=== PATIENT | female | born 1965 | race Caucasian/White ===

== ENCOUNTER 2019-01-29 04:58 | Inpatient (IN) ==
[2019-01-29] MEDS ORDERED: ALBUT/IPRATROP 3MG/0.5MG NEB 3 ML VIAL NEB STA ×2 (05:24→17:27)
[2019-01-29 06:02] LABS: Alanine Aminotransferase 42 U/L (12-78); Albumin Level 3.2 gm/dl (3.4-5.0); Alkaline Phosphatase 134 U/L (45-117); Aspartate Aminotransferase 128 U/L (15-37); BUN Creatinine Ratio 6.6 (10-20); Bilirubin Direct 3.9 mg/dl (0-0.2); Blood Urea Nitrogen 2 mg/dl (7-18); Calcium 8.6 mg/dl (8.5-10.1); Carbon Dioxide 24 mmol/L (21-32); Chloride 89 mmol/L (98-107); Est GFR (African American) 148.3; Glucose 77 mg/dl (70-99); Magnesium 1.8 mg/dl (1.8-2.4); Potassium 3.6 mmol/L (3.5-5.1); Sodium 127 mmol/L (136-145); Total Protein 6.6 gm/dl (6.4-8.2); Troponin I 0.015 ng/ml (0-0.045)
--- NOTE | 2019-01-29 06:09 | XRay Report ---
XR chest 1V portable CLINICAL HISTORY: cough, sob dyspnea COMPARISON STUDY: 01/06/2016 FINDINGS: Moderate cardiomegaly. Findings of pulmonary edema. Diaphragms are smooth. IMPRESSION: Pulmonary edema. The above report was generated using voice recognition software. It may contain grammatical, syntax or spelling errors. Electronically signed by: Hayes Tavarez M.D. 01/29/2019 6:08 AM
[2019-01-29 06:11] LABS: INR 1.5 (0.9-1.1); Partial Thromboplastin Ratio 1.4; Partial Thromboplastin Time 37.2 Seconds (21.0-31.0); Prothrombin Time 15.4 Seconds (9.0-12.0)
[2019-01-29 06:14] LABS: D Dimer 2370 ug/L FEU (0-500)
--- NOTE | 2019-01-29 06:21 | Ultrasound Report ---
US venous doppler LE BI HISTORY: Pain. Edema. b/l leg swelling COMPARISON STUDY: None. FINDINGS: There is normal compressibility, flow, and augmentation within the bilateral lower extremit y deep venous systems. IMPRESSION: No DVT within the right or left lower extremity. The above report was generated using voice recognition software. It may contain grammatical, syntax or spelling errors. Electronically signed by: Hayes Tavarez M.D. 01/29/2019 6:19 AM
--- NOTE | 2019-01-29 06:21 | Emergency Department Note ---
History of Present Illness General Chief complaint: Respiratory Problems Stated complaint: TROUBLE BREATHING, COUGH Source: patient Mode of arrival: ambulatory Limitations: no limitations History of Present Illness Maximum Pain Intensity: 3 This patient is a 54-year-old female who presents to the emergency department for evaluation of trouble breathing. The patient states that she developed a cough while she was in [facility] 2 weeks ago. She returned from [place] yesterday. She has had a persistent cough since then and states she develops trouble breathing last night. She reports that she has had swollen feet and ankles for the past 3 months. She has not used any medication for her symptoms. She states she has had a cough productive of blood-tinged clear mucus. She has had episodes of emesis with the cough. She denies any fevers or chest pain. She denies any abdominal pain or nausea. Patient states she drinks 10-12 beers each day. She is not a smoker. She denies any hormone use. She states that nothing makes her symptoms better or worse. She denies any past medical history but admits that she does not see a primary care provider regularly. Home Medications Home Medications Medication Instructions Recorded Confirmed Type No Known Home Medications 01/29/19 01/29/19 History Allergies Allergy/AdvReac Type Severity Reaction Status Date / Time propoxyphene Allergy Unknown ` Verified 01/29/19 06:23 Past Med/Surg History Medical History Alcohol abuse (Chronic) Surgical History H/O tubal ligation (Chronic) Social History Preferred Language: Telugu Communication Ability: Effective Behavioral Services Tech Required: No Beliefs That Will Affect Care: None marital status: Current Living Situation: Spouse Current Living Situation Comment: lives with ex- Other Information That Helps Us Care for You: No Feels Safe at Home: Yes Safety Concerns: Feels Safe At This Time Smoking Status: Former smoker Do You Dip or Chew Tobacco: No ; Second Hand Exposure: No ; Tobacco Cessation Education Requested by Patient: No Hx Alcohol Use: Yes Alcohol type: beer Hx Substance Use: No Review of Systems A total of 10 systems reviewed and were otherwise negative Physical Exam Vital Signs Vital Signs - 24 hr 01/29/19 05:00 01/29/19 05:16 01/29/19 05:17 Temperature 36.7 C Temperature Source Oral Sepsis Recent Fever Within 48 Hours No Sepsis New/Unexplained Change in Mental Status No Sepsis Action Taken by Nursing No Action Required Pulse Rate 121 H 126 H 123 H Pulse Rate [Apical] Pulse Rate from SpO2 Sensor 123 H Respiratory Rate 20 17 19 Respiratory Effort / Characteristics Respiratory Depth Respiratory Pattern Blood Pressure 141/88 H 129/68 Blood Pressure [Left Arm] Blood Pressure Mean 105 88 Blood Pressure Mean [Left Arm] Blood Pressure Position Sitting Pulse Oximetry 95 95 Oxygen Delivery Method Room Air 01/29/19 05:30 01/29/19 05:33 01/29/19 05:41 Temperature Temperature Source Sepsis Recent Fever Within 48 Hours Sepsis New/Unexplained Change in Mental Status Sepsis Action Taken by Nursing Pulse Rate 115 H Pulse Rate [Apical] 110 H Pulse Rate from SpO2 Sensor 115 H Respiratory Rate 15 20 Respiratory Effort / Characteristics Spontaneous Respiratory Depth Respiratory Pattern Blood Pressure 124/64 Blood Pressure [Left Arm] Blood Pressure Mean 84 Blood Pressure Mean [Left Arm] Blood Pressure Position Pulse Oximetry 97 96 Oxygen Delivery Method Room Air Room Air 01/29/19 06:46 01/29/19 07:00 01/29/19 07:30 Temperature Temperature Source Sepsis Recent Fever Within 48 Hours Sepsis New/Unexplained Change in Mental Status Sepsis Action Taken by Nursing Pulse Rate 113 H 116 H Pulse Rate [Apical] 113 H Pulse Rate from SpO2 Sensor 113 H 116 H Respiratory Rate 16 15 16 Respiratory Effort / Characteristics Non-Labored Respiratory Depth Normal Respiratory Pattern Blood Pressure 120/57 L 129/71 Blood Pressure [Left Arm] 129/77 Blood Pressure Mean 78 90 Blood Pressure Mean [Left Arm] 94 Blood Pressure Position Pulse Oximetry 95 94 91 Oxygen Delivery Method Room Air 01/29/19 08:00 01/29/19 08:23 Temperature Temperature Source Sepsis Recent Fever Within 48 Hours Sepsis New/Unexplained Change in Mental Status Sepsis Action Taken by Nursing Pulse Rate 115 H Pulse Rate [Apical] Pulse Rate from SpO2 Sensor 116 H Respiratory Rate 23 Respiratory Effort / Characteristics Respiratory Depth Normal Respiratory Pattern Regular Blood Pressure 134/66 Blood Pressure [Left Arm] Blood Pressure Mean 88 Blood Pressure Mean [Left Arm] Blood Pressure Position Pulse Oximetry 91 Oxygen Delivery Method Room Air VITALS: Vitals are noted on the nurse's note and reviewed by myself. GENERAL: This is a 54-year-old female, in no acute distress but uncomfortable appearing, chronically unwell appearing. SKIN: Jaundice noted. EARS: External auditory canals clear, tympanic membranes pearly santos without erythema or effusion bilaterally. EYES: Pupils equal round and reactive to light and accommodation. Scleral icterus noted. MOUTH: Mucous membranes moist. Tonsils are not enlarged. Pharynx without erythema or exudate. NECK: Supple without nuchal rigidity. No lymphadenopathy. HEART: Regular rate and rhythm without murmurs gallops or rubs. LUNGS: Clear to auscultation bilaterally without wheezes, rales or rhonchi. ABDOMEN: Positive bowel sounds x 4. Soft, nontender to palpation. EXTREMITIES: 2+ pitting edema bilaterally which extends up to the knees. NEURO: Patient was alert and oriented to person place and time. Course Consultations Consultation #1: Dr. Jackson [facility] Hospitalist Administered Medications Ioversol (Optiray 320 125ml) 125 ml IV ONCE PRN PRN Reason: Interaction Checking Stop: 02/02/19 06:44 Last Admin: 01/29/19 06:45 Dose: 80 ml Documented by: [id number] Discontinued Medications Albuterol (Duoneb) 3 ml NEB NOW STA Stop: 01/29/19 05:25 Last Admin: 01/29/19 05:37 Dose: 3 ml Documented by: [id number] Lorazepam (Ativan) 1 mg in 2 mls @ 2 mls/min IV NOW STA Stop: 01/29/19 06:54 Last Admin: 01/29/19 07:18 Dose: 2 mls/min Documented by: [id number] Sodium Chloride (Nss) 500 mls @ 999 mls/hr IV .Q31M ONE Stop: 01/29/19 07:23 Last Infusion: 01/29/19 08:01 Dose: 0 mls/hr Documented by: [id number] Admin: 01/29/19 07:19 Dose: 999 mls/hr Documented by: [id number] Piperacillin Sod/Tazobactam Sod (Zosyn) 4.5 gm in 120 mls @ 240 mls/hr IV NOW ONE Stop: 01/29/19 07:24 Last Infusion: 01/29/19 08:21 Dose: 0 mls/hr Documented by: [id number] Admin: 01/29/19 07:19 Dose: 240 mls/hr Documented by: [id number] Ondansetron HCl (Zofran) 4 mg IV NOW STA Stop: 01/29/19 07:10 Last Admin: 01/29/19 07:19 Dose: 4 mg Documented by: [id number] Medical Decision Making Differential Diagnosis Differential diagnosis includes pneumonia, upper respiratory infection, asthma exacerbation, COPD exacerbation, CHF, sepsis, among others. Home Medications Current Medication List: was personally reviewed by me Laboratory Data Attestation: I reviewed the patient's lab results. Result diagrams: 01/29/19 05:22 01/29/19 05:22 Lab Results 01/29/19 01/29/19 01/29/19 Range/Units 05:22 05:22 05:22 WBC 6.39 (4.8-10.8) K/uL RBC 3.04 L (4.2-5.4) M/uL Hgb 11.5 L (12.0-16.0) g/dL Hct 31.6 L (37-47) % MCV 103.9 H (80-100) fL MCH 37.8 H (25-34) pg MCHC 36.4 H (32-36) g/dL RDW Std Deviation 54.7 H (36.4-46.3) fL RDW Coeff of Wesley 14.6 H (11.5-14.5) % Plt Count 83 L (130-400) K/uL MPV 9.9 (7.4-10.4) fL Immature Gran % (Auto) 0.5 % Neut % (Auto) 56.0 % Lymph % (Auto) 31.0 % [place] % (Auto) 11.1 % Eos % (Auto) 1.1 % Baso % (Auto) 0.3 % Immature Gran # (Auto) 0.03 H (0.00-0.02) K/uL Neut # (Auto) 3.58 (1.4-6.5) K/uL Lymph # (Auto) 1.98 (1.2-3.4) K/uL [place] # (Auto) 0.71 H (0.11-0.59) K/uL Eos # (Auto) 0.07 (0-0.5) K/uL Baso # (Auto) 0.02 (0-0.2) K/uL Platelet Estimate Decreased L (Normal) Giant Platelets 1+ PT 15.4 H (9.0-12.0) Seconds INR 1.5 H (0.9-1.1) APTT 37.2 H (21.0-31.0) Seconds PTT Ratio 1.4 D-Dimer 2370 H* (0-500) ug/L FEU Sodium 127 L (136-145) mmol/L Potassium 3.6 (3.5-5.1) mmol/L Chloride 89 L (98-107) mmol/L Carbon Dioxide 24 (21-32) mmol/L Anion Gap 14.0 H (3-11) BUN 2 L (7-18) mg/dl Creatinine 0.32 L (0.6-1.2) mg/dl Est Cr Clr Drug Dosing Not Reportable Est GFR ( Amer) 148.3 Est GFR (Non-Af Amer) 128.0 BUN/Creatinine Ratio 6.6 L (10-20) Glucose 77 (70-99) mg/dl Calcium 8.6 (8.5-10.1) mg/dl Magnesium 1.8 (1.8-2.4) mg/dl Total Bilirubin 8.0 H (0.2-1) mg/dl Direct Bilirubin 3.9 H (0-0.2) mg/dl AST 128 H (15-37) U/L ALT 42 (12-78) U/L Alkaline Phosphatase 134 H (45-117) U/L Troponin I 0.015 (0-0.045) ng/ml NT-Pro-B Natriuret Pep (0-900) pg/ml Total Protein 6.6 (6.4-8.2) gm/dl Albumin 3.2 L (3.4-5.0) gm/dl Ethyl Alcohol mg/dL (0-3) mg/dl Influenza Type A Ag (Neg) Influenza Type B Ag (Neg) 01/29/19 01/29/19 01/29/19 Range/Units 05:35 05:50 05:50 WBC (4.8-10.8) K/uL RBC (4.2-5.4) M/uL Hgb (12.0-16.0) g/dL Hct (37-47) % MCV (80-100) fL MCH (25-34) pg MCHC (32-36) g/dL RDW Std Deviation (36.4-46.3) fL RDW Coeff of Wesley (11.5-14.5) % Plt Count (130-400) K/uL MPV (7.4-10.4) fL Immature Gran % (Auto) % Neut % (Auto) % Lymph % (Auto) % [place] % (Auto) % Eos % (Auto) % Baso % (Auto) % Immature Gran # (Auto) (0.00-0.02) K/uL Neut # (Auto) (1.4-6.5) K/uL Lymph # (Auto) (1.2-3.4) K/uL [place] # (Auto) (0.11-0.59) K/uL Eos # (Auto) (0-0.5) K/uL Baso # (Auto) (0-0.2) K/uL Platelet Estimate (Normal) Giant Platelets PT (9.0-12.0) Seconds INR (0.9-1.1) APTT (21.0-31.0) Seconds PTT Ratio D-Dimer (0-500) ug/L FEU Sodium (136-145) mmol/L Potassium (3.5-5.1) mmol/L Chloride (98-107) mmol/L Carbon Dioxide (21-32) mmol/L Anion Gap (3-11) BUN (7-18) mg/dl Creatinine (0.6-1.2) mg/dl Est Cr Clr Drug Dosing Est GFR ( Amer) Est GFR (Non-Af Amer) BUN/Creatinine Ratio (10-20) Glucose (70-99) mg/dl Calcium (8.5-10.1) mg/dl Magnesium (1.8-2.4) mg/dl Total Bilirubin (0.2-1) mg/dl Direct Bilirubin (0-0.2) mg/dl AST (15-37) U/L ALT (12-78) U/L Alkaline Phosphatase (45-117) U/L Troponin I (0-0.045) ng/ml NT-Pro-B Natriuret Pep 259 (0-900) pg/ml Total Protein (6.4-8.2) gm/dl Albumin (3.4-5.0) gm/dl Ethyl Alcohol mg/dL 134.0 H (0-3) mg/dl Influenza Type A Ag Neg for Influ A (Neg) Influenza Type B Ag Neg for Influ B (Neg) Imaging Data Attestation: I personally reviewed and interpreted this imaging study as follows: Radiologist's Impression: XR chest 1V portable FINDINGS: Moderate cardiomegaly. Findings of pulmonary edema. Diaphragms are smooth. IMPRESSION: Pulmonary edema. US venous doppler LE BI FINDINGS: There is normal compressibility, flow, and augmentation within the bilateral lower extremity deep venous systems. IMPRESSION: No DVT within the right or left lower extremity. CT angio chest PE protocol FINDINGS: The thoracic aorta is normal in course and caliber. Pulmonary vasculature enhances appropriately. There are no filling defects. There are patchy bilateral parenchymal infiltrative changes versus component of pulmonary edema. There are small bilateral pleural effusions. Liver is enlarged with evidence for fatty infiltration. Findings of mild reactive hilar as well as mediastinal adenopathy. IMPRESSION: 1. Study is negative for pulmonary embolus. 2. Findings of diffuse bilateral multifocal pneumonitis versus pulmonary edema. 3. Small bilateral pleural effusions. 4. Hepatomegaly with diffuse fatty replacement ECG Data Attestation: I personally reviewed and interpreted this ECG as follows: Indication: SOB/dyspnea Rate (beats per minute): 131 Rhythm: sinus tachycardia Findings: + other (low voltage QRS); no acute ischemic change and no ectopy Comparison ECG Date: no prior available Blood Pressure Blood Pressure Findings: Elevated blood pressure Blood Pressure Disposition: elevated BP felt to be situational MDM Narrative The patient is a 54-year-old female who presents today complaining of shortness of breath and cough. Labs revealed no leukocytosis, mild anemia and thrombocytopenia. Patient is hyponatremic. Bilirubin significantly elevated at 8, likely due to alcohol abuse. INR elevated at 1.5. Chest x-ray suggestive of pulmonary edema, but BNP was not elevated. D-dimer was found to be elevated and therefore CT of the chest performed. This was suggestive of multifocal pneumonia versus pulmonary edema. Patient's symptoms are more suggestive of an infectious source. Patient was given a dose of Zosyn as this will also cover for possible aspiration pneumonia. She did arrive tachycardic. She was given a 500 mL bolus and a dose of Ativan. Patient will need admitted for further evaluation and care. [facility] The patient's case was discussed with Dr. Castillo, who agreed with my evaluation and treatment plan. Impression & Plan Multifocal pneumonia, Hyperbilirubinemia, Hyponatremia, Alcohol abuse Discharge Plan Visit Data Chief Complaint: Respiratory Problems Stated Complaint: TROUBLE BREATHING, COUGH ED Provider: Edda Castillo ED Midlevel Provider: Christel Couch Discharge Problem: Multifocal pneumonia, Hyperbilirubinemia, Hyponatremia, Alcohol abuse Forms Stand Alone Forms: My [facility] Track Prescriptions Prescriptions: No Action No Known Home Medications RF: 0 Referrals Referrals: Adrian Gaston, [Primary Care Provider] -
[2019-01-29 06:25] LABS: Hematocrit (blood only) 31.6 % (37-47); Hemoglobin 11.5 g/dL (12.0-16.0); Mean Corpuscular Hemoglobin 37.8 pg (25-34); Mean Corpuscular Hgb Conc 36.4 g/dL (32-36); Mean Corpuscular Volume 103.9 fL (80-100); Mean Platelet Volume 9.9 fL (7.4-10.4); Platelet Count 83 K/uL (130-400); RDW Coefficient of Variation 14.6 % (11.5-14.5); RDW Standard Deviation 54.7 fL (36.4-46.3); Red Blood Count 3.04 M/uL (4.2-5.4); White Blood Count 6.39 K/uL (4.8-10.8)
[2019-01-29 06:37] LABS: Basophils # (auto) 0.02 K/uL (0-0.2); Basophils % (auto) 0.3 %; Eosinophils # (auto) 0.07 K/uL (0-0.5); Eosinophils % (auto) 1.1 %; Giant Platelets 1+; Immature Granulocytes # (auto) 0.03 K/uL (0.00-0.02); Immature Granulocytes % (auto) 0.5 %; Lymphocytes # (auto) 1.98 K/uL (1.2-3.4); Monocytes # (auto) 0.71 K/uL (0.11-0.59); Monocytes % (auto) 11.1 %; Neutrophils # (auto) 3.58 K/uL (1.4-6.5); Platelet Estimate Decreased (Normal)
[2019-01-29] MEDS ORDERED: OPTIRAY 320 125ml IV PRN (06:45)
[2019-01-29] MEDS ORDERED: SODIUM CHLORIDE 0.9% 500 ML IV ONE (06:53)
[2019-01-29] MEDS ORDERED: LORazepam 1 MG/2 ML VIAL IV STA ×2 (06:53→17:27)
[2019-01-29] MEDS ORDERED: PIPERACILLIN/TAZOBACTAM 4.5 GM/120 ML BAG IV ONE (06:55)
[2019-01-29] MEDS ORDERED: PIPERACILL/TAZOBAC CONSULT ACTIVE PRN ×2 (06:55→11:24)
--- NOTE | 2019-01-29 06:57 | CT Scan Report ---
CT angio chest PE protocol CT DOSE: 385.22 mGy.cm HISTORY: Dyspnea elevated dimer, sob TECHNIQUE: Multiaxial CT images of the chest were performed following the intravenous administration of contrast to evaluate the pulmonary arteries. Maximal intensity projection images were also obtaine d. A dose lowering technique was utilized adhering to the principles of ALARA. COMPARISON STUDY: None. FINDINGS: The thoracic aorta is normal in course and caliber. Pulmonary vasculature enhances appropri ately. There are no filling defects. There are patchy bilateral parenchymal infiltrative changes versus component of pulmonary edema. There are small bilateral pleural effusions. Liver is enlarged with evidence for fatty infiltration. Findings of mild reactive hilar as well as mediastinal adenopathy. IMPRESSION: 1. Study is negative for pulmonary embolus. 2. Findings of diffuse bilateral multifocal pneumonitis versus pulmonary edema. 3. Small bilateral pleural effusions. 4. Hepatomegaly with diffuse fatty replacement The above report was generated using voice recognition software. It may contain grammatical, syntax or spelling errors. Electronically signed by: Hayes Tavarez M.D. 01/29/2019 6:55 AM
[2019-01-29] MEDS ORDERED: ONDANSETRON INJ 2 MG/ML 2 ML VIAL IV STA (07:09)
--- NOTE | 2019-01-29 08:23 | History & Physical Report ---
Date of Service January 29, 2019 Assessment & Plan (1) Aspiration pneumonitis: (2) Alcoholic ketoacidosis: (3) Alcohol abuse: (4) Hyperbilirubinemia: (5) Hyponatremia: (6) Depression: (7) Anxiety: (8) Abdominal pain: Banana Bag, D5 NS, Uric acid, Renal and GI eval, Alcohol w/d protocol, Thiamine, Folate, Gabapentin, IV Zosyn, Tele ROS-No Headache, No Visual Changes, No Nausea, No Vomiting, No Fever, No Chills, No Neck Pain or Stiffness, No Chest Pain, No Palpitations, + SOB, No SMYTH, +Cough, +Blood Tinged Sputum, No Wheezing, No Abdominal Pain, No Diarrhea, No Hematemesis, No Hemoptysis, + Weight Gain, No Flank pain, No Melena, No Hematochezia, No Frequency, No Urgency, No Burning, No Hematuria, No Rashes, No Diaphoresis. Appetite is Normal, Leg weakness Physical Exam Gen-AAO x 3, NAD, Afebrile, Jaundiced Head-NCAT, EOMI, PERRLA, +Icteric Sclera, No Posterior Pharyngeal Erythema Neck-Supple, No JVD, No Thyromegaly, No Masses, No LAD, No Bruits Lungs-Clear to Auscultation Bilaterally, No Rales, No Rhonchi, No Wheezing, No Crepitus Chest-No S4, +S1, +S2, No S3, No Murmurs, No Rubs, No Gallops, No Ectopy Abdomen-Soft, Bowel Sounds Present, Non Tender, Non Distended, No Hepatomegaly, No Splenomegaly, No Palpable Masses, No Rebound, No Rigidity, No Guarding Musculoskeletal-Full Range of Motion Bilaterally, No CVAT Extremities-No Cyanosis, No Clubbing, + 2+ B/L LE Edema Nuero-Cranial Nerves II-XII grossly intact, Motor WNL, DTRs WNL, Strength WNL, Non Focal Psych-Normal Mood Labs reviewed History of Present Illness 54-year-old female who presents to the emergency department for evaluation of trouble breathing. The patient states that she developed a cough while she was in [facility] 2 weeks ago. She returned from [place] yesterday. She has had a persistent cough since then and states she develops trouble breathing last night. She reports that she has had swollen feet and ankles for the past 3 months. She has not used any medication for her symptoms. She states she has had a cough productive of blood-tinged clear mucus. She has had episodes of emesis with the cough. She denies any fevers or chest pain. She denies any a bdominal pain or nausea. Patient states she drinks 10-12 beers each day. She is not a smoker. Her alcohol level was 135 in the ER, CXR revealed Pulm edema, her Bili is 8 and she was started on IV Zosyn for Aspiration Pneumonitis, her Na was also low at 127. 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 FH-M of CAD and DM II, F of DM II, No sisters, 3 Healthy Brothers, 3 Healthy Sons and 1 Healthy Dtr Primary Care Provider: Adrian Gaston DO Allergies Allergy/AdvReac Type Severity Reaction Status Date / Time propoxyphene Allergy Unknown ` Verified 01/29/19 06:23 Home Medications Home Medications Medication Instructions Recorded Confirmed Type No Known Home Medications 01/29/19 01/29/19 History Past Med/Surg History Medical History Alcohol abuse (Chronic) Surgical History H/O tubal ligation (Chronic) Social History Preferred Language: Russian Communication Ability: Effective Senior Biostatistician/Group Leader Required: No Beliefs That Will Affect Care: None marital status: Current Living Situation: Spouse Current Living Situation Comment: lives with ex- Other Information That Helps Us Care for You: No Feels Safe at Home: Yes Safety Concerns: Feels Safe At This Time Smoking Status: Former smoker Do You Dip or Chew Tobacco: No ; Second Hand Exposure: No ; Tobacco Cessation Education Requested by Patient: No Hx Alcohol Use: Yes Alcohol type: beer Hx Substance Use: No Results & Data Vital Signs (Past 12 Hours) Vital Signs Temp Pulse Pulse Resp BP BP Pulse Ox 01/29/19 07:00 113 H 15 120/57 L 94 01/29/19 06:46 113 H 16 129/77 95 01/29/19 05:41 110 H 20 96 01/29/19 05:30 115 H 15 124/64 97 01/29/19 05:17 123 H 19 129/68 95 01/29/19 05:16 126 H 17 01/29/19 05:00 36.7 C 121 H 20 141/88 H 95 Allergies propoxyphene Allergy (Unknown, Verified 01/29/19 06:23) ` Height/Weight/Isolation Weight 91.3 kg Chemistry 01/29/19 05:22 Sodium 127 L Potassium 3.6 Chloride 89 L Carbon Dioxide 24 Anion Gap 14.0 H BUN 2 L Creatinine 0.32 L Glucose 77 Code Status & VTE Plan VTE Prophylaxis Plan VTE Prophylaxis will be ordered: Yes
[2019-01-29] MEDS ORDERED: D5W AND NSS 1,000 ML IV SCH (11:24)
[2019-01-29] MEDS ORDERED: MULTI-VITAMIN INFUSION 10 ML, THIAMINE HCL 100 MG, FOLIC ACID 1 MG in SODIUM CHLORIDE 0... IV SCH (11:24)
[2019-01-29] MEDS ORDERED: LACTATED RINGER'S 1,000 ML IV SCH (11:24)
[2019-01-29] MEDS ORDERED: LORazepam 1 MG TAB PO PRN (11:24)
[2019-01-29] MEDS ORDERED: GABAPENTIN 1200MG ALCOHOL WITHDRAWAL LOAD PO STA (11:24)
[2019-01-29 11:58] LABS: INR 1.6 (0.9-1.1); Prothrombin Time 15.8 Seconds (9.0-12.0)
[2019-01-29] MEDS ORDERED: GABAPENTIN 600 MG TAB PO SCH (12:00)
[2019-01-29] MEDS: FOLIC ACID 1 MG in SYRINGE 9.8 ML IV SCH (12:09)
[2019-01-29] MEDS: THIAMINE HCL 100 MG in SYRINGE 9 ML IV SCH (12:09)
[2019-01-29] MEDS ORDERED: AcetylCYSTEINE IV 21 HR REGIMEN (>40KG) IV STA (12:16)
[2019-01-29 12:19] LABS: Folate (Folic Acid) 3.57 ng/ml (>5.38)
[2019-01-29 12:24] LABS: Albumin Level 2.8 gm/dl (3.4-5.0); Bilirubin Direct 3.6 mg/dl (0-0.2); Bilirubin,Total 7.6 mg/dl (0.2-1); Uric Acid 2.3 mg/dl (2.6-7.2)
[2019-01-29] MEDS ORDERED: ACETYLCYSTEINE IV ONE ×4 (12:30→17:45)
[2019-01-29] MEDS ORDERED: DEXTROSE 5% IV ONE ×4 (12:30→17:45)
--- NOTE | 2019-01-29 12:48 | Gastrointestinal Consultation ---
Date of Consultation January 29, 2019 Assessment & Plan (1) Elevated LFTs: (2) Alcohol abuse: Pt is a 54 y/o female seen for elevated LFTs, hx of known hepatic steatosis and admitted ETOH abuses. Suspect likely ETOH hepatitis, ? OBRIEN. Maddrey Discriminant Function Score <32. - IV antibx coverage for possible pneumonitis, LE cellulitis - Obtain US Hepatic Duplex to r/o PVT and also eval CBD. If CBD dilated, obtain MRCP to r/o biliary - Trend LFT, renal function, INR and mentation - Start NAC protocol (plan 24 - 48 hrs depending on LFT trend). - Strict ETOH cessation advised; case management for counseling resoursces. - Will continue to monitor closely Supervising Physician Co-Signing Physician Notes I have seen and examined the patient and discussed the managment with ROSEMARIE Pulliam. 54 yo fm admitted with respiratory issues on treatment for pna and also celullitis. GI consulted for abnl labs. Endorses sig etoh intake. PE - well nourished fm in nad, HEENT - slight scleral icterus, Abd - soft nt nd +bs Labs reviewed: TB elevation, ast/alt elevation, and alk phos elevation Prior ast/alt elevation in 2016 and last abd napoleon showing fatty liver Await abd [place]ole[place] with doppler MDF less than 32 NAC empirically for alcoholic hepatitis not meeting criteria for treatment for alcoholic hepatitis with prednisolone History of Present Illness Reason for Consultation: Hyperbilirubinemia Requesting Physician: Dr. Yoshi Cormier Attending Physician: Dr. Martina Castañeda History of Present Illness Pt is a 54 y/o female who presented to ED w c/o increased productive cough x 2 weeks, w some blood tinged phlegm, also increased leg swelling since October. Has some chest pain from coughing and SOB. Workup w negative Flu, elevated Ddimer, CTA chest negative for PE but possible pneumonitis vs pulmonary edema. Bilateral LE u/s w/o DVT. It is noted that her LFTs are elevated: Tbili 8, Dbili 3.6, AST 110, ALT 37, AP 120. INR 1.6. Na 127, Cl 89. BNP normal 259 Noted her baseline LFTs showed mild transaminitis but normal Tbili in 2016. She has known hepatic steatosis. She drink 10-12 beers daily. Denies illicit drugs. + tattoos. Denies hx of blood transfusion. She does have mild RUQ abd pain but no n/v. Denies bowel habit changes, GI bleeding symptoms. 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 Beliefs That Will Affect Care: None marital status: Current Living Situation: Spouse Current Living Situation Comment: lives with ex- Other Information That Helps Us Care for You: No Feels Safe at Home: Yes Safety Concerns: Feels Safe At This Time Smoking Status: Former smoker Do You Dip or Chew Tobacco: No ; Second Hand Exposure: No ; Tobacco Cessation Education Requested by Patient: No Hx Alcohol Use: Yes Alcohol type: beer Hx Substance Use: No Review of Systems Review of Systems: All systems reviewed & are unremarkable except as noted in HPI & below Physical Exam Constitutional: WD/WN, vitals as above well groomed, cooperative and comfortable Eyes: + scleral abnormality (icteric), PERRL and EOM intact bilaterally ENMT: external ear and nose normal, oropharynx normal Respiratory: normal respiratory effort; no respiratory distress and does not use accessory muscles Auscultation: + diminished lung sounds Cardiovascular: RRR, no murmur, no edema Gastrointestinal (Abdomen): Inspection/Auscultation: + hypoactive bowel sounds Percussion/Palpation: + abdomen tender (epigastric, RUQ ) and abdomen soft Skin: + jaundice bilateral legs w mild erythema Neurologic: Motor/Sensory: no asterixis Psychiatric: A+Ox3, euthymic affect Lymphatic: + lymphedema (edema on bilateral LE ) Results & Data Vital Signs (Past 12 Hours) Vital Signs Temp Pulse Pulse Pulse Resp BP BP 01/29/19 11:20 37 C 118 H 18 112/68 01/29/19 10:30 115 H 22 121/59 L 01/29/19 10:00 117 H 22 124/61 01/29/19 09:30 117 H 23 124/60 01/29/19 09:00 119 H 23 127/57 L 01/29/19 08:30 120 H 15 134/62 01/29/19 08:00 115 H 23 134/66 01/29/19 07:30 116 H 16 129/71 01/29/19 07:00 113 H 15 120/57 L 01/29/19 06:46 113 H 16 129/77 01/29/19 05:41 110 H 20 01/29/19 05:30 115 H 15 124/64 01/29/19 05:17 123 H 19 129/68 01/29/19 05:16 126 H 17 01/29/19 05:00 36.7 C 121 H 20 141/88 H Pulse Ox 01/29/19 11:20 93 01/29/19 10:30 92 01/29/19 10:00 95 01/29/19 09:30 96 01/29/19 09:00 95 01/29/19 08:30 96 01/29/19 08:00 91 01/29/19 07:30 91 01/29/19 07:00 94 01/29/19 06:46 95 01/29/19 05:41 96 01/29/19 05:30 97 01/29/19 05:17 95 01/29/19 05:16 01/29/19 05:00 95
[2019-01-29] MEDS ORDERED: MIDAZOLAM HCL 5 MG/ML VIAL IV ONE (13:32)
[2019-01-29] MEDS ORDERED: SUCCINYLCHOLINE CHLORIDE 20 MG/ML 10 ML VIAL IV ONE (13:32)
[2019-01-29] MEDS ORDERED: ETOMIDATE 2 MG/ML 20 ML VIAL IV ONE (13:32)
[2019-01-29] MEDS ORDERED: fentaNYL citrate 100 MCG/2 ML VIAL IV ONE (13:32)
--- NOTE | 2019-01-29 14:53 | Ultrasound Report ---
US duplex portal hepatic veins CLINICAL HISTORY: elevated lft COMPARISON STUDY: Abdominal ultrasound 01/06/2016. FINDINGS: Overall difficult examination due to the poor acoustic window from the hepatic steatosis. T here is reversal of flow within the splenic vein. No flow identified within the main portal vein or l eft portal vein. The distal branches of the left portal vein appear to demonstrate flow. The right po rtal vein is not well visualized but may demonstrate flow. The right hepatic vein is also not visuali zed. There is flow identified within the left hepatic vein and main hepatic vein. Small amount of asc ites. IMPRESSION: Suboptimal study due to the hepatic steatosis. No definite flow identified within the ma in portal vein with suggestion of reversal of flow within the splenic vein. There is no definite flow within the proximal left portal vein. Electronically signed by: Raymon Pitts M.D. 01/29/2019 2:51 PM
[2019-01-29] MEDS ORDERED: ONDANSETRON INJ 2 MG/ML 2 ML VIAL IV PRN (15:32)
[2019-01-29] MEDS: PIPERACILLIN/TAZOBACTAM 4.5 GM in DEXTROSE 5% 100 ML IV SCH ×2 (16:05→20:21)
[2019-01-29] MEDS: FUROSEMIDE 20 MG in SYRINGE 0 ML IV SCH (17:46)
[2019-01-29] MEDS: SPIRONOLACTONE 25 MG TAB PO SCH (17:47)
--- NOTE | 2019-01-29 18:05 | XRay Report ---
SINGLE VIEW CHEST CLINICAL HISTORY: Dyspnea. FINDINGS: An AP, portable, upright chest radiograph is compared to chest x-ray and chest CT performed the same day 01/29/2019. The examination is degraded by portable technique and patient rotation. The heart is enlarged. There is pulmonary vascular congestion with evidence of interstitial edema. There are small pleural effusions with bibasilar consolidation. No pneumothorax is seen. The skeletal stru ctures are osteopenic. The bony thorax is grossly intact. IMPRESSION: 1. Cardiomegaly with evidence of congestive failure and interstitial edema. This has worsened from to day's earlier examination. 2. There are small pleural effusions with bibasilar consolidation. This likely represents atelectasis . Correlate clinically for evidence of superimposed pneumonia. Electronically signed by: Jelani Ramsey M.D. 01/29/2019 6:03 PM
[2019-01-29 18:20] LABS: Base Excess ABG -0.8 mEq/L (-9-1.8); HCO3 ABG 22 mmol/L (19-24); Oxygen Saturation ABG 92.1 % (90-95); PCO2 ABG 32 mmHg (35-46); PO2 ABG 65 mm/Hg (80-95); pH ABG 7.46 (7.35-7.45)
[2019-01-29 18:21] LABS: Allen Test POS (Pos)
[2019-01-29] MEDS: GABAPENTIN 600 MG TAB PO SCH ×2 (18:29→23:21)
[2019-01-29 18:36] LABS: BUN Creatinine Ratio 8.3 (10-20); Calcium 7.8 mg/dl (8.5-10.1); Creatinine Clr Calc Pharmacy 194.8 ml/min; Est GFR (African American) 142.7; Est GFR (Non-African American) 123.1; Potassium 3.8 mmol/L (3.5-5.1)
[2019-01-29] MEDS: DIAZEPAM 5 MG/ML INJ 10ML VIAL ONE ×2 (18:39→19:13)
[2019-01-29] MEDS ORDERED: DIAZEPAM 5 MG/ML INJ 10ML VIAL IV STA (18:39)
--- NOTE | 2019-01-29 21:37 | Nephrology Consultation ---
Date of Consultation January 29, 2019 Assessment & Plan (1) Volume overload: acute on chronic problem, w/ LE edema present x 3 mos but respiratory sx present less than 2 wks and acutely worse today w/ pulmonary edema multifactorial most likely >> certainly a component of liver cirrhosis; also however w/ tachycardia/hypotension -lasix as below -will d/w hospitalist medication to slow HR, TTE in AM; low threshold for ICU status if decompensates Present on Admission?: Yes (2) Pulmonary edema: presume acute given worsening hypoxia -agree w/ stopping IVF -agree w/ lasix 20 mg IV x 1 dose today / bid -will give another 20 mg IV now w/ hold parameters for sbp <95 -continue nebs, abtx Present on Admission?: Yes (3) Multifocal pneumonia: on zosyn; consider vanco empirically Present on Admission?: Yes (4) Hyponatremia: hypervolemic hypotonic hyponatremia >> mild and asymptomatic -lasix as above -most likely from liver but need to evaluate cardiac function given tachyarrhythmia/hypotension -stable on recheck this evening at 128 -maintain eukalemia > ordered 40 mEq po K now and in am -recheck bmp in am Present on Admission?: Yes (5) Alcohol abuse: EtOH + on admission; GI following; on withdrawal protocols Present on Admission?: Yes History of Present Illness Reason for Consultation: hyponatremia, volume OL Requesting Physician: Dr Cormier Attending Physician: Yoshi Cormier, History of Present Illness 54 y/o F whom I'm asked to see for hyponatremia and volume management in the setting of liver disease after she presented to the ER with dyspnea and cough. PMH includes active EtOH abuse (EtOH level in ER 134) anxiety/depression. Followed in past w/ [facility] but not seen since 2016. Pt c/o LE edema which started in October 2018. She has not taken any medications for this. She states she developed URI while visiting [facility] where she flew 2 weeks ago. States URI worsened since returning home, w/ worsening cough and today intermittent hemoptysis. She was getting D5NS at 80 mL hourly when I saw her late this afternoon; this was turned off shortly after d/t worsening respiratory distress, pulmonary edema, and A fib w/ RVR. She was started at 1700 on lasix 2 0 mg IV bid, of which has had one dose. She is 2.2 L positive on the admission. Presenting sNa was 127 midday. 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 Beliefs That Will Affect Care: None marital status: Current Living Situation: Spouse Current Living Situation Comment: lives with ex- Other Information That Helps Us Care for You: No Feels Safe at Home: Yes Safety Concerns: Feels Safe At This Time Smoking Status: Former smoker Do You Dip or Chew Tobacco: No ; Second Hand Exposure: No ; Tobacco Cessation Education Requested by Patient: No Hx Alcohol Use: Yes Alcohol type: beer Hx Substance Use: No Review of Systems Review of Systems: limited by pt condition - respiratory distress and work up for this underway Constitutional: as per Subjective / HPI, + fatigue and + weight gain; no fever Eyes: no worsening vision Ear, Nose, Mouth, Throat: no dry mouth and no sore throat Respiratory: as per Subjective / HPI, + cough, + chest congestion, + dyspnea, + dyspnea on exertion and + hemoptysis Cardiovascular: + orthopnea and + edema; no chest pain Gastrointestinal: no early satiety, no nausea, no vomiting and no diarrhea/loose stools Genitourinary: no dysuria, no urinary frequency, no decreased urination and no hematuria Musculoskeletal: + swelling and + stiffness Integumentary: no rash and no non-healing lesions Neurologic: + unsteadiness Psychiatric: + substance abuse Physical Exam Constitutional: well developed, well nourished, + acute distress (fatigued, tachypneic, getting labs/XR/ABG), + ill appearing, + obese, cooperative and + edematous Eyes: EOM intact bilaterally ENMT: Ears: no external ear abnormality Nose: no external nose abnormality Mouth: + dry oral mucous membranes Neck: no nuchal rigidity Respiratory: + labored breathing (tachypneic), + cough, able to speak in complete sentences and + tachypneic; does not use accessory muscles, no paradoxical chest wall movement and no paradoxical thoraco-abdominal movemnt Auscultation: + diminished lung sounds (moves almost no air on lung exam) Cardiovascular: Rate/Rhythm: + tachycardic (cannot assess regularity; distant HS) Extremities: + edema (2-3 + indurated to distal pretibial; trace above knee) Gastrointestinal (Abdomen): Inspection/Auscultation: normal bowel sounds Percussion/Palpation: abdomen soft; abdomen nontender Musculoskeletal: Extremities: strength 5/5 throughout Skin: no rashes, warm and dry Neurologic: terrazas, fluent though limited speech, no shameka tremor Psychiatric: Orientation: alert and oriented x 3 Speech: normal rate/rhythm/volume of speech (limited speech) Genitourinary: no dickey Results & Data Vital Signs (Past 12 Hours) Vital Signs Temp Pulse Pulse Resp BP BP Pulse Ox 01/29/19 19:08 37.3 C 121 H 23 105/54 L 91 01/29/19 18:12 123 H 20 92 01/29/19 16:45 124 H 01/29/19 16:29 01/29/19 15:18 37.0 C 116 H 21 101/57 L 94 01/29/19 11:24 122 H 01/29/19 11:20 37 C 118 H 18 112/68 93 01/29/19 10:30 115 H 22 121/59 L 92 01/29/19 10:00 117 H 22 124/61 95 Pulse Ox 01/29/19 19:08 01/29/19 18:12 01/29/19 16:45 01/29/19 16:29 94 01/29/19 15:18 01/29/19 11:24 01/29/19 11:20 01/29/19 10:30 01/29/19 10:00 Laboratory Results 01/29/19 05:22 01/29/19 17:54 Fish 80 uOSM 330 serum osms 272 albumin 2.8 transaminases in 100s D dimer 2370 uric acid 2.3 ABG on 2L >> 7.46/ 32/ 65/ 22 Diagnostic Findings CTA today 1. Study is negative for pulmonary embolus. 2. Findings of diffuse bilateral multifocal pneumonitis versus pulmonary edema. 3. Small bilateral pleural effusions. 4. Hepatomegaly with diffuse fatty replacement CXR earlier today> IMPRESSION: Pulmonary edema. BLE Dopplers > no DVT CXR 1730 1. Cardiomegaly with evidence of congestive failure and interstitial edema. This has worsened from today's earlier examination. 2. There are small pleural effusions with bibasilar consolidation. This likely represents atelectasis. Correlate clinically for evidence of superimposed pneumonia. (1) Pulmonary edema Chronicity: acute Qualified Code(s): J81.0 - Acute pulmonary edema (2) Volume overload Hypervolemia type: other Qualified Code(s): E87.79 - Other fluid overload
[2019-01-29] MEDS ORDERED: XOPENEX/ATROVENT 1.25mg/0.5MG NEB COMBO NEB STA (22:42)
[2019-01-29] MEDS ORDERED: ALBUMIN 25% 50 ML IV ONE (22:45)
[2019-01-29] MEDS ORDERED: FUROSEMIDE 20 MG in SYRINGE 0 ML IV ONE (22:45)
[2019-01-29] MEDS ORDERED: POTASSIUM CHLORIDE 20 MEQ TABCR PO ONE (22:45)
[2019-01-29] MEDS ORDERED: LORazepam 3 MG/6 ML VIAL IV PRN (22:47)
[2019-01-29] MEDS ORDERED: LORazepam 1 MG/2 ML VIAL IV PRN (22:47)
[2019-01-29] MEDS ORDERED: methylPREDNISolone 20 MG in SYRINGE 0 ML IV ONE (23:00)
[2019-01-29] MEDS ORDERED: ATIVAN IV ALCOHOL WITHDRAWL IV SCH (23:00)
[2019-01-29] MEDS ORDERED: LEVALBUTEROL 1.25MG/0.5ML NEB INH ONE (23:00)
[2019-01-29] MEDS ORDERED: MAGNESIUM SULFATE / D5W 1 GM/100 ML BAG IV ONE (23:00)
[2019-01-29] MEDS ORDERED: IPRATROPIUM BROMIDE NEB SOLN 0.02% 2.5 ML VIAL INH ONE (23:00)
[2019-01-29 23:25] LABS: Hematocrit (blood only) 27.5 % (37-47); Hemoglobin 9.9 g/dL (12.0-16.0); Mean Corpuscular Hemoglobin 37.6 pg (25-34); Mean Corpuscular Volume 104.6 fL (80-100); RDW Coefficient of Variation 14.6 % (11.5-14.5); RDW Standard Deviation 54.7 fL (36.4-46.3); Red Blood Count 2.63 M/uL (4.2-5.4); White Blood Count 4.94 K/uL (4.8-10.8)
[2019-01-29 23:41] LABS: HCO3 ABG 26 mmol/L (19-24); Oxygen Saturation ABG 91.2 % (90-95); PCO2 ABG 35 mmHg (35-46); PO2 ABG 64 mm/Hg (80-95)
[2019-01-29 23:42] LABS: Allen Test POS (Pos)
[2019-01-29 23:46] LABS: Mean Platelet Volume 10.4 fL (7.4-10.4); Platelet Count 64 K/uL (130-400)
[2019-01-30 00:11] LABS: Basophils # (auto) 0.01 K/uL (0-0.2); Basophils % (auto) 0.2 %; Eosinophils # (auto) 0.02 K/uL (0-0.5); Eosinophils % (auto) 0.4 %; Immature Granulocytes # (auto) 0.04 K/uL (0.00-0.02); Immature Granulocytes % (auto) 0.8 %; Lymphocytes # (auto) 0.84 K/uL (1.2-3.4); Monocytes # (auto) 0.91 K/uL (0.11-0.59); Monocytes % (auto) 18.4 %; Neutrophils # (auto) 3.12 K/uL (1.4-6.5); Neutrophils % (auto) 63.2 %; RBC Morphology Unremarkable
[2019-01-30] MEDS: IPRATROPIUM BROMIDE NEB SOLN 0.02% 2.5 ML VIAL INH SCH ×4 (01:22→19:32)
[2019-01-30] MEDS: LEVALBUTEROL 1.25MG/0.5ML NEB INH SCH ×4 (01:23→19:32)
[2019-01-30] MEDS ORDERED: ALBUMIN 25% 50 ML IV ONE (02:38)
[2019-01-30] MEDS ORDERED: METOPROLOL TARTRATE 25 MG TAB PO STA (02:41)
[2019-01-30] MEDS ORDERED: XOPENEX/ATROVENT 1.25mg/0.5MG NEB COMBO NEB SCH (03:00)
[2019-01-30] MEDS: PIPERACILLIN/TAZOBACTAM 4.5 GM in DEXTROSE 5% 100 ML IV SCH ×2 (04:07→11:18)
--- NOTE | 2019-01-30 07:05 | Hospitalist Progress Note ---
Date of Service January 30, 2019 Subjective Overnight developments: Solu-Medrol 1 dose given for hemoptysis secondary to aspiration pneumonia. Beta levar initiated for persistent tachycardia in the setting of CHF. baseline TTE ordered. Will relay to AM provider Results & Data Vital Signs (Past 12 Hours) Vital Signs Temp Pulse Pulse Resp BP BP Pulse Ox 01/30/19 05:26 01/30/19 04:02 37.3 C 118 H 19 123/72 93 01/30/19 01:24 120 H 18 91 01/29/19 23:59 123 H 01/29/19 23:40 37.2 C 125 H 19 111/59 L 92 01/29/19 23:27 125 H 20 91 01/29/19 19:08 37.3 C 121 H 23 105/54 L 91 Pulse Ox 01/30/19 05:26 93 01/30/19 04:02 01/30/19 01:24 01/29/19 23:59 01/29/19 23:40 01/29/19 23:27 01/29/19 19:08
[2019-01-30 07:57] LABS: INR 1.9 (0.9-1.1); Prothrombin Time 18.9 Seconds (9.0-12.0)
--- NOTE | 2019-01-30 08:11 | XRay Report ---
XR chest 1V portable CLINICAL HISTORY: 54 years-old Female presenting with Hypoxia, hemoptysis. TECHNIQUE: Portable upright AP view of the chest was obtained. COMPARISON: 01/29/2019. FINDINGS: Atherosclerosis of the aortic arch. Cardiac silhouette enlarged. Pulmonary vascular prominence. Perih ilar and mid to basilar lung opacities. Interstitial prominence likely indicates interlobular septal thickening. Mildly low lung volumes. Bilateral small pleural effusion suspected. No pneumothorax. Oss eous structures normal. External leads overlie the right lower lung and right upper quadrant to grati ng evaluation in these regions. IMPRESSION: 1. Stable to slight interval worsening of bilateral diffuse pulmonary infiltrates with a mid to basi lar predominance. This could represents moderate pulmonary edema, pulmonary hemorrhage, or multifocal pneumonia. 2. Cardiomegaly with volume overload and congestive change. 3. Small pleural effusions. Electronically signed by: Rowdy Elizabeth M.D. 01/30/2019 8:10 AM
[2019-01-30] MEDS: FUROSEMIDE 20 MG in SYRINGE 0 ML IV SCH ×3 (08:13→18:00)
[2019-01-30] MEDS: FOLIC ACID 1 MG in SYRINGE 9.8 ML IV SCH (08:13)
[2019-01-30] MEDS: SPIRONOLACTONE 25 MG TAB PO SCH (08:14)
[2019-01-30] MEDS: GABAPENTIN 600 MG TAB PO SCH ×3 (08:15→23:22)
[2019-01-30] MEDS: THIAMINE HCL 100 MG in SYRINGE 9 ML IV SCH (08:15)
[2019-01-30 08:29] LABS: Albumin Level 2.8 gm/dl (3.4-5.0); Bilirubin,Total 8.8 mg/dl (0.2-1); Calcium 8.1 mg/dl (8.5-10.1); Creatinine Clr Calc Pharmacy 144.2 ml/min; Est GFR (African American) 128.9; Est GFR (Non-African American) 111.2; Globulin 2.9 gm/dl (2.5-4.0); Total Protein 5.7 gm/dl (6.4-8.2)
--- NOTE | 2019-01-30 08:45 | Hospitalist Progress Note ---
Date of Service January 30, 2019 Assessment & Plan (1) Aspiration pneumonitis: (2) Alcoholic ketoacidosis: (3) Alcohol abuse: (4) Hyperbilirubinemia: (5) Hyponatremia: (6) Depression: (7) Anxiety: (8) Abdominal pain: Continue Banana Bag, Lasix, Uric acid low, Renal and GI on casel, Alcohol w/d protocol, Thiamine, Folate, Gabapentin, IV Zosyn, Continue Tele, Cards and Pulm to see ROS-No Headache, No Visual Changes, No Nausea, No Vomiting, No Fever, No Chills, No Neck Pain or Stiffness, No Chest Pain, No Palpitations, + SOB, No SMYTH, +Cough, +Blood Tinged Sputum, No Wheezing, No Abdominal Pain, No Diarrhea, No Hematemesis, No Hemoptysis, + Weight Gain, No Flank pain, No Melena, No Hematochezia, No Frequency, No Urgency, No Burning, No Hematuria, No Rashes, No Diaphoresis. Appetite is Normal, Leg weakness Feels a lot better today Physical Exam Gen-AAO x 3, NAD, Afebrile, Jaundiced Head-NCAT, EOMI, PERRLA, +Icteric Sclera, No Posterior Pharyngeal Erythema Neck-Supple, No JVD, No Thyromegaly, No Masses, No LAD, No Bruits Lungs-Clear to Auscultation Bilaterally, No Rales, No Rhonchi, No Wheezing, No Crepitus Chest-Tachy No S4, +S1, +S2, No S3, No Murmurs, No Rubs, No Gallops, No Ectopy Abdomen-Soft, Bowel Sounds Present, Non Tender, Non Distended, No Hepatomegaly, No Splenomegaly, No Palpable Masses, No Rebound, No Rigidity, No Guarding Musculoskeletal-Full Range of Motion Bilaterally, No CVAT Extremities-No Cyanosis, No Clubbing, + 2+ B/L LE Edema Nuero-Cranial Nerves II-XII grossly intact, Motor WNL, DTRs WNL, Strength WNL, Non Focal Psych-Normal Mood Labs reviewed Results & Data Vital Signs (Past 12 Hours) Vital Signs Temp Pulse Pulse Resp BP BP Pulse Ox 01/30/19 08:01 36.9 C 103 H 20 118/76 92 01/30/19 07:10 101 H 16 94 01/30/19 05:26 01/30/19 04:02 37.3 C 118 H 19 123/72 93 01/30/19 01:24 120 H 18 91 01/29/19 23:59 123 H 01/29/19 23:40 37.2 C 125 H 19 111/59 L 92 01/29/19 23:27 125 H 20 91 Pulse Ox 01/30/19 08:01 01/30/19 07:10 01/30/19 05:26 93 01/30/19 04:02 01/30/19 01:24 01/29/19 23:59 01/29/19 23:40 01/29/19 23:27
[2019-01-30 09:00] LABS: Potassium 3.2 mmol/L (3.5-5.1)
[2019-01-30] MEDS ORDERED: DEXTROSE 5% 1,000 ML IV SCH (09:00)
[2019-01-30] MEDS ORDERED: POTASSIUM CHLORIDE 20 MEQ TABCR PO SCH (09:00)
--- NOTE | 2019-01-30 09:17 | Nephrology Progress Note ---
Date of Service January 30, 2019 Assessment & Plan (1) Volume overload: acute on chronic problem, w/ LE edema present x 3 mos but respiratory sx present less than 2 wks and acutely worse past 48 hrs w/ pulmonary edema multifactorial most likely >> certainly a component of liver cirrhosis; also however w/ tachycardia/hypotension > tachycardia through course of today has resolved w/ additoin of BB; now w/ hypotension limiting diuretics -lasix increase as below w/ hold parameters for SBP < 95; will stop spironolactone for now given hypotension -Dr Cornejo giving D5W for EtOH dependence care >> adding 40 mEq/L K to this and also upped po K to tid 40 mEq -doing better clinically today >> f/u cardiology recs >>ideally should limit fluid administered to this pt >> recommend d/w pharmacy ways to minimize volume of abtx, IV meds (2) Pulmonary edema: presume acute given worsening hypoxia>> should be improving given lower 02 needs -minimize IVF/IV med volumes -increased lasix dosing to 20 mg IV tid 6A, noon, 6P -continue nebs, abtx (3) Multifocal pneumonia: on zosyn; suspect aspiration (4) Hyponatremia: hypervolemic hypotonic hyponatremia >> mild and asymptomatic -lasix as above -most likely from liver but need to evaluate cardiac function given tachyarrhythmia/hypotension -stable on recheck this am at 127 -maintain eukalemia > upped K as above -recheck bmp in am (5) Alcohol abuse: EtOH + on admission; GI following; on withdrawal protocols Subjective seen on rounds at 0900; feeling a bit better today; NPO waiting for MRCP; cough a bit less; some blood streaks in sputum at times; thinks edema a bit better; daughter at bedside. no voiding c/o. no uncontrolled pain Review of Systems Review of Systems: All systems reviewed & are unremarkable except as noted in HPI & below Physical Exam Constitutional: well developed, well nourished, + ill appearing, + obese, cooperative and + edematous up in chair on 02nc; looks better than yesterday Eyes: EOM intact bilaterally ENMT: Ears: no external ear abnormality Nose: no external nose abnormality Mouth: + dry oral mucous membranes Neck: no nuchal rigidity Respiratory: + labored breathing (tachypneic) and able to speak in complete sentences; does not use accessory muscles, no cough, not tachypneic, no paradoxical chest wall movement and no paradoxical thoraco-abdominal movemnt Auscultation: + diminished lung sounds (moves almost no air on lung exam) and + crackles Cardiovascular: Rate/Rhythm: regular rhythm and + tachycardic (in 100s) Extremities: + edema (1-2 + indurated to distal pretibial;; none above knee) Gastrointestinal (Abdomen): Inspection/Auscultation: normal bowel sounds Percussion/Palpation: abdomen soft; abdomen nontender Musculoskeletal: Extremities: strength 5/5 throughout Skin: no rashes, warm and dry Psychiatric: Orientation: alert and oriented x 3 Speech: normal rate/rhythm/volume of speech (limited speech) Results & Data Vital Signs (Past 12 Hours) Vital Signs Temp Pulse Pulse Resp BP BP Pulse Ox 01/30/19 08:01 36.9 C 103 H 20 118/76 92 01/30/19 07:10 101 H 16 94 01/30/19 05:26 01/30/19 04:02 37.3 C 118 H 19 123/72 93 01/30/19 01:24 120 H 18 91 01/29/19 23:59 123 H 01/29/19 23:40 37.2 C 125 H 19 111/59 L 92 01/29/19 23:27 125 H 20 91 Pulse Ox 01/30/19 08:01 01/30/19 07:10 01/30/19 05:26 93 01/30/19 04:02 01/30/19 01:24 01/29/19 23:59 01/29/19 23:40 01/29/19 23:27 Laboratory Results 01/29/19 23:15 01/30/19 07:28 (1) Pulmonary edema Chronicity: acute Qualified Code(s): J81.0 - Acute pulmonary edema (2) Volume overload Hypervolemia type: other Qualified Code(s): E87.79 - Other fluid overload
--- NOTE | 2019-01-30 09:22 | Gastroenterology Progress Note ---
Date of Service January 30, 2019 Assessment & Plan (1) Elevated LFTs: (2) Alcohol abuse: Pt is a 54 y/o female seen for elevated LFTs, hx of known hepatic steatosis and admitted ETOH abuses. Suspect likely ETOH hepatitis, ? OBREIN. Maddrey Discriminant Function Score <32. US hepatic duplex study inconclusive. MRCP to be obtained today - IV antibx coverage for possible pneumonitis, LE cellulitis - F/U MRCP - Trend LFT, renal function, INR and mentation - Started NAC protocol (plan 24 - 48 hrs depending on LFT trend). - Was started on Lactulose by hospitalist (NH3 65), she is AAOx3. Plan short term use of Lactulose - Diuretics per Nephrology - Strict ETOH cessation advised; case management for counseling resources - Will continue to monitor closely Subjective Pt denies CP, SOB, abd pain, n/v. Was started on diuretics, leg edema improving. Still on Zosyn for possible pneumonia and leg cellulitis. MRCP not completed yesterday, but planned for today. LFTs w mild improvement. Review of Systems Review of Systems: All systems reviewed & are unremarkable except as noted in HPI & below Physical Exam Constitutional: WD/WN, vitals as above well groomed, cooperative and comfortable Eyes: + scleral abnormality (icteric), PERRL and EOM intact bilaterally ENMT: external ear and nose normal, oropharynx normal Respiratory: normal respiratory effort; no respiratory distress and does not use accessory muscles Auscultation: + crackles Cardiovascular: RRR, no murmur, no edema Gastrointestinal (Abdomen): Inspection/Auscultation: + hypoactive bowel sounds Percussion/Palpation: abdomen soft; abdomen nontender (epigastric, RUQ ) Skin: + jaundice Neurologic: Motor/Sensory: no asterixis Psychiatric: A+Ox3, euthymic affect Lymphatic: + lymphedema (edema on bilateral LE ) Results & Data Vital Signs (Past 12 Hours) Vital Signs Temp Pulse Pulse Resp BP BP Pulse Ox 01/30/19 08:01 36.9 C 103 H 20 118/76 92 01/30/19 07:10 101 H 16 94 01/30/19 05:26 01/30/19 04:02 37.3 C 118 H 19 123/72 93 01/30/19 01:24 120 H 18 91 01/29/19 23:59 123 H 01/29/19 23:40 37.2 C 125 H 19 111/59 L 92 01/29/19 23:27 125 H 20 91 Pulse Ox 01/30/19 08:01 01/30/19 07:10 01/30/19 05:26 93 01/30/19 04:02 01/30/19 01:24 01/29/19 23:59 01/29/19 23:40 01/29/19 23:27
[2019-01-30] MEDS: POTASSIUM CHLORIDE 40 MEQ in DEXTROSE 5% 1,000 ML IV SCH ×2 (10:09→23:22)
[2019-01-30] MEDS: MULTIVITAMIN TAB PO SCH (10:09)
--- NOTE | 2019-01-30 12:00 | Pulmonary Consultation ---
Date of Consultation January 30, 2019 Assessment & Plan (1) Hypoxia: Appears to be multifactorial Patient with groundglass opacities on CT scan as well as report of hemoptysis No evidence of pulmonary emboli Patient with past tobacco abuse history Continue to titrate supplemental O2 to be above 90% Agree with steroids would convert to prednisone We will also treat pneumonitis with ceftriaxone and azithromycin Consider echocardiogram to rule out CHF Ambulate as tolerated Incentive spirometry Out of bed to chair We will follow along (2) Hemoptysis: Platelet count of 64,000 INR of 1.9 Consider FFP if procedures need to be completed Scant amount of blood and mucus with no overt clots Patient reports only 2 episodes of single hemoptysis over the last 2 days No known history of malignancy Patient does have a drop in hemoglobin. This appears to be global. May be hemodilutional Would watch serial labs Follow clinically No indication for bronchoscopy at this time but if hemoptysis increases, bronchoscopy may be an option. (3) Bilateral pleural effusion: Please appear to be very small on CAT scan Would not consider thoracentesis at this time secondary to thrombocytopenia and coagulopathy Continue to monitor radiographically if worsening If concerned with increasing pleural effusions, we can do bedside ultrasound Continue to diurese (4) Multifocal pneumonia: Not sure if this is pneumonia or just pneumonitis Question of aspiration but not witnessed Currently getting Zosyn Consider ceftriaxone and azithromycin for pulmonary source and discontinuing Zosyn if not needed for abdominal source Continue to follow clinically Thank you for including us in the care of this patient. We will follow along with you Please refer to Dr. Pugh's addendum for further recommendations. Supervising Physician Co-Signing Physician Notes Patient seen and examined with Jelani Cardona PA-C I agree with his assessment and plan aside for any additions/exceptions noted: Patient has hypoxemic respiratory failure. Her CT chest demonstrates patchy areas of groundglass opacities generally sparing the periphery. She does have a picture of general hypervolemia. Recommend an echocardiogram be performed to rule out CHF. She does note that she recently went to her children's home in [facility] and help take care of her grandchild who is sick with an upper respiratory illness at that time. She describes a subsequent to this she ended up having a cough. She did note that she had some hemoptysis yesterday. She notes that the sputum was admixed with red streaky blood. This is resolved today. She does have thrombocytopenia and elevated INR likely related to her underlying liver dysfunction. The differential for the groundglass opacities and hypoxemia is broad at this current time and includes hypervolemia related to heart failure, atypical infections, viral pneumonitis and possible idiopathic interstitial pneumonia. She is currently on Zosyn. Her procalcitonin is negative. She does not seem to be infected with a typical bacterial pneumonia at this current time. Recommend discontinuing Zosyn and switching her to Rocephin and azithromycin. There is also a possibility of possible alveolar hemorrhage related to her thrombocytopenia and coagulopathy. Her hemoglobin did drop from 11.5-9.9. It does appear that all of her cell lines dropped and this may be related to hemodilution. We will follow her hemoglobin tomorrow. Recommend a urinalysis as well to evaluate for RBC in the urine. Would also recommend starting her on 40 mg of p.o. prednisone for possible nonspecific pneumonitis. We will check an HERNAN screen and ANCA screen as well. Continue IV diuresis for hypervolemia. History of Present Illness Attending Physician: Yoshi Cormier DO History of Present Illness Attending: Dr. Pugh Is a 54-year-old female that presents to the emergency department with shortness of breath and increased cough with no specific sputum production. She has a past medical history of ethanol abuse with every day consumption of about 10 beers per day, anxiety depression, question of alcoholic cirrhosis, GERD, p ast tobacco abuse history The patient presented for shortness of breath after being in [facility] for the last 2 weeks to visit with her grandchildren. They did state that they had respiratory illness. The patient states that she has never had pneumonia before and has not had any prior hospitalizations for respiratory concerns. She does have a tobacco abuse history but quit greater than 10 years ago and has never been told that she has COPD, emphysema, or other respiratory illness. She has no prior history of cardiac disease. She had an echocardiogram completed this morning but is unaware of any prior echocardiogram. She has never had a cardiac catheterization. She states that she does not have a problem with hypertension or congestive heart failure. She states that she does not take any medications at home. Primary concern this admission is 2 episodes of hemoptysis one yesterday morning and one yesterday evening. She denies any clots in her sputum. She has no prior history of hemoptysis. She denies any knowledge of malignancy. She did report that she had one nosebleed. This was not related to the clot in the mucus this admission. She is thrombocytopenic with a platelet count of 64,000. She denies any history of thrombocytosis in the past. The patient does have an alcohol abuse issue. She drinks 10-14 beers per day. She had one episode in the past where she was in the hospital for 3 days and underwent withdrawal symptoms. Aside from that she has never had any withdrawal problems. She currently lives with her ex-. She is not currently empl oyed. Allergies Allergy/AdvReac Type Severity Reaction Status Date / Time propoxyphene Allergy Unknown ` Verified 01/29/19 06:23 Home Medications Home Medications Medication Instructions Recorded Confirmed Type No Known Home Medications 01/29/19 01/29/19 History Patient History Medical History Alcohol abuse (Chronic) Pulmonary edema which is most likely multifactorial and related to alcohol abuse. She has volume overload probably from chronic cirrhosis. She could have an alcoholic cardiomyopathy. She did have an echocardiogram today which I will review and make further recommendations. Currently she is clinically stable. History of tobacco abuse Obesity (BMI 30-39.9) Surgical History H/O tubal ligation (Chronic) Family History Father Diabetes Mother Diabetes Social History Preferred Language: Mongolian Communication Ability: Effective Client Experience Consultant Required: No Beliefs That Will Affect Care: None marital status: Current Living Situation: Spouse Current Living Situation Comment: lives with ex- Other Information That Helps Us Care for You: No Feels Safe at Home: Yes Safety Concerns: Feels Safe At This Time Smoking Status: Former smoker Do You Dip or Chew Tobacco: No ; Second Hand Exposure: No ; Tobacco Cessation Education Requested by Patient: No Hx Alcohol Use: Yes Alcohol type: beer Hx Substance Use: No Review of Systems Review of Systems: All systems reviewed & are unremarkable except as noted in HPI & below Physical Exam Physical Exam: GENERAL : No acute distress. Daughter present for examination and interview at the patient's amputation EYES: Positive for scleral icterus, gaze conjugate NOSE: No evidence of epistaxis MOUTH: No lesions or candidiasis. No upper teeth. Dentures are not in. NECK: Supple LUNGS: Coarse crackles at bilateral bases. No appreciation of bronchospasm. No overt rhonchi. HEART: Regular, rate controlled ABDOMEN: Soft, NT, ND, BS Present and hyperactive EXTREMITIES: No LE edema, pedal pulses intact NEURO: A&OX3 Results & Data Vital Signs (Past 12 Hours) Vital Signs Temp Pulse Pulse Resp BP BP Pulse Ox 01/30/19 11:45 37.2 C 99 H 16 91/56 L 96 01/30/19 08:01 36.9 C 103 H 20 118/76 92 01/30/19 08:00 96 H 01/30/19 07:10 101 H 16 94 01/30/19 05:26 01/30/19 04:02 37.3 C 118 H 19 123/72 93 01/30/19 01:24 120 H 18 91 01/29/19 23:59 123 H Pulse Ox 01/30/19 11:45 01/30/19 08:01 01/30/19 08:00 01/30/19 07:10 01/30/19 05:26 93 01/30/19 04:02 01/30/19 01:24 01/29/19 23:59 Laboratory Results 01/29/19 23:15 01/30/19 07:28 Laboratory Tests 01/29/19 01/29/19 01/30/19 23:15 23:15 07:28 Plt Count 64 L INR 1.9 H Potassium AST Ammonia 65.2 H Albumin 01/30/19 07:28 Plt Count INR Potassium 3.2 L D AST 87 H Ammonia Albumin 2.8 L Diagnostic Findings XR chest 1V portable CLINICAL HISTORY: 54 years-old Female presenting with Hypoxia, hemoptysis. TECHNIQUE: Portable upright AP view of the chest was obtained. COMPARISON: 01/29/2019. FINDINGS: Atherosclerosis of the aortic arch. Cardiac silhouette enlarged. Pulmonary vascular prominence. Perihilar and mid to basilar lung opacities. Interstitial prominence likely indicates interlobular septal thickening. Mildly low lung volumes. Bilateral small pleural effusion suspected. No pneumothorax. Osseous structures normal. External leads overlie the right lower lung and right upper quadrant to grating evaluation in these regions. IMPRESSION: 1. Stable to slight interval worsening of bilateral diffuse pulmonary inf iltrates with a mid to basilar predominance. This could represents moderate pulmonary edema, pulmonary hemorrhage, or multifocal pneumonia. 2. Cardiomegaly with volume overload and congestive change. 3. Small pleural effusions. Electronically signed by: Rowdy Elizabeth M.D. 01/30/2019 8:[address] angio chest PE protocol CT DOSE: 385.22 mGy.cm HISTORY: Dyspnea elevated dimer, sob TECHNIQUE: Multiaxial CT images of the chest were performed following the intravenous administration of contrast to evaluate the pulmonary arteries. Maximal intensity projection images were also obtained. A dose lowering te chnique was utilized adhering to the principles of ALARA. COMPARISON STUDY: None. FINDINGS: The thoracic aorta is normal in course and caliber. Pulmonary vasculature enhances appropriately. There are no filling defects. There are patchy bilateral parenchymal infiltrative changes versus component of pulmonary edema. There are small bilateral pleural effusions. Liver is enlarged with evidence for fatty infiltration. Findings of mild reactive hilar as well as mediastinal adenopathy. IMPRESSION: 1. Study is negative for pulmonary embolus. 2. Findings of diffuse bilateral multifocal pneumonitis versus pulmonary edema. 3. Small bilateral pleural effusions. 4. Hepatomegaly with diffuse fatty replacement Electronically signed by: Hayes Tavarez M.D. 01/29/2019 6:55 AM PG Care Time/CCT Total # of Minutes Spent Total Time Spent with Patient: Total time spent is greater than 50% in coor dination of care (as documented) at patient's floor/unit and/or counseling patient:45
[2019-01-30] MEDS: LACTULOSE SYRUP 30 GM/45 ML UDP PO SCH ×4 (12:30→20:22)
--- NOTE | 2019-01-30 13:29 | Magnetic Resonance Report ---
MR MRCP CLINICAL HISTORY: 54 years-old Female presenting with concern for biliary obstruction; elevated lft. TECHNIQUE: Multisequence, multiplanar MR imaging of the abdomen was performed without the use of intr avenous contrast. Dedicated MRCP protocol was utilized. 3-D volumetric and/or maximum intensity proje ction (MIP) images were subsequently reconstructed for review. IV contrast: None. COMPARISON: Ultrasound from 2016. FINDINGS: Localizer images: Unremarkable. Lung bases: Normal heart size. Small bilateral pleural effusions. Extensive patchy opacities in the l ungs more so dependently and greater on the right. Liver: Normal morphology. Biliary: No intrahepatic or extrahepatic biliary ductal dilatation. Mildly distended gallbladder with biliary sludge. Mild gallbladder wall thickening. Pancreas: Normal noncontrast appearance. Spleen: Normal noncontrast appearance. Adrenal glands: Normal noncontrast appearance. Kidneys and ureters: Normal noncontrast appearance. No hydronephrosis. Normal ureters. Bowel: Normal. No bowel obstruction. Peritoneal cavity: Small perihepatic and pelvic ascites. Lymph nodes: No enlarged lymph nodes in the abdomen. Vasculature: Aorta and IVC patent and normal in caliber. Abdominal wall: Diffuse body wall edema. Musculoskeletal: Normal. IMPRESSION: 1. No biliary ductal dilatation or choledocholithiasis to suggest biliary obstruction. 2. Mildly distended gallbladder with gallbladder sludge and wall thickening. The presence of pericho lecystic fluid is nonspecific given ascites elsewhere. Correlate clinically for right upper quadrant symptomatology to suggest cholecystitis. If there is clinical ambiguity, consider HIDA scan. 3. Body wall edema, small abdominopelvic ascites, and bilateral pleural effusions. This could indica te volume overload. 4. Extensive patchy opacities in the lungs. These were seen on recent chest x-ray. Electronically signed by: Rowdy Elizabeth M.D. 01/30/2019 1:28 PM
[2019-01-30] MEDS: POTASSIUM CHLORIDE 20 MEQ TABCR PO SCH ×2 (13:47→20:24)
--- NOTE | 2019-01-30 14:06 | Cardiology Consultation ---
Date of Consultation January 30, 2019 Assessment & Plan (1) Volume overload: (2) Pulmonary edema: (3) Elevated LFTs: (4) Aspiration pneumonitis: (5) Alcohol abuse: The patient has pulmonary edema which is most likely multifactorial and related to her alcohol abuse. She most likely has chronic liver disease and cirrhosis. She could have a alcoholic cardiomyopathy. An echocardiogram was obtained today and I will review this study and make further recommendations. Currently she is clinically stable and I would continue the IV diuretics. History of Present Illness Attending Physician: Yoshi Cormier DO History of Present Illness This is a 54-year-old female with no prior history of heart disease. She does have a history of alcohol abuse. 2 weeks ago she was in [facility] visiting her son and grandson. She presented to the emergency department with complaints of dyspnea on exertion and shortness of breath. Chest x-ray and CT of the chest indicate bilateral pneumonitis or pulmonary edema. Study was negative for pulmonary emboli. She was seen by nephrology who recommended IV diuretics. She also had an echocardiogram completed today which I will review. Allergies Allergy/AdvReac Type Severity Reaction Status Date / Time propoxyphene Allergy Unknown ` Verified 01/29/19 06:23 Home Medications Home Medications Medication Instructions Recorded Confirmed Type No Known Home Medications 01/29/19 01/29/19 History Patient History Medical History Alcohol abuse (Chronic) Pulmonary edema which is most likely multifactorial and related to alcohol abuse. She has volume overload probably from chronic cirrhosis. She could have an alcoholic cardiomyopathy. She did have an echocardiogram today which I will review and make further recommendations. Currently she is clinically stable. History of tobacco abuse Obesity (BMI 30-39.9) Surgical History H/O tubal ligation (Chronic) Family History Father Diabetes Mother Diabetes Social History Preferred Language: Syriac Communication Ability: Effective Mobile Marketing Manager Required: No Beliefs That Will Affect Care: None marital status: Current Living Situation: Spouse Current Living Situation Comment: lives with ex- Other Information That Helps Us Care for You: No Feels Safe at Home: Yes Safety Concerns: Feels Safe At This Time Smoking Status: Former smoker Do You Dip or Chew Tobacco: No ; Second Hand Exposure: No ; Tobacco Cessation Education Requested by Patient: No Hx Alcohol Use: Yes Alcohol type: beer Hx Substance Use: No Review of Systems Review of Systems: All systems reviewed & are unremarkable except as noted in HPI & below Nothing additional Physical Exam Physical Exam: General: no acute distress and stated age Head: normocephalic, no masses, lesions, tenderness or abnormalities Eyes: conjunctiva are pink and non-injected, sclera clear Neck: supple, no adenopathy, no bruits, normal jugular venous pulse, no hepatojugular reflux Chest: normal shape and normal respiratory effort Lungs: Rales bilaterally Cardiac Exam: - regular rate & rhythm, no murmurs gallops or rubs - normal S1, normal S2, S4 present Pulses: 2(+) throughout Abdomen: abdomen soft, non-tender, no abnormal masses and no hepatosplenomegaly Musculoskeletal: no gait disturbance, no joint inflammation, no deforming arthritis Extremities: Edema right lower extremity greater than the left Neuro: grossly normal exam Results & Data Vital Signs (Past 12 Hours) Vital Signs Temp Pulse Pulse Resp BP BP Pulse Ox 01/30/19 13:40 80 16 93 01/30/19 11:45 37.2 C 99 H 16 91/56 L 96 01/30/19 08:01 36.9 C 103 H 20 118/76 92 01/30/19 08:00 96 H 01/30/19 07:10 101 H 16 94 01/30/19 05:26 01/30/19 04:02 37.3 C 118 H 19 123/72 93 Pulse Ox 01/30/19 13:40 01/30/19 11:45 01/30/19 08:01 01/30/19 08:00 01/30/19 07:10 01/30/19 05:26 93 01/30/19 04:02 Laboratory Results Laboratory Results - last 24 hr 01/29/19 01/29/19 01/29/19 11:34 17:54 17:54 WBC RBC Hgb Hct MCV MCH MCHC RDW Std Deviation RDW Coeff of Wesley Plt Count MPV Immature Gran % (Auto) Neut % (Auto) Lymph % (Auto) Moca % (Auto) Eos % (Auto) Baso % (Auto) Immature Gran # (Auto) Neut # (Auto) Lymph # (Auto) Moca # (Auto) Eos # (Auto) Baso # (Auto) RBC Morphology PT INR ABG pH ABG pCO2 ABG pO2 ABG HCO3 ABG O2 Saturation ABG Base Excess Dylan Test Barometric Pressure Oxygen Given Sodium 128 L Potassium 3.8 Chloride 90 L Carbon Dioxide 23 Anion Gap 15.0 H BUN 3 L Creatinine 0.36 L Est Cr Clr Drug Dosing 194.8 Est GFR ( Amer) 142.7 Est GFR (Non-Af Amer) 123.1 BUN/Creatinine Ratio 8.3 L Glucose 130 H Osmolality 272 L Calcium 7.8 L Total Bilirubin AST ALT Alkaline Phosphatase Ammonia Total Protein Albumin Globulin Albumin/Globulin Ratio Prealbumin 4.5 L Procalcitonin TSH Urine Osmolality Ur Random Sodium Blood Type Antibody Screen 01/29/19 01/29/19 01/29/19 17:54 19:40 19:40 WBC RBC Hgb Hct MCV MCH MCHC RDW Std Deviation RDW Coeff of Wesley Plt Count MPV Immature Gran % (Auto) Neut % (Auto) Lymph % (Auto) Moca % (Auto) Eos % (Auto) Baso % (Auto) Immature Gran # (Auto) Neut # (Auto) Lymph # (Auto) Moca # (Auto) Eos # (Auto) Baso # (Auto) RBC Morphology PT INR ABG pH 7.46 H ABG pCO2 32 L ABG pO2 65 L ABG HCO3 22 ABG O2 Saturation 92.1 ABG Base Excess -0.8 Dylan Test POS Barometric Pressure 732.0 Oxygen Given 2 L Sodium Potassium Chloride Carbon Dioxide Anion Gap BUN Creatinine Est Cr Clr Drug Dosing Est GFR ( Amer) Est GFR (Non-Af Amer) BUN/Creatinine Ratio Glucose Osmolality Calcium Total Bilirubin AST ALT Alkaline Phosphatase Ammonia Total Protein Albumin Globulin Albumin/Globulin Ratio Prealbumin Procalcitonin TSH Urine Osmolality 330 L Ur Random Sodium 80 Blood Type Antibody Screen 01/29/19 01/29/19 01/29/19 23:15 23:15 23:15 WBC 4.94 RBC 2.63 L Hgb 9.9 L Hct 27.5 L MCV 104.6 H MCH 37.6 H MCHC 36.0 RDW Std Deviation 54.7 H RDW Coeff of Wesley 14.6 H Plt Count 64 L MPV 10.4 Immature Gran % (Auto) 0.8 Neut % (Auto) 63.2 Lymph % (Auto) 17.0 Moca % (Auto) 18.4 Eos % (Auto) 0.4 Baso % (Auto) 0.2 Immature Gran # (Auto) 0.04 H Neut # (Auto) 3.12 Lymph # (Auto) 0.84 L Moca # (Auto) 0.91 H Eos # (Auto) 0.02 Baso # (Auto) 0.01 RBC Morphology Unremarkable PT INR ABG pH 7.50 H ABG pCO2 35 ABG pO2 64 L ABG HCO3 26 H ABG O2 Saturation 91.2 ABG Base Excess 3.0 H Dylan Test POS Barometric Pressure 732.1 Oxygen Given 4 L Sodium Potassium Chloride Carbon Dioxide Anion Gap BUN Creatinine Est Cr Clr Drug Dosing Est GFR ( Amer) Est GFR (Non-Af Amer) BUN/Creatinine Ratio Glucose Osmolality Calcium Total Bilirubin AST ALT Alkaline Phosphatase Ammonia Total Protein Albumin Globulin Albumin/Globulin Ratio Prealbumin Procalcitonin TSH 2.150 Urine Osmolality Ur Random Sodium Blood Type Antibody Screen 01/29/19 01/29/19 01/30/19 23:15 23:18 07:28 WBC RBC Hgb Hct MCV MCH MCHC RDW Std Deviation RDW Coeff of Wesley Plt Count MPV Immature Gran % (Auto) Neut % (Auto) Lymph % (Auto) Moca % (Auto) Eos % (Auto) Baso % (Auto) Immature Gran # (Auto) Neut # (Auto) Lymph # (Auto) Moca # (Auto) Eos # (Auto) Baso # (Auto) RBC Morphology PT 18.9 H INR 1.9 H ABG pH ABG pCO2 ABG pO2 ABG HCO3 ABG O2 Saturation ABG Base Excess Dylan Test Barometric Pressure Oxygen Given Sodium Potassium Chloride Carbon Dioxide Anion Gap BUN Creatinine Est Cr Clr Drug Dosing Est GFR ( Amer) Est GFR (Non-Af Amer) BUN/Creatinine Ratio Glucose Osmolality Calcium Total Bilirubin AST ALT Alkaline Phosphatase Ammonia 65.2 H Total Protein Albumin Globulin Albumin/Globulin Ratio Prealbumin Procalcitonin TSH Urine Osmolality Ur Random Sodium Blood Type A Positive Antibody Screen NEGATIVE 01/30/19 01/30/19 07:28 11:01 WBC RBC Hgb Hct MCV MCH MCHC RDW Std Deviation RDW Coeff of Wesley Plt Count MPV Immature Gran % (Auto) Neut % (Auto) Lymph % (Auto) Moca % (Auto) Eos % (Auto) Baso % (Auto) Immature Gran # (Auto) Neut # (Auto) Lymph # (Auto) Moca # (Auto) Eos # (Auto) Baso # (Auto) RBC Morphology PT INR ABG pH ABG pCO2 ABG pO2 ABG HCO3 ABG O2 Saturation ABG Base Excess Dylan Test Barometric Pressure Oxygen Given Sodium 127 L Potassium 3.2 L D Chloride 90 L Carbon Dioxide 28 Anion Gap 9.0 BUN 5 L Creatinine 0.49 L Est Cr Clr Drug Dosing 144.2 Est GFR ( Amer) 128.9 Est GFR (Non-Af Amer) 111.2 BUN/Creatinine Ratio 10.0 Glucose 158 H Osmolality Calcium 8.1 L Total Bilirubin 8.8 H AST 87 H ALT 31 Alkaline Phosphatase 82 Ammonia Total Protein 5.7 L Albumin 2.8 L Globulin 2.9 Albumin/Globulin Ratio 1.0 Prealbumin Procalcitonin 0.14 TSH Urine Osmolality Ur Random Sodium Blood Type Antibody Screen Medications Administered Current Inpatient Medications Folic Acid (Folvite) 1 mg PO QAM JAYMIE Stop: 03/02/19 08:59 Gabapentin (Neurontin) 600 mg PO Q24H JAYMIE Stop: 02/02/19 00:01 Gabapentin (Neurontin) 600 mg PO Q8H JAYMIE Stop: 01/31/19 00:01 Last Admin: 01/30/19 08:15 Dose: 600 mg Documented by: Gabapentin (Neurontin) 600 mg PO Q12H JAYMIE Stop: 02/01/19 00:01 Piperacillin Sod/Tazobactam (Sod 4.5 gm/ Dextrose) 120 mls @ 30 mls/hr IV Q8H JAYMIE; Protocol Stop: 02/05/19 11:59 Last Admin: 01/30/19 11:18 Dose: 30 mls/hr Documented by: Lorazepam (Ativan) 2 mg in 4 mls @ 4 mls/min IV UD PRN; Protocol PRN Reason: EtOH Withdrawl AWSS Score 8,9 Stop: 02/28/19 22:46 Lorazepam (Ativan) 3 mg in 6 mls @ 4 mls/min IV ONCE PRN; Protocol PRN Reason: EtOH Withdrawl AWSS Score >=10 Stop: 02/28/19 22:46 Lorazepam (Ativan) 1 mg in 2 mls @ 2 mls/min IV UD PRN; Protocol PRN Reason: EtOH Withdrawl AWSS Score 6,7 Stop: 02/28/19 22:46 Last Admin: 01/29/19 23:50 Dose: 2 mls/min Documented by: Potassium Chloride 40 meq/ (Dextrose) 1,020 mls @ 75 mls/hr IV .[id number] [facility] Stop: 03/01/19 09:10 Last Admin: 01/30/19 10:09 Dose: 75 mls/hr Documented by: Furosemide 20 mg/ Syringe 2 mls @ 4 mls/min IV TID@0600,1200,1800 [facility] Stop: 02/28/19 16:59 Ioversol (Optiray 320 125ml) 125 ml IV ONCE PRN PRN Reason: Interaction Checking Stop: 02/02/19 06:44 Last Admin: 01/29/19 06:45 Dose: 80 ml Documented by: Ipratropium Eckert (Atrovent 0.02% 0.5mg/2.5ml) 0.5 mg INH Q6R [facility] Stop: 03/01/19 00:59 Last Admin: 01/30/19 13:40 Dose: 0.5 mg Documented by: Lactulose (Chronulac) 30 gm PO QID [facility] Stop: 03/01/19 08:59 Last Admin: 01/30/19 13:47 Dose: 30 gm Documented by: Levalbuterol HCl (Xopenex 1.25mg/0.5ml Neb) 1.25 mg INH Q6R [facility] Stop: 03/01/19 00:59 Last Admin: 01/30/19 13:18 Dose: 1.25 mg Documented by: Metoprolol Tartrate (Lopressor) 12.5 mg PO BID [facility] Stop: 03/01/19 20:59 Miscellaneous (Ativan Iv Alcohol Withdrawl) 1 ea IV UD JAYMIE; Protocol Stop: 02/28/19 22:59 Miscellaneous Information (Consult) 1 ea N/A UD PRN PRN Reason: Consult Stop: 02/28/19 11:23 Multivitamins (Multivitamin Tab) 1 tab PO QAM [facility] Stop: 03/01/19 08:59 Last Admin: 01/30/19 10:09 Dose: 1 tab Documented by: Ondansetron HCl (Zofran) 4 mg IV Q4H PRN PRN Reason: Nausea Stop: 02/28/19 15:31 Potassium Chloride (Klor-Con M20) 40 meq PO TID [facility] Stop: 03/01/19 13:59 Last Admin: 01/30/19 13:47 Dose: 40 meq Documented by: Spironolactone (Aldactone) 25 mg PO QAM [facility] Stop: 02/28/19 16:14 Last Admin: 01/30/19 08:14 Dose: 25 mg Documented by: Thiamine HCl (Vitamin B-1) 100 mg PO QAM [facility] Stop: 03/02/19 08:59 (1) Pulmonary edema Chronicity: acute Qualified Code(s): J81.0 - Acute pulmonary edema (2) Volume overload Hypervolemia type: other Qualified Code(s): E87.79 - Other fluid overload
[2019-01-30] MEDS: AZITHROMYCIN 500 MG in DEXTROSE 5% 250 ML IV SCH (15:14)
[2019-01-30] MEDS: predniSONE 20 MG TAB PO SCH (15:52)
[2019-01-30] MEDS: cefTRIAXone SODIUM 2,000 MG in DEXTROSE 5% 50 ML IV SCH (20:21)
[2019-01-30] MEDS: METOPROLOL TARTRATE 25 MG TAB PO SCH (20:23)
[2019-01-30 22:46] LABS: Appearance Urine Clear (Clear); Bacteria Urine Automated Negative (Negative); Blood Urine Negative (Negative); Glucose Urine UA Negative (Negative); Ketones Urine Negative (Negative); Leukocyte Esterase Urine 1+ (Negative); Nitrite Urine Positive (Negative); Protein Urine Negative (Negative); RBC Urine Automated 0-4 /hpf (0-4); Specific Gravity Urine 1.024 (1.000-1.030); Urobilinogen Urine Negative (Negative)
[2019-01-30 22:47] LABS: Bilirubin Urine 1+ (Negative); Color Urine Dark Yellow
[2019-01-30 22:49] LABS: Ictotest Urine Positive (Negative)
[2019-01-31] MEDS: LEVALBUTEROL 1.25MG/0.5ML NEB INH SCH ×3 (01:23→12:53)
[2019-01-31] MEDS: IPRATROPIUM BROMIDE NEB SOLN 0.02% 2.5 ML VIAL INH SCH ×4 (01:23→19:25)
[2019-01-31] MEDS ORDERED: COUGH DROP (SUGAR FREE) LOZ 24 LOZ/1 BOX BUCCAL PRN (03:38)
[2019-01-31] MEDS ORDERED: COUGH DROP (SUGAR FREE) LOZ 24 LOZ/1 BOX BUCCAL ONE (03:40)
[2019-01-31] MEDS: FUROSEMIDE 20 MG in SYRINGE 0 ML IV SCH (06:10)
[2019-01-31 07:19] LABS: Hematocrit (blood only) 29.8 % (37-47); Hemoglobin 10.5 g/dL (12.0-16.0); Mean Corpuscular Hemoglobin 37.9 pg (25-34); Mean Corpuscular Hgb Conc 35.2 g/dL (32-36); Mean Corpuscular Volume 107.6 fL (80-100); RDW Standard Deviation 58.4 fL (36.4-46.3); Red Blood Count 2.77 M/uL (4.2-5.4); White Blood Count 9.16 K/uL (4.8-10.8)
[2019-01-31 07:22] LABS: Basophils # (auto) 0.01 K/uL (0-0.2); Basophils % (auto) 0.1 %; Immature Granulocytes # (auto) 0.07 K/uL (0.00-0.02); Immature Granulocytes % (auto) 0.8 %; Lymphocytes # (auto) 0.89 K/uL (1.2-3.4); Lymphocytes % (auto) 9.7 %; Mean Platelet Volume 10.7 fL (7.4-10.4); Monocytes # (auto) 1.17 K/uL (0.11-0.59); Monocytes % (auto) 12.8 %; Neutrophils # (auto) 7.02 K/uL (1.4-6.5); Neutrophils % (auto) 76.6 %; Platelet Count 75 K/uL (130-400)
[2019-01-31 07:30] LABS: INR 1.8 (0.9-1.1); Prothrombin Time 17.8 Seconds (9.0-12.0)
[2019-01-31 07:56] LABS: Albumin Level 3.1 gm/dl (3.4-5.0); BUN Creatinine Ratio 7.2 (10-20); Calcium 8.5 mg/dl (8.5-10.1); Creatinine Clr Calc Pharmacy 92.8 ml/min; Est GFR (African American) 103.8; Est GFR (Non-African American) 89.6; Potassium 4.1 mmol/L (3.5-5.1)
[2019-01-31 07:59] LABS: Bilirubin,Total 9.1 mg/dl (0.2-1); Globulin 3.1 gm/dl (2.5-4.0); Total Protein 6.2 gm/dl (6.4-8.2)
[2019-01-31] MEDS: LACTULOSE SYRUP 30 GM/45 ML UDP PO SCH ×2 (08:14→13:06)
[2019-01-31] MEDS: POTASSIUM CHLORIDE 20 MEQ TABCR PO SCH ×2 (08:15→13:07)
[2019-01-31] MEDS: predniSONE 20 MG TAB PO SCH (08:16)
[2019-01-31] MEDS: MULTIVITAMIN TAB PO SCH (08:16)
[2019-01-31] MEDS: METOPROLOL TARTRATE 25 MG TAB PO SCH (08:20)
[2019-01-31] MEDS ORDERED: THIAMINE HCL 100 MG TAB PO SCH (09:00)
[2019-01-31] MEDS ORDERED: FOLIC ACID 1 MG TAB PO SCH (09:00)
--- NOTE | 2019-01-31 09:31 | Nephrology Progress Note ---
Date of Service January 31, 2019 Assessment & Plan (1) Volume overload: acute on chronic problem, w/ LE edema present x 3 mos but respiratory sx present less than 2 wks and acutely worse past 48 hrs w/ pulmonary edema multifactorial most likely >> certainly a component of liver cirrhosis; also however w/ tachycardia/hypotension > tachycardia through course of today has resolved w/ additoin of BB; now w/ hypotension limiting diuretics -lasix increase as below w/ hold parameters for SBP < 95 -hold spironolactone -stopped D5W -cont po K to tid 40 mEq >>ideally should limit fluid administered to this pt >> have d/w pharmacy ways to minimize volume of abtx, IV meds (2) Pulmonary edema: presume acute given worsening hypoxia>> needing an oxymask / high flow 02 today >stopped D5W -have minimized IVF/IV med volumes -increased lasix dosing to 20 mg IV tid 6A, noon, 6P yesterday >> today critical care put dose at 40 mg IV bid; leave it here for now given tenuous respiratory status >>SHE DOES NOW meet criteria for BERYL (admitting creatinine 0.3) -continue nebs, abtx (3) Multifocal pneumonia: on ceftriaxone/azithromycin; being covered for pneumonitis (4) Hyponatremia: hypervolemic hypotonic hyponatremia >> mild and asymptomatic -lasix as above -most likely from liver but need to evaluate cardiac function given tachyarrhythmia/hypotension -stable on recheck this am at 129 -maintain eukalemia > upped K as above -recheck bmp in am (5) Alcohol abuse: EtOH + on admission; GI following; on withdrawal protocols Subjective seen this evening at about 1750; moved to ICU today d/t respiratory distress; all IVF off now; has had 80 mg IV lasix late AM w/ sob and now again another 40 mg; also had K repletion; was on bipap this am but moved to ICU for high flow 02nc which she seems for now to be tolerating; Review of Systems Review of Systems: All systems reviewed & are unremarkable except as noted in HPI & below (limited by just having had ativan) and Unobtainable due to reduced consciousness Cardiovascular: + dyspnea and + edema (much improved) Physical Exam Constitutional: well developed, well nourished, + ill appearing, + obese and cooperative Eyes: EOM intact bilaterally ENMT: Ears: no external ear abnormality Nose: no external nose abnormality Mouth: + dry oral mucous membranes Neck: no nuchal rigidity Respiratory: + labored breathing (tachypneic) and able to speak in complete sentences (more d/t fatigue/ MS); does not use accessory muscles, no cough, not tachypneic, no paradoxical chest wall movement and no paradoxical thoraco- abdominal movemnt Auscultation: + diminished lung sounds (moves almost no air on lung exam) Cardiovascular: Rate/Rhythm: regular rhythm and + tachycardic (in 110s) Extremities: + edema (1+ indurated to distal pretibial; visibly less none above knee) Gastrointestinal (Abdomen): Inspection/Auscultation: normal bowel sounds Percussion/Palpation: abdomen soft; abdomen nontender Musculoskeletal: Extremities: strength 5/5 throughout Skin: no rashes, warm and dry Neurologic: lethargic, nearly stuporous; terrazas; limited speech Psychiatric: Orientation: oriented to person and oriented to place; + not alert Speech: + abnormal rate/rhythm/volume of speech Genitourinary: dickey+ Results & Data Vital Signs (Past 12 Hours) Vital Signs Temp Pulse Pulse Pulse Resp BP BP 01/31/19 08:20 123 H 22 101/52 L 01/31/19 07:37 36.8 C 18 95/49 L 01/31/19 07:15 114 H 26 H 01/31/19 03:54 36.8 C 102 H 16 102/66 01/31/19 01:23 100 H 20 01/31/19 00:27 112 H 01/30/19 23:14 37.6 C H 95 H 16 107/66 Pulse Ox 01/31/19 08:20 01/31/19 07:37 87 L 01/31/19 07:15 86 L 01/31/19 03:54 94 01/31/19 01:23 92 01/31/19 00:27 01/30/19 23:14 91 (1) Pulmonary edema Chronicity: acute Qualified Code(s): J81.0 - Acute pulmonary edema (2) Volume overload Hypervolemia type: other Qualified Code(s): E87.79 - Other fluid overload
[2019-01-31] MEDS: LORazepam 2 MG/4 ML VIAL IV PRN ×2 (09:44→17:48)
[2019-01-31] MEDS: AZITHROMYCIN 500 MG in DEXTROSE 5% 250 ML IV SCH (09:44)
[2019-01-31] MEDS ORDERED: FUROSEMIDE 40 MG/4 ML VIAL IV ONE (10:22)
[2019-01-31] MEDS ORDERED: FUROSEMIDE 40 MG/4 ML VIAL IV STA ×2 (10:24→14:45)
--- NOTE | 2019-01-31 10:48 | Pulmonology Progress Note ---
Date of Service January 31, 2019 Assessment & Plan (1) Hypoxia: Patient appears to be doing worse today. I still think that she is quite volume overloaded. Recommend diuresing her with 40 mg IV twice daily Lasix. She does have evidence of mild to moderate mitral regurg on her echo. Her EF is normal. Does not appear that she has diastolic dysfunction. She is currently on ceftriaxone and azithromycin for presumed community acquired pneumonia. Of note her procalcitonin was negative. She has not had any fevers. I am not certain that she has atypical bacterial infection at this time, but we can continue antibiotics for now given her respiratory distress. We have also increased her steroids from prednisone to 40 mg IV Solu-Medrol 3 times a day for now. Does not appear that her hemoptysis has recurred at this current time. She may benefit from bronchoscopy in the near future but at this time I would withhold bronchoscopy given her tenuous respiratory status. Again differential for her groundglass opacities and small bilateral effusions likely related to hypervolemia with possible underlying cirrhosis versus possible infectious/inflammatory cause. (Of note, her MRCP did not demonstrate any evidence of cirrhosis. Actually commented that the liver appeared normal in m orphology.) Recommend a dedicated right upper quadrant ultrasound to look at her liver. HERNAN and ANCA are pending. She also needs a La for close I/O monitoring. I would keep a low threshold for transfer to the ICU at this time. (2) Hemoptysis: (3) Bilateral pleural effusion: (4) Multifocal pneumonia: Subjective Patient seen and examined today. She was found to be in respiratory distress and had a BiPAP mask on at the time of my exam. Apparently she was using the restroom and had desaturated to 65% on supplemental oxygen while using bathroom. Subsequently, the patient was placed on oxygen mask and then a BiPAP mask. She is a bit tachypneic. She notes that she is short of breath. She denies any chest pain. She is now saturating at 90% on a PEEP of 8 and FiO2 50%. She is currently on CPAP mode. It appears that she was getting IV fluids over the night. Review of Systems Review of Systems: Unremarkable unless otherwise noted in the HPI. Respiratory: + chest congestion and + dyspnea Physical Exam Physical Exam: Patient has a CPAP mask on. She does appear to be tachypneic. Eyes: PERRL, conjunctivae normal, anicteric sclerae ENMT: external ear and nose normal, oropharynx normal Neck: normal visual inspection Respiratory: Diffuse crackles bilaterally. Diminished in the bases. Cardiovascular: 3+ pitting edema bilateral lower extremities. Tachycardic. No obvious murmur. Gastrointestinal (Abdomen): Protuberant. No obvious fluid wave. Bowel sounds present. Musculoskeletal: no cyanosis or clubbing, extremities motor strength 5/5 Neurologic: PERRL, EOMI, accommodation nl, no face palsy, no dysarthria Psychiatric: Orientation: oriented to person, oriented to place and oriented to time Results & Data Vital Signs (Past 12 Hours) Vital Signs Temp Pulse Pulse Pulse Resp BP BP 01/31/19 08:20 123 H 22 101/52 L 01/31/19 07:37 98.2 F 18 95/49 L 01/31/19 07:15 114 H 26 H 01/31/19 03:54 98.2 F 102 H 16 102/66 01/31/19 01:23 100 H 20 01/31/19 00:27 112 H 01/30/19 23:14 99.7 F H 95 H 16 107/66 Pulse Ox 01/31/19 08:20 01/31/19 07:37 87 L 01/31/19 07:15 86 L 01/31/19 03:54 94 01/31/19 01:23 92 01/31/19 00:27 01/30/19 23:14 91 I personally reviewed the patient's pertinent labs and imaging. PG Care Time/CCT Total # of Minutes Spent Total Time Spent with Patient: Total time spent is greater than 50% in coordination of care (as documented) at patient's floor/unit and/or counseling patient:
[2019-01-31] MEDS: methylPREDNISolone 40 MG in SYRINGE 0 ML IV SCH ×2 (11:26→22:22)
--- NOTE | 2019-01-31 11:26 | Gastroenterology Progress Note ---
Date of Service January 31, 2019 Assessment & Plan (1) Elevated LFTs: (2) Alcohol abuse: Pt is a 54 y/o female seen for elevated LFTs, hx of known hepatic steatosis and admitted ETOH abuses. Suspect likely ETOH hepatitis, ? OBRIEN. US hepatic duplex study inconclusive. MRCP w.o signs of biliary dilation, + gallbladder sludge and mild gallbladder wall thickening. Maddreys Discriminant Function score 36 now. She is hypoxic this AM, going to be transferred to ICU on BiPAP. - IV antibx coverage for possible pneumonitis, LE cellulitis. - F/U MRCP - Trend LFT, renal function, INR and mentation - Completed NAC protocol. - Was started on Lactulose by hospitalist (NH3 65), she is AAOx3. Plan short term use of Lactulose - Diuretics per Nephrology. She is also followed by Cardiology and Pulmonology for volume overload, pneumonitis. - Strict ETOH cessation advised; case management for counseling resources - Will continue to monitor closely Supervising Physician Co-Signing Physician Notes I have personally seen and examined the patient with ROSEMARIE Pulliam. Her note reflects my exam and finding. I agree with her impression and plan. DF calculation is more helpful in setting of acute ETOH hep at time of admission. I do not think Trental would be helpful at this point. Volume over load does seem to be a significant contributor to her SOB and anasarca. Mark Anthony Bryant M.D. Subjective Pt in bed, feeling SOB. Noted O2 80s% on 15L oxymask. Denies any CP, abd pain, n/v. LFTs w elevation of Tbili now to 9. Transaminases trending down. INR 1.8. She is able to answer questions appropriately but appears drowsy. Per RN she was termolous, given Ativan. Maddreys recalculated: 36. Review of Systems Review of Systems: All systems reviewed & are unremarkable except as noted in HPI & below Physical Exam Constitutional: + acute distress (dyspneic ) and cooperative Eyes: + scleral abnormality (icteric), PERRL and EOM intact bilaterally ENMT: external ear and nose normal, oropharynx normal Respiratory: + respiratory distress Auscultation: + diminished lung sounds and + crackles Cardiovascular: RRR, no murmur, no edema Gastrointestinal (Abdomen): Inspection/Auscultation: + hypoactive bowel sounds Percussion/Palpation: abdomen soft; abdomen nontender Skin: + jaundice Neurologic: Motor/Sensory: no asterixis Psychiatric: A+Ox3, euthymic affect Lymphatic: + lymphedema (edema on bilateral LE ) Results & Data Vital Signs (Past 12 Hours) Vital Signs Temp Pulse Pulse Pulse Resp BP BP 01/31/19 11:22 104 H 28 H 01/31/19 10:35 98 H 26 H 01/31/19 10:20 99 H 01/31/19 10:15 100 H 31 H 01/31/19 08:20 123 H 22 101/52 L 01/31/19 07:37 36.8 C 18 95/49 L 01/31/19 07:15 114 H 26 H 01/31/19 03:54 36.8 C 102 H 16 102/66 01/31/19 01:23 100 H 20 01/31/19 00:27 112 H Pulse Ox 01/31/19 11:22 91 01/31/19 10:35 95 01/31/19 10:20 91 01/31/19 10:15 91 01/31/19 08:20 01/31/19 07:37 87 L 01/31/19 07:15 86 L 01/31/19 03:54 94 01/31/19 01:23 92 01/31/19 00:27
[2019-01-31 11:46] LABS: Troponin I 0.016 ng/ml (0-0.045)
[2019-01-31] MEDS ORDERED: GABAPENTIN 600 MG TAB PO SCH (12:00)
--- NOTE | 2019-01-31 12:34 | XRay Report ---
XR chest 1V portable CLINICAL HISTORY: hypoxemia, crackles dyspnea COMPARISON STUDY: 01/30/2019 FINDINGS: Progressive findings of pulmonary edema versus diffuse bilateral parenchymal infiltrative c hange. IMPRESSION: Progressive bilateral parenchymal infiltrative and/or pulmonary edematous change. The above report was generated using voice recognition software. It may contain grammatical, syntax or spelling errors. Electronically signed by: Hayes Tavarez M.D. 01/31/2019 12:32 PM
--- NOTE | 2019-01-31 13:06 | Critical Care Progress Note ---
Date of Service January 31, 2019 Assessment & Plan (1) Acute hypoxemic respiratory failure: Currently the patient is requiring high amounts of supplemental oxygen. I think it would be best to have her in the ICU more we can quickly initiate noninvasive ventilation or invasive ventilation should she deteriorate. If she does end up intubated, we will go ahead and do a bronchoscopy. Continue IV Lasix at this time along with IV Solu-Medrol. Continue ceftriaxone azithromycin. We will recheck procalcitonin today. Repeat chest x-ray from today appears to be profoundly worse from yesterday. I suspect some of this may be related to her input from IV fluids and medications. She appears to have lower extremity swelling as well. There is no evidence of pulmonary hypertension on the echo from yesterday. She does have mild to moderate mitral regurgitation as noted previously. Her blood pressure is on the lower side, but I suspect this may be a more chronic issue given the possibility of cirrhosis. We will get a dedicated ultrasound of her right upper quadrant to further look at her liver. Check a lactate. Will obtain sputum cultures if able. She will be strictly n.p.o. at this time. I did do a bedside pleural ultrasound which demonstrated small bilateral effusions that are not amenable to thoracentesis at this time. She does have thrombocytopenia and a coagulopathy likely related to her acute alcoholic hepatitis. Her MDF score is elevated. She is currently on Solu-Medrol for her pulmonary process and this may help her liver process as well. We will go ahead and give her 10 mg of IV vitamin K x3 doses given her coagulopathy and the potential need for procedures. Gastroenterology is on board and assisting us with the management of her liver disease. Check daily LFTs for now. Keep a close eye on her BMP as well given that we are actively diuresing her. I have personally spent 60 minutes of critical care time in the direct management of this patient. This is a life/limb threatening event. This includes time spent evaluating patient, direct bedside care, chart review, placing orders, interpretation of diagnostic studies, discussion with consultants, patient, and/or family members regarding treatment decisions, as well as other required patient management activities. This time is exclusive of all separately billable procedures, and teaching time and separate from and in addition to any other critical care service time. (2) Pulmonary edema: (3) Bilateral pleural effusion: (4) Volume overload: (5) Elevated LFTs: (6) Hyponatremia: (7) Alcohol withdrawal: Subjective I have seen patient numerous times throughout the day. She continues to require very high amounts of supplemental oxygen. She is currently on 35 L high flow oxygen at 85% FiO2. She desats easily with coughing and movement down to the low 80s and occasionally into the 70s. She is tachypneic in the high 20s. She does not endorse shortness of breath when resting quietly but does have increased dyspnea with minimal movement. She coughs frequently. Again she denies any chest pain at present. No nausea or vomiting. Review of Systems Review of Systems: Negative unless otherwise noted Physical Exam Eyes: PERRL, conjunctivae normal, anicteric sclerae ENMT: external ear and nose normal, oropharynx normal Neck: normal visual inspection Respiratory: Diffuse Rales. Tachypneic. Musculoskeletal: no cyanosis or clubbing, extremities motor strength 5/5 Neurologic: PERRL, EOMI, accommodation nl, no face palsy, no dysarthria Psychiatric: Orientation: oriented to person, oriented to place and oriented to time Results & Data Vital Signs (Past 12 Hours) Vital Signs Temp Pulse Pulse Pulse Resp BP BP 01/31/19 12:53 104 H 30 H 01/31/19 11:22 104 H 28 H 01/31/19 10:35 98 H 26 H 01/31/19 10:20 99 H 01/31/19 10:15 100 H 31 H 01/31/19 08:20 123 H 22 101/52 L 01/31/19 07:37 98.2 F 18 95/49 L 01/31/19 07:15 114 H 26 H 01/31/19 03:54 98.2 F 102 H 16 102/66 01/31/19 01:23 100 H 20 Pulse Ox 01/31/19 12:53 90 01/31/19 11:22 91 01/31/19 10:35 95 01/31/19 10:20 91 01/31/19 10:15 91 01/31/19 08:20 01/31/19 07:37 87 L 01/31/19 07:15 86 L 01/31/19 03:54 94 01/31/19 01:23 92 Coding Level of Care Code Established Pt None Patient Type Established Diagnoses Acute hypoxemic respiratory failure J96.01 Pulmonary edema J81.1 Bilateral pleural effusion J90 Volume overload E87.79 Hypervolemia type: other Elevated LFTs R94.5 Hyponatremia E87.1 Alcohol withdrawal F10.239 Time Spent (min) 60 (1) Volume overload Hypervolemia type: other Qualified Code(s): E87.79 - Other fluid overload
[2019-01-31] MEDS ORDERED: ICU ELECTROLYTE REPLACEMENT PROTOCOL PRN (13:13)
[2019-01-31] MEDS ORDERED: PHYTONADIONE 10 MG in SODIUM CHLORIDE 0.9% 50 ML IV SCH (13:30)
[2019-01-31 13:34] LABS: BUN Creatinine Ratio 8.2 (10-20); Calcium 8.6 mg/dl (8.5-10.1); Creatinine Clr Calc Pharmacy 96.6 ml/min; Potassium 3.9 mmol/L (3.5-5.1)
[2019-01-31] MEDS: PANTOprazole 40 MG in SYRINGE 0 ML IV SCH (13:56)
[2019-01-31] MEDS ORDERED: PENTOXIFYLLINE 400MG EXT REL TAB PO SCH (14:00)
[2019-01-31] MEDS ORDERED: POTASSIUM CHLORIDE PWD 20 MEQ PACK PO ONE (14:45)
[2019-01-31] MEDS ORDERED: FUROSEMIDE 40 MG in SYRINGE 0 ML IV ONE (15:00)
[2019-01-31] MEDS: PHYTONADIONE 10 MG in SODIUM CHLORIDE 0.9% 50 ML IV SCH (15:14)
[2019-01-31 15:22] LABS: Appearance Urine Clear (Clear); Bacteria Urine Automated Negative (Negative); Blood Urine Trace (Negative); Color Urine Dark Yellow; Epithelial Cell Urine Auto 20-30 /lpf (0-5); Glucose Urine UA Negative (Negative); Ketones Urine Negative (Negative); Leukocyte Esterase Urine Trace (Negative); Nitrite Urine Positive (Negative); Protein Urine Negative (Negative); RBC Urine Automated 0-4 /hpf (0-4); Specific Gravity Urine 1.018 (1.000-1.030); Urobilinogen Urine Negative (Negative)
[2019-01-31 15:27] LABS: Bilirubin Urine 1+ (Negative)
[2019-01-31 15:29] LABS: Ictotest Urine Positive (Negative)
[2019-01-31 15:44] LABS: Cast Urine Automated >30 /lpf (0-5)
[2019-01-31] MEDS: LACTULOSE SYRUP 20 GM/30 ML UDC PO SCH (18:41)
--- NOTE | 2019-01-31 18:55 | Hospitalist Progress Note ---
Date of Service January 31, 2019 Assessment & Plan (1) Multifocal pneumonia: (2) Volume overload: (3) Bilateral pleural effusion: (4) Acute hypoxemic respiratory failure: Present on admission with worsening SOB associated with coughing CT chest showed findings of diffuse bilateral multifocal pneumonitis versus pulmonary edema. No evidence of PE Repeat CXR today showed progressive bilateral parenchymal infiltrative and/or pulmonary edematous change. Required high flow oxygen supplement Elevated proBNP Echo showed no wall motion abnormality with EF 55-60% Pulm on board IV lasix given stat, will continue lasix 40mg IV BID for now Prednisone changed to IV steroid 40mg TID Continue IV abx with Rocephin and Zithromax Case discussed with pulm and recommended to transfer to ICU for close monitor Continue monitor I/O (5) Alcohol abuse: Elevated Liver enzymes [facility] Discriminant Function score 36 MRCP showed No biliary ductal dilatation or choledocholithiasis to suggest biliary obstruction. Mildly distended gallbladder with gallbladder sludge and wall thickening. Continue lactulaose Gastro on board Counseling on alcohol cessation On alcohol withdrawn with gabapentin and ativan Monitor for sign of withdrawn (6) Hyponatremia: Na 129 today, then drop to 127 Possible related to volume overload in the setting of alcohol hepatitis Nephrology on board Continue Lasix IV 40mg BID IV fluid discontinued Monitor BMP (7) Elevated lactic acid level: Possible related to hypoxia mostly Afebrile, no leukocytosis and procalcitonin Continue Zithromax and Rocephin Blood cx pending Will repeat lactic acid Thrombocytopenia Elevated INR Due to Alcoholic liver disease Platelet 75 No signs of bleeding Vit K 10mg IV given incase pt will need intervention procedure (like bronch) DVT px on SCDs due to thrombocytopenia Disposition Will monitor in the ICU Subjective Pt was seen and examined Lying in bed with respiratory distress Pt continues to cough \ She required high oxygen flow Denies any chest pain, fever and palpitation Physical Exam Physical Exam: General- No acute distress Head- atraumatic Eyes- PERRL, EOMI, ENT- oropharynx clear Neck- supple, no JVD Lungs- Diminished BS, +crackles Heart- +tachycardia Abdomen- normal bowel sounds, soft, nontender Extremities- no calf tenderness, +b/l Edema Neuro- alert, oriented x 3; PERRL, EOMI; no facial palsy; no dysarthria Skin- warm & dry Results & Data Vital Signs (Past 12 Hours) Vital Signs Temp Pulse Pulse Pulse Resp BP BP 01/31/19 16:14 113 H 01/31/19 16:00 01/31/19 15:46 110 H 35 H 01/31/19 15:45 111 H 18 131/86 01/31/19 15:31 109 H 26 H 01/31/19 15:30 109 H 30 H 116/72 01/31/19 15:25 85 28 H 01/31/19 15:15 109 H 34 H 01/31/19 14:30 108 H 26 H 01/31/19 14:15 108 H 29 H 01/31/19 14:00 108 H 32 H 01/31/19 13:35 99 H 28 H 01/31/19 13:28 37 C 108 H 30 H 01/31/19 13:25 01/31/19 12:53 104 H 30 H 01/31/19 11:22 104 H 28 H 01/31/19 10:35 98 H 26 H 01/31/19 10:20 99 H 01/31/19 10:15 100 H 31 H 01/31/19 08:20 123 H 22 101/52 L 01/31/19 07:37 36.8 C 18 01/31/19 07:15 114 H 26 H BP Pulse Ox Pulse Ox 01/31/19 16:14 01/31/19 16:00 93 01/31/19 15:46 96 01/31/19 15:45 97 01/31/19 15:31 95 01/31/19 15:30 94 01/31/19 15:25 94 01/31/19 15:15 92 01/31/19 14:30 113/65 89 L 01/31/19 14:15 117/65 93 01/31/19 14:00 111/71 87 L 01/31/19 13:35 90 01/31/19 13:28 106/43 L 87 L 01/31/19 13:25 90 01/31/19 12:53 90 01/31/19 11:22 91 01/31/19 10:35 95 01/31/19 10:20 91 01/31/19 10:15 91 01/31/19 08:20 01/31/19 07:37 95/49 L 87 L 01/31/19 07:15 86 L (1) Volume overload Hypervolemia type: other Qualified Code(s): E87.79 - Other fluid overload
[2019-01-31] MEDS ORDERED: RAPID SEQUENCE INDUCTION BAG ONE (19:30)
[2019-01-31] MEDS ORDERED: NOREPINEPHRINE BIT INJ 4 MG in DEXTROSE 5% 250 ML IV SCH (19:45)
[2019-01-31] MEDS ORDERED: PROPOFOL IV EMULSION 10 MG/ML 100 ML VIAL IV ONE (20:02)
[2019-01-31] MEDS ORDERED: PROPOFOL 1,000 MG/100 ML VIAL IV STA (20:03)
[2019-01-31] MEDS ORDERED: fentaNYL citrate 100 MCG/2 ML VIAL IV PRN (20:20)
[2019-01-31] MEDS ORDERED: VECURONIUM BROMIDE 10 MG VIAL ONE (20:26)
[2019-01-31] MEDS: fentaNYL DRIP 1,250 MCG/250 ML BAG IV SCH (20:30)
--- NOTE | 2019-01-31 20:55 | Procedure Note ---
Procedure Note Date of Service January 31, 2019 Note INTERNAL JUGULAR CENTRAL LINE PROCEDURE NOTE: Procedure: Internal Jugular Central Line Placement Attending: Dr. Pugh Provider: ROSEMARIE Diamond Indication: Central Drug Administration, Multiple Lab Draws Necessary Anesthesia: Lidocaine 1% Consent was signed and placed on the chart prior to procedure. Indication, risks, and benefits were explained at length. A time-out was completed verifying correct patient, procedure, site, positioning, and implants(s) or special equipment if applicable. Patients Neck was cleansed and draped in the typical sterile fashion using Chloraprep. The Internal Jugular Vein and Carotid Artery were identified using ultrasound. The superficial tissue was anesthetized using 5 mL of 1% lidocaine without epinephrine under direct visualization with the ultrasound. After adequate anesthetization was achieved, the Internal Jugular vein was cannulated under direct ultrasound guidance using an introducer needle on a syringe. Good venous blood return was maintained prior to removal of syringe from introducer needle. Using Seldinger Technique, a guide wire was advanced through the introducer needle without resistance. The introducer needle was removed and ultrasound images were obtained of the guide wire within the Internal Jugular Vein and saved to the patients medical record. A small incision was made in penetrating fashion at the guide wire insertion site utilizing an 11 blade scalpel. The dilator was advanced to the vessel without resistance. The dilator was exchanged for the triple lumen catheter which was advanced into the vessel without resistance. The guide wire was removed intact from the catheter without issue. Claves were placed on each catheter tip with confirmation of good blood flow from each lumen. Each port was easily flushed with sterile saline. The catheter was placed at 17 cm and sutured in place. BioPatch was applied to the catheter and a sterile Tegaderm dressing was applied over the catheter with careful attention to sterility. Patient tolerated procedure well. No immediate complications were met. Post procedure x-ray was completed, placement was appropriate and no pneumothorax was noted. Images obtained are saved for permanent record Procedural Ultrasound Guidance: Procedure Date: 01/31/2019 Indication: Internal jugular central line placement Attending: Dr. Pugh Provider: ROSEMARIE Diamond Artery AND Vein visualized: Yes Compressible Vein: Yes Guidewire or Short Catheter seen in vein prior to dilation: Yes Line confirmed in Vein with ultrasound: Yes Images obtained are saved for permanent record. Supervising Physician Co-Signing Physician Notes I was present for the entirety of the procedure and supervised the procedure in its entirety. Coding CPT Codes Tubes, Drains, and Vasc Access - Tubes, Drains, and Vasc Access: Place catheter in vein superior or inferior vena cava ([id number]) Tubes, Drains, and Vasc Access - Tubes, Drains, and Vasc Access: Ultrasonic Guide For Needle Placement ([id number])
--- NOTE | 2019-01-31 20:55 | Procedure Note ---
Procedure Note Date of Service January 31, 2019 Note INTUBATION PROCEDURE NOTE: Provider: ROSEMARIE Diamond Attending: Dr. Felipe Pugh A time-out was completed verifying correct patient, procedure, site, positioning. Patient was evaluated and required intubation for increased work of breathing and hypoxia/altered mental status. Sedative agent used: Etomidate Paralysis agent used: succinylcholine Consent signed and placed on chart per physician supervising procedure. The patient was prepared in the appropriate fashion. Sedation was achieved utilizing etomidate and succinylcholine, per Dr. Elam administration. The patient was easily ventilated using [id number] to achieve adequate oxygenation. A 7.5 Sami endotracheal tube was placed with visualization through the vocal cords using a gluidoscope to 22 cm at the lip. The stylette was removed and balloon was inflated with 10mL of air. Appropriate Colorimetric change was appreciated. Bilateral breath sounds were heard without air sounds in the abdomen. Dr. Pugh was present for the entire procedure. Post Intubation Chest X-ray confirms placement without pneumothorax. Patient tolerated the procedure well and there were no immediate complications. Supervising Physician Co-Signing Physician Notes I was present for the entirety of the procedure and supervised the procedure in its entirety. Coding CPT Codes Resuscitation - Resuscitation: Endotracheal Intubation, emergency ([id number])
[2019-01-31] MEDS ORDERED: NOREPINEPHRINE BIT INJ 8 MG in DEXTROSE 5% 500 ML IV SCH (21:00)
--- NOTE | 2019-01-31 21:05 | Communication Note ---
Date of Service: January 31, 2019 Around 8 PM this evening patient continued to decompensate. She was beginning to go into alcoholic withdrawal and the nurse gave her Ativan. She subsequently became hypotensive with mean arterial pressures in the low 60s. She also began to desaturate to the low 80s. Her work of breathing appeared to increase as well. I had a lengthy discussion with the patient's ex- and biological daughter over the phone. The decision was made to emergently intubate the patient and place a central line. We successfully intubated the patient on the first pass and she continued to have issues with hypoxemia with sats in the 80s. After we started her on propofol and fentanyl, her saturations improved but her blood pressure dropped a bit. We gave her a dose of vecuronium with seem to put her in sync with the ventilator and her saturations improved to 98%. We currently have her on a respiratory rate of 30, tidal volume of 350, PEEP of 14 and FiO2 of 60% with good saturations. We have successfully placed a central line and can initiate pressors if needed. Map goals will be above 65. I would avoid any fluid resuscitation on her given her volume overload state and her hypoxemia. If she has a decrease in her blood pressure her her maps are persistently below 65, I will start her on norepinephrine. Patient's family was counseled at bedside and they understand the patient is very sick at this current time. Will obtain lactic acid as her initial one was 2.5 today. We will check BMPs every 12 as well. We will obtain a stat chest x-ray to follow- up on the endotracheal tube placement in the central line placement. Of note, we also check a lipase which was negative earlier today. Her procalcitonin also continues to be negative. I suspect that her respiratory failure secondary to ARDS and aspiration pneumonitis. 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 We will continue arms that protocol with low tidal volume and high PEEP strategy. Her most recent plateau pressure was 26. I have personally spent 30 minutes of critical care time in the direct management of this patient. This is a life/limb threatening event. This includes time spent evaluating patient, direct bedside care, chart review, placing orders, interpretation of diagnostic studies, discussion with consultants, patient, and/or family members regarding treatment decisions, as well as other required patient management activities. This time is exclusive of all separately billable procedures, and teaching time and separate from and in addition to any other critical care service time.
--- NOTE | 2019-01-31 21:25 | XRay Report ---
XR chest 1V portable CLINICAL HISTORY: 54 years-old Female presenting with intubation/central venous line insertion. TECHNIQUE: Portable upright AP view of the chest was obtained. COMPARISON: 01/31/2019 at 12:14 PM. FINDINGS: Endotracheal tube terminates in the midthoracic trachea 2.9 cm from the noreen. Right internal jugula r central venous catheter terminates at the superior cavoatrial junction. Nasogastric tube descends b elow the diaphragm, terminus not visualized. Several external leads project over the thorax to gratin g evaluation as well as support devices. Right axilla mildly enlarged. Extensive bilateral pulmonary opacities sparing only a minor portion of the left apex. These are overall similar to prior exam. There is difficult to exclude underlying sma ll pleural effusions. No large pneumothorax. Osseous structures normal. Upper abdomen normal. IMPRESSION: 1. Interval placed lines and tubes are appropriately positioned. 2. Stable bilateral diffuse severe pulmonary infiltrates. This could represent severe edema, diffuse alveolar damage, or multifocal pneumonia. Electronically signed by: Rowdy Elizabeth M.D. 01/31/2019 9:23 PM
[2019-01-31] MEDS: cefTRIAXone SODIUM 2,000 MG in DEXTROSE 5% 50 ML IV SCH (21:39)
--- NOTE | 2019-01-31 21:42 | Procedure Note ---
Procedure Note Date of Service January 31, 2019 Note ARTERIAL LINE PROCEDURE NOTE: Procedure: Arterial Line Placement Attending: Dr. Pugh Provider: ROSEMARIE Diamond Indication: Monitoring on Pressors/frequent ABGs Anesthesia: Lidocaine 1% Consent was signed and placed on the chart prior to procedure. Indication, risks, and benefits were explained at length. A time-out was completed verifying correct patient, procedure, site, positioning, and implant(s) or special equipment if applicable. Allens test was performed to ensure adequate perfusion. Patients right wrist was prepped and draped in the usual sterile fashion. Ultrasound guidance was used to aid needle placement. A 20g Arrow arterial line was introduced into the right radial artery. Catheter was threaded, and the needle was removed with appropriate blood return. Good waveform was observed. The patient tolerated the procedure well. Confirmation of placement with ultrasound. Blood Loss: Minimal Complications: None Procedural Ultrasound Guidance: Procedure Date: 01/31/2019 Indication: Arterial line insertion Attending: Dr. Pugh Provider: ROSEMARIE Diamond Artery Identified: YES Complications: NONE Patient tolerated procedure: WELL Supervising Physician Co-Signing Physician Notes I was present for the entirety of the procedure and supervised the procedure in its entirety. Coding CPT Codes Tubes, Drains, and Vasc Access - Tubes, Drains, and Vasc Access: Insertion Catheter, Artery ([id number]) Tubes, Drains, and Vasc Access - Tubes, Drains, and Vasc Access: Ultrasound Guidance For Vascular ([id number])
[2019-01-31 22:05] LABS: iSTAT Art Bld Gas pCO2 Correct 32 mmHg (35-46); iSTAT Art Bld Gas pH Corrected 7.563 (7.35-7.45); iSTAT Arterial Blood Gas HCO3 29 meg/L (19-24); iSTAT Arterial Blood Gas pCO2 32 mmHg (35-46); iSTAT Arterial Blood Gas pH 7.57 (7.35-7.45); iSTAT Arterial Blood Gas pO2 85 mmHg (80-95); iSTAT Arterial Blood Gas pO2 C 85; iSTAT Carbon Dioxide 30 mEq/l (24-31); iSTAT FiO2 60 %; iSTAT Site Art Line
[2019-01-31] MEDS: FUROSEMIDE 40 MG in SYRINGE 0 ML IV SCH (22:21)
[2019-01-31 23:18] LABS: BUN Creatinine Ratio 11.8 (10-20); Calcium 8.7 mg/dl (8.5-10.1); Creatinine Clr Calc Pharmacy 106.9 ml/min; Est GFR (African American) 116.9; Est GFR (Non-African American) 100.9; Potassium 4.2 mmol/L (3.5-5.1)
[2019-02-01] MEDS: METOPROLOL TARTRATE 25 MG TAB PO SCH ×3 (00:22→19:56)
[2019-02-01] MEDS: LACTULOSE SYRUP 20 GM/30 ML UDC PO SCH ×5 (00:22→21:23)
[2019-02-01] MEDS: PROPOFOL 1,000 MG/100 ML VIAL IV SCH ×4 (01:22→21:26)
[2019-02-01] MEDS: IPRATROPIUM BROMIDE NEB SOLN 0.02% 2.5 ML VIAL INH SCH ×3 (01:42→13:24)
[2019-02-01 04:47] LABS: Hematocrit (blood only) 28.4 % (37-47); Hemoglobin 9.9 g/dL (12.0-16.0); Mean Corpuscular Hemoglobin 38.2 pg (25-34); Mean Corpuscular Hgb Conc 34.9 g/dL (32-36); Mean Corpuscular Volume 109.7 fL (80-100); RDW Coefficient of Variation 15.2 % (11.5-14.5); RDW Standard Deviation 59.5 fL (36.4-46.3); Red Blood Count 2.59 M/uL (4.2-5.4); White Blood Count 9.85 K/uL (4.8-10.8)
[2019-02-01 04:48] LABS: Mean Platelet Volume 10.7 fL (7.4-10.4); Platelet Count 73 K/uL (130-400)
[2019-02-01] MEDS: methylPREDNISolone 40 MG in SYRINGE 0 ML IV SCH (05:08)
[2019-02-01 05:14] LABS: Albumin Level 2.6 gm/dl (3.4-5.0); BUN Creatinine Ratio 13.4 (10-20); Bilirubin Direct 4.9 mg/dl (0-0.2); Bilirubin,Total 9.3 mg/dl (0.2-1); Calcium 8.4 mg/dl (8.5-10.1); Creatinine Clr Calc Pharmacy 108.5 ml/min; Est GFR (African American) 117.5; Est GFR (Non-African American) 101.4; Magnesium 1.9 mg/dl (1.8-2.4); Phosphorus 2.6 mg/dl (2.5-4.9); Potassium 4.5 mmol/L (3.5-5.1); Total Protein 5.7 gm/dl (6.4-8.2)
[2019-02-01 05:30] LABS: iSTAT Art Bld Gas pCO2 Correct 45 mmHg (35-46); iSTAT Art Bld Gas pH Corrected 7.444 (7.35-7.45); iSTAT Arterial Blood Gas HCO3 31 meg/L (19-24); iSTAT Arterial Blood Gas pCO2 44 mmHg (35-46); iSTAT Arterial Blood Gas pH 7.45 (7.35-7.45); iSTAT Arterial Blood Gas pO2 60 mmHg (80-95); iSTAT Arterial Blood Gas pO2 C 61; iSTAT Carbon Dioxide 32 mEq/l (24-31); iSTAT FiO2 60 %; iSTAT Site Art Line
[2019-02-01 05:31] LABS: Basophils # (auto) 0.01 K/uL (0-0.2); Basophils % (auto) 0.1 %; Immature Granulocytes # (auto) 0.08 K/uL (0.00-0.02); Immature Granulocytes % (auto) 0.8 %; Lymphocytes # (auto) 0.75 K/uL (1.2-3.4); Lymphocytes % (auto) 7.6 %; Monocytes # (auto) 1.14 K/uL (0.11-0.59); Monocytes % (auto) 11.6 %; Neutrophils # (auto) 7.87 K/uL (1.4-6.5); Neutrophils % (auto) 79.9 %
--- NOTE | 2019-02-01 06:57 | XRay Report ---
XR chest 1V portable CLINICAL HISTORY: resp failure dyspnea. Tube position. COMPARISON STUDY: 01/31/2019 FINDINGS: Endotracheal tube 2.5 cm above the noreen. Mild stable cardiomegaly. Diffuse findings of pulmonary edema stable to slightly improved from the prior exam. Central catheter remains in superior vena cava. IMPRESSION: 1. Unchanged to slightly improved findings of diffuse bilateral pulmonary edema versus diffuse pneumo nitis. 2. Endotracheal tube 2.5 cm above the noreen. The above report was generated using voice recognition software. It may contain grammatical, syntax or spelling errors. Electronically signed by: Hayes Tavarez M.D. 02/01/2019 6:55 AM
[2019-02-01 08:46] LABS: INR 1.9 (0.9-1.1); Prothrombin Time 18.2 Seconds (9.0-12.0)
[2019-02-01] MEDS: NOREPINEPHRINE BIT INJ 16 MG in DEXTROSE 5% 500 ML IV SCH (08:51)
--- NOTE | 2019-02-01 09:19 | Gastroenterology Progress Note ---
Date of Service February 01, 2019 Assessment & Plan (1) Elevated LFTs: (2) Alcohol abuse: Pt is a 54 y/o female seen for elevated LFTs, hx of known hepatic steatosis and admitted ETOH abuses. Suspect likely ETOH hepatitis, ? OBRIEN. US hepatic duplex study inconclusive. MRCP w.o signs of biliary dilation, + gallbladder sludge and mild gallbladder wall thickening. Liver noted to be normal in MRCP, though suspect possible cirrhosis given thrombocytopenia, coagulopathy. [facility] Discriminant Function score <32 on admission. She developed respiratory distress and continues to decline, intubated currently. Suspect combination of volume overload and pulmonary infection causing distress. - Trend LFT, renal function, INR and mentation - Completed NAC protocol. - Titrate Lactulose for goal BM 3-5 - Diuretics per Nephrology. She is also followed by Cardiology and Pulmonology for volume overload, pneumonitis. - Strict ETOH cessation advised; case management for counseling resources - No new GI plans today Subjective Pt's respiratory status continued to decline and she was intubated last night. Cannot obtain ROS due to her intubation status. Chart reviewed. Review of Systems Review of Systems: Unobtainable due to endotracheal tube Physical Exam Constitutional: Sedated, intubated, appears comfortable Respiratory: Intubated, diminished bilateral lung lobes Cardiovascular: RRR, no murmur, no edema Gastrointestinal (Abdomen): Inspection/Auscultation: + hypoactive bowel sounds Percussion/Palpation: abdomen soft Neurologic: Sedated Results & Data Vital Signs (Past 12 Hours) Vital Signs Temp Pulse Resp BP Pulse Ox 02/01/19 08:00 36.7 C 85 90/52 L 94 02/01/19 07:15 95 H 20 90 02/01/19 07:00 96 H 105/55 L 92 02/01/19 05:37 88 20 90 02/01/19 05:33 106 H 113/67 100 02/01/19 05:01 96 H 90 02/01/19 04:31 108 H 94/51 L 72 L 02/01/19 04:23 99 H 23 91 02/01/19 04:01 102 H 69 L 02/01/19 04:00 36.8 C 101 H 131/61 71 L 02/01/19 03:30 87 83/52 L 96 02/01/19 03:01 85 97 02/01/19 03:00 86 86/51 L 96 02/01/19 02:30 86 82/50 L 95 02/01/19 02:01 89 94 02/01/19 02:00 90 90/47 L 95 02/01/19 01:43 89 20 94 02/01/19 01:30 92 H 91/53 L 95 02/01/19 01:01 100 H 97 02/01/19 01:00 101 H 94/56 L 97 02/01/19 00:30 106 H 106/55 L 96 02/01/19 00:00 36.7 C 106 H 95 01/31/19 23:00 108 H 97 01/31/19 22:07 100 H 20 98 01/31/19 22:00 100 H 98 01/31/19 21:20 100 H 93/60 L 99
[2019-02-01] MEDS: MULTIVITAMIN TAB PO SCH (09:26)
[2019-02-01] MEDS: AZITHROMYCIN 500 MG in DEXTROSE 5% 250 ML IV SCH (09:28)
[2019-02-01] MEDS: fentaNYL DRIP 1,250 MCG/250 ML BAG IV SCH (09:39)
[2019-02-01] MEDS: FUROSEMIDE 40 MG in SYRINGE 0 ML IV SCH (09:40)
--- NOTE | 2019-02-01 10:07 | Critical Care Progress Note ---
Date of Service February 01, 2019 Assessment & Plan (1) Admitted to intensive care unit: Reason critically ill: 54yo female with PMHx of alcohol abuse and hepatic cirrhosis currently in alcohol withdrawal. Neuro -currently intubated -continue fentanyl and propofol CV -Echo 01/31: EF of 55-60% -EKG: NSR, qtc 444 -Currently on Levophed for hypotension Pulmonary -chest xray-with pleural effusions- pulm edema vs. diffuse pneumonitis -currently on IV Solumedrol -will taper down to 40 BID -currently intubated GI -Hx of alcohol abuse with some cirrhosis -INR 1.9, on 3 days of Vit K administration given thrombocytopenia and coagulopathy -appreciate GI recs -Consider tube feeds given intuabtion Renal -Possible acute on chronic renal failure -Was on Lasix, will d/c ID -continue abx rocephin and azithromycin for possible infectious cause HEME -thrombocytopenia likely secondary to hepatic failure -will continue to monitor PIVS DVT proph: none given thrombocytopenia Dispo: ICU Supervising Physician Co-Signing Physician Notes Dr. Kilgore was the resident-physician during care of patient. I separately evaluated patient for rashid portions of the history and the exam. I was present during the critical portion of medical decision making, and I discussed the case with the resident. I generally agree with the findings and plan except for any additions/exceptions noted. Patient was intubated last evening. Her oxygen requirements have decreased. She is now hypotensive likely related to sedation. We are doing a lung protective ventilation strategy with low tidal volumes and high PEEP. She is currently on 60% FiO2 with a PEEP of 12. We have her appetite a volume of 330. Respiratory rate is set at 20. We are continuing antibiotics now. All cultures have been negative. We have sent a tracheal aspirate this morning. I am still concerned about the possibility of an atypical infection versus possible alveolar hemorrhage related to her coagulopathy and thrombocytopenia. We will perform bronchoscopy today with BAL. We will initiate tube feeds today. Continue GI prophylaxis for Protonix. DVT prophylaxis with sequential compressive devices. We will hold Lasix at this time given that she may be a bit intravascularly depleted now. Maintain maps above 65 with levo fed. Continue IV vitamin K for total 3 doses. She does have an increasing T bili which is likely lagging behind the rest of her LFTs. HERNAN and ANCA screen are pending. Of note, her urine does suggest a possible UTI. Urine cultures are pending. We are continuing her on ceftriaxone and azithromycin. We are also continuing lactulose. Her ammonia today is 80. I have personally spent 40 minutes of critical care time in the direct management of this patient. This is a life/limb threatening event. This includes time spent evaluating patient, direct bedside care, chart review, placing orders, interpretation of diagnostic studies, discussion with consultants, patient, and/or family members regarding treatment decisions, as well as other required patient management activities. This time is exclusive of all separately billable procedures, and teaching time and separate from and in addition to any other critical care service time. Subjective Pt was intubated overnight. Stable currently. Review of Systems Review of Systems: Unobtainable due to endotracheal tube Physical Exam Physical Exam: General:Laying in bed eyes closed, intubated. Skin: No noted rashes or bruises Psych: Mood and affect cannot be determined as pt currently intubated Neuro: No gross deficits, able to move hands and feet on command. HEENT: NC/AT, intubated CV: RRR, Normal s1, s2. Resp: Breath sounds clear bilaterally on front. Intubated. Abdomen: Soft, nontender, nondistended. No guarding. Extremities: + edema in lower extremities bilaterally. Results & Data Vital Signs (Past 12 Hours) Vital Signs Temp Pulse Resp BP Pulse Ox 02/01/19 09:30 89 106/60 93 02/01/19 09:13 92 H 99/56 L 91 02/01/19 09:00 96 H 103/55 L 90 02/01/19 08:30 93 H 94/57 L 96 02/01/19 08:00 36.7 C 85 90/52 L 94 02/01/19 07:15 95 H 20 90 02/01/19 07:00 96 H 105/55 L 92 02/01/19 05:37 88 20 90 02/01/19 05:33 106 H 113/67 100 02/01/19 05:01 96 H 90 02/01/19 04:31 108 H 94/51 L 72 L 02/01/19 04:23 99 H 23 91 02/01/19 04:01 102 H 69 L 02/01/19 04:00 36.8 C 101 H 131/61 71 L 02/01/19 03:30 87 83/52 L 96 02/01/19 03:01 85 97 02/01/19 03:00 86 86/51 L 96 02/01/19 02:30 86 82/50 L 95 02/01/19 02:01 89 94 02/01/19 02:00 90 90/47 L 95 02/01/19 01:43 89 20 94 02/01/19 01:30 92 H 91/53 L 95 02/01/19 01:01 100 H 97 02/01/19 01:00 101 H 94/56 L 97 02/01/19 00:30 106 H 106/55 L 96 02/01/19 00:00 36.7 C 106 H 95 01/31/19 23:00 108 H 97 01/31/19 22:07 100 H 20 98 Laboratory Results Laboratory Results - last 24 hr 01/31/19 01/31/19 01/31/19 10:55 12:47 12:47 WBC RBC Hgb Hct MCV MCH MCHC RDW Std Deviation RDW Coeff of Wesley Plt Count MPV Immature Gran % (Auto) Neut % (Auto) Lymph % (Auto) [place] % (Auto) Eos % (Auto) Baso % (Auto) Immature Gran # (Auto) Neut # (Auto) Lymph # (Auto) [place] # (Auto) Eos # (Auto) Baso # (Auto) PT INR Sample Site POC pH POC pCO2 POC pO2 POC HCO3 POC Total CO2 POC Base Excess ABG pH (Temp Correct) ABG pCO2 (Temp Corrct POC ABG pO2 at Pt Temp POC ABG O2 Sat Dylan Test O2 Delivery Device POC O2 Rate Minute Ventilation POC FiO2 Tidal Volume PEEP Sodium 127 L Potassium 3.9 Chloride 93 L Carbon Dioxide 31 Anion Gap 3.0 BUN 6 L Creatinine 0.73 Est Cr Clr Drug Dosing 96.6 Est GFR ( Amer) 109.0 Est GFR (Non-Af Amer) 94.0 BUN/Creatinine Ratio 8.2 L Glucose 138 H POC Glucose Lactate Calcium 8.6 Phosphorus Magnesium Ferritin Total Bilirubin Direct Bilirubin AST ALT Alkaline Phosphatase Ammonia Troponin I 0.016 NT-Pro-B Natriuret Pep 1256 H Total Protein Albumin Procalcitonin 0.13 Urine Color Urine Appearance Urine pH Ur Specific [place] Urine Protein Urine Glucose (UA) Urine Ketones Urine Blood Urine Nitrite Urine Bilirubin Urine Urobilinogen Ur Leukocyte Esterase Urine WBC (Auto) Urine RBC (Auto) U Hyaline Cast (Auto) U Epithel Cells (Auto) Urine Bacteria (Auto) Waxy Casts Nasal Screen MRSA (PCR) Urine Legionella Ag 01/31/19 01/31/19 01/31/19 13:29 14:50 14:50 WBC RBC Hgb Hct MCV MCH MCHC RDW Std Deviation RDW Coeff of Wesley Plt Count MPV Immature Gran % (Auto) Neut % (Auto) Lymph % (Auto) [place] % (Auto) Eos % (Auto) Baso % (Auto) Immature Gran # (Auto) Neut # (Auto) Lymph # (Auto) [place] # (Auto) Eos # (Auto) Baso # (Auto) PT INR Sample Site POC pH POC pCO2 POC pO2 POC HCO3 POC Total CO2 POC Base Excess ABG pH (Temp Correct) ABG pCO2 (Temp Corrct POC ABG pO2 at Pt Temp POC ABG O2 Sat Dylan Test O2 Delivery Device POC O2 Rate Minute Ventilation POC FiO2 Tidal Volume PEEP Sodium Potassium Chloride Carbon Dioxide Anion Gap BUN Creatinine Est Cr Clr Drug Dosing Est GFR ( Amer) Est GFR (Non-Af Amer) BUN/Creatinine Ratio Glucose POC Glucose Lactate Calcium Phosphorus Magnesium Ferritin Total Bilirubin Direct Bilirubin AST ALT Alkaline Phosphatase Ammonia Troponin I NT-Pro-B Natriuret Pep Total Protein Albumin Procalcitonin Urine Color Dark Yellow Urine Appearance Clear Urine pH 5.0 Ur Specific [place] 1.018 Urine Protein Negative Urine Glucose (UA) Negative Urine Ketones Negative Urine Blood Trace H Urine Nitrite Positive A Urine Bilirubin 1+ H Urine Urobilinogen Negative Ur Leukocyte Esterase Trace H Urine WBC (Auto) 1-5 Urine RBC (Auto) 0-4 U Hyaline Cast (Auto) >30 H U Epithel Cells (Auto) 20-30 H Urine Bacteria (Auto) Negative Waxy Casts 1-5 H Nasal Screen MRSA (PCR) Negative Urine Legionella Ag Pending 01/31/19 01/31/19 01/31/19 15:14 15:20 18:07 WBC RBC Hgb Hct MCV MCH MCHC RDW Std Deviation RDW Coeff of Wesley Plt Count MPV Immature Gran % (Auto) Neut % (Auto) Lymph % (Auto) [place] % (Auto) Eos % (Auto) Baso % (Auto) Immature Gran # (Auto) Neut # (Auto) Lymph # (Auto) [place] # (Auto) Eos # (Auto) Baso # (Auto) PT INR Sample Site POC pH POC pCO2 POC pO2 POC HCO3 POC Total CO2 POC Base Excess ABG pH (Temp Correct) ABG pCO2 (Temp Corrct POC ABG pO2 at Pt Temp POC ABG O2 Sat Dylan Test O2 Delivery Device POC O2 Rate Minute Ventilation POC FiO2 Tidal Volume PEEP Sodium Potassium Chloride Carbon Dioxide Anion Gap BUN Creatinine Est Cr Clr Drug Dosing Est GFR ( Amer) Est GFR (Non-Af Amer) BUN/Creatinine Ratio Glucose POC Glucose 146 H Lactate 2.5 H* Calcium Phosphorus Magnesium Ferritin 443.0 H Total Bilirubin Direct Bilirubin AST ALT Alkaline Phosphatase Ammonia Troponin I NT-Pro-B Natriuret Pep Total Protein Albumin Procalcitonin Urine Color Urine Appearance Urine pH Ur Specific [place] Urine Protein Urine Glucose (UA) Urine Ketones Urine Blood Urine Nitrite Urine Bilirubin Urine Urobilinogen Ur Leukocyte Esterase Urine WBC (Auto) Urine RBC (Auto) U Hyaline Cast (Auto) U Epithel Cells (Auto) Urine Bacteria (Auto) Waxy Casts Nasal Screen MRSA (PCR) Urine Legionella Ag 01/31/19 01/31/19 01/31/19 20:54 21:52 22:43 WBC RBC Hgb Hct MCV MCH MCHC RDW Std Deviation RDW Coeff of Wesley Plt Count MPV Immature Gran % (Auto) Neut % (Auto) Lymph % (Auto) [place] % (Auto) Eos % (Auto) Baso % (Auto) Immature Gran # (Auto) Neut # (Auto) Lymph # (Auto) [place] # (Auto) Eos # (Auto) Baso # (Auto) PT INR Sample Site Art Line POC pH 7.57 H* POC pCO2 32 L POC pO2 85 POC HCO3 29 H POC Total CO2 30 POC Base Excess 7.0 H ABG pH (Temp Correct) 7.563 H* ABG pCO2 (Temp Corrct 32 L POC ABG pO2 at Pt Temp 85 POC ABG O2 Sat 98.0 H Dylan Test NA O2 Delivery Device Ventilator POC O2 Rate 30 Minute Ventilation 9.9 POC FiO2 60 Tidal Volume 350 PEEP 14 Sodium 130 L Potassium 4.2 Chloride 96 L Carbon Dioxide 28 Anion Gap 7.0 BUN 8 Creatinine 0.66 Est Cr Clr Drug Dosing 106.9 Est GFR ( Amer) 116.9 Est GFR (Non-Af Amer) 100.9 BUN/Creatinine Ratio 11.8 Glucose 149 H POC Glucose Lactate 2.4 H* Calcium 8.7 Phosphorus Magnesium Ferritin Total Bilirubin Direct Bilirubin AST ALT Alkaline Phosphatase Ammonia Troponin I NT-Pro-B Natriuret Pep Total Protein Albumin Procalcitonin Urine Color Urine Appearance Urine pH Ur Specific [place] Urine Protein Urine Glucose (UA) Urine Ketones Urine Blood Urine Nitrite Urine Bilirubin Urine Urobilinogen Ur Leukocyte Esterase Urine WBC (Auto) Urine RBC (Auto) U Hyaline Cast (Auto) U Epithel Cells (Auto) Urine Bacteria (Auto) Waxy Casts Nasal Screen MRSA (PCR) Urine Legionella Ag 02/01/19 02/01/19 02/01/19 04:32 04:32 04:35 WBC 9.85 RBC 2.59 L Hgb 9.9 L Hct 28.4 L MCV 109.7 H MCH 38.2 H MCHC 34.9 RDW Std Deviation 59.5 H RDW Coeff of Wesley 15.2 H Plt Count 73 L MPV 10.7 H Immature Gran % (Auto) 0.8 Neut % (Auto) 79.9 Lymph % (Auto) 7.6 [place] % (Auto) 11.6 Eos % (Auto) 0.0 Baso % (Auto) 0.1 Immature Gran # (Auto) 0.08 H Neut # (Auto) 7.87 H Lymph # (Auto) 0.75 L [place] # (Auto) 1.14 H Eos # (Auto) 0.00 Baso # (Auto) 0.01 PT INR Sample Site POC pH POC pCO2 POC pO2 POC HCO3 POC Total CO2 POC Base Excess ABG pH (Temp Correct) ABG pCO2 (Temp Corrct POC ABG pO2 at Pt Temp POC ABG O2 Sat Dylan Test O2 Delivery Device POC O2 Rate Minute Ventilation POC FiO2 Tidal Volume PEEP Sodium 132 L Potassium 4.5 Chloride 97 L Carbon Dioxide 30 Anion Gap 5.0 BUN 9 Creatinine 0.65 Est Cr Clr Drug Dosing 108.5 Est GFR ( Amer) 117.5 Est GFR (Non-Af Amer) 101.4 BUN/Creatinine Ratio 13.4 Glucose 133 H POC Glucose Lactate Calcium 8.4 L Phosphorus 2.6 Magnesium 1.9 Ferritin Total Bilirubin 9.3 H Direct Bilirubin 4.9 H AST 63 H ALT 28 Alkaline Phosphatase 72 Ammonia 81.0 H Troponin I NT-Pro-B Natriuret Pep Total Protein 5.7 L Albumin 2.6 L Procalcitonin Urine Color Urine Appearance Urine pH Ur Specific [place] Urine Protein Urine Glucose (UA) Urine Ketones Urine Blood Urine Nitrite Urine Bilirubin Urine Urobilinogen Ur Leukocyte Esterase Urine WBC (Auto) Urine RBC (Auto) U Hyaline Cast (Auto) U Epithel Cells (Auto) Urine Bacteria (Auto) Waxy Casts Nasal Screen MRSA (PCR) Urine Legionella Ag 02/01/19 02/01/19 02/01/19 05:16 06:36 08:18 WBC RBC Hgb Hct MCV MCH MCHC RDW Std Deviation RDW Coeff of Wesley Plt Count MPV Immature Gran % (Auto) Neut % (Auto) Lymph % (Auto) [place] % (Auto) Eos % (Auto) Baso % (Auto) Immature Gran # (Auto) Neut # (Auto) Lymph # (Auto) [place] # (Auto) Eos # (Auto) Baso # (Auto) PT 18.2 H INR 1.9 H Sample Site Art Line POC pH 7.45 POC pCO2 44 POC pO2 60 L POC HCO3 31 H POC Total CO2 32 H POC Base Excess 6.0 H ABG pH (Temp Correct) 7.444 ABG pCO2 (Temp Corrct 45 POC ABG pO2 at Pt Temp 61 POC ABG O2 Sat 92.0 Dylan Test NA O2 Delivery Device Ventilator POC O2 Rate 20 Minute Ventilation 8.7 POC FiO2 60 Tidal Volume 330 PEEP 12 Sodium Potassium Chloride Carbon Dioxide Anion Gap BUN Creatinine Est Cr Clr Drug Dosing Est GFR ( Amer) Est GFR (Non-Af Amer) BUN/Creatinine Ratio Glucose POC Glucose Lactate 1.7 Calcium Phosphorus Magnesium Ferritin Total Bilirubin Direct Bilirubin AST ALT Alkaline Phosphatase Ammonia Troponin I NT-Pro-B Natriuret Pep Total Protein Albumin Procalcitonin Urine Color Urine Appearance Urine pH Ur Specific [place] Urine Protein Urine Glucose (UA) Urine Ketones Urine Blood Urine Nitrite Urine Bilirubin Urine Urobilinogen Ur Leukocyte Esterase Urine WBC (Auto) Urine RBC (Auto) U Hyaline Cast (Auto) U Epithel Cells (Auto) Urine Bacteria (Auto) Waxy Casts Nasal Screen MRSA (PCR) Urine Legionella Ag Medications Administered Home Medications No Known Home Medications 01/29/19 [History Confirmed 01/29/19] Active Medications Fentanyl Citrate (Fentanyl Citrate) 25 mcg IV ONE PRN PRN Reason: Pain Not Controlled by Drip Ceftriaxone Sodium 2,000 mg/ (Dextrose) 70 mls @ 100 mls/hr IV Q24H [facility]; Protocol Stop: 02/06/19 19:59 Last Infusion: 02/01/19 00:24 Dose: Infused Documented by: Azithromycin 500 mg/ Dextrose 255 mls @ 125 mls/hr IV DAILY [facility] Stop: 02/06/19 14:59 Last Admin: 02/01/19 09:28 Dose: 125 mls/hr Documented by: Methylprednisolone 40 mg/ (Syringe) 0.64 mls @ 1.5 mls/min IV Q8H [facility] Stop: 03/02/19 11:59 Last Admin: 02/01/19 05:08 Dose: 1.5 mls/min Documented by: Furosemide 40 mg/ Syringe 4 mls @ 4 mls/min IV BID [facility] Stop: 03/02/19 20:59 Last Admin: 02/01/19 09:40 Dose: 4 mls/min Documented by: Pantoprazole Sodium 40 mg/ (Syringe) 10 mls @ 5 mls/min IV DAILY@1100 [facility] Stop: 03/02/19 13:44 Last Admin: 01/31/19 13:56 Dose: 5 mls/min Documented by: Phytonadione 10 mg/ Sodium (Chloride) 51 mls @ 102 mls/hr IV DAILY [facility] Stop: 02/03/19 13:45 Last Admin: 02/01/19 10:15 Dose: 102 mls/hr Documented by: Fentanyl Citrate (Fentanyl Drip) 1,250 mcg in 250 mls @ 15 mls/hr IV .[id number] [facility]; Protocol Stop: 02/14/19 20:12 Last Admin: 02/01/19 09:39 Dose: 75 mcg/hr, 15 mls/hr Documented by: Propofol (Diprivan) 1,000 mg in 100 mls @ 11.172 mls/hr IV .[id number] [facility]; Protocol Stop: 02/04/19 01:14 Last Titration: 02/01/19 08:43 Dose: 20 mcg/kg/min, 11.2 mls/hr Documented by: Norepinephrine Bitartrate 16 (mg/ Dextrose) 508 mls @ 12.49 mls/hr IV .Q24H [facility]; Protocol Stop: 03/03/19 08:08 Last Titration: 02/01/19 09:20 Dose: 0.07 mcg/kg/min, 12.5 mls/hr Documented by: Ipratropium [place] (Atrovent 0.02% 0.5mg/2.5ml) 0.5 mg INH Q6R [facility] Stop: 03/01/19 00:59 Last Admin: 02/01/19 07:12 Dose: 0.5 mg Documented by: Lactulose (Chronulac) 20 gm PO QID [facility] Stop: 03/02/19 16:59 Last Admin: 02/01/19 09:24 Dose: 20 gm Documented by: Metoprolol Tartrate (Lopressor) 12.5 mg PO BID [facility] Stop: 03/01/19 20:59 Last Admin: 02/01/19 08:12 Dose: Not Given Documented by: Miscellaneous (Icu Electrolyte Replacement Protocol) 1 ea N/A UD PRN PRN Reason: for e-lyte repletion Stop: 02/07/19 13:12 Multivitamins (Multivitamin Tab) 1 tab PO QAM [facility] Stop: 03/01/19 08:59 Last Admin: 02/01/19 09:26 Dose: 1 tab Documented by: Ondansetron HCl (Zofran) 4 mg IV Q4H PRN PRN Reason: Nausea Stop: 02/28/19 15:31 Last Admin: 01/30/19 14:43 Dose: 4 mg Documented by: PG Care Time/CCT Total # of Minutes Spent Total Time Spent with Patient: Total time spent is greater than 50% in coordination of care (as documented) at patient's floor/unit and/or counseling patient: Critical Care Time: Yes Total Critical Care Time: 40 Resident Activity Tracking Resident Involvement: Resident Care Provided Care Provided: Adult Hospital Medicine
[2019-02-01] MEDS: PHYTONADIONE 10 MG in SODIUM CHLORIDE 0.9% 50 ML IV SCH (10:15)
[2019-02-01] MEDS: PANTOprazole 40 MG in SYRINGE 0 ML IV SCH (10:42)
[2019-02-01] MEDS ORDERED: PROPOFOL IV EMULSION 10 MG/ML 20 ML VIAL IV STA (11:34)
[2019-02-01] MEDS ORDERED: fentaNYL citrate 100 MCG/2 ML VIAL IV STA (11:35)
[2019-02-01] MEDS ORDERED: methylPREDNISolone 250 MG in SYRINGE 0 ML IV SCH (11:45)
--- NOTE | 2019-02-01 11:48 | Procedure Note ---
Procedure Note: Bronchoscopy Procedure PREOPERATIVE DIAGNOSIS: Pneumonia with possible alveolar hemorrhage POSTOPERATIVE DIAGNOSIS: Diffuse alveolar hemorrhage PROCEDURE PERFORMED: Flexible fiberoptic bronchoscopy with bronchial alveolar lavage COMPLICATIONS: None. INDICATION: Acute hypoxemic respiratory failure with signs of pneumonia versus alveolar hemorrhage PROCEDURE: Appropriate consent was obtained and timeout was performed prior to the procedure. The patient was already on propofol infusion and fentanyl infusion prior to the procedure. We did bolus her with an additional 40 mg of IV propofol and 50 mcg of fentanyl. She did have an arterial line in place and Levophed was running during the procedure. I inserted the bronchoscope via the endotracheal tube. There were bloody secretions noted in the ET tube but were minimal. We then visualized the noreen and instilled 4 mL's of 2% lidocaine onto the noreen. The noreen appeared sharp. There was a large clot seen on the right mainstem airway. We then proceeded with a BAL of the medial segment of the right middle lobe. We instilled 40 mL aliquots of normal saline and aspirated the fluid back. On each instillation aspiration the fluid became redder. We then removed the scope from the right middle lobe and adequate hemostasis was achieved. We then performed a survey of the right bronchial tree and there was evidence of thin bloody secretions throughout the airway. We then withdrew the scope from the right mainstem bronchus and inserted into the left mainstem bronchus and again there was evidence of diffuse thin bloody secretions throughout the left bronchial tree. We then withdrew the scope and the patient tolerated the procedure well. Bronchoalveolar lavage samples were sent for cell count, Gram stain and bacterial culture, AFB culture and smear, fungal culture and smear and cytology. Recommendations: Follow cultures, cell count and cytology. She does have evidence of diffuse alveolar hemorrhage. This may be related to her underlying coagulopathy and thrombocytopenia. We are reversing her INR with vitamin K. We have also sent for an HERNAN and ANCA earlier in the admission. We will add an anti-GBM. We will start her on 250 mg IV Solu-Medrol every 6h x3 days which is essentially a pulse dose of steroids.
[2019-02-01] MEDS ORDERED: CARBOHYDRATES FOR HYPOGLYCEMIA PO PRN (13:00)
[2019-02-01] MEDS ORDERED: GLUCOSE 40% GEL 15 GM TUBE PO PRN (13:00)
[2019-02-01] MEDS ORDERED: DEXTROSE 50% 50 ML SYRINGE IV PRN (13:00)
[2019-02-01] MEDS ORDERED: GLUCAGON FOR INJ 1 MG VIAL IM PRN (13:00)
[2019-02-01] MEDS ORDERED: GLUCOSE 10 TABS/TUBE PO PRN (13:00)
[2019-02-01 13:14] LABS: Eosinophil Body Fluid Man 0 %; Fluid Mono/Macrophage 69 %; Lymphocyte Body Fluid Man 3 %; Neutrophil Body Fluid Man 28 %
[2019-02-01] MEDS: DEXTROSE 5% IV SCH ×2 (13:30→18:41)
[2019-02-01] MEDS: METHYLPREDNISOLONE IV SCH ×2 (13:30→18:41)
[2019-02-01] MEDS ORDERED: ALBUT/IPRATROP 3MG/0.5MG NEB 3 ML VIAL NEB PRN (13:41)
[2019-02-01] MEDS: PEPTAMEN INTENSE VHP 1.0 CAL 1,000 ML BAG OG SCH (14:15)
[2019-02-01] MEDS ORDERED: INSULIN ASPART 100 UNITS/ML 3 ML PEN SC SCH (16:30)
[2019-02-01] MEDS ORDERED: PHARMACY GLYCEMIC MGMT CONSULT STA (18:22)
[2019-02-01] MEDS ORDERED: PHARMACY GLYCEMIC MGMT CONSULT PRN (18:29)
--- NOTE | 2019-02-01 19:08 | Hospitalist Progress Note ---
Date of Service February 01, 2019 Assessment & Plan (1) Multifocal pneumonia: (2) Volume overload: (3) Bilateral pleural effusion: (4) Acute hypoxemic respiratory failure: Mechanical intubation Present on admission with worsening SOB associated with coughing CT chest showed findings of diffuse bilateral multifocal pneumonitis versus pulmonary edema. No evidence of PE Repeat showed progressive bilateral parenchymal infiltrative and/or pulmonary edematous change. She was intubated last night S/P bronch done today showed evidence of diffuse alveolar hemorrhage. Starting on 250 mg IV Solu-Medrol every 6h x3 days Vent management as per [place] [place] Echo showed no wall motion abnormality with EF 55-60% Continue IV abx with Rocephin and Zithromax Continue monitor closely in the ICU (5) Hypotension: Possible related to sedation On pressor with levophed Continue monitor BP (6) Alcohol abuse: Elevated Liver enzymes [facility] Discriminant Function score 36 MRCP showed No biliary ductal dilatation or choledocholithiasis to suggest biliary obstruction. Mildly distended gallbladder with gallbladder sludge and wall thickening. Continue lactulose Gastro on board Counseling on alcohol cessation Intubated on propofol Monitor for sign of withdrawn (7) Hyponatremia: Na 132 today Possible related to volume overload in the setting of alcohol hepatitis Nephrology on board Lasix discontinued Monitor BMP (8) Elevated glucose: Due to high dose steroid Continue insulin sliding scale Pharmacy consult for glycemic management Monitor BS (9) Elevated lactic acid level: Possible related to hypoxia mostly Afebrile, no leukocytosis and procalcitonin Continue Zithromax and Rocephin Blood cx no growth lactic acid normalizes Thrombocytopenia Elevated INR Due to Alcoholic liver disease Platelet 73 Diffuse aveolar hemorrhage Continue Vit K 10mg IV for now DVT px on SCDs due to thrombocytopenia Disposition Continue monitor in the ICU Subjective Pt was seen and examined Sedated on mechanical vent support She was intubated last night for respiratory failure Physical Exam Physical Exam: General- Sedated Head- atraumatic Eyes- PERRL, EOMI, ENT- Intubated Neck- supple, no JVD Lungs- Coarse BS Heart- regular rhythm Abdomen- normal bowel sounds, soft, nontender Extremities- no calf tenderness, +b/l Edema Neuro- sedated with propofol and fentanyl drip Skin- warm & dry Results & Data Vital Signs (Past 12 Hours) Vital Signs Temp Pulse Resp BP Pulse Ox 02/01/19 18:00 84 113/57 L 95 10/24/19 17:30 37.1 C 85 115/62 95 02/01/19 17:01 88 95 02/01/19 17:00 86 114/60 95 02/01/19 16:00 89 119/71 95 02/01/19 15:52 83 20 94 02/01/19 15:30 83 113/61 94 02/01/19 15:16 85 02/01/19 15:01 85 94 02/01/19 15:00 85 111/63 94 02/01/19 14:00 84 107/60 93 02/01/19 13:30 84 106/58 L 94 02/01/19 13:25 95 H 20 85 L 02/01/19 13:00 89 106/57 L 94 02/01/19 12:30 97 H 113/64 94 02/01/19 12:00 97 H 111/64 93 02/01/19 11:50 90 20 94 02/01/19 11:45 94 H 99 02/01/19 11:40 94 H 98 02/01/19 11:35 95 H 99 02/01/19 11:31 101 H 99 02/01/19 11:25 121 H 99 02/01/19 11:20 87 98 02/01/19 11:00 87 101/60 93 02/01/19 10:30 88 106/64 93 02/01/19 10:00 37.4 C 89 109/65 94 02/01/19 09:30 89 106/60 93 02/01/19 09:13 92 H 99/56 L 91 02/01/19 09:00 96 H 103/55 L 90 02/01/19 08:30 93 H 94/57 L 96 02/01/19 08:00 36.7 C 85 90/52 L 94 02/01/19 07:15 95 H 20 90 02/01/19 07:00 96 H 105/55 L 92 (1) Volume overload Hypervolemia type: other Qualified Code(s): E87.79 - Other fluid overload
--- NOTE | 2019-02-01 20:03 | Pharmacy Report ---
Glycemic Control Consultation - Date of Service February 01, 2019 - Scope Scope: Glycemic Pharmacist consulted by Dr Rangel on 02/01 for glycemic control and to write orders per [facility] inpatient glycemic control protocol - Objective Weight: 93.667 kg Accuchecks BSG (last 24hrs): 01/31/19 02/01/19 02/01/19 22:43 04:32 17:01 Glucose 149 H 133 H POC Glucose (other) 167 H Laboratory Data (last 24hrs): 01/31/19 02/01/19 22:43 04:32 Potassium 4.2 4.5 Carbon Dioxide 28 30 Anion Gap 7.0 5.0 Creatinine 0.66 0.65 Est Cr Clr Drug Dosing 106.9 108.5 - Recent Pertinent Medications Outpatient Anti-diabetic Regimen: * n/a The patient is currently receiving: * Correctional Insulin: Novolog Correction per scale ACHS Goal Range: Low 120 mg/dL - High 160 mg/dL Correction Factor: 25 mg/dL/unit Risk Factors for Insulin Resistance: * Steroids: Solu-medrol 250 mg IV q6h * Infection: Was on Rocephin/Zithromax for pneumonia -> just transitioned to Rocephin only for UTI * Pressors: Levophed * IVF: on fentanyl and propofol drips * Diet: Peptamen tube feeds started this afternoon @ 10 mL/hr * Mechanical Ventilation - Assessment & Plan Assessment & Plan: ASSESSMENT: * 53 y/o female admitted with aspiration pneumonitis and alcohol withdrawal. No history of diabetes. Patient is currently intubated, on pressors, high dose steroids and then tube feeds initiated today. Pharmacy has been consulted for glycemic control in a patient with many risk factors for insulin resistance. * Latest BSG 167 mg/dL after steroids increased and trickle tube feeds initiated. Will plan to continue with correctional insulin only for now, adding basal insulin or insulin infusion if BSGs consistently > goal of 180 mg/dL. PLAN FOR INPATIENT GLYCEMIC CONTROL: * Bolus insulin - no change * NovoLog per scale ACHS or Q6hrs while NPO * Goal Range: Low 120 mg/dL - High 160 mg/dL * Correction Factor: 25 mg/dL/unit * Please note that the plan above was derived based on current level of insulin resistance and hospital stress. These recommendations are appropriate for inpatient admission only. Plan of care upon discharge will need to be reassessed to avoid potential outpatient hypo/hyperglycemia. Thank you.
[2019-02-02] MEDS ORDERED: GABAPENTIN 600 MG TAB PO SCH
[2019-02-02] MEDS: cefTRIAXone SODIUM 1,000 MG in DEXTROSE 5% 50 ML IV SCH ×2 (00:34→23:19)
[2019-02-02] MEDS: fentaNYL DRIP 1,250 MCG/250 ML BAG IV SCH ×2 (00:42→17:37)
[2019-02-02] MEDS: INSULIN ASPART 100 UNITS/ML 3 ML PEN SC SCH ×5 (00:45→23:38)
[2019-02-02] MEDS: METHYLPREDNISOLONE IV SCH ×4 (00:48→19:56)
[2019-02-02] MEDS: DEXTROSE 5% IV SCH ×4 (00:48→19:56)
[2019-02-02] MEDS: PROPOFOL 1,000 MG/100 ML VIAL IV SCH ×4 (02:26→19:56)
[2019-02-02 04:38] LABS: Nucleated RBC # (auto) 0.02 K/uL (0-0); Nucleated RBC % (auto) 0.2 %
[2019-02-02 04:49] LABS: Hematocrit (blood only) 29.2 % (37-47); Hemoglobin 10.3 g/dL (12.0-16.0); Mean Corpuscular Hemoglobin 37.9 pg (25-34); Mean Corpuscular Hgb Conc 35.3 g/dL (32-36); Mean Corpuscular Volume 107.4 fL (80-100); Mean Platelet Volume 10.9 fL (7.4-10.4); Platelet Count 125 K/uL (130-400); RDW Coefficient of Variation 15.2 % (11.5-14.5); RDW Standard Deviation 58.6 fL (36.4-46.3); Red Blood Count 2.72 M/uL (4.2-5.4)
[2019-02-02 04:54] LABS: INR 1.6 (0.9-1.1); Partial Thromboplastin Ratio 1.1; Partial Thromboplastin Time 31.1 Seconds (21.0-31.0); Prothrombin Time 15.9 Seconds (9.0-12.0)
[2019-02-02 05:27] LABS: Basophils # (auto) 0.01 K/uL (0-0.2); Basophils % (auto) 0.1 %; Immature Granulocytes % (auto) 0.9 %; Lymphocytes % (auto) 5.4 %; Monocytes # (auto) 1.28 K/uL (0.11-0.59); Monocytes % (auto) 11.5 %; Neutrophils # (auto) 9.11 K/uL (1.4-6.5); Neutrophils % (auto) 82.1 %; Toxic Vacuolation 1+
[2019-02-02 05:49] LABS: Bilirubin Direct 5.4 mg/dl (0-0.2)
[2019-02-02 05:50] LABS: Albumin Level 2.6 gm/dl (3.4-5.0); BUN Creatinine Ratio 25.6 (10-20); Bilirubin,Total 9.2 mg/dl (0.2-1); Calcium 8.6 mg/dl (8.5-10.1); Creatinine Clr Calc Pharmacy 99.7 ml/min; Est GFR (African American) 112.7; Est GFR (Non-African American) 97.2; Magnesium 1.9 mg/dl (1.8-2.4); Phosphorus 2.7 mg/dl (2.5-4.9); Total Protein 5.8 gm/dl (6.4-8.2)
[2019-02-02 06:04] LABS: iSTAT Art Bld Gas pCO2 Correct 39 mmHg (35-46); iSTAT Art Bld Gas pH Corrected 7.483 (7.35-7.45); iSTAT Arterial Blood Gas HCO3 29 meg/L (19-24); iSTAT Arterial Blood Gas pCO2 39 mmHg (35-46); iSTAT Arterial Blood Gas pH 7.49 (7.35-7.45); iSTAT Arterial Blood Gas pO2 94 mmHg (80-95); iSTAT Arterial Blood Gas pO2 C 95; iSTAT Carbon Dioxide 30 mEq/l (24-31); iSTAT FiO2 40 %; iSTAT Site Art Line
--- NOTE | 2019-02-02 07:48 | XRay Report ---
XR chest 1V portable CLINICAL HISTORY: 54 years-old Female presenting with follow up on [facility]. TECHNIQUE: Portable upright AP view of the chest was obtained. COMPARISON: 02/01/2019. FINDINGS: Endotracheal tube terminates in the midthoracic trachea 2.3 cm from the noreen. Right internal jugula r central venous catheter terminates at the superior cavoatrial junction or right atrium. Nasogastric tube descends below the diaphragm, terminus not visualized. Numerous overlying external leads mildly degraded image quality. The patient is slightly HARITHA rotated. Cardiac silhouette remains moderately enlarged. Pulmonary vascul ar prominence. And interstitial prominence likely relates to interlobular septal thickening. Stable t o minimal interval decrease in the density of widespread pulmonary opacities. There is obscuration of the left hemidiaphragm. Underlying left pleural effusion may be present and slightly increased from prior. No pneumothorax Degenerative changes of the thoracic spine. Upper abdomen normal. IMPRESSION: 1. Stable to slight interval decrease in widespread pulmonary opacities compatible with the given hi story of diffuse alveolar hemorrhage. 2. Suspected slight interval increase in left pleural effusion. 3. Cardiomegaly and volume overload and congestive change. Electronically signed by: Rowdy Elizabeth M.D. 02/02/2019 7:46 AM
[2019-02-02] MEDS ORDERED: cefTRIAXone SODIUM 1,000 MG in DEXTROSE 5% 50 ML IV SCH (08:00)
[2019-02-02] MEDS: PHYTONADIONE 10 MG in SODIUM CHLORIDE 0.9% 50 ML IV SCH (08:14)
[2019-02-02] MEDS: LACTULOSE SYRUP 20 GM/30 ML UDC PO SCH ×4 (08:17→21:32)
[2019-02-02] MEDS: MULTIVITAMIN TAB PO SCH (08:19)
[2019-02-02] MEDS: METOPROLOL TARTRATE 25 MG TAB PO SCH (08:23)
--- NOTE | 2019-02-02 08:44 | Critical Care Progress Note ---
Date of Service February 02, 2019 Assessment & Plan (1) Admitted to intensive care unit: Reason critically ill: 54yo female with PMHx of alcohol abuse and hepatic cirrhosis currently in alcohol withdrawal. Neuro -currently intubated, FiO2 of 40, PEEP of 10 and RR of 14. -continue fentanyl and propofol for sedation -wean as needed. -plan for SBT tomorrow CV -Echo 01/31: EF of 55-60% -EKG: NSR, qtc 444 -Currently on Levophed for hypotension -Continue to hold home metoprolol -will continue to monitor Pulmonary -chest xray-with pleural effusions- pulm edema vs. diffuse pneumonitis -Bronchoscopy 02/01- evidence of alveolar hemorrhage -currently on high dose IV Solumedrol 250mg q6 -currently intubated as above GI -Hx of alcohol abuse with some cirrhosis -INR slowly decreasing with 3 days of Vit K administration. -IV protonix due to high dose steroid administration for alveolar hemorrhage treatment. -continue tube feeds -continue lactulose administration for increased ammonia level, has had 2 BMs overnight. -appreciate GI recs Renal -Possible acute on chronic renal failure -Was on Lasix, will d/c -continue to hold Lasix, Cr stable. ID -continue abx rocephin and azithromycin for possible infectious cause HEME -thrombocytopenia likely secondary to hepatic failure -will continue to monitor PIVS DVT proph: SCDs Dispo: ICU Supervising Physician Co-Signing Physician Notes Dr. Kilgore was the resident-physician during care of patient. I separately evaluated patient for rashid portions of the history and the exam. I was present during the critical portion of medical decision making, and I discussed the case with the resident. I generally agree with the findings and plan except for any additions/exceptions noted. Patient remains on the ventilator. She is currently on 40% FiO2. We have decreased her PEEP to 10. She appears to be alkalotic on the blood gas, but her oxygenation is good. We have decreased her respiratory rate to 14. She continues to have evidence of alveolar hemorrhage as respiratory therapist are suctioning up bloody secretions. We are continuing her on pulse dose steroids at this time. Continue IV Protonix given that she is coagulopathic and she is on high-dose steroids. Continue tube feeds. We are holding medical DVT prophylaxis given the hemorrhage. Continue sequential compression devices. We will continue to hold on diuresis at this time. Renal function remains stable. Her total bilirubin continues to climb. Continue lactulose through the OG tube. She seems to be a bit overly sedated with propofol and fentanyl. We will wean back her propofol today. Hopefully will be able to try a spontaneous breathing trial tomorrow. She is also requiring low intermittent doses of levo fed likely due to sedation. Patient's daughter who is the power of employment law attorney was updated at bedside. I have personally spent 50 minutes of critical care time in the direct management of this patient. This is a life/limb threatening event. This includes time spent evaluating patient, direct bedside care, chart review, placing orders, interpretation of diagnostic studies, discussion with consultants, patient, and/or family members regarding treatment decisions, as well as other required patient management activities. This time is exclusive of all separately billable procedures, and teaching time and separate from and in addition to any other critical care service time. Subjective No acute events overnight. Still intubated, with blood noted on suctioning. Family updated this AM. Review of Systems Review of Systems: Unobtainable due to endotracheal tube Physical Exam Physical Exam: General:Laying in bed eyes closed, intubated. Skin: No noted rashes or bruises Psych: Mood and affect cannot be determined as pt currently intubated Neuro: Sedated this AM, nonresponsive to sternal rub. HEENT: NC/AT, intubated CV: RRR, Normal s1, s2. Resp: Breath sounds clear bilaterally on front. Intubated. Abdomen: Soft, nondistended. No guarding. Extremities: SCDs on lower extremities bilaterally. Results & Data Vital Signs (Past 12 Hours) Vital Signs Temp Pulse Resp BP Pulse Ox 02/02/19 08:14 18 02/02/19 07:00 37.0 C 78 19 107/57 L 96 02/02/19 06:40 78 02/02/19 06:00 81 18 106/58 L 96 02/02/19 05:30 80 104/59 L 96 02/02/19 05:00 87 110/60 95 02/02/19 04:30 81 109/62 93 02/02/19 04:00 36.9 C 82 105/61 93 02/02/19 03:30 86 107/56 L 93 02/02/19 03:12 89 20 95 02/02/19 03:00 96 H 118/68 92 02/02/19 02:30 108 H 128/68 98 02/02/19 02:22 113 H 143/78 H 95 02/02/19 02:00 80 109/60 95 02/02/19 01:30 78 111/64 95 02/02/19 01:26 80 20 95 02/02/19 01:00 78 108/64 95 02/02/19 00:30 81 115/66 95 02/02/19 00:00 37.0 C 82 109/62 95 02/01/19 23:30 85 110/59 L 94 02/01/19 23:00 82 112/63 93 02/01/19 22:26 82 20 93 02/01/19 22:00 85 107/64 93 02/01/19 21:00 83 108/65 92 Laboratory Results Laboratory Results - last 24 hr 02/01/19 02/01/19 02/01/19 11:30 11:30 11:30 WBC RBC Hgb Hct MCV MCH MCHC RDW Std Deviation RDW Coeff of Wesley Plt Count MPV Immature Gran % (Auto) Neut % (Auto) Lymph % (Auto) Day % (Auto) Eos % (Auto) Baso % (Auto) Immature Gran # (Auto) Neut # (Auto) Lymph # (Auto) Day # (Auto) Eos # (Auto) Baso # (Auto) Absolute Nucleated RBC Nucleated RBC % (auto) Toxic Vacuolation PT INR APTT PTT Ratio Hexagonal Phase Confirm Pending Sample Site POC pH POC pCO2 POC pO2 POC HCO3 POC Total CO2 POC Base Excess ABG pH (Temp Correct) ABG pCO2 (Temp Corrct POC ABG pO2 at Pt Temp POC ABG O2 Sat Dylan Test O2 Delivery Device POC O2 Rate Minute Ventilation POC FiO2 Tidal Volume PEEP Sodium Potassium Chloride Carbon Dioxide Anion Gap BUN Creatinine Est Cr Clr Drug Dosing Est GFR ( Amer) Est GFR (Non-Af Amer) BUN/Creatinine Ratio Glucose POC Glucose (other) Calcium Phosphorus Magnesium Total Bilirubin Direct Bilirubin AST ALT Alkaline Phosphatase NT-Pro-B Natriuret Pep Total Protein Albumin Fluid Neutrophils % 28 Fluid Lymphocytes % 3 Fluid Eosinophils % 0 Fl Monocyt/Macrophag % 69 Fluid Slide Review BAL A.galactomannan Ag BAL A.galactomann Index EMERY-1 Antibody Pending TEMPERER Antibody Pending Beta-2-GPI IgG Ab Pending Beta-2-GPI IgA Ab Pending Beta-2-GPI IgM Ab Pending Glomerular Base Memb Ab Pending Phosphatidylserine IgG Pending Phosphatidylserine IgA Pending Phosphatidylserine IgM Pending Anti-Phospholipid Intrp Pending Anti-Cardiolipin IgG Ab Pending Anti-Cardiolipin IgA Ab Pending Anti-Cardiolipin IgM Ab Pending CMV Specimen Source Pending CMV Qnt PCR IU/mL Pending CMV Qnt PCR log IU/mL Pending Herpes Virus Source Cancelled HSV I DNA PCR Cancelled HSV II DNA PCR Cancelled 02/01/19 02/01/19 02/01/19 11:30 11:30 17:01 WBC RBC Hgb Hct MCV MCH MCHC RDW Std Deviation RDW Coeff of Wesley Plt Count MPV Immature Gran % (Auto) Neut % (Auto) Lymph % (Auto) Day % (Auto) Eos % (Auto) Baso % (Auto) Immature Gran # (Auto) Neut # (Auto) Lymph # (Auto) Day # (Auto) Eos # (Auto) Baso # (Auto) Absolute Nucleated RBC Nucleated RBC % (auto) Toxic Vacuolation PT INR APTT PTT Ratio Hexagonal Phase Confirm Sample Site POC pH POC pCO2 POC pO2 POC HCO3 POC Total CO2 POC Base Excess ABG pH (Temp Correct) ABG pCO2 (Temp Corrct POC ABG pO2 at Pt Temp POC ABG O2 Sat Dylan Test O2 Delivery Device POC O2 Rate Minute Ventilation POC FiO2 Tidal Volume PEEP Sodium Potassium Chloride Carbon Dioxide Anion Gap BUN Creatinine Est Cr Clr Drug Dosing Est GFR ( Amer) Est GFR (Non-Af Amer) BUN/Creatinine Ratio Glucose POC Glucose (other) 167 H Calcium Phosphorus Magnesium Total Bilirubin Direct Bilirubin AST ALT Alkaline Phosphatase NT-Pro-B Natriuret Pep Total Protein Albumin Fluid Neutrophils % Fluid Lymphocytes % Fluid Eosinophils % Fl Monocyt/Macrophag % Fluid Slide Review BAL A.galactomannan Ag Pending BAL A.galactomann Index Pending EMERY-1 Antibody TEMPERER Antibody Beta-2-GPI IgG Ab Beta-2-GPI IgA Ab Beta-2-GPI IgM Ab Glomerular Base Memb Ab Phosphatidylserine IgG Phosphatidylserine IgA Phosphatidylserine IgM Anti-Phospholipid Intrp Anti-Cardiolipin IgG Ab Anti-Cardiolipin IgA Ab Anti-Cardiolipin IgM Ab CMV Specimen Source CMV Qnt PCR IU/mL CMV Qnt PCR log IU/mL Herpes Virus Source Pending HSV I DNA PCR Pending HSV II DNA PCR Pending 02/02/19 02/02/19 02/02/19 00:40 04:11 04:11 WBC 11.10 H RBC 2.72 L Hgb 10.3 L Hct 29.2 L MCV 107.4 H MCH 37.9 H MCHC 35.3 RDW Std Deviation 58.6 H RDW Coeff of Wesley 15.2 H Plt Count 125 L D MPV 10.9 H Immature Gran % (Auto) 0.9 Neut % (Auto) 82.1 Lymph % (Auto) 5.4 Day % (Auto) 11.5 Eos % (Auto) 0.0 Baso % (Auto) 0.1 Immature Gran # (Auto) 0.10 H Neut # (Auto) 9.11 H Lymph # (Auto) 0.60 L Day # (Auto) 1.28 H Eos # (Auto) 0.00 Baso # (Auto) 0.01 Absolute Nucleated RBC 0.02 H Nucleated RBC % (auto) 0.2 Toxic Vacuolation 1+ PT INR APTT PTT Ratio Hexagonal Phase Confirm Sample Site POC pH POC pCO2 POC pO2 POC HCO3 POC Total CO2 POC Base Excess ABG pH (Temp Correct) ABG pCO2 (Temp Corrct POC ABG pO2 at Pt Temp POC ABG O2 Sat Dylan Test O2 Delivery Device POC O2 Rate Minute Ventilation POC FiO2 Tidal Volume PEEP Sodium 132 L Potassium 4.0 Chloride 96 L Carbon Dioxide 28 Anion Gap 8.0 BUN 18 D Creatinine 0.71 Est Cr Clr Drug Dosing 99.7 Est GFR ( Amer) 112.7 Est GFR (Non-Af Amer) 97.2 BUN/Creatinine Ratio 25.6 H Glucose 171 H POC Glucose (other) 173 H Calcium 8.6 Phosphorus 2.7 Magnesium 1.9 Total Bilirubin 9.2 H Direct Bilirubin 5.4 H AST 52 H ALT 26 Alkaline Phosphatase 75 NT-Pro-B Natriuret Pep Total Protein 5.8 L Albumin 2.6 L Fluid Neutrophils % Fluid Lymphocytes % Fluid Eosinophils % Fl Monocyt/Macrophag % Fluid Slide Review BAL A.galactomannan Ag BAL A.galactomann Index EMERY-1 Antibody TEMPERER Antibody Beta-2-GPI IgG Ab Beta-2-GPI IgA Ab Beta-2-GPI IgM Ab Glomerular Base Memb Ab Phosphatidylserine IgG Phosphatidylserine IgA Phosphatidylserine IgM Anti-Phospholipid Intrp Anti-Cardiolipin IgG Ab Anti-Cardiolipin IgA Ab Anti-Cardiolipin IgM Ab CMV Specimen Source CMV Qnt PCR IU/mL CMV Qnt PCR log IU/mL Herpes Virus Source HSV I DNA PCR HSV II DNA PCR 02/02/19 02/02/19 02/02/19 04:11 04:11 05:50 WBC RBC Hgb Hct MCV MCH MCHC RDW Std Deviation RDW Coeff of Wesley Plt Count MPV Immature Gran % (Auto) Neut % (Auto) Lymph % (Auto) Day % (Auto) Eos % (Auto) Baso % (Auto) Immature Gran # (Auto) Neut # (Auto) Lymph # (Auto) Day # (Auto) Eos # (Auto) Baso # (Auto) Absolute Nucleated RBC Nucleated RBC % (auto) Toxic Vacuolation PT 15.9 H INR 1.6 H APTT 31.1 H PTT Ratio 1.1 Hexagonal Phase Confirm Sample Site Art Line POC pH 7.49 H POC pCO2 39 POC pO2 94 POC HCO3 29 H POC Total CO2 30 POC Base Excess 6.0 H ABG pH (Temp Correct) 7.483 H ABG pCO2 (Temp Corrct 39 POC ABG pO2 at Pt Temp 95 POC ABG O2 Sat 98.0 H Dylan Test NA O2 Delivery Device Ventilator POC O2 Rate 20 Minute Ventilation 7.8 POC FiO2 40 Tidal Volume 330 PEEP 12 Sodium Potassium Chloride Carbon Dioxide Anion Gap BUN Creatinine Est Cr Clr Drug Dosing Est GFR ( Amer) Est GFR (Non-Af Amer) BUN/Creatinine Ratio Glucose POC Glucose (other) Calcium Phosphorus Magnesium Total Bilirubin Direct Bilirubin AST ALT Alkaline Phosphatase NT-Pro-B Natriuret Pep 1585 H Total Protein Albumin Fluid Neutrophils % Fluid Lymphocytes % Fluid Eosinophils % Fl Monocyt/Macrophag % Fluid Slide Review BAL A.galactomannan Ag BAL A.galactomann Index EMERY-1 Antibody TEMPERER Antibody Beta-2-GPI IgG Ab Beta-2-GPI IgA Ab Beta-2-GPI IgM Ab Glomerular Base Memb Ab Phosphatidylserine IgG Phosphatidylserine IgA Phosphatidylserine IgM Anti-Phospholipid Intrp Anti-Cardiolipin IgG Ab Anti-Cardiolipin IgA Ab Anti-Cardiolipin IgM Ab CMV Specimen Source CMV Qnt PCR IU/mL CMV Qnt PCR log IU/mL Herpes Virus Source HSV I DNA PCR HSV II DNA PCR 02/02/19 07:11 WBC RBC Hgb Hct MCV MCH MCHC RDW Std Deviation RDW Coeff of Wesley Plt Count MPV Immature Gran % (Auto) Neut % (Auto) Lymph % (Auto) Day % (Auto) Eos % (Auto) Baso % (Auto) Immature Gran # (Auto) Neut # (Auto) Lymph # (Auto) Day # (Auto) Eos # (Auto) Baso # (Auto) Absolute Nucleated RBC Nucleated RBC % (auto) Toxic Vacuolation PT INR APTT PTT Ratio Hexagonal Phase Confirm Sample Site POC pH POC pCO2 POC pO2 POC HCO3 POC Total CO2 POC Base Excess ABG pH (Temp Correct) ABG pCO2 (Temp Corrct POC ABG pO2 at Pt Temp POC ABG O2 Sat Dylan Test O2 Delivery Device POC O2 Rate Minute Ventilation POC FiO2 Tidal Volume PEEP Sodium Potassium Chloride Carbon Dioxide Anion Gap BUN Creatinine Est Cr Clr Drug Dosing Est GFR ( Amer) Est GFR (Non-Af Amer) BUN/Creatinine Ratio Glucose POC Glucose (other) 181 H Calcium Phosphorus Magnesium Total Bilirubin Direct Bilirubin AST ALT Alkaline Phosphatase NT-Pro-B Natriuret Pep Total Protein Albumin Fluid Neutrophils % Fluid Lymphocytes % Fluid Eosinophils % Fl Monocyt/Macrophag % Fluid Slide Review BAL A.galactomannan Ag BAL A.galactomann Index EMERY-1 Antibody TEMPERER Antibody Beta-2-GPI IgG Ab Beta-2-GPI IgA Ab Beta-2-GPI IgM Ab Glomerular Base Memb Ab Phosphatidylserine IgG Phosphatidylserine IgA Phosphatidylserine IgM Anti-Phospholipid Intrp Anti-Cardiolipin IgG Ab Anti-Cardiolipin IgA Ab Anti-Cardiolipin IgM Ab CMV Specimen Source CMV Qnt PCR IU/mL CMV Qnt PCR log IU/mL Herpes Virus Source HSV I DNA PCR HSV II DNA PCR Medications Administered Home Medications No Known Home Medications 01/29/19 [History Confirmed 01/29/19] Active Medications Albuterol (Duoneb) 3 ml NEB Q6R PRN PRN Reason: Wheezing Stop: 03/03/19 18:59 Dextrose (Dextrose 50%) 25 - 50 ml IV UD PRN; Protocol PRN Reason: Hypoglycemia Protocol Stop: 03/03/19 12:59 Fentanyl Citrate (Fentanyl Citrate) 25 mcg IV ONE PRN PRN Reason: Pain Not Controlled by Drip Glucagon (Glucagen) 1 mg IM UD PRN; Protocol PRN Reason: Hypoglycemia Protocol Stop: 03/03/19 12:59 Glucose (Glucose 40%) 15 - 30 gm PO UD PRN; Protocol PRN Reason: Hypoglycemia Protocol Stop: 03/03/19 12:59 Glucose (Dex4 Glucose) 4 - 8 tabs PO UD PRN; Protocol PRN Reason: Hypoglycemia Protocol Stop: 03/03/19 12:59 Pantoprazole Sodium 40 mg/ (Syringe) 10 mls @ 5 mls/min IV DAILY@1100 JAYMIE Stop: 03/02/19 13:44 Last Admin: 02/01/19 10:42 Dose: 5 mls/min Documented by: Phytonadione 10 mg/ Sodium (Chloride) 51 mls @ 102 mls/hr IV DAILY JAYMIE Stop: 02/03/19 13:45 Last Infusion: 02/02/19 09:10 Dose: Infused Documented by: Fentanyl Citrate (Fentanyl Drip) 1,250 mcg in 250 mls @ 15 mls/hr IV .[id number] JAYMIE; Protocol Stop: 02/14/19 20:12 Last Titration: 02/02/19 06:56 Dose: 75 mcg/hr, 15 mls/hr Documented by: Propofol (Diprivan) 1,000 mg in 100 mls @ 13.965 mls/hr IV .Q7H10M JAYMIE; Protocol Stop: 02/04/19 01:14 Last Titration: 02/02/19 08:39 Dose: 25 mcg/kg/min, 14 mls/hr Documented by: Norepinephrine Bitartrate 16 (mg/ Dextrose) 508 mls @ 7.14 mls/hr IV .Q24H JAYMIE; Protocol Stop: 03/03/19 08:08 Last Titration: 02/02/19 08:11 Dose: 0.04 mcg/kg/min, 7.1 mls/hr Documented by: Methylprednisolone 250 mg/ (Dextrose) 29 mls @ 58 mls/hr IV Q6H JAYMIE Stop: 03/03/19 12:59 Last Infusion: 02/02/19 08:39 Dose: Infused Documented by: Ceftriaxone Sodium 1,000 mg/ (Dextrose) 50 mls @ 100 mls/hr IV Q24H JAYMIE; Protocol Stop: 02/11/19 22:59 Last Infusion: 02/02/19 01:07 Dose: Infused Documented by: Insulin Aspart (Novolog Flexpen) 0 units SC Q6 JAYMIE; Protocol Stop: 03/04/19 00:00 Last Admin: 02/02/19 07:35 Dose: 1 units Documented by: Lactulose (Chronulac) 20 gm PO QID JAYMIE Stop: 03/02/19 16:59 Last Admin: 02/02/19 08:17 Dose: 20 gm Documented by: Miscellaneous (Icu Electrolyte Replacement Protocol) 1 ea N/A UD PRN PRN Reason: for e-lyte repletion Stop: 02/07/19 13:12 Miscellaneous (Carbohydrates For Hypoglycemia) 15 - 30 gm PO UD PRN PRN Reason: Hypoglycemia Treatment Stop: 03/03/19 12:59 Miscellaneous Information (Consult Glycemic Management Pharmacy) 1 ea N/A UD PRN PRN Reason: Consult Stop: 03/03/19 18:28 Multivitamins (Multivitamin Tab) 1 tab PO QAM [facility] Stop: 03/01/19 08:59 Last Admin: 02/02/19 08:19 Dose: 1 tab Documented by: Nutritional Formula (Peptamen Intense Vhp 1.0 Alexandre) 1,000 ml OG [facility] [place]; Protocol Stop: 03/03/19 12:14 Last Admin: 02/01/19 14:15 Dose: 1,000 ml Documented by: Ondansetron HCl (Zofran) 4 mg IV Q4H PRN PRN Reason: Nausea Stop: 02/28/19 15:31 Last Admin: 01/30/19 14:43 Dose: 4 mg Documented by: PG Care Time/CCT Total # of Minutes Spent Total Time Spent with Patient: Total time spent is greater than 50% in co ordination of care (as documented) at patient's floor/unit and/or counseling patient: Critical Care Time: Yes Total Critical Care Time: 50 Resident Activity Tracking Resident Involvement: Resident Care Provided Care Provided: Adult Hospital Medicine
--- NOTE | 2019-02-02 10:47 | Pharmacy Report ---
Pharmacy Glycemic Short Note 2 - Date of Service February 02, 2019 - Glycemic Short BSG Results (Last 24 hours): 02/01/19 02/02/19 02/02/19 17:01 00:40 04:11 Glucose 171 H POC Glucose (other) 167 H 173 H 02/02/19 07:11 Glucose POC Glucose (other) 181 H OUTPATIENT ANTIDIABETIC REGIMEN: * N/A ASSESSMENT: * Patient with no known history of diabetes, requiring glycemic management for high dose steroids * A1C ordered for tomorrow * Patient started in solumedrol 250mg IV q6 yesterday for DAH (previously 60 q8h) * Also started on tube feeds yesterday. Currently running at 30 mL/hr, goal of 6 0 mL/hr * Will manage BSG with correctional insulin and conservative carb coverage for now * Novolog goal range and correction factor were tightened today * Carb coverage added to cover tube feeds PLAN FOR INPATIENT GLYCEMIC CONTROL: * Hold outpatient oral diabetes medications * Basal insulin * no basal at this time * Bolus insulin * NovoLog per scale ACHS or Q6hrs while NPO * Goal Range: Low 110 mg/dL - High 140 mg/dL (starting at noon) * Correction Factor: 20 mg/dL/unit (starting at noon) * Nutritional / Prandial insulin: * -If TF 0-10 mL/hr: give 0 units * -If TF 20-30 mL/hr: give 1 unit * -If TF 40-50 mL/hr: give 2 units * -If TF 60 mL/hr: give 3 units PLAN FOR DISCHARGE: * pending
[2019-02-02] MEDS: PANTOprazole 40 MG in SYRINGE 0 ML IV SCH (11:09)
--- NOTE | 2019-02-02 11:17 | XRay Report ---
SINGLE VIEW CHEST CLINICAL HISTORY: Follow-up airspace consolidation. FINDINGS: An AP, portable, semierect chest radiograph is compared to study dated 02/02/2019 and corre lated with chest CT dated 01/29/2019. The examination is degraded by portable technique and patient r otation. An endotracheal tube, an enteric tube, and a right internal jugular central venous catheter are unchanged in position. The heart is enlarged. There is pulmonary vascular congestion with evidenc e of interstitial edema. This has worsened from today's earlier examination. There are layering pleur al effusions with bibasilar atelectasis. No pneumothorax is seen. The skeletal structures are osteope pablo. The bony thorax is grossly intact. IMPRESSION: 1. Stable lines and tubes. 2. Cardiomegaly with evidence of congestive failure. Bilateral airspace opacities suggest interstitia l edema and this has worsened as compared to today's earlier examination. 3. Layering pleural effusions with bibasilar consolidation. Electronically signed by: Jelani Ramsey M.D. 02/02/2019 11:15 AM
[2019-02-02] MEDS ORDERED: FUROSEMIDE 40 MG/4 ML VIAL IV STA ×2 (11:35→16:11)
--- NOTE | 2019-02-02 11:38 | Gastroenterology Progress Note ---
Date of Service February 02, 2019 Assessment & Plan (1) Elevated LFTs: (2) Alcohol abuse: Pt is a 54 y/o female seen for elevated LFTs, hx of known hepatic steatosis and admitted ETOH abuses. Suspect likely ETOH hepatitis, ? OBRIEN. US hepatic duplex study inconclusive. MRCP w.o signs of biliary dilation, + gallbladder sludge and mild gallbladder wall thickening. Liver noted to be normal in MRCP, though suspect possible cirrhosis given thrombocytopenia, coagulopathy. Maddreys Discriminant Function score <32 on admission. She did receive NAC. Steroids per Pulmonary service. Pt developed respiratory distress and transferred to ICU 2 days ago, currently intubated. Suspect combination of volume overload and pulmonary infection causing distress. Had Bronchoscopy yesterday which showed diffuse alveolar hemorrhage. Chart reviewed. H/H stable, no signs of GI bleeding. INR down to 1.6, transaminases decreasing, Tbili remains 8-9. No new GI plans at this time, will monitor peripherally. She'll eventually need to be followed up in GI clinic for chronic liver disease. Please recall if any questions/concerns or acute changes during her remaining hospitalization stay. Supervising Physician Co-Signing Physician Notes I have personally seen and examined the patient with ROSEMARIE Pulliam. Her note reflects my exam and findings. I agree with her impression and plan. Bili is not much different from admission. If starts to significantly climb in setting of stable transaminases, consider medication(antibiotic) cholestasis. Cont to look for infectious etiology. Mark Anthony Bryant M.D. Results & Data Vital Signs (Past 12 Hours) Vital Signs Temp Pulse Resp BP Pulse Ox 02/02/19 11:01 81 97 02/02/19 11:00 80 115/67 97 02/02/19 10:30 83 104/65 89 L 02/02/19 10:01 90 88 L 02/02/19 10:00 91 H 110/63 89 L 02/02/19 09:30 107 H 138/82 92 02/02/19 09:00 83 106/61 89 L 02/02/19 08:14 18 02/02/19 08:00 79 103/58 L 96 02/02/19 07:00 37.0 C 78 19 107/57 L 96 02/02/19 06:40 78 02/02/19 06:00 81 18 106/58 L 96 02/02/19 05:30 80 104/59 L 96 02/02/19 05:00 87 110/60 95 02/02/19 04:30 81 109/62 93 02/02/19 04:00 36.9 C 82 105/61 93 02/02/19 03:30 86 107/56 L 93 02/02/19 03:12 89 20 95 02/02/19 03:00 96 H 118/68 92 02/02/19 02:30 108 H 128/68 98 02/02/19 02:22 113 H 143/78 H 95 02/02/19 02:00 80 109/60 95 02/02/19 01:30 78 111/64 95 02/02/19 01:26 80 20 95 02/02/19 01:00 78 108/64 95 02/02/19 00:30 81 115/66 95 02/02/19 00:00 37.0 C 82 109/62 95
[2019-02-02 11:48] LABS: iSTAT Arterial Blood Gas HCO3 29 meg/L (19-24); iSTAT Arterial Blood Gas pCO2 47 mmHg (35-46); iSTAT Arterial Blood Gas pO2 67 mmHg (80-95); iSTAT Carbon Dioxide 31 mEq/l (24-31); iSTAT FiO2 55 %; iSTAT Site Art Line
[2019-02-02] MEDS ORDERED: POTASSIUM CHLORIDE PWD 20 MEQ PACK PO ONE (16:15)
[2019-02-02] MEDS: NOREPINEPHRINE BIT INJ 16 MG in DEXTROSE 5% 500 ML IV SCH (16:34)
--- NOTE | 2019-02-02 20:05 | Hospitalist Progress Note ---
Date of Service February 02, 2019 Assessment & Plan (1) Multifocal pneumonia: (2) Volume overload: (3) Bilateral pleural effusion: (4) Acute hypoxemic respiratory failure: Mechanical intubation Present on admission with worsening SOB associated with coughing CT chest showed findings of diffuse bilateral multifocal pneumonitis versus pulmonary edema. No evidence of PE Repeat showed progressive bilateral parenchymal infiltrative and/or pulmonary edematous change. She was intubated last night S/P bronch done yesterday showed evidence of diffuse alveolar hemorrhage. Continue 125mg IV Solu-Medrol every 6h Vent management as per Pharmacist Hospital Echo showed no wall motion abnormality with EF 55-60% Continue IV abx with Rocephin and Zithromax Continue monitor closely in the ICU (5) Hypotension: Possible related to sedation On pressor with levophed Continue monitor BP (6) Alcohol abuse: Elevated Liver enzymes [facility] Discriminant Function score 36 MRCP showed No biliary ductal dilatation or choledocholithiasis to suggest biliary obstruction. Mildly distended gallbladder with gallbladder sludge and wall thickening. Continue lactulose Gastro on board Counseling on alcohol cessation Intubated on propofol Monitor for sign of withdrawn (7) Hyponatremia: Na 132 today Possible related to volume overload in the setting of alcohol hepatitis Nephrology on board Lasix discontinued Monitor BMP (8) Elevated glucose: Due to high dose steroid Continue insulin sliding scale Pharmacy consult for glycemic management Monitor BS (9) Elevated lactic acid level: Possible related to hypoxia mostly Afebrile, no leukocytosis and procalcitonin Continue Zithromax and Rocephin Blood cx no growth lactic acid normalizes Thrombocytopenia Elevated INR Due to Alcoholic liver disease Platelet 125 Diffuse alveolar hemorrhage Continue Vit K 10mg IV for now DVT px on SCDs due to thrombocytopenia Disposition Continue monitor in the ICU Subjective Pt was seen and examined Sedated and intubated on Vent support Physical Exam Physical Exam: General- Sedated Head- atraumatic Eyes- PERRL, EOMI, ENT- Intubated Neck- supple, no JVD Lungs- Coarse BS Heart- regular rhythm Abdomen- normal bowel sounds, soft, nontender Extremities- no calf tenderness, +b/l Edema Neuro- sedated with propofol and fentanyl drip Skin- warm & dry Results & Data Vital Signs (Past 12 Hours) Vital Signs Temp Pulse Resp BP Pulse Ox 02/02/19 19:33 85 14 98 02/02/19 18:00 82 94/57 L 92 10/25/19 17:00 77 98/58 L 98 02/02/19 16:35 75 14 92 02/02/19 16:19 76 02/02/19 16:00 37 C 76 104/58 L 94 02/02/19 15:01 86 96 02/02/19 15:00 84 116/62 95 02/02/19 14:00 78 112/61 91 02/02/19 13:45 75 14 92 02/02/19 13:00 75 100/62 90 02/02/19 12:36 85 02/02/19 12:00 74 105/64 91 02/02/19 11:30 37 C 75 103/59 L 91 02/02/19 11:15 79 14 94 02/02/19 11:01 81 97 02/02/19 11:00 80 115/67 97 02/02/19 10:30 83 104/65 89 L 02/02/19 10:01 90 88 L 02/02/19 10:00 91 H 110/63 89 L 02/02/19 09:30 107 H 138/82 92 02/02/19 09:00 83 106/61 89 L 02/02/19 08:14 18 (1) Volume overload Hypervolemia type: other Qualified Code(s): E87.79 - Other fluid overload
[2019-02-03] MEDS: DEXTROSE 5% IV SCH (01:42)
[2019-02-03] MEDS: METHYLPREDNISOLONE IV SCH (01:42)
[2019-02-03] MEDS: PROPOFOL 1,000 MG/100 ML VIAL IV SCH ×2 (02:17→07:08)
[2019-02-03] MEDS: PEPTAMEN INTENSE VHP 1.0 CAL 1,000 ML BAG OG SCH ×2 (03:48→23:56)
[2019-02-03 04:40] LABS: Hematocrit (blood only) 29.5 % (37-47); Hemoglobin 10.1 g/dL (12.0-16.0); Mean Corpuscular Hemoglobin 37.5 pg (25-34); Mean Corpuscular Hgb Conc 34.2 g/dL (32-36); Mean Corpuscular Volume 109.7 fL (80-100); RDW Coefficient of Variation 15.3 % (11.5-14.5); RDW Standard Deviation 60.2 fL (36.4-46.3); Red Blood Count 2.69 M/uL (4.2-5.4); White Blood Count 7.82 K/uL (4.8-10.8)
[2019-02-03 05:06] LABS: Basophils # (auto) 0.01 K/uL (0-0.2); Basophils % (auto) 0.1 %; Immature Granulocytes # (auto) 0.06 K/uL (0.00-0.02); Immature Granulocytes % (auto) 0.8 %; Lymphocytes # (auto) 0.33 K/uL (1.2-3.4); Lymphocytes % (auto) 4.2 %; Monocytes # (auto) 1.01 K/uL (0.11-0.59); Monocytes % (auto) 12.9 %; Neutrophils # (auto) 6.41 K/uL (1.4-6.5); Platelet Count 96 K/uL (130-400); Platelet Estimate Decreased (Normal); Tear Drop Cells 1+
[2019-02-03 05:07] LABS: Albumin Level 2.7 gm/dl (3.4-5.0); BUN Creatinine Ratio 31.1 (10-20); Bilirubin,Total 7.3 mg/dl (0.2-1); Calcium 8.7 mg/dl (8.5-10.1); Creatinine Clr Calc Pharmacy 76.3 ml/min; Est GFR (African American) 82.4; Est GFR (Non-African American) 71.1; Phosphorus 3.4 mg/dl (2.5-4.9); Potassium 3.9 mmol/L (3.5-5.1)
[2019-02-03] MEDS: INSULIN ASPART 100 UNITS/ML 3 ML PEN SC SCH (06:29)
[2019-02-03 07:00] LABS: Estimated Average Glucose 74 mg/dl; Hemoglobin A1C 4.2 % (4.5-5.6)
[2019-02-03] MEDS: methylPREDNISolone 125 MG in SYRINGE 0 ML IV SCH ×3 (07:24→19:22)
[2019-02-03] MEDS: MULTIVITAMIN TAB PO SCH (08:20)
[2019-02-03] MEDS: LACTULOSE SYRUP 20 GM/30 ML UDC PO SCH ×3 (08:20→17:24)
[2019-02-03] MEDS: PHYTONADIONE 10 MG in SODIUM CHLORIDE 0.9% 50 ML IV SCH (08:22)
--- NOTE | 2019-02-03 08:27 | Critical Care Progress Note ---
Date of Service February 03, 2019 Assessment & Plan (1) Admitted to intensive care unit: Reason critically ill: 54yo female with PMHx of alcohol abuse and hepatic cirrhosis admitted to ICU for alcohol withdrawal, but currently intubated likely due to alveolar hemorrhage. Neuro -currently intubated -failed SBT this AM-02/03 -continue Precedex, d/c fentanyl and propofol for sedation -wean as needed. -plan for repeat SBT tomorrow CV -Echo 01/31: EF of 55-60% -EKG: NSR, qtc 444 -weaned off Levophed for hypotension, tolerating well. -Continue to hold home metoprolol -will continue to monitor Pulmonary -chest xray-with pleural effusions- pulm edema vs. diffuse pneumonitis -Bronchoscopy 02/01- evidence of alveolar hemorrhage -BAL cultures negative -autoimmune srology pending -continue high dose IV Solumedrol 125mg q6 -currently intubated as above GI -Hx of alcohol abuse with some cirrhosis -INR slowly decreasing with 3 days of Vit K administration. -IV protonix due to high dose steroid administration for alveolar hemorrhage treatment. -continue tube feeds -continue lactulose administration for increased ammonia level, continues to have liquid BMs. -appreciate GI recs Renal -Cr function trending up -will start on fluids ID -continue abx rocephin for possible UTI HEME -thrombocytopenia likely secondary to hepatic failure -will continue to monitor PIVS DVT proph: SCDs Dispo: ICU (2) Bilateral pleural effusion: (3) Acute hypoxemic respiratory failure: (4) Diffuse pulmonary alveolar hemorrhage: (5) BERYL (acute kidney injury): Supervising Physician Co-Signing Physician Notes Dr. Kilgore was the resident-physician during care of patient. I separately evaluated patient for rashid portions of the history and the exam. I was present during the critical portion of medical decision making, and I discussed the case with the resident. I generally agree with the findings and plan except for any additions/exceptions noted. Patient is improving from a respiratory standpoint. I have her on a spontaneous breathing trial today and she is satting in the mid 90s on 10/13 at 35% FiO2. We have weaned off of propofol and fentanyl and currently have her on a Precedex drip. She seems to be relatively comfortable with periods of coughing. Thus far all the cultures from the bronc BAL have been negative. We are still treating him for possible UTI with Rocephin for total 7 days. We have cut down the IV Solu-Medrol to 125 mg every 6 today. We are continuing to treat her diffuse alveolar hemorrhage with unclear etiology. Possibility may still be related to her underlying coagulopathy which appears to be improving with vitamin K infusions which we have finished today. Autoimmune and mixed connective tissue disorders serologies are still pending. Her blood pressure is improved substantially with her being off of propofol. Update: We ended up stopping her spontaneous breathing trial she began to desaturate and her minute ventilation decreased. We will leave her on a Precedex drip for now. Urine output is also decreasing and her creatinine has increased a bit. We will give her a 1 L bolus of fluid over 5 hours. Bedside [id number] ultrasound demonstrated normal-appearing LV function and RV function. She had trace bilateral effusions. There were increased B-lines on the right and also some B-lines present on the left. She did not have any obvious ascites. There is no evidence of hydronephrosis. It appeared that the central line is in the right atrium. She does not have any obvious arrhythmias, thus we will leave the line as is. I have personally spent 50 minutes of critical care time in the direct management of this patient. This is a life/limb threatening event. This includes time spent evaluating patient, direct bedside care, chart review, placing orders, interpretation of diagnostic studies, discussion with consultants, patient, and/or family members regarding treatment decisions, as well as other required patient management activities. This time is exclusive of all separately billable procedures, and teaching time and separate from and in addition to any other critical care service time. Subjective Ms. Koo is still intubated this AM. Has been weaned off of the pressor Levophed. Spontaneous breathing trial this AM--failed as she had desaturations about 1hr+ into it. Ex- at bedside. Review of Systems Review of Systems: Unobtainable due to endotracheal tube Physical Exam Physical Exam: General: Laying in bed, intubated. Skin: No noted rashes or bruises Psych: Mood and affect cannot be determined as pt currently intubated Neuro: Sedated this AM but responsive to sternal rub. HEENT: NC/AT, intubated CV: RRR, Normal s1, s2. Resp: Breath sounds clear bilaterally on front. Intubated. Abdomen: Soft, nondistended. No guarding. Extremities: SCDs on lower extremities bilaterally. Results & Data Vital Signs (Past 12 Hours) Vital Signs Temp Pulse Resp BP Pulse Ox 02/03/19 08:00 85 105/61 97 02/03/19 07:20 14 02/03/19 07:00 36.7 C 72 92/51 L 94 02/03/19 05:11 72 14 91 02/03/19 01:23 76 14 92 02/02/19 22:21 82 14 95 02/02/19 22:01 78 91 02/02/19 22:00 79 97/57 L 86 L 02/02/19 21:31 81 93 02/02/19 21:30 82 102/55 L 93 02/02/19 21:01 77 96 02/02/19 21:00 78 97/55 L 93 02/02/19 20:31 79 96 02/02/19 20:30 80 100/57 L 94 PG Care Time/CCT Total # of Minutes Spent Total Time Spent with Patient: Total time spent is greater than 50% in coordination of care (as documented) at patient's floor/unit and/or counseling patient: Critical Care Time: Yes Total Critical Care Time: 50 Resident Activity Tracking Resident Involvement: Resident Care Provided Care Provided: Adult Hospital Medicine
[2019-02-03] MEDS ORDERED: DEXMEDETOMIDINE HCL 200 MCG in SODIUM CHLORIDE 0.9% 48 ML IV STA (08:36)
[2019-02-03] MEDS: DEXMEDETOMIDINE HCL 200 MCG in SODIUM CHLORIDE 0.9% 48 ML IV PRN ×4 (08:53→23:40)
[2019-02-03] MEDS: NOREPINEPHRINE BIT INJ 16 MG in DEXTROSE 5% 500 ML IV SCH (09:58)
[2019-02-03] MEDS: PANTOprazole 40 MG in SYRINGE 0 ML IV SCH (10:46)
[2019-02-03] MEDS ORDERED: LACTATED RINGER'S 1,000 ML IV SCH ×2 (11:30→15:30)
[2019-02-03] MEDS: fentaNYL DRIP 1,250 MCG/250 ML BAG IV SCH (11:58)
[2019-02-03] MEDS: INSULIN HUMAN REGULAR SC SCH ×3 (12:08→23:58)
--- NOTE | 2019-02-03 13:05 | Pharmacy Report ---
Pharmacy Glycemic Short Note 2 - Date of Service February 03, 2019 - Glycemic Short BSG Results (Last 24 hours): 02/02/19 02/02/19 02/03/19 11:39 23:31 04:22 Glucose 175 H POC Glucose 169 H POC Glucose (other) 169 H 02/03/19 02/03/19 06:26 11:44 Glucose POC Glucose 180 H 171 H POC Glucose (other) OUTPATIENT ANTIDIABETIC REGIMEN: * N/A ASSESSMENT: 02/03 * Ms. Koo received 12 units of Novolog insulin yesterday * BSGs have remained in goal range of 140-180 mg/dL for critically ill patient * Tube feeds up to 60 cc/hr (goal) * Solu-medrol decreased to 125 mg IV q6h, although I do not anticipate a change in BSGs as this is still above 100 mg/day 02/02 * Patient with no known history of diabetes, requiring glycemic management for high dose steroids * A1C ordered for tomorrow * Patient started in solumedrol 250mg IV q6 yesterday for DAH (previously 60 q8h) * Also started on tube feeds yesterday. Currently running at 30 mL/hr, goal of 60 mL/hr * Will manage BSG with correctional insulin and conservative carb coverage for now * Novolog goal range and correction factor were tightened today * Carb coverage added to cover tube feeds PLAN FOR INPATIENT GLYCEMIC CONTROL: * Basal insulin * Continue without basal insulin * Bolus insulin - change to Regular insulin while on continuous tube feeds, to provide sustained 6 hour coverage for each dose * Regular insulin per scale q6h * Goal Range: Low 110 mg/dL - High 140 mg/dL (will loosen this if BSGs drop to < 140 mg/dL) * Correction Factor: 20 mg/dL/unit * Nutritional / Prandial insulin: (equivalent to CR ~10) * -If TF 0-10 mL/hr: give 0 units * -If TF 20-30 mL/hr: give 1 unit * -If TF 40-50 mL/hr: give 2 units * -If TF 60 mL/hr: give 3 units PLAN FOR DISCHARGE: * A1c - 4.2% on 02/03/19, which does not indicate diabetes. No need for glycemic medications on discharge.
--- NOTE | 2019-02-03 18:38 | Nephrology Progress Note ---
Date of Service February 03, 2019 Assessment & Plan (1) Volume overload: acute on chronic problem, w/ LE edema present x 3 mos but respiratory sx present less than 2 wks and acutely worse past 48 hrs w/ pulmonary edema multifactorial most likely >> certainly a component of liver cirrhosis; also however w/ tachycardia/hypotension -Off lasix now due to hemodynamic instability. Remains volume overload and will need more lasix once hemodynamically stable (2) Multifocal pneumonia: on ceftriaxone/azithromycin; being covered for pneumonitis (3) Hyponatremia: hypervolemic hypotonic hyponatremia >> mild and asymptomatic -most likely from liver but need to evaluate cardiac function given tachyarrhythmia/hypotension -stable on recheck this am at 132 -maintain eukalemia > upped K as above (4) Alcohol abuse: EtOH + on admission; GI following; on withdrawal protocols Subjective Patient is intubated unable to give history. She has reduced urine output. Off lasix and off pressors. BP stable. Seen during morning rounds Review of Systems Review of Systems: Unobtainable due to endotracheal tube Physical Exam Physical Exam: General exam: Intubated and sedated HEENT: Pupils are equal and reactive to light Neck: No JVD, neck is supple trachea is midline Respiratory system: Clear breath sounds bilaterally. Gastrointestinal: Abdomen is soft, non distended, non tender, bowel sounds are present CVS: Regular rate and rhythm. No murmurs, rubs or gallops Musculoskeletal: No joint or muscle tenderness Extremities: Non tender, 1+ edema, peripheral pulses are present Skin: No rashes Results & Data Vital Signs (Past 12 Hours) Vital Signs Temp Pulse Pulse Resp BP BP Pulse Ox 02/03/19 17:07 68 20 94 02/03/19 15:00 37 C 65 18 97/55 L 94 02/03/19 14:30 66 93/55 L 92 02/03/19 14:01 66 92 02/03/19 14:00 66 95/55 L 92 02/03/19 13:00 71 95/54 L 93 02/03/19 12:54 14 02/03/19 12:30 67 95/53 L 92 02/03/19 12:01 70 94 02/03/19 12:00 36.5 C 71 96/56 L 94 02/03/19 11:00 67 96/54 L 89 L 02/03/19 10:00 76 92/53 L 88 L 02/03/19 09:00 122 H 132/69 90 02/03/19 08:00 85 105/61 97 02/03/19 07:20 14 02/03/19 07:00 36.7 C 72 92/51 L 94 02/03/19 06:38 76 Laboratory Results Laboratory Results - last 24 hr 02/02/19 02/03/19 02/03/19 23:31 04:22 04:22 WBC RBC Hgb Hct MCV MCH MCHC RDW Std Deviation RDW Coeff of Wesley Plt Count MPV Immature Gran % (Auto) Neut % (Auto) Lymph % (Auto) Ponce % (Auto) Eos % (Auto) Baso % (Auto) Immature Gran # (Auto) Neut # (Auto) Lymph # (Auto) Ponce # (Auto) Eos # (Auto) Baso # (Auto) Platelet Estimate Tear Drop Cells Sodium 132 L Potassium 3.9 Chloride 96 L Carbon Dioxide 30 Anion Gap 6.0 BUN 29 H D Creatinine 0.92 Est Cr Clr Drug Dosing 76.3 Est GFR ( Amer) 82.4 Est GFR (Non-Af Amer) 71.1 BUN/Creatinine Ratio 31.1 H Glucose 175 H POC Glucose 169 H Estimat Average Glucose 74 Hemoglobin A1c 4.2 L Calcium 8.7 Phosphorus 3.4 Magnesium 2.0 Total Bilirubin 7.3 H Direct Bilirubin 5.0 H AST 60 H ALT 35 Alkaline Phosphatase 91 Total Protein 6.0 L Albumin 2.7 L 02/03/19 02/03/19 02/03/19 04:27 06:26 11:44 WBC 7.82 RBC 2.69 L Hgb 10.1 L Hct 29.5 L MCV 109.7 H MCH 37.5 H MCHC 34.2 RDW Std Deviation 60.2 H RDW Coeff of Wesley 15.3 H Plt Count 96 L MPV 11.0 H Immature Gran % (Auto) 0.8 Neut % (Auto) 82.0 Lymph % (Auto) 4.2 Ponce % (Auto) 12.9 Eos % (Auto) 0.0 Baso % (Auto) 0.1 Immature Gran # (Auto) 0.06 H Neut # (Auto) 6.41 Lymph # (Auto) 0.33 L Ponce # (Auto) 1.01 H Eos # (Auto) 0.00 Baso # (Auto) 0.01 Platelet Estimate Decreased L Tear Drop Cells 1+ Sodium Potassium Chloride Carbon Dioxide Anion Gap BUN Creatinine Est Cr Clr Drug Dosing Est GFR ( Amer) Est GFR (Non-Af Amer) BUN/Creatinine Ratio Glucose POC Glucose 180 H 171 H Estimat Average Glucose Hemoglobin A1c Calcium Phosphorus Magnesium Total Bilirubin Direct Bilirubin AST ALT Alkaline Phosphatase Total Protein Albumin 02/03/19 18:06 WBC RBC Hgb Hct MCV MCH MCHC RDW Std Deviation RDW Coeff of Wesley Plt Count MPV Immature Gran % (Auto) Neut % (Auto) Lymph % (Auto) Ponce % (Auto) Eos % (Auto) Baso % (Auto) Immature Gran # (Auto) Neut # (Auto) Lymph # (Auto) Ponce # (Auto) Eos # (Auto) Baso # (Auto) Platelet Estimate Tear Drop Cells Sodium Potassium Chloride Carbon Dioxide Anion Gap BUN Creatinine Est Cr Clr Drug Dosing Est GFR ( Amer) Est GFR (Non-Af Amer) BUN/Creatinine Ratio Glucose POC Glucose 185 H Estimat Average Glucose Hemoglobin A1c Calcium Phosphorus Magnesium Total Bilirubin Direct Bilirubin AST ALT Alkaline Phosphatase Total Protein Albumin (1) Volume overload Hypervolemia type: other Qualified Code(s): E87.79 - Other fluid overload
--- NOTE | 2019-02-03 19:12 | Hospitalist Progress Note ---
Date of Service February 03, 2019 Assessment & Plan (1) Multifocal pneumonia: (2) Volume overload: (3) Bilateral pleural effusion: (4) Acute hypoxemic respiratory failure: Mechanical intubation Present on admission with worsening SOB associated with coughing CT chest showed findings of diffuse bilateral multifocal pneumonitis versus pulmonary edema. No evidence of PE Repeat showed progressive bilateral parenchymal infiltrative and/or pulmonary edematous change. She was intubated last night S/P bronch done yesterday showed evidence of diffuse alveolar hemorrhage. Continue 125mg IV Solu-Medrol every 6h Vent management as per Director Of Broadcast Echo showed no wall motion abnormality with EF 55-60% Continue IV abx with Rocephin Weaning trial done today Propofol and fentanyl discontinued starting on Precedex Continue monitor closely in the ICU (5) Hypotension: Possible related to sedation Off pressor (levophed ) BP has been stable Continue monitor BP (6) Alcohol abuse: Elevated Liver enzymes [facility] Discriminant Function score 36 MRCP showed No biliary ductal dilatation or choledocholithiasis to suggest biliary obstruction. Mildly distended gallbladder with gallbladder sludge and wall thickening. Continue lactulose Gastro on board Counseling on alcohol cessation Intubated on propofol Monitor for sign of withdrawn (7) Hyponatremia: Na 132 today Possible related to volume overload in the setting of alcohol hepatitis Nephrology on board Lasix discontinued Monitor BMP (8) Elevated glucose: Due to high dose steroid Continue insulin sliding scale Pharmacy consult for glycemic management Monitor BS (9) Elevated lactic acid level: Possible related to hypoxia mostly Afebrile, no leukocytosis and procalcitonin Continue IV Rocephin Blood cx no growth lactic acid normalizes Thrombocytopenia Elevated INR Due to Alcoholic liver disease Platelet 96 Diffuse alveolar hemorrhage Received IV vit K 10mg x 3 days DVT px on SCDs due to thrombocytopenia Disposition Continue monitor in the ICU Subjective Pt was seen and examined Sedated and intubated on vent support Propofol and fentanyl drip discontinued at bedside provided update Physical Exam Physical Exam: General- Sedated Head- atraumatic Eyes- PERRL, EOMI, ENT- Intubated Neck- supple, no JVD Lungs- Coarse BS Heart- regular rhythm Abdomen- normal bowel sounds, soft, nontender Extremities- no calf tenderness, +b/l Edema Neuro- sedated with propofol and fentanyl drip Skin- warm & dry Results & Data Vital Signs (Past 12 Hours) Vital Signs Temp Pulse Pulse Resp BP BP Pulse Ox 02/03/19 18:00 36.9 C 64 16 92/53 L 93 02/03/19 17:07 68 20 94 02/03/19 16:00 37.1 C 65 16 94/55 L 94 02/03/19 15:00 37 C 65 18 97/55 L 94 02/03/19 14:30 66 93/55 L 92 02/03/19 14:01 66 92 02/03/19 14:00 66 95/55 L 92 02/03/19 13:00 71 95/54 L 93 02/03/19 12:54 14 02/03/19 12:30 67 95/53 L 92 02/03/19 12:01 70 94 02/03/19 12:00 36.5 C 71 96/56 L 94 02/03/19 11:00 67 96/54 L 89 L 02/03/19 10:00 76 92/53 L 88 L 02/03/19 09:00 122 H 132/69 90 02/03/19 08:00 85 105/61 97 02/03/19 07:20 14 (1) Volume overload Hypervolemia type: other Qualified Code(s): E87.79 - Other fluid overload
[2019-02-03] MEDS ORDERED: ALBUMIN 25% 50 ML IV ONE (21:15)
[2019-02-03] MEDS: cefTRIAXone SODIUM 1,000 MG in DEXTROSE 5% 50 ML IV SCH (23:15)
[2019-02-04] MEDS: methylPREDNISolone 125 MG in SYRINGE 0 ML IV SCH ×2 (01:11→06:23)
[2019-02-04] MEDS ORDERED: DEXMEDETOMIDINE HCL 400 MCG in 0.9 % SODIUM CHLORIDE 96 ML IV PRN (02:30)
--- NOTE | 2019-02-04 05:56 | Critical Care Progress Note ---
Date of Service February 04, 2019 Assessment & Plan (1) Admitted to intensive care unit: Reason critically ill: 54yo female with PMHx of alcohol abuse and hepatic cirrhosis admitted to ICU for alcohol withdrawal, but currently intubated likely due to alveolar hemorrhage. Neuro -currently intubated -failed SBT 02/03, will repeat today -continue Precedex,fentanyl for sedation -wean as needed. -plan for repeat SBT tomorrow CV -Echo 01/30: EF of 55-60% -EKG 01/31: NSR, qtc 444 -weaned off Levophed for hypotension, tolerating well. -Continue to hold home metoprolol -will continue to monitor Pulmonary -chest xray 02/04-with pleural effusions- pulm edema vs. diffuse pneumonitis -Bronchoscopy 02/01- evidence of alveolar hemorrhage -BAL cultures negative -autoimmune serology pending -continue high dose IV Solumedrol 125mg q6 -currently intubated as above GI -Hx of alcohol abuse with some cirrhosis -INR slowly decreasing with 3 days of Vit K administration. -IV protonix due to high dose steroid administration for alveolar hemorrhage treatment. -continue tube feeds -decreased lactulose administration due to liquid BMs. -appreciate GI recs Renal/ -Cr function trending up, still within normal limits -Received 2L of fluids yesterday. -Overnight has been putting out 30cc/hr -will continue to monitor. ID -continue abx rocephin for possible UTI HEME -thrombocytopenia likely secondary to hepatic failure -will continue to monitor PIVS DVT proph: SCDs Dispo: ICU (2) Diffuse pulmonary alveolar hemorrhage: (3) Elevated glucose: (4) Acute hypoxemic respiratory failure: Supervising Physician Co-Signing Physician Notes Dr. Kilgore was the resident-physician during care of patient. I separately evaluated patient for rashid portions of the history and the exam. I was present during the critical portion of medical decision making, and I discussed the case with the resident. I generally agree with the findings and plan except for any additions/exceptions noted. We have placed her on a spontaneous breathing trial this morning. We will assess how she does. Currently she seems comfortable and is saturating at 89 to 91% on 40% and 5/5. She is currently on a Precedex drip and appears comfortable. We have weaned her Solu-Medrol 200 mg 3 times daily today and will continue to wean over long period of time. She continues to have some bloody secretions coming up the ET tube, but they appear to be improving. Chest x-ray appears slightly improved with clearing of infiltrates on the right lung and some persistent haziness to the left lung base. Again I did a [place]mwe[place] ultrasound yesterday which did not indicate any substantial pleural effusions. If anything the pleural effusions were very minimal. Continue IV Protonix for GI prophylaxis. Continue tube feeds, but they are on hold at the moment due to her spontaneous breathing trial. Continue ceftriaxone for total 7 days for UTI. Cultures again remain negative from her BAL. Serologies are still pending including autoimmune and mixed connective tissue disorder. Hemoglobin is stable. Creatinine has improved a bit. Continuing to hold medical DVT prophylaxis given alveolar hemorrhage, but continue sequential compression devices. We will obtain a blood gas today see what her acid-base status is. As noted previously, it does appear that her central line is in her right atrium, but she does not appear to have any significant arrhythmias thus we will leave the line as is. Updated the patient's ex- at bedside who has been very attentive in the room. I have personally spent 45 minutes of critical care time in the direct management of this patient. This is a life/limb threatening event. This includes time spent evaluating patient, direct bedside care, chart review, placing orders, interpretation of diagnostic studies, discussion with consultants, patient, and/or family members regarding treatment decisions, as well as other required patient management activities. This time is exclusive of all separately billable procedures, and teaching time and separate from and in addition to any other critical care service time. Subjective Pt still intubated this AM. No acute events overnight. Has been putting out 30cc/hr of urine. Review of Systems Review of Systems: Unobtainable due to endotracheal tube Physical Exam Physical Exam: General: Laying in bed, intubated. Skin: No noted rashes or bruises Psych: Mood and affect cannot be determined as pt currently intubated Neuro: Sedated this AM but responsive to sternal rub. HEENT: NC/AT, intubated CV: RRR, Normal s1, s2. Resp: Breath sounds clear bilaterally on front. Intubated. Abdomen: Soft, nondistended. No guarding. Extremities: SCDs on lower extremities bilaterally. Results & Data Vital Signs (Past 12 Hours) Vital Signs Temp Pulse Pulse Resp BP BP Pulse Ox 02/04/19 05:06 59 L 17 90 02/04/19 03:01 60 91 02/04/19 03:00 60 95/61 L 92 02/04/19 02:01 61 91 02/04/19 02:00 61 93/58 L 91 02/04/19 01:39 61 15 88 L 02/04/19 01:04 62 95/59 L 87 L 02/04/19 01:00 62 90 02/04/19 00:01 62 90 02/04/19 00:00 36.5 C 62 97/59 L 90 02/03/19 23:01 62 90 02/03/19 23:00 62 105/58 L 90 02/03/19 22:21 63 15 90 02/03/19 22:01 64 91 02/03/19 22:00 64 93/58 L 90 02/03/19 21:01 64 91 02/03/19 21:00 63 91/53 L 91 02/03/19 20:31 64 89 L 02/03/19 20:30 64 95/52 L 89 L 02/03/19 20:01 65 90 02/03/19 20:00 36.8 C 66 95/51 L 91 02/03/19 19:30 65 91/58 L 93 02/03/19 19:01 66 91 02/03/19 19:00 65 90/54 L 91 02/03/19 18:48 61 18 92 02/03/19 18:30 65 93/58 L 91 02/03/19 18:01 65 92 02/03/19 18:00 36.9 C 65 64 16 92/53 L 92/53 L 92 Laboratory Results Laboratory Results - last 24 hr 02/03/19 02/03/19 02/03/19 04:22 06:26 11:44 POC Glucose 180 H 171 H Estimat Average Glucose 74 Hemoglobin A1c 4.2 L 02/03/19 02/03/19 18:06 23:55 POC Glucose 185 H 158 H Estimat Average Glucose Hemoglobin A1c Medications Administered Home Medications No Known Home Medications 01/29/19 [History Confirmed 01/29/19] Active Medications Albuterol (Duoneb) 3 ml NEB Q6R PRN PRN Reason: Wheezing Stop: 03/03/19 18:59 Dextrose (Dextrose 50%) 25 - 50 ml IV UD PRN; Protocol PRN Reason: Hypoglycemia Protocol Stop: 03/03/19 12:59 Fentanyl Citrate (Fentanyl Citrate) 25 mcg IV ONE PRN PRN Reason: Pain Not Controlled by Drip Glucagon (Glucagen) 1 mg IM UD PRN; Protocol PRN Reason: Hypoglycemia Protocol Stop: 03/03/19 12:59 Glucose (Glucose 40%) 15 - 30 gm PO UD PRN; Protocol PRN Reason: Hypoglycemia Protocol Stop: 03/03/19 12:59 Glucose (Dex4 Glucose) 4 - 8 tabs PO UD PRN; Protocol PRN Reason: Hypoglycemia Protocol Stop: 03/03/19 12:59 Heparin Sodium (Beef Lung) (Heparin Sod 10 Unit/Ml Flush) 5 ml FLUSH PRN PRN PRN Reason: Flush Stop: 03/05/19 01:23 Pantoprazole Sodium 40 mg/ (Syringe) 10 mls @ 5 mls/min IV DAILY@1100 [facility] Stop: 03/02/19 13:44 Last Admin: 02/03/19 10:46 Dose: 5 mls/min Documented by: Fentanyl Citrate (Fentanyl Drip) 1,250 mcg in 250 mls @ 20 mls/hr IV .[id number] [facility]; Protocol Stop: 02/14/19 20:12 Last Titration: 02/03/19 21:00 Dose: 100 mcg/hr, 20 mls/hr Documented by: Norepinephrine Bitartrate 16 (mg/ Dextrose) 508 mls @ 0 mls/hr IV .Q0M [facility]; Protocol Stop: 03/03/19 08:08 Last Admin: 02/03/19 09:58 Dose: Not Given Documented by: Ceftriaxone Sodium 1,000 mg/ (Dextrose) 50 mls @ 100 mls/hr IV Q24H [facility]; Protocol Stop: 02/06/19 22:59 Last Infusion: 02/03/19 23:48 Dose: Infused Documented by: Methylprednisolone 125 mg/ (Syringe) 2 mls @ 1.5 mls/min IV Q6H [facility] Stop: 03/05/19 06:59 Last Admin: 02/04/19 01:11 Dose: 1.5 mls/min Documented by: Dexmedetomidine HCl 400 mcg/ (Sodium Chloride) 100 mls @ 19.52 mls/hr IV .Q5H8M PRN; Protocol PRN Reason: Sedation Stop: 02/08/19 02:29 Last Admin: 02/04/19 02:30 Dose: 0.8 mcg/kg/hr, 19.5 mls/hr Documented by: Insulin Human Regular (Novolin R) 0 units SC Q6 JAYMIE; Protocol Stop: 03/05/19 11:59 Last Admin: 02/03/19 23:58 Dose: 4 units Documented by: Miscellaneous (Icu Electrolyte Replacement Protocol) 1 ea N/A UD PRN PRN Reason: for e-lyte repletion Stop: 02/07/19 13:12 Miscellaneous (Carbohydrates For Hypoglycemia) 15 - 30 gm PO UD PRN PRN Reason: Hypoglycemia Treatment Stop: 03/03/19 12:59 Miscellaneous Information (Consult Glycemic Management Pharmacy) 1 ea N/A UD PRN PRN Reason: Consult Stop: 03/03/19 18:28 Multivitamins (Multivitamin Tab) 1 tab PO QAM JAYMIE Stop: 03/01/19 08:59 Last Admin: 02/03/19 08:20 Dose: 1 tab Documented by: Nutritional Formula (Peptamen Intense Vhp 1.0 Alexandre) 1,000 ml OG UD [facility]; Protocol Stop: 03/03/19 12:14 Last Admin: 02/03/19 23:56 Dose: 1,000 ml Documented by: Ondansetron HCl (Zofran) 4 mg IV Q4H PRN PRN Reason: Nausea Stop: 02/28/19 15:31 Last Admin: 01/30/19 14:43 Dose: 4 mg Documented by: PG Care Time/CCT Total # of Minutes Spent Total Time Spent with Patient: Total time spent is greater than 50% in coordination of care (as documented) at patient's floor/unit and/or counseling patient: Critical Care Time: Yes Total Critical Care Time: 45 Resident Activity Tracking Resident Involvement: Resident Care Provided Care Provided: Adult Hospital Medicine
[2019-02-04] MEDS: fentaNYL DRIP 1,250 MCG/250 ML BAG IV SCH ×2 (06:22→15:33)
[2019-02-04] MEDS: INSULIN HUMAN REGULAR SC SCH ×4 (06:22→23:38)
[2019-02-04 06:24] LABS: Hematocrit (blood only) 29.2 % (37-47); Mean Corpuscular Hemoglobin 38.2 pg (25-34); Mean Corpuscular Hgb Conc 34.2 g/dL (32-36); Mean Corpuscular Volume 111.5 fL (80-100); Nucleated RBC # (auto) 0.02 K/uL (0-0); Nucleated RBC % (auto) 0.5 %; RDW Standard Deviation 60.6 fL (36.4-46.3); Red Blood Count 2.62 M/uL (4.2-5.4); White Blood Count 3.86 K/uL (4.8-10.8)
[2019-02-04 06:27] LABS: Mean Platelet Volume 11.8 fL (7.4-10.4); Platelet Count 83 K/uL (130-400)
[2019-02-04 06:38] LABS: INR 1.6 (0.9-1.1); Prothrombin Time 15.6 Seconds (9.0-12.0)
[2019-02-04 06:45] LABS: BUN Creatinine Ratio 52.5 (10-20); Creatinine Clr Calc Pharmacy 83.2 ml/min; Est GFR (African American) 88.2; Est GFR (Non-African American) 76.1; Magnesium 2.2 mg/dl (1.8-2.4); Phosphorus 4.4 mg/dl (2.5-4.9)
[2019-02-04 06:49] LABS: Giant Platelets 3+; Immature Granulocytes # (auto) 0.04 K/uL (0.00-0.02); Lymphocytes # (auto) 0.19 K/uL (1.2-3.4); Lymphocytes % (auto) 4.9 %; Macrocytosis Present; Monocytes # (auto) 0.63 K/uL (0.11-0.59); Monocytes % (auto) 16.3 %; Neutrophils % (auto) 77.8 %; Target Cells 1+; Toxic Vacuolation 1+
--- NOTE | 2019-02-04 07:04 | XRay Report ---
XR chest 1V portable CLINICAL HISTORY: hypoxia COMPARISON STUDY: 02/02/2019 FINDINGS: Endotracheal tube 2 cm above the noreen. Similar findings of pulmonary edema/congestive akilah lure. Increasing density left base possibly due to superimposed inflammatory inflammatory and/or effusion p rocess. IMPRESSION: 1. Similar findings of congestive failure/pulmonary edema. 2. Slight progression of density left lung base. 3. Endotracheal tube 2 cm above the noreen. The above report was generated using voice recognition software. It may contain grammatical, syntax or spelling errors. Electronically signed by: Hayes Tavarez M.D. 02/04/2019 7:01 AM
[2019-02-04] MEDS: MULTIVITAMIN TAB PO SCH (08:54)
--- NOTE | 2019-02-04 09:07 | Hospitalist Progress Note ---
Date of Service February 04, 2019 Assessment & Plan (1) Multifocal pneumonia: (2) Volume overload: (3) Bilateral pleural effusion: (4) Acute hypoxemic respiratory failure: Mechanical intubation Present on admission with worsening SOB associated with coughing CT chest showed findings of diffuse bilateral multifocal pneumonitis versus pulmonary edema. No evidence of PE Repeat showed progressive bilateral parenchymal infiltrative and/or pulmonary edematous change. She was intubated last night S/P bronch done yesterday showed evidence of diffuse alveolar hemorrhage. Continue 125mg IV Solu-Medrol every 6h Vent management as per Lead Case Manager Echo showed no wall motion abnormality with EF 55-60% Continue IV abx with Rocephin Will do weaning trial this morning Propofol and fentanyl discontinued Continue Precedex Continue monitor closely in the ICU (5) Hypotension: Possible related to sedation Off pressor (levophed ) BP has been stable Continue monitor BP (6) Alcohol abuse: Elevated Liver enzymes [facility] Discriminant Function score 36 MRCP showed No biliary ductal dilatation or choledocholithiasis to suggest biliary obstruction. Mildly distended gallbladder with gallbladder sludge and wall thickening. Continue lactulose Gastro on board Counseling on alcohol cessation Intubated on propofol Monitor for sign of withdrawn (7) Hyponatremia: Na 132 today Possible related to volume overload in the setting of alcohol hepatitis Nephrology on board Lasix discontinued due to low BP Will need to resume lasix once BP stable Monitor BMP (8) Elevated glucose: Due to high dose steroid Continue insulin sliding scale Pharmacy consult for glycemic management Monitor BS (9) Elevated lactic acid level: Possible related to hypoxia mostly Afebrile, no leukocytosis and procalcitonin Continue IV Rocephin Blood cx no growth lactic acid normalizes Thrombocytopenia Elevated INR Due to Alcoholic liver disease Platelet 83 today Diffuse alveolar hemorrhage Received IV vit K 10mg x 3 days DVT px on SCDs due to thrombocytopenia Disposition Continue monitor in the ICU Subjective Pt was seen and examined Sedated on precedex on mechanical vent support Awake this morning, moving extremities with at bedside Physical Exam Physical Exam: General- Sedated Head- atraumatic Eyes- PERRL, EOMI, ENT- Intubated Neck- supple, no JVD Lungs- Coarse BS Heart- regular rhythm Abdomen- normal bowel sounds, soft, nontender Extremities- no calf tenderness, +b/l Edema Neuro- sedated with propofol and fentanyl drip Skin- warm & dry Results & Data Vital Signs (Past 12 Hours) Vital Signs Temp Pulse Resp BP Pulse Ox 02/04/19 08:00 58 L 98/62 L 91 02/04/19 07:37 58 L 02/04/19 07:25 58 L 17 90 02/04/19 07:01 59 L 89 L 02/04/19 07:00 58 L 88/56 L 90 02/04/19 06:01 58 L 91 02/04/19 06:00 58 L 98/60 L 92 02/04/19 05:06 59 L 17 90 02/04/19 05:01 60 84/65 L 96 02/04/19 05:00 59 L 90 02/04/19 04:01 59 L 91 02/04/19 04:00 36.5 C 60 96/59 L 92 02/04/19 03:01 60 91 02/04/19 03:00 60 95/61 L 92 02/04/19 02:01 61 91 02/04/19 02:00 61 93/58 L 91 02/04/19 01:39 61 15 88 L 02/04/19 01:04 62 95/59 L 87 L 02/04/19 01:00 62 90 02/04/19 00:01 62 90 02/04/19 00:00 36.5 C 62 97/59 L 90 02/03/19 23:01 62 90 02/03/19 23:00 62 105/58 L 90 02/03/19 22:21 63 15 90 02/03/19 22:01 64 91 02/03/19 22:00 64 93/58 L 90 (1) Volume overload Hypervolemia type: other Qualified Code(s): E87.79 - Other fluid overload
[2019-02-04 09:47] LABS: iSTAT Art Bld Gas pCO2 Correct 44 mmHg (35-46); iSTAT Art Bld Gas pH Corrected 7.402 (7.35-7.45); iSTAT Arterial Blood Gas HCO3 27 meg/L (19-24); iSTAT Arterial Blood Gas pCO2 45 mmHg (35-46); iSTAT Arterial Blood Gas pO2 66 mmHg (80-95); iSTAT Arterial Blood Gas pO2 C 64; iSTAT Carbon Dioxide 29 mEq/l (24-31); iSTAT FiO2 40 %; iSTAT Site Art Line
[2019-02-04] MEDS: PANTOprazole 40 MG in SYRINGE 0 ML IV SCH (10:32)
[2019-02-04 11:10] LABS: iSTAT Art Bld Gas pCO2 Correct 43 mmHg (35-46); iSTAT Art Bld Gas pH Corrected 7.409 (7.35-7.45); iSTAT Arterial Blood Gas HCO3 27 meg/L (19-24); iSTAT Arterial Blood Gas pCO2 44 mmHg (35-46); iSTAT Arterial Blood Gas pO2 66 mmHg (80-95); iSTAT Arterial Blood Gas pO2 C 64; iSTAT Carbon Dioxide 29 mEq/l (24-31); iSTAT FiO2 65 %; iSTAT Site Art Line
--- NOTE | 2019-02-04 11:16 | Nephrology Progress Note ---
Date of Service February 04, 2019 Assessment & Plan (1) Volume overload: acute on chronic problem, w/ LE edema present x 3 mos but respiratory sx present less than 2 wks and acutely worse past 48 hrs w/ pulmonary edema multifactorial most likely >> certainly a component of liver cirrhosis; also however w/ tachycardia/hypotension Patient remains grossly volume overload. -Recommend IV Lasix 40 mg bolus and Lasix drip at 10 mg/h. Titrate Lasix drip with urine output. (2) Multifocal pneumonia: on ceftriaxone/azithromycin; being covered for pneumonitis (3) Hyponatremia: hypervolemic hypotonic hyponatremia >> mild and asymptomatic -most likely from liver but need to evaluate cardiac function given tachyarrhythmia/hypotension -stable on recheck this am at 133 -maintain eukalemia > upped K as above (4) Alcohol abuse: EtOH + on admission; GI following; on withdrawal protocols Subjective Patient seen with at the bedside. She was extubated this morning. She is awake and responds to questions but still weak. She is on high flow oxygen. Urine output has dropped off only 500 mL and 24 hours. She remains grossly volume overloaded. Blood pressure is low. No pressors at the moment. Review of Systems Review of Systems: All systems reviewed & are unremarkable except as noted in HPI & below Physical Exam Physical Exam: General exam: Appears comfortable, no acute distress HEENT: Pupils are equal and reactive to light Neck: No JVD, neck is supple trachea is midline Respiratory system: Clear breath sounds bilaterally. Gastrointestinal: Abdomen is soft, non distended, non tender, bowel sounds are present CVS: Regular rate and rhythm. No murmurs, rubs or gallops Musculoskeletal: No joint or muscle tenderness Extremities: Non tender, anasarca, peripheral pulses are present Neuro: Oriented, no tremors, no focal neurological deficits Skin: No rashes, she has jaundice Results & Data Vital Signs (Past 12 Hours) Vital Signs Temp Pulse Pulse Resp BP Pulse Ox 02/04/19 10:18 61 93/57 L 94 02/04/19 10:16 61 94/57 L 94 02/04/19 10:14 62 88/57 L 93 02/04/19 10:12 61 87/60 L 93 02/04/19 10:10 62 62 16 104/61 93 02/04/19 10:08 61 92/57 L 90 02/04/19 10:06 61 92/47 L 89 L 02/04/19 10:04 66 90/55 L 86 L 02/04/19 10:02 60 89/51 L 85 L 02/04/19 10:01 60 85 L 02/04/19 10:00 60 86/48 L 85 L 02/04/19 09:58 60 83/48 L 84 L 02/04/19 09:57 60 83/46 L 84 L 02/04/19 09:56 60 83/46 L 84 L 02/04/19 09:55 61 83/47 L 84 L 02/04/19 09:01 60 90 02/04/19 09:00 60 96/59 L 89 L 02/04/19 08:50 59 L 10 L 89 L 02/04/19 08:00 58 L 98/62 L 91 02/04/19 07:37 58 L 02/04/19 07:25 58 L 17 90 02/04/19 07:01 59 L 89 L 02/04/19 07:00 58 L 88/56 L 90 02/04/19 06:01 58 L 91 02/04/19 06:00 58 L 98/60 L 92 02/04/19 05:06 59 L 17 90 02/04/19 05:01 60 84/65 L 96 02/04/19 05:00 59 L 90 02/04/19 04:01 59 L 91 02/04/19 04:00 36.5 C 60 96/59 L 92 02/04/19 03:01 60 91 02/04/19 03:00 60 95/61 L 92 02/04/19 02:01 61 91 02/04/19 02:00 61 93/58 L 91 02/04/19 01:39 61 15 88 L 02/04/19 01:04 62 95/59 L 87 L 02/04/19 01:00 62 90 02/04/19 00:01 62 90 02/04/19 00:00 36.5 C 62 97/59 L 90 Laboratory Results Laboratory Results - last 24 hr 02/03/19 02/03/19 02/03/19 11:44 18:06 23:55 WBC RBC Hgb Hct MCV MCH MCHC RDW Std Deviation RDW Coeff of Wesley Plt Count MPV Immature Gran % (Auto) Neut % (Auto) Lymph % (Auto) Moffat % (Auto) Eos % (Auto) Baso % (Auto) Immature Gran # (Auto) Neut # (Auto) Lymph # (Auto) Moffat # (Auto) Eos # (Auto) Baso # (Auto) Absolute Nucleated RBC Nucleated RBC % (auto) Hypersegmented Neuts Toxic Vacuolation Giant Platelets Macrocytosis Target Cells PT INR Sample Site POC pH POC pCO2 POC pO2 POC HCO3 POC Total CO2 POC Base Excess ABG pH (Temp Correct) ABG pCO2 (Temp Corrct POC ABG pO2 at Pt Temp POC ABG O2 Sat Dylan Test O2 Delivery Device POC FiO2 PEEP Sodium Potassium Chloride Carbon Dioxide Anion Gap BUN Creatinine Est Cr Clr Drug Dosing Est GFR ( Amer) Est GFR (Non-Af Amer) BUN/Creatinine Ratio Glucose POC Glucose 171 H 185 H 158 H Calcium Phosphorus Magnesium 02/04/19 02/04/19 02/04/19 04:46 04:46 04:46 WBC 3.86 L RBC 2.62 L Hgb 10.0 L Hct 29.2 L MCV 111.5 H MCH 38.2 H MCHC 34.2 RDW Std Deviation 60.6 H RDW Coeff of Wesley 15.0 H Plt Count 83 L MPV 11.8 H Immature Gran % (Auto) 1.0 Neut % (Auto) 77.8 Lymph % (Auto) 4.9 Moffat % (Auto) 16.3 Eos % (Auto) 0.0 Baso % (Auto) 0.0 Immature Gran # (Auto) 0.04 H Neut # (Auto) 3.00 Lymph # (Auto) 0.19 L Moffat # (Auto) 0.63 H Eos # (Auto) 0.00 Baso # (Auto) 0.00 Absolute Nucleated RBC 0.02 H Nucleated RBC % (auto) 0.5 Hypersegmented Neuts 1+ Toxic Vacuolation 1+ Giant Platelets 3+ Macrocytosis Present Target Cells 1+ PT 15.6 H INR 1.6 H Sample Site POC pH POC pCO2 POC pO2 POC HCO3 POC Total CO2 POC Base Excess ABG pH (Temp Correct) ABG pCO2 (Temp Corrct POC ABG pO2 at Pt Temp POC ABG O2 Sat Dylan Test O2 Delivery Device POC FiO2 PEEP Sodium 133 L Potassium 4.0 Chloride 99 Carbon Dioxide 30 Anion Gap 5.0 BUN 46 H D Creatinine 0.87 Est Cr Clr Drug Dosing 83.2 Est GFR ( Amer) 88.2 Est GFR (Non-Af Amer) 76.1 BUN/Creatinine Ratio 52.5 H Glucose 188 H POC Glucose Calcium 9.0 Phosphorus 4.4 D Magnesium 2.2 02/04/19 02/04/19 02/04/19 06:17 09:34 10:57 WBC RBC Hgb Hct MCV MCH MCHC RDW Std Deviation RDW Coeff of Wesley Plt Count MPV Immature Gran % (Auto) Neut % (Auto) Lymph % (Auto) Moffat % (Auto) Eos % (Auto) Baso % (Auto) Immature Gran # (Auto) Neut # (Auto) Lymph # (Auto) Moffat # (Auto) Eos # (Auto) Baso # (Auto) Absolute Nucleated RBC Nucleated RBC % (auto) Hypersegmented Neuts Toxic Vacuolation Giant Platelets Macrocytosis Target Cells PT INR Sample Site Art Line Art Line POC pH 7.40 7.40 POC pCO2 45 44 POC pO2 66 L 66 L POC HCO3 27 H 27 H POC Total CO2 29 29 POC Base Excess 2.0 H 3.0 H ABG pH (Temp Correct) 7.402 7.409 ABG pCO2 (Temp Corrct 44 43 POC ABG pO2 at Pt Temp 64 64 POC ABG O2 Sat 92.0 93.0 Dylan Test NA NA O2 Delivery Device Ventilator Hi Maikel Can POC FiO2 40 65 PEEP 5 Sodium Potassium Chloride Carbon Dioxide Anion Gap BUN Creatinine Est Cr Clr Drug Dosing Est GFR ( Amer) Est GFR (Non-Af Amer) BUN/Creatinine Ratio Glucose POC Glucose 207 H Calcium Phosphorus Magnesium (1) Volume overload Hypervolemia type: other Qualified Code(s): E87.79 - Other fluid overload
--- NOTE | 2019-02-04 11:18 | Pharmacy Report ---
Pharmacy Glycemic Short Note 2 - Date of Service February 04, 2019 - Glycemic Short BSG Results (Last 24 hours): 02/03/19 02/03/19 02/03/19 11:44 18:06 23:55 Glucose POC Glucose 171 H 185 H 158 H 02/04/19 02/04/19 04:46 06:17 Glucose 188 H POC Glucose 207 H OUTPATIENT ANTIDIABETIC REGIMEN: * N/A ASSESSMENT: 02/04 * Ms. Koo was extubated ~10 am today * Is currently NPO until speech evaluates her * Steroids have been decreased further to 100 mg IV TID, although this is still above threshold for changes seen in glycemic effects * She remains off pressor support but nurse, Irais, reports this may need to be restarted * Multiple changes today to decrease insulin resistance; therefore, will not add basal insulin * Will plan to adjust bolus insulin orders now that tube feeds have been stopped 02/03 * Ms. Koo received 12 units of Novolog insulin yesterday * BSGs have remained in goal range of 140-180 mg/dL for critically ill patient * Tube feeds up to 60 cc/hr (goal) * Solu-medrol decreased to 125 mg IV q6h, although I do not anticipate a change in BSGs as this is still above 100 mg/day 02/02 * Patient with no known history of diabetes, requiring glycemic management for high dose steroids * A1C ordered for tomorrow * Patient started in solumedrol 250mg IV q6 yesterday for DAH (previously 60 q8h) * Also started on tube feeds yesterday. Currently running at 30 mL/hr, goal of 60 mL/hr * Will manage BSG with correctional insulin and conservative carb coverage for now * Novolog goal range and correction factor were tightened today * Carb coverage added to cover tube feeds PLAN FOR INPATIENT GLYCEMIC CONTROL: * Bolus insulin - okay to continue w/ Regular insulin that was initiated when tube feeds on board, change to a set CR, loosen goal range and CF slightly * Regular insulin per scale q6h * Goal Range: Low 110 mg/dL - High 150 mg/dL (to aim for BSGs < 180 mg/dL) * Correction Factor: 25 mg/dL/unit * Nutritional / Prandial insulin: 1 unit per 8 gm CHO consumed PLAN FOR DISCHARGE: * A1c - 4.2% on 02/03/19, which does not indicate diabetes. No need for glycemic medications on discharge.
[2019-02-04] MEDS: methylPREDNISolone 100 MG in SYRINGE 0 ML IV SCH ×2 (13:29→21:11)
[2019-02-04] MEDS ORDERED: LACTULOSE 200 GM, WATER, STERILE IRRIG 700 ML, BARCODE IDENTIFIER 1 EA PR SCH (14:00)
[2019-02-04 16:47] LABS: HSV Type 1 DNA Not Detected (Not Detected); HSV Type 2 DNA Not Detected (Not Detected)
[2019-02-04 18:18] LABS: CMV DNA Qnt Real Time PCR <200 IU/mL (<200); CMV DNA Quant PCR <2.30 log IU/mL (<2.30)
[2019-02-04] MEDS: cefTRIAXone SODIUM 1,000 MG in DEXTROSE 5% 50 ML IV SCH (23:03)
[2019-02-05] MEDS: INSULIN HUMAN REGULAR SC SCH ×2 (05:47→11:31)
[2019-02-05 06:01] LABS: Creatinine Clr Calc Pharmacy 87.2 ml/min; Est GFR (African American) 93.3; Est GFR (Non-African American) 80.5; Magnesium 2.2 mg/dl (1.8-2.4); Potassium 3.8 mmol/L (3.5-5.1)
[2019-02-05 07:02] LABS: Basophils # (auto) 0.01 K/uL (0-0.2); Basophils % (auto) 0.1 %; Hematocrit (blood only) 29.9 % (37-47); Hemoglobin 10.3 g/dL (12.0-16.0); Immature Granulocytes # (auto) 0.18 K/uL (0.00-0.02); Immature Granulocytes % (auto) 1.7 %; Lymphocytes # (auto) 0.16 K/uL (1.2-3.4); Lymphocytes % (auto) 1.5 %; Mean Corpuscular Hemoglobin 37.5 pg (25-34); Mean Corpuscular Hgb Conc 34.4 g/dL (32-36); Mean Corpuscular Volume 108.7 fL (80-100); Mean Platelet Volume 11.8 fL (7.4-10.4); Monocytes # (auto) 1.53 K/uL (0.11-0.59); Monocytes % (auto) 14.8 %; Neutrophils # (auto) 8.48 K/uL (1.4-6.5); Neutrophils % (auto) 81.9 %; Nucleated RBC # (auto) 0.03 K/uL (0-0); Nucleated RBC % (auto) 0.3 %; Platelet Count 122 K/uL (130-400); RDW Coefficient of Variation 14.9 % (11.5-14.5); RDW Standard Deviation 58.1 fL (36.4-46.3); Red Blood Count 2.75 M/uL (4.2-5.4); White Blood Count 10.36 K/uL (4.8-10.8)
[2019-02-05 07:09] LABS: INR 1.6 (0.9-1.1); Prothrombin Time 15.8 Seconds (9.0-12.0)
[2019-02-05 07:22] LABS: Albumin Level 2.5 gm/dl (3.4-5.0); Bilirubin Direct 4.9 mg/dl (0-0.2); Bilirubin,Total 7.9 mg/dl (0.2-1); Total Protein 5.3 gm/dl (6.4-8.2)
[2019-02-05] MEDS: MULTIVITAMIN TAB PO SCH (07:31)
[2019-02-05] MEDS: methylPREDNISolone 100 MG in SYRINGE 0 ML IV SCH ×3 (08:09→20:18)
[2019-02-05 08:27] LABS: iSTAT Art Bld Gas pCO2 Correct 36 mmHg (35-46); iSTAT Art Bld Gas pH Corrected 7.474 (7.35-7.45); iSTAT Arterial Blood Gas HCO3 26 meg/L (19-24); iSTAT Arterial Blood Gas pCO2 36 mmHg (35-46); iSTAT Arterial Blood Gas pH 7.48 (7.35-7.45); iSTAT Arterial Blood Gas pO2 81 mmHg (80-95); iSTAT Arterial Blood Gas pO2 C 82; iSTAT Carbon Dioxide 27 mEq/l (24-31); iSTAT FiO2 40 %; iSTAT Site Art Line
--- NOTE | 2019-02-05 08:45 | Critical Care Progress Note ---
Date of Service February 05, 2019 Assessment & Plan (1) Admitted to intensive care unit: Reason critically ill: 54yo female with PMHx of alcohol abuse and hepatic cirrhosis admitted to the ICU for alcohol withdrawal, but currently extubated after having an episode of alveolar hemorrhage. Neuro -Extubated 02/04 -currently on Vapotherm therapy, saturating well on it -swallow eval pending CV -Echo 01/30: EF of 55-60% -EKG 01/31: NSR, qtc 444 -weaned off Levophed for hypotension, tolerating well. -Continue to hold home metoprolol -will continue to monitor Pulmonary -chest xray 02/05-with pleural effusions- pulm edema vs. diffuse pneumonitis- improving -Bronchoscopy 02/01- evidence of alveolar hemorrhage -BAL cultures negative -autoimmune serology pending -continue high dose IV Solumedrol 100mg q8 GI -Hx of alcohol abuse with some cirrhosis -INR slowly decreased with 3 days of Vit K administration. -IV protonix due to high dose steroid administration for alveolar hemorrhage danna atment. -currently NPO, awaiting swallow study results. -decreased lactulose administration due to liquid BMs. -appreciate GI recs Renal/ -Cr function stablized, still within normal limits -Overnight has been putting out 40cc/hr -dickey removed -will continue to monitor. ID -continue abx rocephin for possible UTI. -will d/c 02/05 HEME -thrombocytopenia likely secondary to hepatic failure; improving -will continue to monitor PIVS DVT proph: SCDs, heprain Dispo: ICU Supervising Physician Co-Signing Physician Notes Dr Kilgore was the resident-physician during care of patient. I separately evaluated patient for rashid portions of the history and the exam. I was present during the critical portion of medical decision making, and I discussed the case with the resident. I generally agree with the findings and plan except for any additions/exceptions noted. Patient seen and examined at bedside. Status post extubation 02/04/2019. Patient is tolerating high flow saturating 95% on 35% with 40 L. Denies any chest pain. Asking for ice chips. Patient is still not that alert. She knows her name her date of . Answers simple questions appropriately. Patient is still bringing up red-tinged phlegm. Hemoglobin has been stable. Patient is on Solu-Medrol 100 mg 3 times daily now. We will continue with Solu- Medrol until we get the autoimmune work-up back. Swallow eval to see if the patient can swallow. Continue with GI prophylaxis given the patient is on high-dose steroids. IVCs as patient is having hemoptysis actively. Patient is -1 L since yesterday. Will try to get peripherals on her and DC central line if possible.Last dose of antibiotics today for UTI. KAPIL Dickey I have personally spent 46 minutes of critical care time in the direct management of this patient. This is a life/limb threatening event. This includes time spent evaluating patient, direct bedside care, chart review, placing orders, interpretation of diagnostic studies, discussion with consultants, patient, and/or family members regarding treatment decisions, as well as other required patient management activities. This time is exclusive of all separately billable procedures, and teaching time and separate from and in addition to any other critical care service time. Subjective Ms. Koo is better today. Extubated yesterday, attempting to communicate today through writing. Daughter at bedside, through communication via cell phone and writing, patient continuosly asks "why are we trying to kill her" Review of Systems Review of Systems: Unobtainable due to cognitive status Physical Exam Physical Exam: General: Laying in bed resting comfortably. Skin: No noted rashes or bruises Psych: Mood and affect cannot be determined. Neuro: Awake, able to follow commands and communicate nonverbally. HEENT: NC/AT, face appears swollen, icteric sclera CV: RRR, Normal s1, s2. Resp: Breath sounds clear bilaterally on front. Abdomen: Soft, nondistended. No guarding. Extremities: SCDs on lower extremities bilaterally. Results & Data Vital Signs (Past 12 Hours) Vital Signs Temp Pulse Pulse Pulse Resp BP Pulse Ox 02/05/19 07:30 37.1 C 96 H 98 H 18 114/52 L 93 02/05/19 07:00 101 H 13 112/51 L 95 02/05/19 05:30 104 H 13 111/52 L 95 02/05/19 05:14 104 H 14 98 02/05/19 05:01 103 H 13 96 02/05/19 05:00 104 H 13 122/51 L 96 02/05/19 04:30 103 H 13 109/52 L 96 02/05/19 04:01 103 H 14 96 02/05/19 04:00 36.8 C 104 H 14 113/53 L 95 02/05/19 03:30 104 H 13 111/53 L 96 02/05/19 03:15 104 H 14 98 02/05/19 03:01 103 H 11 L 99 02/05/19 03:00 104 H 12 110/54 L 99 02/05/19 02:30 106 H 13 109/50 L 98 02/05/19 02:01 108 H 15 100 02/05/19 02:00 106 H 13 100/51 L 99 02/05/19 01:30 109 H 16 110/53 L 98 02/05/19 01:01 95 H 13 96 02/05/19 01:00 95 H 13 114/51 L 97 02/05/19 00:30 94 H 12 112/55 L 97 02/05/19 00:01 94 H 12 97 02/05/19 00:00 36.7 C 94 H 12 109/61 97 02/04/19 23:30 95 H 13 112/53 L 96 02/04/19 23:01 94 H 12 96 02/04/19 23:00 94 H 94 H 12 104/52 L 97 02/04/19 22:30 96 H 12 115/53 L 97 02/04/19 22:01 90 12 97 02/04/19 22:00 90 12 108/51 L 97 02/04/19 21:30 88 12 98/50 L 96 02/04/19 21:24 73 14 97 02/04/19 21:01 87 11 L 96 02/04/19 21:00 87 11 L 102/51 L 96 Laboratory Results Laboratory Results - last 24 hr 02/01/19 02/01/19 02/04/19 11:30 11:30 10:57 WBC RBC Hgb Hct MCV MCH MCHC RDW Std Deviation RDW Coeff of Wesley Plt Count MPV Immature Gran % (Auto) Neut % (Auto) Lymph % (Auto) [place] % (Auto) Eos % (Auto) Baso % (Auto) Immature Gran # (Auto) Neut # (Auto) Lymph # (Auto) [place] # (Auto) Eos # (Auto) Baso # (Auto) Absolute Nucleated RBC Nucleated RBC % (auto) PT INR Sample Site Art Line POC pH 7.40 POC pCO2 44 POC pO2 66 L POC HCO3 27 H POC Total CO2 29 POC Base Excess 3.0 H ABG pH (Temp Correct) 7.409 ABG pCO2 (Temp Corrct 43 POC ABG pO2 at Pt Temp 64 POC ABG O2 Sat 93.0 Dylan Test NA O2 Delivery Device Hi Maikel Can POC FiO2 65 Sodium Potassium Chloride Carbon Dioxide Anion Gap BUN Creatinine Est Cr Clr Drug Dosing Est GFR ( Amer) Est GFR (Non-Af Amer) BUN/Creatinine Ratio Glucose POC Glucose Calcium Magnesium Total Bilirubin Direct Bilirubin AST ALT Alkaline Phosphatase Ammonia Total Protein Albumin CMV Specimen Source Bronchial Wash CMV Qnt PCR IU/mL <200 CMV Qnt PCR log IU/mL <2.30 Herpes Virus Source Bronchial Wash HSV I DNA PCR Not Detected HSV II DNA PCR Not Detected 02/04/19 02/04/19 02/04/19 11:53 17:51 23:35 WBC RBC Hgb Hct MCV MCH MCHC RDW Std Deviation RDW Coeff of Wesley Plt Count MPV Immature Gran % (Auto) Neut % (Auto) Lymph % (Auto) [place] % (Auto) Eos % (Auto) Baso % (Auto) Immature Gran # (Auto) Neut # (Auto) Lymph # (Auto) [place] # (Auto) Eos # (Auto) Baso # (Auto) Absolute Nucleated RBC Nucleated RBC % (auto) PT INR Sample Site POC pH POC pCO2 POC pO2 POC HCO3 POC Total CO2 POC Base Excess ABG pH (Temp Correct) ABG pCO2 (Temp Corrct POC ABG pO2 at Pt Temp POC ABG O2 Sat Dylan Test O2 Delivery Device POC FiO2 Sodium Potassium Chloride Carbon Dioxide Anion Gap BUN Creatinine Est Cr Clr Drug Dosing Est GFR ( Amer) Est GFR (Non-Af Amer) BUN/Creatinine Ratio Glucose POC Glucose 143 H 133 H 148 H Calcium Magnesium Total Bilirubin Direct Bilirubin AST ALT Alkaline Phosphatase Ammonia Total Protein Albumin CMV Specimen Source CMV Qnt PCR IU/mL CMV Qnt PCR log IU/mL Herpes Virus Source HSV I DNA PCR HSV II DNA PCR 02/05/19 02/05/19 02/05/19 05:04 05:08 05:09 WBC 10.36 RBC 2.75 L Hgb 10.3 L Hct 29.9 L MCV 108.7 H MCH 37.5 H MCHC 34.4 RDW Std Deviation 58.1 H RDW Coeff of Wesley 14.9 H Plt Count 122 L MPV 11.8 H Immature Gran % (Auto) 1.7 Neut % (Auto) 81.9 Lymph % (Auto) 1.5 [place] % (Auto) 14.8 Eos % (Auto) 0.0 Baso % (Auto) 0.1 Immature Gran # (Auto) 0.18 H Neut # (Auto) 8.48 H Lymph # (Auto) 0.16 L [place] # (Auto) 1.53 H Eos # (Auto) 0.00 Baso # (Auto) 0.01 Absolute Nucleated RBC 0.03 H Nucleated RBC % (auto) 0.3 PT INR Sample Site POC pH POC pCO2 POC pO2 POC HCO3 POC Total CO2 POC Base Excess ABG pH (Temp Correct) ABG pCO2 (Temp Corrct POC ABG pO2 at Pt Temp POC ABG O2 Sat Dylan Test O2 Delivery Device POC FiO2 Sodium 136 Potassium 3.8 Chloride 101 Carbon Dioxide 27 Anion Gap 8.0 BUN 49 H Creatinine 0.83 Est Cr Clr Drug Dosing 87.2 Est GFR ( Amer) 93.3 Est GFR (Non-Af Amer) 80.5 BUN/Creatinine Ratio 59.0 H Glucose 158 H POC Glucose 154 H Calcium 9.0 Magnesium 2.2 Total Bilirubin Direct Bilirubin AST ALT Alkaline Phosphatase Ammonia Total Protein Albumin CMV Specimen Source CMV Qnt PCR IU/mL CMV Qnt PCR log IU/mL Herpes Virus Source HSV I DNA PCR HSV II DNA PCR 02/05/19 02/05/19 02/05/19 06:42 06:42 06:42 WBC RBC Hgb Hct MCV MCH MCHC RDW Std Deviation RDW Coeff of Wesley Plt Count MPV Immature Gran % (Auto) Neut % (Auto) Lymph % (Auto) [place] % (Auto) Eos % (Auto) Baso % (Auto) Immature Gran # (Auto) Neut # (Auto) Lymph # (Auto) [place] # (Auto) Eos # (Auto) Baso # (Auto) Absolute Nucleated RBC Nucleated RBC % (auto) PT 15.8 H INR 1.6 H Sample Site POC pH POC pCO2 POC pO2 POC HCO3 POC Total CO2 POC Base Excess ABG pH (Temp Correct) ABG pCO2 (Temp Corrct POC ABG pO2 at Pt Temp POC ABG O2 Sat Dylan Test O2 Delivery Device POC FiO2 Sodium Potassium Chloride Carbon Dioxide Anion Gap BUN Creatinine Est Cr Clr Drug Dosing Est GFR ( Amer) Est GFR (Non-Af Amer) BUN/Creatinine Ratio Glucose POC Glucose Calcium Magnesium Total Bilirubin 7.9 H Direct Bilirubin 4.9 H AST 111 H ALT 82 H Alkaline Phosphatase 75 Ammonia 21.0 Total Protein 5.3 L Albumin 2.5 L CMV Specimen Source CMV Qnt PCR IU/mL CMV Qnt PCR log IU/mL Herpes Virus Source HSV I DNA PCR HSV II DNA PCR 02/05/19 08:13 WBC RBC Hgb Hct MCV MCH MCHC RDW Std Deviation RDW Coeff of Wesley Plt Count MPV Immature Gran % (Auto) Neut % (Auto) Lymph % (Auto) [place] % (Auto) Eos % (Auto) Baso % (Auto) Immature Gran # (Auto) Neut # (Auto) Lymph # (Auto) [place] # (Auto) Eos # (Auto) Baso # (Auto) Absolute Nucleated RBC Nucleated RBC % (auto) PT INR Sample Site Art Line POC pH 7.48 H POC pCO2 36 POC pO2 81 POC HCO3 26 H POC Total CO2 27 POC Base Excess 3.0 H ABG pH (Temp Correct) 7.474 H ABG pCO2 (Temp Corrct 36 POC ABG pO2 at Pt Temp 82 POC ABG O2 Sat 97.0 H Dylan Test NA O2 Delivery Device Hi Maikel Can POC FiO2 40 Sodium Potassium Chloride Carbon Dioxide Anion Gap BUN Creatinine Est Cr Clr Drug Dosing Est GFR ( Amer) Est GFR (Non-Af Amer) BUN/Creatinine Ratio Glucose POC Glucose Calcium Magnesium Total Bilirubin Direct Bilirubin AST ALT Alkaline Phosphatase Ammonia Total Protein Albumin CMV Specimen Source CMV Qnt PCR IU/mL CMV Qnt PCR log IU/mL Herpes Virus Source HSV I DNA PCR HSV II DNA PCR 02/05/19 05:08 02/05/19 05:04 Medications Administered Home Medications No Known Home Medications 01/29/19 [History Confirmed 01/29/19] Active Medications Albuterol (Duoneb) 3 ml NEB Q6R PRN PRN Reason: Wheezing Stop: 03/03/19 18:59 Dextrose (Dextrose 50%) 25 - 50 ml IV UD PRN; Protocol PRN Reason: Hypoglycemia Protocol Stop: 03/03/19 12:59 Glucagon (Glucagen) 1 mg IM UD PRN; Protocol PRN Reason: Hypoglycemia Protocol Stop: 03/03/19 12:59 Glucose (Glucose 40%) 15 - 30 gm PO UD PRN; Protocol PRN Reason: Hypoglycemia Protocol Stop: 03/03/19 12:59 Glucose (Dex4 Glucose) 4 - 8 tabs PO UD PRN; Protocol PRN Reason: Hypoglycemia Protocol Stop: 03/03/19 12:59 Heparin Sodium (Beef Lung) (Heparin Sod 10 Unit/Ml Flush) 5 ml FLUSH PRN PRN PRN Reason: Flush Stop: 03/05/19 01:23 Pantoprazole Sodium 40 mg/ (Syringe) 10 mls @ 5 mls/min IV DAILY@1100 JAYMIE Stop: 03/02/19 13:44 Last Admin: 02/04/19 10:32 Dose: 5 mls/min Documented by: Ceftriaxone Sodium 1,000 mg/ (Dextrose) 50 mls @ 100 mls/hr IV Q24H JAYMIE; Protocol Stop: 02/06/19 22:59 Last Infusion: 02/04/19 23:37 Dose: Infused Documented by: Methylprednisolone 100 mg/ (Syringe) 1.6 mls @ 1.5 mls/min IV TID JAYMIE Stop: 03/06/19 13:59 Last Admin: 02/05/19 08:09 Dose: 1.5 mls/min Documented by: Insulin Human Regular (Novolin R) 0 units SC Q6 JAYMIE; Protocol Stop: 03/05/19 11:59 Last Admin: 02/05/19 05:47 Dose: 1 units Documented by: Miscellaneous (Icu Electrolyte Replacement Protocol) 1 ea N/A UD PRN PRN Reason: for e-lyte repletion Stop: 02/07/19 13:12 Miscellaneous (Carbohydrates For Hypoglycemia) 15 - 30 gm PO UD PRN PRN Reason: Hypoglycemia Treatment Stop: 03/03/19 12:59 Miscellaneous Information (Consult Glycemic Management Pharmacy) 1 ea N/A UD PRN PRN Reason: Consult Stop: 03/03/19 18:28 Multivitamins (Multivitamin Tab) 1 tab PO QAM JAYMIE Stop: 03/01/19 08:59 Last Admin: 02/05/19 07:31 Dose: Not Given Documented by: Ondansetron HCl (Zofran) 4 mg IV Q4H PRN PRN Reason: Nausea Stop: 02/28/19 15:31 Last Admin: 01/30/19 14:43 Dose: 4 mg Documented by: PG Care Time/CCT Total # of Minutes Spent Total Time Spent with Patient: Total time spent is greater than 50% in coordination of care (as documented) at patient's floor/unit and/or counseling patient: Critical Care Time: Yes Total Critical Care Time: 46 Resident Activity Tracking Resident Involvement: Resident Care Provided Care Provided: Adult Hospital Medicine
--- NOTE | 2019-02-05 08:47 | Nephrology Progress Note ---
Date of Service February 05, 2019 Assessment & Plan (1) Volume overload: acute on chronic problem, w/ LE edema present x 3 mos but respiratory sx present less than 2 wks and acutely worse late last week w/ pulmonary edema multifactorial most likely >> certainly a component of liver cirrhosis; also however w/ tachycardia/hypotension Patient remains grossly volume overloaded but w/ improved volume status >> when appropriate consider prn lasix Will sign off; pls call if questions (2) Alcohol abuse: EtOH + on admission; GI following; on withdrawal protocols Subjective seen on rounds this am; on high flow 02, extubated yesterday; daughter at bedside Review of Systems 2 Review of Systems: Unobtainable due to reduced consciousness (pt not in teracting much this am) Physical Exam Constitutional: well developed, well nourished, + ill appearing, + obese, comfortable and + lethargic; no acute distress Eyes: EOM intact bilaterally ENMT: Ears: no external ear abnormality Nose: no external nose abnormality Mouth: + dry oral mucous membranes (w/ some blood on her lips) Neck: no nuchal rigidity Respiratory: no cough, not tachypneic, no paradoxical chest wall movement and no paradoxical thoraco-abdominal movemnt Auscultation: + diminished lung sounds (moves almost no air on lung exam) Cardiovascular: Rate/Rhythm: regular rhythm and + tachycardic (in 100s) Extremities: + edema (improved; trace - 1+ pretibial/pedal) Gastrointestinal (Abdomen): Inspection/Auscultation: normal bowel sounds Percussion/Palpation: abdomen soft; abdomen nontender rectal tube in place Musculoskeletal: Extremities: strength 5/5 throughout Skin: no rashes, warm and dry Psychiatric: Orientation: + not alert Speech: + abnormal rate/rhythm/volume of speech Results & Data Vital Signs (Past 12 Hours) Vital Signs Temp Pulse Pulse Pulse Resp BP Pulse Ox 02/05/19 07:30 37.1 C 96 H 98 H 18 114/52 L 93 02/05/19 07:00 101 H 13 112/51 L 95 02/05/19 05:30 104 H 13 111/52 L 95 02/05/19 05:14 104 H 14 98 02/05/19 05:01 103 H 13 96 02/05/19 05:00 104 H 13 122/51 L 96 02/05/19 04:30 103 H 13 109/52 L 96 02/05/19 04:01 103 H 14 96 02/05/19 04:00 36.8 C 104 H 14 113/53 L 95 02/05/19 03:30 104 H 13 111/53 L 96 02/05/19 03:15 104 H 14 98 02/05/19 03:01 103 H 11 L 99 02/05/19 03:00 104 H 12 110/54 L 99 02/05/19 02:30 106 H 13 109/50 L 98 02/05/19 02:01 108 H 15 100 02/05/19 02:00 106 H 13 100/51 L 99 02/05/19 01:30 109 H 16 110/53 L 98 02/05/19 01:01 95 H 13 96 02/05/19 01:00 95 H 13 114/51 L 97 02/05/19 00:30 94 H 12 112/55 L 97 02/05/19 00:01 94 H 12 97 02/05/19 00:00 36.7 C 94 H 12 109/61 97 02/04/19 23:30 95 H 13 112/53 L 96 02/04/19 23:01 94 H 12 96 02/04/19 23:00 94 H 94 H 12 104/52 L 97 02/04/19 22:30 96 H 12 115/53 L 97 02/04/19 22:01 90 12 97 02/04/19 22:00 90 12 108/51 L 97 02/04/19 21:30 88 12 98/50 L 96 02/04/19 21:24 73 14 97 02/04/19 21:01 87 11 L 96 02/04/19 21:00 87 11 L 102/51 L 96 Laboratory Results 02/05/19 05:08 02/05/19 05:04 Diagnostic Findings cxr yest> 1. Similar findings of congestive failure/pulmonary edema. 2. Slight progression of density left lung base. 3. Endotracheal tube 2 cm above the noreen. (1) Volume overload Hypervolemia type: other Qualified Code(s): E87.79 - Other fluid overload
--- NOTE | 2019-02-05 09:10 | XRay Report ---
XR chest 1V portable HISTORY: Pulmonary edema. Follow-up. COMPARISON: Chest 02/04/2019. FINDINGS: Rotated study. Right jugular central venous catheter terminates in the right atrium. This r emains unchanged. The heart remains enlarged. No pneumothorax. Slight improved aeration within the le ft lung base. Bilateral perihilar airspace opacities are again noted and suggest pulmonary edema. No definite pleural effusions. The heart remains enlarged. IMPRESSION: 1. Improved aeration with the left lung base. 2. Bilateral perihilar airspace opacities persist and favor pulmonary edema. Electronically signed by: Raymon Pitts M.D. 02/05/2019 9:09 AM
[2019-02-05] MEDS ORDERED: Nursing to Pharmacy Communication ONE (11:21)
[2019-02-05] MEDS ORDERED: INSULIN HUMAN REGULAR SC SCH (11:30)
[2019-02-05] MEDS: PANTOprazole 40 MG in SYRINGE 0 ML IV SCH (11:31)
--- NOTE | 2019-02-05 12:24 | Hospitalist Progress Note ---
Date of Service February 05, 2019 Assessment & Plan (1) Multifocal pneumonia: (2) Volume overload: (3) Bilateral pleural effusion: (4) Acute hypoxemic respiratory failure: Requiring Mechanical intubation. Extubated on 02/04/2019 CT chest showed findings of diffuse bilateral multifocal pneumonitis versus pulmonary edema. No evidence of PE Repeat showed progressive bilateral parenchymal infiltrative and/or pulmonary edematous change. S/P bronch on 02/01/2019 showing diffuse alveolar hemorrhage. Currently on 125mg IV Solu-Medrol Autoimmune labs pending Continue monitor in the ICU (5) Hypotension: Possible related to sedation when intubated Resolved Off pressor (levophed) BP has been stable Continue monitor BP Echo showed no wall motion abnormality with EF 55-60% (6) Alcohol abuse: Elevated Liver enzymes MRCP showed No biliary ductal dilatation or choledocholithiasis to suggest biliary obstruction. Mildly distended gallbladder with gallbladder sludge and wall thickening. Continue lactulose Gastro on board Monitor for sign of withdrawnal (7) Hepatic dysfunction: With Thrombocytopenia, Elevated INR Likely due to Alcoholic liver disease Platelet 122 today Imaging studies not indicative of cirrhosis. Likely alcoholic hepatitis GI is on board Spoke with daughter and patient about need for complete alcohol cessation and offered resources for management (8) Hyponatremia: Resolved Na 136 today Possible related to volume overload in the setting of alcohol hepatitis Nephrology on board. Follow recommendations Lasix discontinued due to low BP Monitor BMP (9) Elevated glucose: Due to high dose steroid Continue insulin sliding scale Pharmacy consult for glycemic management Monitor Blood glucose (10) Elevated lactic acid level: Resolved Likely related to hypoxia +/- hepatic dysfunciton Negative blood cultures On IV rocephin for possible UTI (11) DVT prophylaxis: DVT px on SCDs due to thrombocytopenia and coagulopathy with DAH Subjective Patient seen and examined this morning Daughter was at bedside Patient was extubated yesterday She currently has no complaints. Limited ROS as patient was speaking in low volumes and slowly Denied any pain, chest pain, shortness of breath, sore throat Daughter reports intermittent small epistaxis earlier but resolved Review of Systems Review of Systems: All systems reviewed and unremarkable except for mentioned above. Physical Exam Physical Exam: General: In no obvious distress, awake alert, speaking in low difficult to hear volume Eyes: PERRL, conjunctivae normal, icteric sclera, EOM intact bilaterally ENMT: External ear and nose normal Neck: Normal visual inspection, no tracheal deviation Respiratory: Normal respiratory effort, no respiratory distress, lungs clear to auscultation, no crackles and no wheezes Cardiovascular: Pulse is RRR, s1 s2, trace pedal edema Chest (Breasts): Chest: normal inspection of chest Gastrointestinal (Abdomen): Abdomen is not distended, soft, non-tender to palpation, no guarding, no palpable hepatosplenomegaly, normal bowel sounds Musculoskeletal: No cyanosis or clubbing, Trace pedal edema with SCD Skin: No rash noted on gross inspection, No ulcers noted Neurologic: Alert, awake, follows simple commands. Limited neuro exam due to mental status as above Results & Data Vital Signs (Past 12 Hours) Vital Signs Temp Pulse Pulse Pulse Resp BP Pulse Ox 02/05/19 10:25 97 H 18 95 02/05/19 10:01 97 H 13 95 02/05/19 10:00 98 H 16 111/50 L 95 02/05/19 09:30 102 H 13 119/51 L 98 02/05/19 09:00 105 H 15 126/55 L 99 02/05/19 08:30 106 H 25 H 100/74 100 02/05/19 08:00 101 H 13 120/54 L 98 02/05/19 07:31 95 H 14 96 02/05/19 07:30 37.1 C 96 H 98 H 18 114/52 L 93 02/05/19 07:00 101 H 13 112/51 L 95 02/05/19 05:30 104 H 13 111/52 L 95 02/05/19 05:14 104 H 14 98 02/05/19 05:01 103 H 13 96 02/05/19 05:00 104 H 13 122/51 L 96 02/05/19 04:30 103 H 13 109/52 L 96 02/05/19 04:01 103 H 14 96 02/05/19 04:00 36.8 C 104 H 14 113/53 L 95 02/05/19 03:30 104 H 13 111/53 L 96 02/05/19 03:15 104 H 14 98 02/05/19 03:01 103 H 11 L 99 02/05/19 03:00 104 H 12 110/54 L 99 02/05/19 02:30 106 H 13 109/50 L 98 02/05/19 02:01 108 H 15 100 02/05/19 02:00 106 H 13 100/51 L 99 02/05/19 01:30 109 H 16 110/53 L 98 02/05/19 01:01 95 H 13 96 02/05/19 01:00 95 H 13 114/51 L 97 02/05/19 00:30 94 H 12 112/55 L 97 Laboratory Results Short CBC 02/05/19 Range/Units 05:08 WBC 10.36 (4.8-10.8) K/uL Hgb 10.3 L (12.0-16.0) g/dL Hct 29.9 L (37-47) % Plt Count 122 L (130-400) K/uL BMP 02/05/19 05:04 Sodium 136 Potassium 3.8 Chloride 101 Carbon Dioxide 27 BUN 49 H Creatinine 0.83 Glucose 158 H Calcium 9.0 Liver Function 02/05/19 Range/Units 06:42 Total Bilirubin 7.9 H (0.2-1) mg/dl Direct Bilirubin 4.9 H (0-0.2) mg/dl AST 111 H (15-37) U/L ALT 82 H (12-78) U/L Alkaline Phosphatase 75 (45-117) U/L Albumin 2.5 L (3.4-5.0) gm/dl (1) Volume overload Hypervolemia type: other Qualified Code(s): E87.79 - Other fluid overload
[2019-02-05] MEDS ORDERED: FUROSEMIDE 20 MG in SYRINGE 0 ML IV ONE (12:30)
[2019-02-05] MEDS: INSULIN ASPART 100 UNITS/ML 3 ML PEN SC SCH ×2 (17:02→20:18)
[2019-02-05] MEDS: cefTRIAXone SODIUM 1,000 MG in DEXTROSE 5% 50 ML IV SCH (22:44)
[2019-02-06 04:36] LABS: Hematocrit (blood only) 29.1 % (37-47); Hemoglobin 10.2 g/dL (12.0-16.0); Mean Corpuscular Hemoglobin 37.2 pg (25-34); Mean Corpuscular Hgb Conc 35.1 g/dL (32-36); Mean Corpuscular Volume 106.2 fL (80-100); Nucleated RBC # (auto) 0.03 K/uL (0-0); Nucleated RBC % (auto) 0.2 %; Platelet Count 135 K/uL (130-400); RDW Coefficient of Variation 15.7 % (11.5-14.5); RDW Standard Deviation 59.7 fL (36.4-46.3); Red Blood Count 2.74 M/uL (4.2-5.4); White Blood Count 14.22 K/uL (4.8-10.8)
[2019-02-06 04:56] LABS: Albumin Level 2.5 gm/dl (3.4-5.0); BUN Creatinine Ratio 51.5 (10-20); Basophils # (auto) 0.01 K/uL (0-0.2); Basophils % (auto) 0.1 %; Calcium 8.6 mg/dl (8.5-10.1); Creatinine Clr Calc Pharmacy 87.5 ml/min; Est GFR (African American) 93.3; Est GFR (Non-African American) 80.5; Immature Granulocytes # (auto) 0.32 K/uL (0.00-0.02); Immature Granulocytes % (auto) 2.3 %; Lymphocytes % (auto) 7.7 %; Magnesium 2.4 mg/dl (1.8-2.4); Monocytes % (auto) 4.9 %; Neutrophils # (auto) 12.09 K/uL (1.4-6.5); Polychromasia 1+; Potassium 3.7 mmol/L (3.5-5.1); Target Cells 1+
[2019-02-06 04:57] LABS: Bilirubin,Total 8.9 mg/dl (0.2-1); Total Protein 5.3 gm/dl (6.4-8.2)
--- NOTE | 2019-02-06 07:02 | XRay Report ---
XR chest 1V portable HISTORY: 54 years-old Female f/u follow-up study in a patient with history of pulmonary edema COMPARISON: Chest radiograph 02/05/2018 TECHNIQUE: Portable AP view of the chest FINDINGS: Right IJ central venous catheter is unchanged with distal tip terminating in the expected location of the right atrium. The patient is slightly rotated to the left. Cardiac silhouette is enlarged. Persi stent bilateral mixed interstitial and alveolar opacities with slightly improved aeration of the bila teral lungs. Mild blunting of the costophrenic angles may reflect atelectasis versus trace effusions. Bones appear grossly intact. IMPRESSION: Slightly improved aeration of the bilateral lungs with persistent mixed interstitial and alveolar opacities suggestive of probable pulmonary edema. The above report was generated using voice recognition software. It may contain grammatical, syntax o r spelling errors. Electronically signed by: Martell Hawkins M.D. 02/06/2019 7:01 AM
--- NOTE | 2019-02-06 08:41 | Critical Care Progress Note ---
Date of Service February 06, 2019 Assessment & Plan (1) Admitted to intensive care unit: Reason critically ill: 54yo female with PMHx of alcohol abuse and hepatitis admitted to the ICU for alcohol withdrawal with alveolar hemorrhage. Neuro -Extubated 02/04 -currently on Vapotherm therapy, saturating well on it -swallow eval- on aspiration precautions, can eat minced and moist meals. CV -Echo 01/30: EF of 55-60% -EKG 01/31: NSR, qtc 444 -weaned off Levophed for hypotension, tolerating well. -Continue to hold home metoprolol -will continue to monitor Pulmonary -chest xray 02/06-with pleural effusions- pulm edema vs. diffuse pneumonitis- improving -Bronchoscopy 02/01- evidence of alveolar hemorrhage -BAL cultures negative -autoimmune serology pending. 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 -PO protonix due to high dose steroid administration for alveolar hemorrhage treatment. -currently on a diet with aspiration precautions. -decreased lactulose administration due to liquid BMs. -appreciate GI recs Renal/ -Cr function stablized, still within normal limits -dickey removed -Lasix 40mg adminstration today -will continue to monitor. ID -Hostorical 7 day rocephin administration for possible UTI. - d/c 02/05 HEME -thrombocytopenia likely secondary to hepatic failure; improving -will continue to monitor MSK -PT/OT on board -movement 02/06 as well PIVS, central line removed 02/06 DVT proph: SCDs Dispo: ICU Supervising Physician Co-Signing Physician Notes Dr Kilgore was the resident-physician during care of patient. I separately evaluated patient for rashid portions of the history and the exam. I was present during the critical portion of medical decision making, and I discussed the case with the resident. I generally agree with the findings and plan except for any additions/exceptions noted. Patient seen and examined at bedside. Status post extubation 02/04/2019. Patient is tolerating high flow saturating 95% on 40% FiO2 and 30 L of flow. Patient is more alert today. Answering questions appropriately. Still complaining of cough but the phlegm is getting more clear now. Chest x-ray from today shows improved aeration compared to yesterday. Will give 1 more dose of Lasix 40 mg IV. Continue with GI prophylaxis given the patient is on high-dose steroids. Will go down on Solu-Medrol to 50 mg every 8 hours. Goal is to titrate to p.o. prednisone 60 mg daily by the end of this week. IPCs as patient is having hemoptysis actively. Thrombocytopenia improving. Patient has peripheral line. Will DC central line today. Out of the bed to chair with support. Autoimmune work-up still pending. BAL galactomannan was positive. Right now it has no significant until I have the autoimmune work-up back. Patient is already on steroids. If autoimmune work-up is negative this could be idiopathic pulmonary hemosiderosis. I have personally spent 36 minutes of critical care time in the direct management of this patient. This is a life/limb threatening event. This includes time spent evaluating patient, direct bedside care, chart review, placing orders, interpretation of diagnostic studies, discussion with consultants, patient, and/or family members regarding treatment decisions, as well as other required patient management activities. This time is exclusive of all separately billable procedures, and teaching time and separate from and in addition to any other critical care service time. Subjective Pt AAOx4 laying in bed. Daughter at bedside. Review of Systems Review of Systems: Unobtainable due to cognitive status Physical Exam Physical Exam: General: Laying in bed resting comfortably. Skin: No noted rashes or bruises Psych: Mood and affect- pt through daughter repeatedly asking why are health providers trying to kill her Neuro: Awake, able to follow commands and communicate nonverbally and slowly and softly verbally. HEENT: NC/AT, face appears swollen, icteric sclera CV: RRR, Normal s1, s2. Resp: Breath sounds clear bilaterally on front. Abdomen: Soft, nondistended. No guarding. Extremities: SCDs on lower extremities bilaterally. Results & Data Vital Signs (Past 12 Hours) Vital Signs Temp Pulse Pulse Pulse Resp BP BP 02/06/19 07:52 110 H 23 02/06/19 06:00 107 H 16 127/57 L 02/06/19 05:22 107 H 14 02/06/19 05:00 105 H 12 128/57 L 02/06/19 04:00 104 H 16 124/58 L 02/06/19 03:26 36.9 C 02/06/19 03:00 99 H 16 108/49 L 02/06/19 02:00 110 H 21 115/49 L 02/06/19 01:12 108 H 17 02/06/19 01:00 105 H 16 118/53 L 02/06/19 00:00 36.9 C 106 H 16 110/58 L 02/05/19 23:01 105 H 18 02/05/19 23:00 105 H 17 120/59 L 02/05/19 22:21 113 H 15 02/05/19 22:00 108 H 14 131/65 02/05/19 21:00 108 H 109 H 12 129/55 L 129/55 L Pulse Ox 02/06/19 07:52 95 02/06/19 06:00 92 02/06/19 05:22 94 02/06/19 05:00 94 02/06/19 04:00 91 02/06/19 03:26 02/06/19 03:00 90 02/06/19 02:00 97 02/06/19 01:12 92 02/06/19 01:00 92 02/06/19 00:00 91 02/05/19 23:01 95 02/05/19 23:00 95 02/05/19 22:21 98 02/05/19 22:00 98 02/05/19 21:00 98 Laboratory Results Laboratory Results - last 24 hr 02/01/19 02/05/19 02/05/19 11:30 11:27 16:26 WBC RBC Hgb Hct MCV MCH MCHC RDW Std Deviation RDW Coeff of Wesley Plt Count MPV Immature Gran % (Auto) Neut % (Auto) Lymph % (Auto) [place] % (Auto) Eos % (Auto) Baso % (Auto) Immature Gran # (Auto) Neut # (Auto) Lymph # (Auto) [place] # (Auto) Eos # (Auto) Baso # (Auto) Absolute Nucleated RBC Nucleated RBC % (auto) Polychromasia Target Cells Sodium Potassium Chloride Carbon Dioxide Anion Gap BUN Creatinine Est Cr Clr Drug Dosing Est GFR ( Amer) Est GFR (Non-Af Amer) BUN/Creatinine Ratio Glucose POC Glucose 140 H 207 H Calcium Magnesium Total Bilirubin Direct Bilirubin AST ALT Alkaline Phosphatase Total Protein Albumin BAL A.galactomannan Ag Detected A BAL A.galactomann Index 0.77 H 02/05/19 02/06/19 02/06/19 20:15 04:14 04:14 WBC 14.22 H RBC 2.74 L Hgb 10.2 L Hct 29.1 L MCV 106.2 H MCH 37.2 H MCHC 35.1 RDW Std Deviation 59.7 H RDW Coeff of Wesley 15.7 H Plt Count 135 MPV 11.0 H Immature Gran % (Auto) 2.3 Neut % (Auto) 85.0 Lymph % (Auto) 7.7 [place] % (Auto) 4.9 Eos % (Auto) 0.0 Baso % (Auto) 0.1 Immature Gran # (Auto) 0.32 H Neut # (Auto) 12.09 H Lymph # (Auto) 1.10 L [place] # (Auto) 0.70 H Eos # (Auto) 0.00 Baso # (Auto) 0.01 Absolute Nucleated RBC 0.03 H Nucleated RBC % (auto) 0.2 Polychromasia 1+ Target Cells 1+ Sodium 138 Potassium 3.7 Chloride 102 Carbon Dioxide 28 Anion Gap 8.0 BUN 43 H Creatinine 0.83 Est Cr Clr Drug Dosing 87.5 Est GFR ( Amer) 93.3 Est GFR (Non-Af Amer) 80.5 BUN/Creatinine Ratio 51.5 H Glucose 170 H POC Glucose 129 H Calcium 8.6 Magnesium 2.4 Total Bilirubin 8.9 H Direct Bilirubin 5.0 H AST 106 H ALT 101 H Alkaline Phosphatase 75 Total Protein 5.3 L Albumin 2.5 L BAL A.galactomannan Ag BAL A.galactomann Index 02/06/19 07:23 WBC RBC Hgb Hct MCV MCH MCHC RDW Std Deviation RDW Coeff of Wesley Plt Count MPV Immature Gran % (Auto) Neut % (Auto) Lymph % (Auto) [place] % (Auto) Eos % (Auto) Baso % (Auto) Immature Gran # (Auto) Neut # (Auto) Lymph # (Auto) [place] # (Auto) Eos # (Auto) Baso # (Auto) Absolute Nucleated RBC Nucleated RBC % (auto) Polychromasia Target Cells Sodium Potassium Chloride Carbon Dioxide Anion Gap BUN Creatinine Est Cr Clr Drug Dosing Est GFR ( Amer) Est GFR (Non-Af Amer) BUN/Creatinine Ratio Glucose POC Glucose 165 H Calcium Magnesium Total Bilirubin Direct Bilirubin AST ALT Alkaline Phosphatase Total Protein Albumin BAL A.galactomannan Ag BAL A.galactomann Index PG Care Time/CCT Total # of Minutes Spent Total Time Spent with Patient: Total time spent is greater than 50% in coordination of care (as documented) at patient's floor/unit and/or counseling patient: Critical Care Time: Yes Total Critical Care Time: 36 Resident Activity Tracking Resident Involvement: Resident Care Provided Care Provided: Adult Hospital Medicine
[2019-02-06] MEDS ORDERED: FUROSEMIDE 40 MG in SYRINGE 0 ML IV ONE (09:00)
[2019-02-06] MEDS: methylPREDNISolone 50 MG in SYRINGE 0 ML IV SCH ×3 (09:25→20:37)
[2019-02-06] MEDS: PANTOprazole 40 MG TAB PO SCH (09:25)
[2019-02-06] MEDS: INSULIN ASPART 100 UNITS/ML 3 ML PEN SC SCH ×4 (09:28→20:35)
[2019-02-06] MEDS: MULTIVITAMIN TAB PO SCH (09:30)
--- NOTE | 2019-02-06 13:18 | Hospitalist Progress Note ---
Date of Service February 06, 2019 Assessment & Plan (1) Acute hypoxemic respiratory failure: Is a 54-year-old female with past medical history of alcohol abuse/hepatitis, admitted to ICU with alcohol withdrawal, acute respiratory failure requiring mechanical ventilation S/P bronch on 02/01/2019 showing diffuse alveolar hemorrhage Extubated on 02/04/2019 Has been requiring high flow oxygen-high flow saturating 95% on 40% FiO2 and 30 L of flow. Transition to oxygen 6 L via facemask this morning, SPO2 between 90-92% CT chest showed findings of diffuse bilateral multifocal pneumonitis versus pulmonary edema. No evidence of PE Chest x-ray : 02/06/2019 :Slightly improved aeration of the bilateral lungs with persistent mixed interstitial and alveolar opacities suggestive of probable pulmonary edema. Possible decompensation of underlying CHF with diastolic dysfunction, due to hypoxia, respiratory failure Echo: 01/30/2019 Left ventricle is normal in size. Left ventricle systolic function is normal. Ejection fraction 55-60% Right ventricular systolic function is normal The left atrial size is normal. Right atrial size is normal. There is mild to moderate mitral regurgitation. There is mild tricuspid agitation Lasix IV 40 mg x 1 dose Continue to monitor volume status Appreciate input from critical care team BAL cultures been negative/BAL galactomannan was positive(suggestive of possible pulmonary aspergillosis) Patient is continued with high dose of IV Solu-Medrol at 50 mg daily 8 Plan for gradual taper and transition to p.o. prednisone 60 mg daily as patient continues to improve clinically (2) Hypotension: Possible related to sedation when intubated Resolved Off pressor (levophed)/right IJ central line discontinued BP has been stable /home antihypertensive: Metoprolol has been kept on hold Echo showed no wall motion abnormality with EF 55-60% (3) Alcohol abuse: History of alcohol abuse, Presented with transaminitis MRCP showed No biliary ductal dilatation or choledocholithiasis to suggest biliary obstruction. Mildly distended gallbladder with gallbladder sludge and wall thickening. Appreciate input from GI Strict EtOH cessation advised/case management consulted for counseling resources (4) Hepatic dysfunction: Resented with thrombocytopenia, coagulopathy secondary to alcoholic liver disease/hepatitis With blood count normalized 135 Imaging studies not indicative of cirrhosis. Likely alcoholic hepatitis No evidence of active bleeding patient is counseled by prior hospitalist :about need for complete alcohol cessation and offered resources for management (5) Hyponatremia: Due to alcohol abuse/alcoholic hepatitis/volume overload Presented with severe hyponatremia sodium 127 Resolved, sodium level normalized [id number] Nephrology on board. Getting intermittent IV Lasix Continue to monitor BMP (6) Elevated glucose: Due to high dose steroid Continue insulin sliding scale Pharmacy consult for glycemic management Hemoglobin A1c 4.2 (7) Elevated lactic acid level: Resolved Likely related to hypoxia +/- hepatic dysfunciton/alcoholic hepatitis Negative blood cultures Antibiotic discontinued (8) DVT prophylaxis: DVT px on SCDs due to thrombocytopenia and coagulopathy CODE STATUS: Full code Disposition: Continue ICU monitoring for hours: Discussed with pulper tender Will need PT OT Possible rehab post discharge from hospital Subjective Patient was seen in room 104 Lying in bed, on oxygen 6 L via facemask,(off from home oxygen since this, SPO2 varies between 90-92%) Wakes up easily to voice Daughter present at bedside, Mentions patient had a relatively good day, was able to be out of bed to chair(required Jamshid lift) Breakfast Patient reports feeling better, denies of any shortness of breath, does not have any cough, no chest pain Has been afebrile, vitals been stable Physical Exam Constitutional: + ill appearing; no acute distress Eyes: + anicteric sclerae ENMT: external ear and nose normal, oropharynx normal Neck: trachea midline, no thyromegaly Respiratory: no respiratory distress Auscultation: + diminished lung sounds, + rales and + wheezes Cardiovascular: RRR, no murmur, no edema Gastrointestinal (Abdomen): normal bowel sounds, soft, nontender, no hepatosplenomegaly Musculoskeletal: Extremities: + abnormal strength (Generalized weakness/significant deconditioning) Skin: no rashes, warm and dry Neurologic: PERRL, EOMI, accommodation nl, no face palsy, no dysarthria Psychiatric: Orientation: alert, oriented to person and oriented to place Affect: + flat affect Results & Data Vital Signs (Past 12 Hours) Vital Signs Temp Pulse Pulse Resp BP Pulse Ox 02/06/19 11:23 95 H 17 119/55 L 97 02/06/19 11:01 101 H 17 96 02/06/19 11:00 100 H 20 119/55 L 95 02/06/19 10:01 102 H 19 91 02/06/19 10:00 103 H 18 114/56 L 92 02/06/19 09:00 106 H 15 02/06/19 08:01 36.7 C 117 H 23 02/06/19 08:00 110 H 15 111/53 L 94 02/06/19 07:52 110 H 23 95 02/06/19 07:01 105 H 19 94 02/06/19 07:00 104 H 17 121/60 93 02/06/19 06:00 107 H 16 127/57 L 92 02/06/19 05:22 107 H 14 94 02/06/19 05:00 105 H 12 128/57 L 94 02/06/19 04:00 104 H 16 124/58 L 91 02/06/19 03:26 36.9 C 02/06/19 03:00 99 H 16 108/49 L 90 02/06/19 02:00 110 H 21 115/49 L 97
[2019-02-06 20:23] LABS: ANA Screen Negative (Negative); ANCA Screen Negative (Negative)
[2019-02-06] MEDS: LACTULOSE SYRUP 20 GM/30 ML UDC PO SCH (20:33)
[2019-02-06] MEDS ORDERED: LACTULOSE SYRUP 20 GM/30 ML UDC PO SCH (21:00)
[2019-02-07 04:28] LABS: Hematocrit (blood only) 30.8 % (37-47); Hemoglobin 10.5 g/dL (12.0-16.0); Mean Corpuscular Hemoglobin 37.1 pg (25-34); Mean Corpuscular Hgb Conc 34.1 g/dL (32-36); Mean Corpuscular Volume 108.8 fL (80-100); Mean Platelet Volume 11.5 fL (7.4-10.4); Platelet Count 133 K/uL (130-400); RDW Coefficient of Variation 15.6 % (11.5-14.5); Red Blood Count 2.83 M/uL (4.2-5.4); White Blood Count 12.93 K/uL (4.8-10.8)
[2019-02-07 04:38] LABS: INR 1.6 (0.9-1.1); Prothrombin Time 15.8 Seconds (9.0-12.0)
[2019-02-07 04:51] LABS: Albumin Level 2.5 gm/dl (3.4-5.0); BUN Creatinine Ratio 47.2 (10-20); Bilirubin Direct 5.2 mg/dl (0-0.2); Calcium 8.6 mg/dl (8.5-10.1); Creatinine Clr Calc Pharmacy 95.7 ml/min; Est GFR (African American) 105.5; Magnesium 2.5 mg/dl (1.8-2.4); Potassium 3.6 mmol/L (3.5-5.1)
[2019-02-07 04:55] LABS: Bilirubin,Total 9.7 mg/dl (0.2-1); Total Protein 5.2 gm/dl (6.4-8.2)
[2019-02-07] MEDS ORDERED: POTASSIUM CHLORIDE 20 MEQ TABCR PO STA (05:19)
--- NOTE | 2019-02-07 07:02 | XRay Report ---
XR chest 1V portable CLINICAL HISTORY: Shortness of breath. Cough. Prior abnormal chest x-ray. COMPARISON STUDY: 02/06/2019 FINDINGS: The right internal jugular central venous catheter has been removed. There is no pneumothor ax. The cardiac and mediastinal contours remain stable. Bilateral pulmonary airspace opacities remain stable.[ IMPRESSION: 1. Interval removal of the right internal jugular central venous catheter 2. No significant change in the bilateral pulmonary airspace opacities Electronically signed by: Foreign Freedman M.D. 02/07/2019 7:00 AM
--- NOTE | 2019-02-07 07:29 | Critical Care Progress Note ---
Date of Service February 07, 2019 Assessment & Plan (1) Admitted to intensive care unit: Reason critically ill: 54yo female with PMHx of alcohol abuse and hepatitis admitted to the ICU for alcohol withdrawal with alveolar hemorrhage. Neuro -Extubated 02/04 -currently on Vapotherm therapy, saturating well on it -swallow eval- on aspiration precautions, can eat minced and moist meals. CV -Echo 01/30: EF of 55-60% -EKG 01/31: NSR, qtc 444 -weaned off Levophed for hypotension, tolerating well. -Continue to hold home metoprolol -will continue to monitor Pulmonary -chest xray 02/06-with pleural effusions- pulm edema vs. diffuse pneumonitis- improving -Bronchoscopy 02/01- evidence of alveolar hemorrhage -BAL cultures negative -autoimmune serology pending. If negative, likely diagnosis of IPH -continue high dose IV Solumedrol at 50mg q12, can switch to PO in 3 days -continue high flow O2 after transfer out of unit GI -Hx of alcohol abuse with some hepatitis -INR slowly decreased with 3 days of Vit K administration. -PO protonix due to high dose steroid administration for alveolar hemorrhage treatment. -currently on a diet with aspiration precautions. -decreased lactulose administration due to liquid BMs. -appreciate GI recs Renal/ -Cr function stablized, still within normal limits -dickey removed -will continue to monitor. ID -Historical 7 day rocephin administration for possible UTI. - d/c 02/05 HEME -thrombocytopenia likely secondary to hepatic failure; improving -will continue to monitor MSK -PT/OT on board -movement 02/06 as well PIVS, central line removed 02/06 DVT proph: SCDs, heparin Dispo: ICU Supervising Physician Co-Signing Physician Notes Dr Kilgore was the resident-physician during care of patient. I separately evaluated patient for rashid portions of the history and the exam. I was present during the critical portion of medical decision making, and I discussed the case with the resident. I generally agree with the findings and plan except for any additions/exceptions noted. Patient seen and examined at bedside. No acute distress, no adverse events overnight. Patient tolerated nasal cannula 5 L during daytime yesterday. At night she was again put on high flow. Patient is the most alert since I started seeing her. Shortness of breath is improved. Is coughing but not bringing up any blood. Positive bowel movements. No nausea vomiting. Tolerating diet. We will decrease the steroids from 50 mg 3 times daily to 50 mg twice daily. Goal is to transition to p.o. by the end of this week. Patient will need prolonged steroids for at least 3 to 6 months. We will give a dose of 40 mg Lasix today. Platelets improving. Hemoglobin stable. Continue with IPCs as DVT prophylaxis Autoimmune work-up still pending. BAL galactomannan was positive. Right now it has no significant until I have the autoimmune work-up back. Patient is already on steroids. If autoimmune work-up is negative this could be idiopathic pulmonary hemosiderosis. Patient is hemodynamically stable to be transferred to medical floor. Patient will be followed up by pulmonary on the floor. I have personally spent 37 minutes of critical care time in the direct management of this patient. This is a life/limb threatening event. This includes time spent evaluating patient, direct bedside care, chart review, placing orders, interpretation of diagnostic studies, discussion with consultants, patient, and/or family members regarding treatment decisions, as well as other required patient management activities. This time is exclusive of all separately billable procedures, and teaching time and separate from and in addition to any other critical care service time. Subjective Pt seen and verbal this AM No acute events overnight except for increased O2 requirements at one point. Refused her lactulose administration due to multiple BMs overnight. Denies chest pain, SOB or palps. No GAMBLE, blurry vision. Review of Systems Review of Systems: All systems reviewed & are unremarkable except as noted in HPI & below Physical Exam Physical Exam: General: AAOx4. Laying in bed resting comfortably. Skin: No noted rashes or bruises Psych: Mood and affect appropriate Neuro: Awake, able to follow commands and communicate verbally. HEENT: NC/AT, icteric sclera CV: RRR, Normal s1, s2. Resp: Breath sounds with some coarseness on front. Abdomen: Soft, nondistended. No guarding. Extremities: SCDs on lower extremities bilaterally. Results & Data Vital Signs (Past 12 Hours) Vital Signs Temp Pulse Pulse Pulse Resp BP Pulse Ox 02/07/19 06:11 91 H 91 H 22 97 02/07/19 05:00 94 H 20 120/59 L 98 02/07/19 04:00 37.1 C 85 17 112/54 L 98 02/07/19 03:25 96 H 14 94 02/07/19 03:01 96 H 14 97 02/07/19 03:00 97 H 16 124/60 96 02/07/19 02:00 93 H 14 118/54 L 95 02/07/19 01:00 93 H 17 116/57 L 94 02/07/19 00:00 92 H 16 117/59 L 96 02/06/19 23:38 93 H 18 96 02/06/19 23:16 91 H 02/06/19 23:14 37.1 C 02/06/19 23:00 90 19 120/56 L 90 02/06/19 22:00 94 H 18 125/58 L 90 02/06/19 21:00 97 H 15 129/61 90 02/06/19 20:00 97 H 16 129/53 L 93 Laboratory Results Laboratory Results - last 24 hr 01/30/19 02/06/19 02/06/19 15:01 11:25 16:32 WBC RBC Hgb Hct MCV MCH MCHC RDW Std Deviation RDW Coeff of Wesley Plt Count MPV PT INR Sodium Potassium Chloride Carbon Dioxide Anion Gap BUN Creatinine Est Cr Clr Drug Dosing Est GFR ( Amer) Est GFR (Non-Af Amer) BUN/Creatinine Ratio Glucose POC Glucose 174 H 156 H Calcium Magnesium Total Bilirubin Direct Bilirubin AST ALT Alkaline Phosphatase Total Protein Albumin HERNAN Screen Negative ANCA Negative 02/06/19 02/07/19 02/07/19 20:33 03:53 03:53 WBC 12.93 H RBC 2.83 L Hgb 10.5 L Hct 30.8 L MCV 108.8 H MCH 37.1 H MCHC 34.1 RDW Std Deviation 61.0 H RDW Coeff of Wesley 15.6 H Plt Count 133 MPV 11.5 H PT INR Sodium 136 Potassium 3.6 Chloride 100 Carbon Dioxide 31 Anion Gap 5.0 BUN 35 H Creatinine 0.75 Est Cr Clr Drug Dosing 95.7 Est GFR ( Amer) 105.5 Est GFR (Non-Af Amer) 91.0 BUN/Creatinine Ratio 47.2 H Glucose 152 H POC Glucose 182 H Calcium 8.6 Magnesium 2.5 H Total Bilirubin 9.7 H Direct Bilirubin 5.2 H AST 94 H ALT 101 H Alkaline Phosphatase 78 Total Protein 5.2 L Albumin 2.5 L HERNAN Screen ANCA 02/07/19 02/07/19 03:53 07:27 WBC RBC Hgb Hct MCV MCH MCHC RDW Std Deviation RDW Coeff of Wesley Plt Count MPV PT 15.8 H INR 1.6 H Sodium Potassium Chloride Carbon Dioxide Anion Gap BUN Creatinine Est Cr Clr Drug Dosing Est GFR ( Amer) Est GFR (Non-Af Amer) BUN/Creatinine Ratio Glucose POC Glucose 154 H Calcium Magnesium Total Bilirubin Direct Bilirubin AST ALT Alkaline Phosphatase Total Protein Albumin HERNAN Screen ANCA Medications Administered Home Medications No Known Home Medications 01/29/19 [History Confirmed 01/29/19] Active Medications Albuterol (Duoneb) 3 ml NEB Q6R PRN PRN Reason: Wheezing Stop: 03/03/19 18:59 Dextrose (Dextrose 50%) 25 - 50 ml IV UD PRN; Protocol PRN Reason: Hypoglycemia Protocol Stop: 03/03/19 12:59 Glucagon (Glucagen) 1 mg IM UD PRN; Protocol PRN Reason: Hypoglycemia Protocol Stop: 03/03/19 12:59 Glucose (Glucose 40%) 15 - 30 gm PO UD PRN; Protocol PRN Reason: Hypoglycemia Protocol Stop: 03/03/19 12:59 Glucose (Dex4 Glucose) 4 - 8 tabs PO UD PRN; Protocol PRN Reason: Hypoglycemia Protocol Stop: 03/03/19 12:59 Heparin Sodium (Beef Lung) (Heparin Sod 10 Unit/Ml Flush) 5 ml FLUSH PRN PRN PRN Reason: Flush Stop: 03/05/19 01:23 Methylprednisolone 50 mg/ (Syringe) 0.8 mls @ 1.5 mls/min IV BID JAYMIE Stop: 03/09/19 20:59 Insulin Aspart (Novolog Flexpen) 0 units SC ACHS JAYMIE Stop: 03/07/19 16:29 Last Admin: 02/07/19 08:11 Dose: 8 units Documented by: Lactulose (Chronulac) 20 gm PO BID JAYMIE Stop: 03/08/19 20:59 Last Admin: 02/07/19 09:06 Dose: Not Given Documented by: Miscellaneous (Carbohydrates For Hypoglycemia) 15 - 30 gm PO UD PRN PRN Reason: Hypoglycemia Treatment Stop: 03/03/19 12:59 Miscellaneous Information (Consult Glycemic Management Pharmacy) 1 ea N/A UD PRN PRN Reason: Consult Stop: 03/03/19 18:28 [facility]ivit[facility] ([facility]itamin Tab) [facility] [place] Stop: 03/01/19 08:59 Last Admin: 02/07/19 08:11 Dose: 1 tab Documented by: Ondansetron HCl (Zofran) 4 mg IV Q4H PRN PRN Reason: Nausea Stop: 02/28/19 15:31 Last Admin: 01/30/19 14:43 Dose: 4 mg Documented by: Pantoprazole Sodium (Protonix) 40 mg PO Q[facility] Stop: 03/08/19 08:59 Last Admin: 02/07/19 08:11 Dose: 40 mg Documented by: Coding Level of Care Code Critical Care 1st 30-74 mins Diagnoses Admitted to intensive care unit Z78.9 Time Spent (min) 37 Resident Activity Tracking Resident Involvement: Resident Care Provided Care Provided: Adult Hospital Medicine
[2019-02-07] MEDS: methylPREDNISolone 50 MG in SYRINGE 0 ML IV SCH ×2 (08:11→20:17)
[2019-02-07] MEDS: PANTOprazole 40 MG TAB PO SCH (08:11)
[2019-02-07] MEDS: INSULIN ASPART 100 UNITS/ML 3 ML PEN SC SCH ×4 (08:11→22:30)
[2019-02-07] MEDS: MULTIVITAMIN TAB PO SCH (08:11)
[2019-02-07] MEDS: LACTULOSE SYRUP 20 GM/30 ML UDC PO SCH ×3 (08:11→20:17)
[2019-02-07] MEDS ORDERED: FUROSEMIDE 40 MG in SYRINGE 0 ML IV ONE (10:00)
--- NOTE | 2019-02-07 11:49 | Pharmacy Report ---
Pharmacy Glycemic Short Note 2 - Date of Service February 07, 2019 - Glycemic Short BSG Results (Last 24 hours): 02/06/19 02/06/19 02/07/19 16:32 20:33 03:53 Glucose 152 H POC Glucose 156 H 182 H 02/07/19 02/07/19 07:27 10:58 Glucose POC Glucose 154 H 132 H OUTPATIENT ANTIDIABETIC REGIMEN: * N/A ASSESSMENT: 02/07: * Patient reasonably controlled on novolog alone. Will slightly tighten carb ratio today. * Patient ordered a diet since 02/05 * IV steroids to be tapered. Changed to solumedrol 50mg q12 today. Will need to loosen novolog coverage once steroids drop below 100mg/day 02/04 * Ms. Koo was extubated ~10 am today * Is currently NPO until speech evaluates her * Steroids have been decreased further to 100 mg IV TID, although this is still above threshold for changes seen in glycemic effects * She remains off pressor support but nurse, Irais, reports this may need to be restarted * Multiple changes today to decrease insulin resistance; therefore, will not add basal insulin * Will plan to adjust bolus insulin orders now that tube feeds have been stopped 02/03 * Ms. Koo received 12 units of Novolog insulin yesterday * BSGs have remained in goal range of 140-180 mg/dL for critically ill patient * Tube feeds up to 60 cc/hr (goal) * Solu-medrol decreased to 125 mg IV q6h, although I do not anticipate a change in BSGs as this is still above 100 mg/day 02/02 * Patient with no known history of diabetes, requiring glycemic management for high dose steroids * A1C ordered for tomorrow * Patient started in solumedrol 250mg IV q6 yesterday for DAH (previously 60 q8h) * Also started on tube feeds yesterday. Currently running at 30 mL/hr, goal of 60 mL/hr * Will manage BSG with correctional insulin and conservative carb coverage for now * Novolog goal range and correction factor were tightened today * Carb coverage added to cover tube feeds PLAN FOR INPATIENT GLYCEMIC CONTROL: * Bolus insulin - * Novolog per scale ACHS * Goal Range: Low 110 mg/dL - High 140 mg/dL (to aim for BSGs < 180 mg/dL) * Correction Factor: 20 mg/dL/unit * Nutritional / Prandial insulin: 1 unit per 7 gm CHO consumed PLAN FOR DISCHARGE: * A1c - 4.2% on 02/03/19, which does not indicate diabetes. No need for glycemic medications on discharge.
--- NOTE | 2019-02-07 16:43 | Hospitalist Progress Note ---
Date of Service February 07, 2019 Assessment & Plan (1) Acute hypoxemic respiratory failure: Clinically improving Is a 54-year-old female with past medical history of alcohol abuse/hepatitis, admitted to ICU with alcohol withdrawal, acute respiratory failure requiring mechanical ventilation S/P bronch on 02/01/2019 showing diffuse alveolar hemorrhage Extubated on 02/04/2019 Currently on 6 L oxygen via nasal cannula(was not on home O2) CT chest showed findings of diffuse bilateral multifocal pneumonitis versus pulmonary edema. No evidence of PE Chest x-ray : 02/06/2019 :Slightly improved aeration of the bilateral lungs with persistent mixed interstitial and alveolar opacities suggestive of probable pulmonary edema. Possible decompensation of underlying CHF with diastolic dysfunction, due to hypoxia, respiratory failure Echo: 01/30/2019 Left ventricle is normal in size. Left ventricle systolic function is normal. Ejection fraction 55-60% Right ventricular systolic function is normal The left atrial size is normal. Right atrial size is normal. There is mild to moderate mitral regurgitation. There is mild tricuspid agitation She is getting intermittent IV Lasix Continue to monitor volume status Appreciate input from critical care team Transferred out of ICU today BAL cultures been negative/BAL galactomannan was positive(suggestive of possible pulmonary aspergillosis) Started on gradual taper of IV Solu-Medrol (2) Hypotension: Blood pressure remains stable Home antihypertensive metoprolol resumed with holding parameter Echo showed no wall motion abnormality with EF 55-60% (3) Alcohol abuse: History of alcohol abuse, Presented with transaminitis MRCP showed No biliary ductal dilatation or choledocholithiasis to suggest biliary obstruction. Mildly distended gallbladder with gallbladder sludge and wall thickening. Appreciate input from GI Strict EtOH cessation advised/case management consulted for counseling resources (4) Hepatic dysfunction: Resented with thrombocytopenia, coagulopathy secondary to alcoholic liver disease/hepatitis With blood count normalized 135 Imaging studies not indicative of cirrhosis. Likely alcoholic hepatitis No evidence of active bleeding Counseling provided to patient regarding importance of strict alcohol abstinence -patient is agreeable (5) Hyponatremia: Resolved Due to alcohol abuse/alcoholic hepatitis/volume overload Presented with severe hyponatremia sodium 127 Nephrology on board. Getting intermittent IV Lasix Continue to monitor BMP (6) Elevated glucose: Due to high dose steroid Continue insulin sliding scale Pharmacy consult for glycemic management Hemoglobin A1c 4.2 (7) Elevated lactic acid level: Resolved Likely related to hypoxia +/- hepatic dysfunciton/alcoholic hepatitis Negative blood cultures Antibiotic discontinued (8) DVT prophylaxis: DVT px on SCDs due to thrombocytopenia and coagulopathy CODE STATUS: Full code Disposition: Continue to monitor and telemetry Ordered PT OT Patient will need skilled rehab after discharge from hospital Subjective Patient is awake and alert conversing, Feels much better today Has nonproductive cough Has not been requiring high flow oxygen Still requiring supplemental O2 6 L via nasal cannula Fever or chills Appetite, energy level gradually improving Physical Exam Constitutional: + ill appearing; no acute distress Eyes: + anicteric sclerae ENMT: external ear and nose normal, oropharynx normal Neck: trachea midline, no thyromegaly Respiratory: no respiratory distress Auscultation: + diminished lung sounds , + rales and + wheezes Cardiovascular: RRR, no murmur, no edema Gastrointestinal (Abdomen): normal bowel sounds, soft, nontender, no hepato splenomegaly Musculoskeletal: Extremities: + abnormal strength (Generalized weakness/significant deconditioning) Skin: no rashes, warm and dry Neurologic: PERRL, EOMI, accommodation nl, no face palsy, no dysarthria Psychiatric: Orientation: alert, oriented to person and oriented to place Affect: + flat affect Results & Data Vital Signs (Past 12 Hours) Vital Signs Temp Pulse Pulse Pulse Resp BP BP 02/07/19 15:45 02/07/19 15:39 37.0 C 68 22 111/60 02/07/19 14:00 90 02/07/19 13:59 95 H 18 118/59 L 02/07/19 13:00 88 19 02/07/19 12:00 90 16 02/07/19 11:01 86 22 02/07/19 11:00 87 16 121/56 L 02/07/19 10:01 85 20 02/07/19 10:00 85 19 117/52 L 02/07/19 09:01 96 H 16 02/07/19 09:00 95 H 17 117/54 L 02/07/19 08:01 101 H 17 02/07/19 08:00 37.0 C 101 H 20 L 94 H 17 108/67 122/58 L 02/07/19 07:40 91 H 18 02/07/19 07:01 91 H 17 02/07/19 07:00 90 14 122/58 L 02/07/19 06:11 91 H 91 H 22 02/07/19 05:00 94 H 20 120/59 L Pulse Ox 02/07/19 15:45 94 02/07/19 15:39 94 02/07/19 14:00 02/07/19 13:59 93 02/07/19 13:00 95 02/07/19 12:00 94 02/07/19 11:01 90 02/07/19 11:00 92 02/07/19 10:01 93 02/07/19 10:00 94 02/07/19 09:01 94 02/07/19 09:00 94 02/07/19 08:01 95 02/07/19 08:00 95 02/07/19 07:40 96 02/07/19 07:01 97 02/07/19 07:00 97 02/07/19 06:11 97 02/07/19 05:00 98
[2019-02-07] MEDS ORDERED: GUAIFENESIN/DEXTROM SYRUP 100MG/10MG 5ML UDC PO PRN (16:46)
[2019-02-08 06:42] LABS: Hematocrit (blood only) 29.5 % (37-47); Hemoglobin 10.2 g/dL (12.0-16.0); Mean Corpuscular Hemoglobin 37.5 pg (25-34); Mean Corpuscular Hgb Conc 34.6 g/dL (32-36); Mean Corpuscular Volume 108.5 fL (80-100); Mean Platelet Volume 11.7 fL (7.4-10.4); Platelet Count 126 K/uL (130-400); RDW Coefficient of Variation 15.5 % (11.5-14.5); RDW Standard Deviation 60.2 fL (36.4-46.3); Red Blood Count 2.72 M/uL (4.2-5.4); White Blood Count 14.04 K/uL (4.8-10.8)
[2019-02-08 07:16] LABS: Albumin Level 2.4 gm/dl (3.4-5.0); Bilirubin Direct 5.7 mg/dl (0-0.2); Bilirubin,Total 11.1 mg/dl (0.2-1); Total Protein 4.9 gm/dl (6.4-8.2)
[2019-02-08] MEDS: INSULIN ASPART 100 UNITS/ML 3 ML PEN SC SCH ×4 (08:00→20:55)
[2019-02-08] MEDS: LACTULOSE SYRUP 20 GM/30 ML UDC PO SCH ×2 (08:08→20:54)
[2019-02-08] MEDS: MULTIVITAMIN TAB PO SCH (08:09)
[2019-02-08] MEDS: PANTOprazole 40 MG TAB PO SCH (08:09)
[2019-02-08] MEDS: methylPREDNISolone 50 MG in SYRINGE 0 ML IV SCH ×2 (08:10→20:55)
--- NOTE | 2019-02-08 09:07 | Pharmacy Report ---
Pharmacy Glycemic Short Note 2 - Date of Service February 08, 2019 - Glycemic Short BSG Results (Last 24 hours): 02/07/19 02/07/19 02/07/19 10:58 16:20 20:21 POC Glucose 132 H 163 H 128 H 02/08/19 07:06 POC Glucose 139 H OUTPATIENT ANTIDIABETIC REGIMEN: * N/A CURRENT ORDERS: * Basal insulin: None currently * Correctional Insulin: Novolog Correction per scale ACHS Goal Range: Low 110 mg/dL - High 140 mg/dL Correction Factor: 20 mg/dL/unit * Prandial insulin: Per carb ratio of 1 unit per 7 grams CHO consumed ASSESSMENT: 02/08: * BSGs well controlled over last 24 hrs * Fasting BSG 139 this AM w/ no basal insulin on board * Post-prandial BSGs also well controlled w/ current Novolog CF/CR * Solu-medrol 50mg IV Q 12 hrs continues 02/07: * Patient reasonably controlled on novolog alone. Will slightly tighten carb ratio today. * Patient ordered a diet since 02/05 * IV steroids to be tapered. Changed to solumedrol 50mg q12 today. Will need to loosen novolog coverage once steroids drop below 100mg/day 02/04 * Ms. Koo was extubated ~10 am today * Is currently NPO until speech evaluates her * Steroids have been decreased further to 100 mg IV TID, although this is still above threshold for changes seen in glycemic effects * She remains off pressor support but nurse, Irais, reports this may need to be restarted * Multiple changes today to decrease insulin resistance; therefore, will not add basal insulin * Will plan to adjust bolus insulin orders now that tube feeds have been stopped PLAN FOR INPATIENT GLYCEMIC CONTROL: * Basal insulin: None required at this time * Bolus insulin: * Novolog per scale ACHS * Goal Range: Low 110 mg/dL - High 140 mg/dL (to aim for BSGs < 180 mg/dL) * Correction Factor: 20 mg/dL/unit * Nutritional / Prandial insulin: 1 unit per 7 gm CHO consumed * Reassess insulin doses with each step down in steroid dose PLAN FOR DISCHARGE: * A1c - 4.2% on 02/03/19, which does not indicate diabetes. No need for glycemic medications on discharge.
--- NOTE | 2019-02-08 15:26 | Pulmonology Progress Note ---
Date of Service February 08, 2019 Assessment & Plan (1) Acute hypoxemic respiratory failure: Bronchoscopy done on 02/01/2019 showed evidence of diffuse alveolar hemorrhage Patient was given stress dose of steroids now she is on Solu-Medrol 50 mg twice daily. We will change to prednisone 60 mg daily starting tomorrow. Patient will need prolonged steroids for at least 3 to 6 months. Continue with Protonix for stress ulcer prophylaxis. Continue with O2 supplementation to keep oxygen saturation above 90%. Follow-up x-rays to see if there is improvement in infiltrates. Autoimmune work-up still pending. BAL galactomannan was positive. Right now it has no significant until I have the autoimmune work-up back. Patient is already on steroids. If autoimmune work-up is negative this could be idiopathic pulmonary hemosiderosis. We will start the patient on 40 mg of Lasix daily to keep her negative balance. --Alcohol abuse with liver cirrhosis Patient has scleral icterus with thrombocytopenia likely from alcohol effect on the liver. Elevated T bili and direct bilirubin progressively getting worse. With underlying coagulopathy. Recommend GI consult. --DVT prophylaxis Compression stockings given the patient is thrombocytopenic as difficult for hemorrhage and coagulopathy. Recommend social work for placement and physical therapy. (2) Hemoptysis: (3) DVT prophylaxis: (4) Pulmonary edema: Chronicity: acute Qualified Code(s): J81.0 - Acute pulmonary edema (5) Alcohol abuse: Results & Data Vital Signs (Past 12 Hours) Vital Signs Temp Pulse Resp BP Pulse Ox 02/08/19 11:20 97 H 20 90 02/08/19 11:13 37.0 C 92 H 20 105/51 L 92 02/08/19 07:09 37.0 C 86 20 107/55 L 96 02/08/19 03:18 37.2 C 92 H 18 121/58 L 90 PG Care Time/CCT Total # of Minutes Spent Total Time Spent with Patient: Total time spent is greater than 50% in coordination of care (as documented) at patient's floor/unit and/or counseling patient:
--- NOTE | 2019-02-08 15:58 | Hospitalist Progress Note ---
Date of Service February 08, 2019 Assessment & Plan (1) Acute hypoxemic respiratory failure: Respiratory status waxing and waning Patient is placed back to high flow oxygen secondary to desaturation while on 6 L oxygen via nasal cannula Appreciate input from pulmonology Bronchoscopy on 02/01/2019 showed evidence of diffuse alveolar hemorrhage due to unknown etiology Per pulmonology: BAL galactomannan was positive. Autoimmune work-up reports still pending(reference lab) Patient has been continued with high dose of steroid, needs very slow taper/prolonged steroid for at least 3-6 months If autoimmune work-up is negative for diagnosis would be idiopathic pulmonary hemosiderosis. 54-year-old female with past medical history of alcohol abuse/hepatitis, admitted to ICU with alcohol withdrawal, acute respiratory failure requiring mechanical ventilation Extubated on 02/04/2019 CT chest showed findings of diffuse bilateral multifocal pneumonitis versus pulmonary edema. No evidence of PE Chest x-ray : 02/06/2019 :Slightly improved aeration of the bilateral lungs with persistent mixed interstitial and alveolar opacities suggestive of probable pulmonary edema. Possible decompensation of underlying CHF with diastolic dysfunction, due to hypoxia, respiratory failure Echo: 01/30/2019 Left ventricle is normal in size. Left ventricle systolic function is normal. Ejection fraction 55-60% Right ventricular systolic function is normal The left atrial size is normal. Right atrial size is normal. There is mild to moderate mitral regurgitation. There is mild tricuspid agitation Patient is started on 40 mg IV Lasix daily to keep on negative balance Continue to monitor volume status Overall prognosis remains guarded (2) Hypotension: Remains borderline hypotensive Home antihypertensive beta-levar has been kept on hold Echo showed no wall motion abnormality with EF 55-60% (3) Alcohol abuse: History of alcohol abuse, Presented with transaminitis MRCP showed No biliary ductal dilatation or choledocholithiasis to suggest biliary obstruction. Mildly distended gallbladder with gallbladder sludge and wall thickening. Appreciate input from GI Strict EtOH cessation advised (4) Hepatic dysfunction: Resented with thrombocytopenia, coagulopathy secondary to alcoholic liver disease/hepatitis With blood count normalized 135 Imaging studies not indicative of cirrhosis. Likely alcoholic hepatitis No evidence of active bleeding Counseling provided to patient regarding importance of strict alcohol abstinence -patient is agreeable (5) Hyponatremia: Resolved Due to alcohol abuse/alcoholic hepatitis/volume overload Presented with severe hyponatremia sodium 127 Nephrology on board. Getting intermittent IV Lasix Continue to monitor BMP (6) Elevated lactic acid level: Resolved Likely related to hypoxia +/- hepatic dysfunciton/alcoholic hepatitis Negative blood cultures Antibiotic discontinued (7) DVT prophylaxis: DVT px on SCDs due to thrombocytopenia and coagulopathy CODE STATUS: Full code Disposition: Continue to monitor and telemetry Ordered PT OT Patient will need skilled rehab after discharge from hospital Subjective patient was seen in room 210, very tired and lethargic today opens eyes to voice Requiring high flow oxygen Patient was desaturating to low 90's to high 80s on 6 L oxygen via nasal cannula this morning Patient placed back on high flow O2, Has been afebrile, Reports cough is improved, no blood in sputum Physical Exam Constitutional: + ill appearing; no acute distress Eyes: + anicteric sclerae ENMT: external ear and nose normal, oropharynx normal Neck: trachea midline, no thyromegaly Respiratory: + cough; no respiratory distress Auscultation: + diminished lung sounds, + crackles, + rales and + wheezes Cardiovascular: RRR, no murmur, no edema Gastrointestinal (Abdomen): normal bowel sounds, soft, nontender, no hepatosplenomegaly Musculoskeletal: Extremities: + abnormal strength (Generalized weakness/significant deconditioning) Skin: no rashes, warm and dry Neurologic: PERRL, EOMI, accommodation nl, no face palsy, no dysarthria Psychiatric: Orientation: alert, oriented to person and oriented to place Affect: + flat affect Results & Data Vital Signs (Past 12 Hours) Vital Signs Temp Pulse Resp BP Pulse Ox 02/08/19 15:53 36.9 C 96 H 15 118/52 L 96 02/08/19 15:46 88 20 90 02/08/19 11:20 97 H 20 90 02/08/19 11:13 37.0 C 92 H 20 105/51 L 92 02/08/19 07:09 37.0 C 86 20 107/55 L 96
[2019-02-08] MEDS: FUROSEMIDE 40 MG TAB PO SCH (17:09)
[2019-02-09 06:39] LABS: Albumin Level 2.3 gm/dl (3.4-5.0); Bilirubin Direct 5.8 mg/dl (0-0.2); Bilirubin,Total 11.5 mg/dl (0.2-1)
--- NOTE | 2019-02-09 06:54 | XRay Report ---
XR chest 1V portable CLINICAL HISTORY: Abnormal chest x-ray. Follow-up study COMPARISON STUDY: 02/07/2019 FINDINGS: The cardiac and mediastinal contours remain stable. There are persistent extensive bilatera l pulmonary airspace opacities which demonstrates equivocal slight progression when compared the prec eding study. There are no large pleural effusions. There is no pneumothorax.[ IMPRESSION: Persistent extensive bilateral pulmonary airspace opacities with equivocal slight worseni ng Electronically signed by: Foreign Freedman M.D. 02/09/2019 6:53 AM
[2019-02-09] MEDS: INSULIN ASPART 100 UNITS/ML 3 ML PEN SC SCH ×4 (08:17→20:39)
[2019-02-09] MEDS: MULTIVITAMIN TAB PO SCH (08:18)
[2019-02-09] MEDS: PANTOprazole 40 MG TAB PO SCH (08:18)
[2019-02-09] MEDS: FUROSEMIDE 40 MG TAB PO SCH (08:18)
[2019-02-09] MEDS: methylPREDNISolone 50 MG in SYRINGE 0 ML IV SCH (08:18)
[2019-02-09] MEDS: LACTULOSE SYRUP 20 GM/30 ML UDC PO SCH ×2 (08:18→21:56)
--- NOTE | 2019-02-09 11:14 | Pulmonology Progress Note ---
Date of Service February 09, 2019 Assessment & Plan (1) Acute hypoxemic respiratory failure: Bronchoscopy done on 02/01/2019 showed evidence of diffuse alveolar hemorrhage Patient was given stress dose of steroids. We will change to prednisone 60 mg twice daily. Patient will need prolonged steroids for at least 3 to 6 months. Continue with Protonix for stress ulcer prophylaxis. Continue with O2 supplementation to keep oxygen saturation above 90% and will add BiPAP nightly. Will consider CT chest without contrast to see how the disease has progressed since CAT scan which was done last on 01/29/2019. Autoimmune work-up still pending. BAL galactomannan was positive. Right now it has no significant until I have the autoimmune work-up back. Patient is already on steroids. If autoimmune work-up is negative this could be idiopathic pulmonary hemosiderosis. On Lasix for diuresis. --Alcohol abuse with liver cirrhosis Patient has scleral icterus with thrombocytopenia likely from alcohol effect on the liver. Elevated T bili and direct bilirubin progressively getting worse. With underlying coagulopathy. Recommend GI consult. --DVT prophylaxis Compression stockings given the patient is thrombocytopenic as difficult for hemorrhage and coagulopathy. Recommend social work for placement and physical therapy. (2) Hemoptysis: (3) DVT prophylaxis: (4) Pulmonary edema: Chronicity: acute Qualified Code(s): J81.0 - Acute pulmonary edema (5) Alcohol abuse: Subjective Patient seen and examined at bedside. No acute distress, no adverse events over night. Patient said that she is feeling better shortness of breath is improved. Denies any chest pain, no headache, no nausea, no vomiting. No hemoptysis. Having bowel movements. Asking when she could be out of the hospital. Patient took off the high flow while talking with me and she desaturated to 82% on room air. Patient still requires high oxygen via high flow. Chest x-ray from today is a portable expiratory film. Bilateral alveolar infiltrates still appreciated. CBC and BMP still pending. Review of Systems Review of Systems: All systems reviewed & are unremarkable except as noted in HPI & below Physical Exam Physical Exam: Constitutional: Mild respiratory distress HEENT: EOMI, PERRLA Respiratory system: Decreased air entry bilaterally, ulcerative crackles diffuse, no wheeze, no rhonchi CVS: S1-S2 positive, no murmurs or gallops tachycardia Abdomen: Soft, nontender, nondistended, positive bowel sounds x4 Extremities: +2 pulses bilaterally radialis/ dorsalis pedis, +1 bilateral lower extremity edema, no cyanosis Neuro: Awake alert oriented x3 Psych: Normal mood and affect G/U: No [place] Lymphatic: no cervical or axillary lymphadenopathy Results & Data Vital Signs (Past 12 Hours) Vital Signs Temp Pulse Pulse Resp BP Pulse Ox 02/09/19 08:00 102 H 02/09/19 07:21 94 H 18 121/64 92 02/09/19 07:07 37.1 C 96 H 20 120/64 92 02/09/19 02:29 37.0 C 100 H 18 117/52 L 91 02/08/19 23:58 104 H 18 93 02/08/19 23:36 37.1 C 95 H 16 113/54 L 92 02/08/19 06:20 02/07/19 03:53 PG Care Time/CCT Total # of Minutes Spent Total Time Spent with Patient: Total time spent is greater than 50% in c oordination of care (as documented) at patient's floor/unit and/or counseling patient:
[2019-02-09 12:27] LABS: Hematocrit (blood only) 31.5 % (37-47); Hemoglobin 11.1 g/dL (12.0-16.0); Mean Corpuscular Hemoglobin 38.1 pg (25-34); Mean Corpuscular Hgb Conc 35.2 g/dL (32-36); Mean Corpuscular Volume 108.2 fL (80-100); Mean Platelet Volume 11.9 fL (7.4-10.4); Platelet Count 132 K/uL (130-400); RDW Coefficient of Variation 15.5 % (11.5-14.5); RDW Standard Deviation 60.4 fL (36.4-46.3); Red Blood Count 2.91 M/uL (4.2-5.4); White Blood Count 21.54 K/uL (4.8-10.8)
[2019-02-09 12:32] LABS: BUN Creatinine Ratio 34.2 (10-20); Calcium 8.6 mg/dl (8.5-10.1); Creatinine Clr Calc Pharmacy 91.9 ml/min; Est GFR (African American) 102.2; Est GFR (Non-African American) 88.2; Potassium 3.7 mmol/L (3.5-5.1)
[2019-02-09 13:25] LABS: Basophils # (auto) 0.05 K/uL (0-0.2); Basophils % (auto) 0.2 %; Eosinophils # (auto) 0.03 K/uL (0-0.5); Eosinophils % (auto) 0.1 %; Immature Granulocytes # (auto) 0.94 K/uL (0.00-0.02); Immature Granulocytes % (auto) 4.4 %; Lymphocytes # (auto) 1.12 K/uL (1.2-3.4); Lymphocytes % (auto) 5.2 %; Macrocytosis Present; Monocytes # (auto) 1.57 K/uL (0.11-0.59); Monocytes % (auto) 7.3 %; Neutrophils # (auto) 17.83 K/uL (1.4-6.5); Neutrophils % (auto) 82.8 %; Polychromasia 1+; Target Cells 1+
--- NOTE | 2019-02-09 18:34 | Hospitalist Progress Note ---
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 Autoimmune work-up reports still pending(reference lab) If autoimmune work-up is negative for diagnosis would be idiopathic pulmonary hemosiderosis. 54-year-old female with past medical history of alcohol abuse/hepatitis, admitted to ICU with alcohol withdrawal, acute respiratory failure requiring mechanical ventilation Extubated on 02/04/2019 CT chest showed findings of diffuse bilateral multifocal pneumonitis versus pulmonary edema. No evidence of PE Chest x-ray : 02/06/2019 :Slightly improved aeration of the bilateral lungs with persistent mixed interstitial and alveolar opacities suggestive of probable pulmonary edema. Possible decompensation of underlying CHF with diastolic dysfunction, due to hypoxia, respiratory failure Echo: 01/30/2019 Left ventricle is normal in size. Left ventricle systolic function is normal. Ejection fraction 55-60% Right ventricular systolic function is normal The left atrial size is normal. Right atrial size is normal. There is mild to moderate mitral regurgitation. There is mild tricuspid agitation Overall prognosis remains guarded Change to prednisone 60 p.o. daily will need prolonged steroids for at least 3-6 months (2) Hypotension: Remains borderline hypotensive Home antihypertensive beta-levar has been kept on hold Echo showed no wall motion abnormality with EF 55-60% (3) Alcohol abuse: History of alcohol abuse, Presented with transaminitis MRCP showed No biliary ductal dilatation or choledocholithiasis to suggest biliary obstruction. Mildly distended gallbladder with gallbladder sludge and wall thickening. Appreciate input from GI Strict EtOH cessation advised (4) Hepatic dysfunction: Resented with thrombocytopenia, coagulopathy secondary to alcoholic liver disease/hepatitis With blood count normalized 135 Imaging studies not indicative of cirrhosis. Likely alcoholic hepatitis No evidence of active bleeding Counseling provided to patient regarding importance of strict alcohol abstinence -patient is agreeable (5) Hyponatremia: Resolved Due to alcohol abuse/alcoholic hepatitis/volume overload Presented with severe hyponatremia sodium 127 Nephrology on board. Getting intermittent IV Lasix Continue to monitor BMP (6) Elevated lactic acid level: Resolved Likely related to hypoxia +/- hepatic dysfunciton/alcoholic hepatitis Negative blood cultures Antibiotic discontinued (7) DVT prophylaxis: DVT px on SCDs due to thrombocytopenia and coagulopathy CODE STATUS: Full code Disposition: Continue to monitor and telemetry Ordered PT OT Patient will need skilled rehab after discharge from hospital Referral made to , Patient is accepted Plan is to transfer to for acute rehab when medically stable Subjective Feels much better today awake and alert denies of any shortness of breath has minimum cough Requiring high flow O2 Saturation noted to low 80s with 6 L oxygen via nasal cannula Has been afebrile, Has nonproductive cough which has improved from prior Physical Exam Constitutional: + ill appearing; no acute distress Eyes: + anicteric sclerae ENMT: external ear and nose normal, oropharynx normal Neck: trachea midline, no thyromegaly Respiratory: + cough; no respiratory distress Auscultation: + diminished lung sounds, + crackles, + rales and + wheezes Cardiovascular: RRR, no murmur, no edema Gastrointestinal (Abdomen): normal bowel sounds, soft, nontender, no hepatosplenomegaly Musculoskeletal: Extremities: + abnormal strength (Generalized weakness/significant deconditioning) Skin: no rashes, warm and dry Neurologic: PERRL, EOMI, accommodation nl, no face palsy, no dysarthria Psychiatric: Orientation: alert, oriented to person and oriented to place Affect: + flat affect Results & Data Vital Signs (Past 12 Hours) Vital Signs Temp Pulse Pulse Resp BP Pulse Ox 02/09/19 17:01 95 H 02/09/19 15:38 95 H 16 90 02/09/19 15:18 36.7 C 97 H 16 115/54 L 94 02/09/19 11:39 54 L 22 90 02/09/19 11:32 36.9 C 97 H 17 121/59 L 95 02/09/19 08:00 102 H 02/09/19 07:21 94 H 18 121/64 92 02/09/19 07:15 90 22 86 L 02/09/19 07:07 37.1 C 96 H 20 120/64 92
[2019-02-09] MEDS: predniSONE 20 MG TAB PO SCH (21:56)
--- NOTE | 2019-02-10 07:07 | XRay Report ---
XR chest 1V portable HISTORY: 54 years-old Female f/u follow-up study in a patient with bilateral opacities COMPARISON: Chest radiograph 02/09/2019 TECHNIQUE: Portable AP view of the chest FINDINGS: Cardiac silhouette is enlarged, unchanged. Persistent blunting of the costophrenic angles with bilate ral mixed interstitial and alveolar opacities, left greater than right. Mildly improved aeration of t he lungs. No pneumothorax. Bones appear grossly intact. IMPRESSION: Mildly improved aeration of the bilateral lungs with persistent extensive bilateral opaci ties. The above report was generated using voice recognition software. It may contain grammatical, syntax o r spelling errors. Electronically signed by: Martell Hawkins M.D. 02/10/2019 7:05 AM
[2019-02-10 07:46] LABS: Albumin Level 2.2 gm/dl (3.4-5.0); Bilirubin Direct 5.5 mg/dl (0-0.2); Bilirubin,Total 10.2 mg/dl (0.2-1); Total Protein 4.7 gm/dl (6.4-8.2)
[2019-02-10] MEDS: INSULIN ASPART 100 UNITS/ML 3 ML PEN SC SCH ×4 (08:10→20:53)
[2019-02-10] MEDS: PANTOprazole 40 MG TAB PO SCH (08:11)
[2019-02-10] MEDS: MULTIVITAMIN TAB PO SCH (08:11)
[2019-02-10] MEDS: predniSONE 20 MG TAB PO SCH ×2 (08:11→20:43)
[2019-02-10] MEDS: FUROSEMIDE 40 MG TAB PO SCH (08:12)
[2019-02-10] MEDS: LACTULOSE SYRUP 20 GM/30 ML UDC PO SCH ×2 (08:13→20:43)
[2019-02-10] MEDS ORDERED: predniSONE 20 MG TAB PO SCH (09:00)
--- NOTE | 2019-02-10 11:05 | Pulmonology Progress Note ---
Date of Service February 10, 2019 Assessment & Plan (1) Acute hypoxemic respiratory failure: Bronchoscopy done on 02/01/2019 showed evidence of diffuse alveolar hemorrhage Patient was given stress dose of steroids. On prednisone 60 mg twice daily --> change to 60 mg once daily on Tuesday. Patient will need prolonged steroids for at least 3 to 6 months. Continue with Protonix for stress ulcer prophylaxis. Continue with O2 supplementation to keep oxygen saturation above 90% and will add BiPAP nightly. Will consider CT chest without contrast in couple of weeks to see how the disease has progressed since CAT scan which was done last on 01/29/2019. Autoimmune work-up still pending. BAL galactomannan was positive. Right now it has no significant until I have the autoimmune work-up back. Patient is already on steroids. If autoimmune work-up is negative this could be idiopathic pulmonary hemosiderosis. On Lasix for diuresis. --Alcohol abuse with liver cirrhosis Patient has scleral icterus with thrombocytopenia likely from alcohol effect on the liver. Elevated T bili and direct bilirubin progressively getting worse. With underlying coagulopathy. Recommend GI consult. --DVT prophylaxis Compression stockings given the patient is thrombocytopenic as difficult for hemorrhage and coagulopathy. Continue with physical therapy. Can give a trial of nasal cannula today. Swallow eval to see if patient is able to have regular food. (2) Hemoptysis: No more hemoptysis (3) DVT prophylaxis: (4) Pulmonary edema: Chronicity: acute Qualified Code(s): J81.0 - Acute pulmonary edema (5) Alcohol abuse: Subjective Patient seen and examined at bedside. No acute distress, no adverse events overnight. Patient is very optimistic today. Feeling better, clinically looking better 2. Denies any chest pain, shortness of breath is improved, no fever, no chills. No hemoptysis. Sitting on a chair at the time of examination. Saturation 97% on high flow 50% and 25 L at rest. Chest x-ray from today shows good aeration and a portable film. Diffuse alveolar infiltrate still present. Review of Systems Review of Systems: All systems reviewed & are unremarkable except as noted in HPI & below Physical Exam Physical Exam: Constitutional: Mild respiratory distress HEENT: EOMI, PERRLA Respiratory system: Decreased air entry bilaterally, positive crackles bilaterally, no wheeze, no rhonchi CVS: S1-S2 positive, no murmurs or gallops tachycardia Abdomen: Soft, nontender, nondistended, positive bowel sounds x4 Extremities: +2 pulses bilaterally radialis/ dorsalis pedis, +1 bilateral lower extremity edema, no cyanosis Neuro: Awake alert oriented x3 Psych: Normal mood and affect G/U: No La Lymphatic: no cervical or axillary lymphadenopathy Results & Data Vital Signs (Past 12 Hours) Vital Signs Temp Pulse Pulse Resp BP Pulse Ox 02/10/19 10:47 95 02/10/19 10:09 91 H 02/10/19 10:00 97 02/10/19 07:22 37.1 C 92 H 22 110/51 L 92 02/10/19 04:33 86 20 96 02/10/19 04:07 37.4 C 92 H 20 114/49 L 97 02/10/19 03:16 91 H 20 97 02/10/19 00:36 99 H 20 92 02/10/19 00:03 37.6 C H 89 20 121/60 97 Labs pending from today PG Care Time/CCT Total # of Minutes Spent Total Time Spent with Patient: Total time spent is greater than 50% in coordination of care (as documented) at patient's floor/unit and/or counseling patient:
--- NOTE | 2019-02-10 17:38 | Hospitalist Progress Note ---
Date of Service February 10, 2019 Assessment & Plan (1) Acute hypoxemic respiratory failure: [place] status improved today, able to wean off high flow oxygen, transition to 6 L oxygen via nasal cannula a Appreciate input from pulmonology Bronchoscopy on 02/01/2019 showed evidence of diffuse alveolar hemorrhage due to unknown etiology Per pulmonology: BAL galactomannan was positive. Autoimmune work-up reports still pending(reference lab) Possible diagnosis idiopathic pulmonary hemorrhage if autoimmune studies/vasculitis work-up -negative 54-year-old female with past medical history of alcohol abuse/hepatitis, admitted to ICU with alcohol withdrawal, acute respiratory failure requiring mechanical ventilation Extubated on 02/04/2019 CT chest showed findings of diffuse bilateral multifocal pneumonitis versus pulmonary edema. No evidence of PE Chest x-ray : 02/06/2019 :Slightly improved aeration of the bilateral lungs with persistent mixed interstitial and alveolar opacities suggestive of probable pulmonary edema. Possible decompensation of underlying CHF with diastolic dysfunction, due to hypoxia, respiratory failure Echo: 01/30/2019 Left ventricle is normal in size. Left ventricle systolic function is normal. Ejection fraction 55-60% Right ventricular systolic function is normal The left atrial size is normal. Right atrial size is normal. There is mild to moderate mitral regurgitation. There is mild tricuspid agitation Change to prednisone 60 p.o. daily will need prolonged steroids for at least 3-6 months (2) Hypotension: Remains borderline hypotensive Home antihypertensive beta-levar has been kept on hold Echo showed no wall motion abnormality with EF 55-60% (3) Alcohol abuse: History of alcohol abuse, Presented with transaminitis MRCP showed No biliary ductal dilatation or choledocholithiasis to suggest biliary obstruction. Mildly distended gallbladder with gallbladder sludge and wall thickening. Appreciate input from GI Strict EtOH cessation advised (4) Hepatic dysfunction: Resented with thrombocytopenia, coagulopathy secondary to alcoholic liver disease/hepatitis With blood count normalized 135 Imaging studies not indicative of cirrhosis. Likely alcoholic hepatitis No evidence of active bleeding Counseling provided to patient regarding importance of strict alcohol abstinence -patient is agreeable (5) Hyponatremia: Resolved Due to alcohol abuse/alcoholic hepatitis/volume overload Presented with severe hyponatremia sodium 127 Nephrology on board. Getting intermittent IV Lasix Continue to monitor BMP (6) Elevated lactic acid level: Resolved Likely related to hypoxia +/- hepatic dysfunciton/alcoholic hepatitis Negative blood cultures Antibiotic discontinued (7) DVT prophylaxis: DVT px on SCDs due to thrombocytopenia and coagulopathy CODE STATUS: Full code Disposition: Continue to monitor and telemetry Ordered PT OT Patient will need skilled rehab after discharge from hospital Referral made to [facility], Patient is accepted Plan is to transfer to [facility] for acute rehab when medically stable Subjective Is much better today, has not been requiring high flow oxygen, on nasal cannula 6 L, with adequate oxygenation Cough has improved, no fever or chills Appetite has improved, has been out of bed to chair for approximately 4 hours today Physical Exam Constitutional: + ill appearing; no acute distress Eyes: + anicteric sclerae ENMT: external ear and nose normal, oropharynx normal Neck: trachea midline, no thyromegaly Respiratory: + cough; no respiratory distress Auscultation: + diminished lung sounds, + crackles, + rales and + wheezes Cardiovascular: RRR, no murmur, no edema Gastrointestinal (Abdomen): normal bowel sounds, soft, nontender, no hepatosplenomegaly Musculoskeletal: Extremities: + abnormal strength (Generalized weakness/significant deconditioning) Skin: no rashes, warm and dry Neurologic: PERRL, EOMI, accommodation nl, no face palsy, no dysarthria Psychiatric: Orientation: alert, oriented to person and oriented to place Affect: + flat affect Results & Data Vital Signs (Past 12 Hours) Vital Signs Temp Pulse Pulse Resp BP Pulse Ox 02/10/19 15:22 37.1 C 93 H 20 114/67 92 02/10/19 14:44 89 02/10/19 11:41 36.9 C 88 17 115/53 L 96 02/10/19 10:47 95 02/10/19 10:09 91 H 02/10/19 10:00 97 02/10/19 07:22 37.1 C 92 H 22 110/51 L 92
[2019-02-11 06:06] LABS: Basophils # (auto) 0.04 K/uL (0-0.2); Basophils % (auto) 0.2 %; Eosinophils # (auto) 0.02 K/uL (0-0.5); Eosinophils % (auto) 0.1 %; Hematocrit (blood only) 27.5 % (37-47); Hemoglobin 9.5 g/dL (12.0-16.0); Immature Granulocytes # (auto) 0.79 K/uL (0.00-0.02); Lymphocytes # (auto) 0.63 K/uL (1.2-3.4); Lymphocytes % (auto) 3.2 %; Mean Corpuscular Hemoglobin 37.8 pg (25-34); Mean Corpuscular Hgb Conc 34.5 g/dL (32-36); Mean Corpuscular Volume 109.6 fL (80-100); Mean Platelet Volume 11.9 fL (7.4-10.4); Monocytes # (auto) 1.32 K/uL (0.11-0.59); Monocytes % (auto) 6.6 %; Neutrophils # (auto) 17.05 K/uL (1.4-6.5); Neutrophils % (auto) 85.9 %; Platelet Count 120 K/uL (130-400); RDW Coefficient of Variation 15.6 % (11.5-14.5); RDW Standard Deviation 60.5 fL (36.4-46.3); Red Blood Count 2.51 M/uL (4.2-5.4); White Blood Count 19.85 K/uL (4.8-10.8)
[2019-02-11 06:42] LABS: Albumin Level 2.2 gm/dl (3.4-5.0); Calcium 8.2 mg/dl (8.5-10.1); Creatinine Clr Calc Pharmacy 113.1 ml/min; Est GFR (African American) 118.7; Est GFR (Non-African American) 102.4; Magnesium 2.3 mg/dl (1.8-2.4); Potassium 3.4 mmol/L (3.5-5.1)
[2019-02-11 06:43] LABS: Albumin Globulin Ratio 0.9 (0.9-2); Bilirubin,Total 8.7 mg/dl (0.2-1); Globulin 2.4 gm/dl (2.5-4.0); Total Protein 4.6 gm/dl (6.4-8.2)
[2019-02-11] MEDS ORDERED: POTASSIUM CHLORIDE 20 MEQ TABCR PO STA ×3 (07:41→13:28)
[2019-02-11] MEDS: INSULIN ASPART 100 UNITS/ML 3 ML PEN SC SCH ×4 (08:33→20:51)
[2019-02-11] MEDS: FUROSEMIDE 40 MG TAB PO SCH (08:34)
[2019-02-11] MEDS: MULTIVITAMIN TAB PO SCH (08:34)
[2019-02-11] MEDS: predniSONE 20 MG TAB PO SCH ×2 (08:34→20:51)
[2019-02-11] MEDS: PANTOprazole 40 MG TAB PO SCH (08:34)
--- NOTE | 2019-02-11 11:10 | Pharmacy Report ---
Pharmacy Glycemic Short Note 2 - Date of Service February 11, 2019 - Glycemic Short BSG Results (Last 24 hours): 02/10/19 02/10/19 02/11/19 16:29 20:05 05:54 Glucose 140 H POC Glucose 181 H 119 H 02/11/19 07:22 Glucose POC Glucose 152 H OUTPATIENT ANTIDIABETIC REGIMEN: * N/A ASSESSMENT: * BSGs well controlled over last 24 hrs * Fasting BSG 152 this AM w/ no basal insulin on board * Post-prandial BSGs also well controlled w/ current Novolog CF/CR * Prednisone 60mg Q 12 hrs continues PLAN FOR INPATIENT GLYCEMIC CONTROL: * Basal insulin: None required at this time * Bolus insulin: * Novolog per scale ACHS * Goal Range: Low 110 mg/dL - High 140 mg/dL (to aim for BSGs < 180 mg/dL) * Correction Factor: 20 mg/dL/unit * Nutritional / Prandial insulin: 1 unit per 7 gm CHO consumed * Reassess insulin doses with each step down in steroid dose PLAN FOR DISCHARGE: * A1c - 4.2% on 02/03/19, which does not indicate diabetes. No need for glycemic medications on discharge.
--- NOTE | 2019-02-11 13:13 | Pulmonology Progress Note ---
Date of Service February 11, 2019 Assessment & Plan (1) Acute hypoxemic respiratory failure: Bronchoscopy done on 02/01/2019 showed evidence of diffuse alveolar hemorrhage Patient was given stress dose of steroids. On prednisone 60 mg twice daily --> change to 60 mg once daily on Tuesday. Patient will need prolonged steroids for at least 3 to 6 months. Continue with Protonix for stress ulcer prophylaxis. Continue with O2 supplementation to keep oxygen saturation above 90% and will add BiPAP nightly. Will consider CT chest without contrast in couple of weeks to see how the disease has progressed since CAT scan which was done last on 01/29/2019. Autoimmune work-up still pending. HERNAN and ANCA negative. BAL galactomannan was positive. Right now it has no significant until I have the autoimmune work-up back. Patient is already on steroids. If autoimmune work-up is negative this could be idiopathic pulmonary hemosiderosis. On Lasix for diuresis. --Alcohol abuse with liver cirrhosis Patient has scleral icterus with thrombocytopenia likely from alcohol effect on the liver. Elevated T bili and direct bilirubin progressively getting worse. With unde rlying coagulopathy. Recommend GI consult. --DVT prophylaxis Compression stockings given the patient is thrombocytopenic as difficult for hemorrhage and coagulopathy. Continue with physical therapy. Started on steroids to 60 mg daily starting tomorrow. Patient will benefit from rehab. (2) Hemoptysis: No more hemoptysis (3) DVT prophylaxis: (4) Pulmonary edema: Chronicity: acute Qualified Code(s): J81.0 - Acute pulmonary edema (5) Alcohol abuse: Subjective Patient seen and examined at bedside. No acute distress, no adverse events overnight. Patient states that she is feeling better. Shortness of breath is better. Still needing 6 L of nasal cannula to maintain her saturation above 88-89%. Denies any nausea or vomiting. No chest pain, no palpitations, no headache, no dizziness. Good appetite, having bowel movements. Review of Systems Review of Systems: All systems reviewed & are unremarkable except as noted in HPI & below Physical Exam Physical Exam: Constitutional: Mild respiratory distress HEENT: EOMI, PERRLA Respiratory system: Decreased air entry bilaterally, positive crackles bilaterally, no wheeze, no rhonchi CVS: S1-S2 positive, Positive 2 out of 6 murmur appreciated at apex, gallops Abdomen: Soft, nontender, nondistended, positive bowel sounds x4 Extremities: +2 pulses bilaterally radialis/ dorsalis pedis, +2 bilateral lower extremity edema, no cyanosis Neuro: Awake alert oriented x3 Psych: Normal mood and affect G/U: No [place] Skin: no rashes, warm and dry Lymphatic: no cervical or axillary lymphadenopathy Results & Data Vital Signs (Past 12 Hours) Vital Signs Temp Pulse Pulse Resp BP BP Pulse Ox 02/11/19 11:53 36.7 C 91 H 18 102/66 99 02/11/19 10:57 108 H 02/11/19 07:56 37 C 97 H 18 114/59 L 93 02/11/19 03:51 37 C 85 20 105/63 97 02/11/19 03:10 83 16 93 02/11/19 05:54 02/11/19 05:54 PG Care Time/CCT Total # of Minutes Spent Total Time Spent with Patient: Total time spent is greater than 50% in coordination of care (as documented) at patient's floor/unit and/or counseling patient:
--- NOTE | 2019-02-11 18:09 | Hospitalist Progress Note ---
Date of Service February 11, 2019 Assessment & Plan (1) Acute hypoxemic respiratory failure: Respiratory status improved, remains stabilized, has not been requiring high flow oxygen, on 6 L O2 via nasal cannula Plan to wean down oxygen to keep SPO2 around 90% Appreciate input from pulmonology Bronchoscopy on 02/01/2019 showed evidence of diffuse alveolar hemorrhage due to unknown etiology Per pulmonology: BAL galactomannan was positive. Autoimmune work-up reports still pending(reference lab) Possible diagnosis idiopathic pulmonary hemorrhage if autoimmune studies/vasculitis work-up -negative 54-year-old female with past medical history of alcohol abuse/hepatitis, admitted to ICU with alcohol withdrawal, acute respiratory failure requiring mechanical ventilation Extubated on 02/04/2019 CT chest showed findings of diffuse bilateral multifocal pneumonitis versus pulmonary edema. No evidence of PE Chest x-ray : 02/06/2019 :Slightly improved aeration of the bilateral lungs with persistent mixed interstitial and alveolar opacities suggestive of probable pulmonary edema. Possible decompensation of underlying CHF with diastolic dysfunction, due to hypoxia, respiratory failure Echo: 01/30/2019 Left ventricle is normal in size. Left ventricle systolic function is normal. Ejection fraction 55-60% Right ventricular systolic function is normal The left atrial size is normal. Right atrial size is normal. There is mild to moderate mitral regurgitation. There is mild tricuspid agitation Change to prednisone 60 p.o. daily will need prolonged steroids for at least 3-6 months (2) Hypotension: Blood pressure remains stable Echo showed no wall motion abnormality with EF 55-60% (3) Alcohol abuse: History of alcohol abuse, Presented with transaminitis MRCP showed No biliary ductal dilatation or choledocholithiasis to suggest biliary obstruction. Mildly distended gallbladder with gallbladder sludge and wall thickening. Appreciate input from GI Strict EtOH cessation advised (4) Hepatic dysfunction: Resented with thrombocytopenia, coagulopathy secondary to alcoholic liver disease/hepatitis With blood count normalized 135 Imaging studies not indicative of cirrhosis. Likely alcoholic hepatitis No evidence of active bleeding Counseling provided to patient regarding importance of strict alcohol abstinence -patient is agreeable (5) Hyponatremia: Resolved Due to alcohol abuse/alcoholic hepatitis/volume overload Presented with severe hyponatremia sodium 127 Nephrology on board. Continue Lasix 40 mg daily (6) Elevated lactic acid level: Resolved Likely related to hypoxia +/- hepatic dysfunciton/alcoholic hepatitis Negative blood cultures Antibiotic discontinued (7) DVT prophylaxis: DVT px on SCDs due to thrombocytopenia and coagulopathy CODE STATUS: Full code Disposition: Patient will need skilled rehab after discharge from hospital Referral made to [facility], Plan is to transfer patient to acute rehab when next 1-2 days Subjective Patient continues to do well, has been able to out of bed to chair stayed for 4 hours, On 6 L oxygen via nasal cannula, noted SPO2 around 93% We will plan to wean down oxygen to keep SPO2 around 90% Patient is continued with prednisone at 60 mg daily Recent checks x-ray shows improvement Patient continues to improved respiratory limon Referral made to [facility] Possible transfer to acute rehab in the next 1 to 2 days Physical Exam Constitutional: + ill appearing; no acute distress Eyes: + anicteric sclerae ENMT: external ear and nose normal, oropharynx normal Neck: trachea midline, no thyromegaly Respiratory: + cough; no respiratory distress Auscultation: + diminished lung sounds, + crackles, + rales and + wheezes Cardiovascular: RRR, no murmur, no edema Gastrointestinal (Abdomen): normal bowel sounds, soft, nontender, no hepatosplenomegaly Musculoskeletal: Extremities: + abnormal strength (Generalized weakness/significant deconditioning) Skin: no rashes, warm and dry Neurologic: PERRL, EOMI, accommodation nl, no face palsy, no dysarthria Psychiatric: Orientation: alert, oriented to person and oriented to place Affect: + flat affect Results & Data Vital Signs (Past 12 Hours) Vital Signs Temp Pulse Pulse Resp BP BP Pulse Ox 02/11/19 16:31 37.0 C 88 21 109/49 L 95 02/11/19 14:55 82 02/11/19 11:53 36.7 C 91 H 18 102/66 99 02/11/19 10:57 108 H 02/11/19 07:56 37 C 97 H 18 114/59 L 93
--- NOTE | 2019-02-12 07:23 | XRay Report ---
XR chest 1V portable CLINICAL HISTORY: Bilateral pulmonary airspace opacities. Follow-up examination. COMPARISON STUDY: 02/10/2019 FINDINGS: The heart remains borderline enlarged. There are persistent bilateral pulmonary airspace op acities, similar to the preceding study. There are no large pleural effusions.[ IMPRESSION: Persistent bilateral pulmonary airspace opacities with a subtle peripheral distribution Electronically signed by: Foreign Freedman M.D. 02/12/2019 7:22 AM
[2019-02-12] MEDS: INSULIN ASPART 100 UNITS/ML 3 ML PEN SC SCH ×4 (08:12→20:47)
[2019-02-12] MEDS: FUROSEMIDE 40 MG TAB PO SCH (08:15)
[2019-02-12] MEDS: PANTOprazole 40 MG TAB PO SCH (08:15)
[2019-02-12] MEDS: predniSONE 20 MG TAB PO SCH (08:15)
[2019-02-12] MEDS: MULTIVITAMIN TAB PO SCH (08:15)
[2019-02-12 08:49] LABS: Hematocrit (blood only) 29.3 % (37-47); Hemoglobin 10.3 g/dL (12.0-16.0); Mean Corpuscular Hemoglobin 38.3 pg (25-34); Mean Corpuscular Hgb Conc 35.2 g/dL (32-36); Mean Corpuscular Volume 108.9 fL (80-100); Mean Platelet Volume 11.9 fL (7.4-10.4); Nucleated RBC # (auto) 0.02 K/uL (0-0); Nucleated RBC % (auto) 0.1 %; Platelet Count 126 K/uL (130-400); RDW Coefficient of Variation 15.9 % (11.5-14.5); RDW Standard Deviation 61.2 fL (36.4-46.3); Red Blood Count 2.69 M/uL (4.2-5.4); White Blood Count 21.62 K/uL (4.8-10.8)
[2019-02-12 09:22] LABS: BUN Creatinine Ratio 32.1 (10-20); Calcium 8.6 mg/dl (8.5-10.1); Est GFR (African American) 100.6; Est GFR (Non-African American) 86.8; Magnesium 2.3 mg/dl (1.8-2.4); Potassium 3.7 mmol/L (3.5-5.1)
[2019-02-12 09:52] LABS: Basophils # (auto) 0.04 K/uL (0-0.2); Basophils % (auto) 0.2 %; Immature Granulocytes # (auto) 0.89 K/uL (0.00-0.02); Immature Granulocytes % (auto) 4.1 %; Lymphocytes # (auto) 1.19 K/uL (1.2-3.4); Lymphocytes % (auto) 5.5 %; Monocytes % (auto) 3.2 %; Target Cells 1+
--- NOTE | 2019-02-12 13:48 | Pulmonology Progress Note ---
Date of Service February 12, 2019 Assessment & Plan (1) Acute hypoxemic respiratory failure: Bronchoscopy done on 02/01/2019 showed evidence of diffuse alveolar hemorrhage Patient was given high dose of steroids. On prednisone 60 mg twice daily --> change to 60 mg once daily 02/12/2019. Patient will need prolonged steroids Continue with Protonix for stress ulcer prophylaxis. Continue with O2 supplementation to keep oxygen saturation above 90% and will add BiPAP nightly. Will consider CT chest without contrast in couple of weeks to see how the disease has progressed since CT scan which was done last on 01/29/2019. Complete autoimmune work-up still pending. HERNAN and ANCA negative. BAL galactomannan was positive. Right now it has no clinical significance. I do not think she has invasive aspergilosis. If autoimmune work-up is negative this could be idiopathic pulmonary hemosiderosis. Possibilty of this being related to hemorrhage from coagulopathy and volume overload on initial presentation remains. She may need lung biopsy in the future. Giving 40 mg IV lasix today for diuresis. --Alcohol abuse with etoh hepatitis Still not completely clear whether she has cirrhosis. MRCP imaging not indicative of cirrhosis, but labs and history indicate possible cirrhosis. ?Peripheral smear, ?fibroscan of liver, ?liver bx. Defer to GI. (2) Hemoptysis: No more hemoptysis (3) DVT prophylaxis: (4) Pulmonary edema: Chronicity: acute Qualified Code(s): J81.0 - Acute pulmonary edema (5) Alcohol abuse: Subjective Patient sitting up in bed and working with OT. Currently on 4LNC. Satting 91%. Denies any dyspnea while resting. No fevers or chills. No night sweats. No chest pain. Physical Exam Constitutional: WD/WN, vitals as above Eyes: Mild b/l scleral icterus. ENMT: external ear and nose normal, oropharynx normal Neck: normal visual inspection Respiratory: Mild b/l crackles at bases. Cardiovascular: RRR, no murmur, no edema Gastrointestinal (Abdomen): normal bowel sounds, soft, nontender, no hepatosplenomegaly Musculoskeletal: no cyanosis or clubbing, extremities motor strength 5/5 Skin: no rashes, warm and dry Neurologic: PERRL, EOMI, accommodation nl, no face palsy, no dysarthria Results & Data Vital Signs (Past 12 Hours) Vital Signs Temp Pulse Pulse Resp BP Pulse Ox 02/12/19 11:13 97.9 F 82 17 109/58 L 96 02/12/19 09:59 93 H 02/12/19 08:09 98.2 F 97 H 20 110/55 L 92 02/12/19 04:21 98.6 F 97 H 21 106/55 L 91 Pertinent labs and chest imaging reviewed. PG Care Time/CCT Total # of Minutes Spent Total Time Spent with Patient: Total time spent is greater than 50% in coordination of care (as documented) at patient's floor/unit and/or counseling patient:
[2019-02-12] MEDS ORDERED: FUROSEMIDE 40 MG in SYRINGE 0 ML IV ONE (14:00)
--- NOTE | 2019-02-12 15:48 | Hospitalist Progress Note ---
Date of Service February 12, 2019 Assessment & Plan (1) Acute hypoxemic respiratory failure: Respiratory status continues to improve, O2 wean downed to 4 L via NC SPO2 around 90% cont night time Bipap setting 03/16 , Fi02 50 % pt will continue with night time Bipap at rehab Appreciate input from pulmonology Bronchoscopy on 02/01/2019 showed evidence of diffuse alveolar hemorrhage due to unknown etiology Per pulmonology: BAL galactomannan was positive. Autoimmune work-up reports still pending(reference lab) Possible diagnosis idiopathic pulmonary hemorrhage if autoimmune studies/vasculitis work-up -negative 54-year-old female with past medical history of alcohol abuse/hepatitis, admitted to ICU with alcohol withdrawal, acute respiratory failure requiring mechanical ventilation Extubated on 02/04/2019 CT chest showed findings of diffuse bilateral multifocal pneumonitis versus pulmonary edema. No evidence of PE Chest x-ray : 02/06/2019 :Slightly improved aeration of the bilateral lungs with persistent mixed interstitial and alveolar opacities suggestive of probable pulmonary edema. Possible decompensation of underlying CHF with diastolic dysfunction, due to h ypoxia, respiratory failure Echo: 01/30/2019 Left ventricle is normal in size. Left ventricle systolic function is normal. Ejection fraction 55-60% Right ventricular systolic function is normal The left atrial size is normal. Right atrial size is normal. There is mild to moderate mitral regurgitation. There is mild tricuspid agitation On PO prednisone 60 mg daily ordered for gradual taper then cont on 30 mg PO daily till evaluated by pulmonology at clinic PO Bactrim DS BID added for Prophylaxis for PJP ( pneumocystis Jiroveci Pneumonia ) -as pt will be on prolong steroid taper Patient follow-up with pulmonology in 2-3 weeks, Will need pulmonary function test, repeat chest x-ray (2) Hypotension: Blood pressure remains stable Echo showed no wall motion abnormality with EF 55-60% Patient will be discharged Lasix 40 mg daily, to prevent parents pleural effusion (3) Alcohol abuse: History of alcohol abuse, Presented with transaminitis MRCP showed No biliary ductal dilatation or choledocholithiasis to suggest biliary obstruction. Mildly distended gallbladder with gallbladder sludge and wall thickening. Appreciate input from GI Strict EtOH cessation advised (4) Hepatic dysfunction: Possible secondary to acute alcoholic hepatitis question on admission ETOH level : 134 Presented with thrombocytopenia, coagulopathy -history of long-term heavy alcohol abuse MRCP: Shows liver normal morphology/cirrhosis noted GI consulted, appreciate input calculated Maddrey's Discriminant Function 23.6 < 32 ; did not require glucocorticoid therapy for Acute alcoholic hepatitis Counseling provided to patient regarding importance of strict alcohol abstinence -patient is agreeable LFT 's total bili remains elevated 8.7 AST 128 ALT : had transient elevation then normalized HEPATITIS PANEL NEGATIVE pt will need continued clinic follow up with GI (5) Hyponatremia: Resolved Due to alcohol abuse/alcoholic hepatitis/volume overload Presented with severe hyponatremia sodium 127 appreciate nephrology consult (6) Elevated lactic acid level: Resolved Likely related to hypoxia +/- hepatic dysfunction /alcoholic hepatitis Negative blood cultures Antibiotic discontinued (7) DVT prophylaxis: DVT px on SCDs due to thrombocytopenia and coagulopathy CODE STATUS: Full code Disposition: Patient will need skilled rehab after discharge from hospital Referral made to [facility], possible transfer to [facility] tomorrow pt will need to be on 4 L 02 via nasal canula will need wheel chair van transport Subjective oxygen reduced to 4 L via nasal canula spo2 able to keep around 92% pt reports of feeling much better no cough , no fever or chills Cxray shows improvement of bilateral air space opacities Referral made to [facility] Possible transfer to acute rehab tomorrow 02/13/19 Physical Exam Constitutional: no acute distress Eyes: + anicteric sclerae ENMT: external ear and nose normal, oropharynx normal Neck: trachea midline, no thyromegaly Respiratory: no respiratory distress and no cough Auscultation: + diminished lung sounds; no crackles, no rales and no wheezes Cardiovascular: RRR, no murmur, no edema Gastrointestinal (Abdomen): normal bowel sounds, soft, nontender, no hepatosplenomegaly Musculoskeletal: Extremities: + abnormal strength (Generalized weakness/significant deconditioning) Skin: no rashes, warm and dry Neurologic: PERRL, EOMI, accommodation nl, no face palsy, no dysarthria Psychiatric: Orientation: alert, oriented to person and oriented to place Affect: + flat affect Results & Data Vital Signs (Past 12 Hours) Vital Signs Temp Pulse Pulse Resp BP Pulse Ox 02/12/19 15:41 36.7 C 86 16 128/67 91 02/12/19 13:47 94 02/12/19 11:13 36.6 C 82 17 109/58 L 96 02/12/19 09:59 93 H 02/12/19 08:09 36.8 C 97 H 20 110/55 L 92 02/12/19 04:21 37.0 C 97 H 21 106/55 L 91
[2019-02-12] MEDS: SULFAMETHOXAZOLE/TRIMETHOPRIM DS 800/160MG TAB PO SCH ×2 (16:23→21:01)
[2019-02-12 19:58] LABS: Anti-Glom Basement Antibody <1.0 AI (<1.0); B2 Glycoprotein IgA <9 SAU (<=20); B2 Glycoprotein IgG <9 SGU (<=20); B2 Glycoprotein IgM <9 SMU (<=20); JO 1 Antibody <1.0 NEG AI (<1.0 NEG); Lupus Anticoagulant Negative (Negative); Phosphatidylserine IgG <10 U/mL (<10); Phosphatidylserine IgM <25 U/mL (<25); RNP Antibody <1.0 NEG AI (<1.0 NEG)
[2019-02-12] MEDS ORDERED: predniSONE 50 MG TAB PO SCH (21:00)
[2019-02-13] MEDS: INSULIN ASPART 100 UNITS/ML 3 ML PEN SC SCH ×2 (08:17→12:31)
[2019-02-13] MEDS: SULFAMETHOXAZOLE/TRIMETHOPRIM DS 800/160MG TAB PO SCH (08:34)
[2019-02-13] MEDS: MULTIVITAMIN TAB PO SCH (08:35)
[2019-02-13] MEDS: FUROSEMIDE 40 MG TAB PO SCH (08:35)
[2019-02-13] MEDS: PANTOprazole 40 MG TAB PO SCH (08:36)
[2019-02-13] MEDS ORDERED: predniSONE 20 MG TAB PO SCH (09:00)
--- NOTE | 2019-02-13 12:32 | Discharge Summary ---
Date of Service February 13, 2019 Admission HPI Per Admitting Provider 54-year-old female who presents to the emergency department for evaluation of trouble breathing. The patient states that she developed a cough while she was in [facility] 2 weeks ago. She returned from [place] yesterday. She has had a persistent cough since then and states she develops trouble breathing last night. She reports that she has had swollen feet and ankles for the past 3 months. She has not used any medication for her symptoms. She states she has had a cough productive of blood-tinged clear mucus. She has had episodes of emesis with the cough. She denies any fevers or chest pain. She denies any abdominal pain or nausea. Patient states she drinks 10-12 beers each day. She is not a smoker. Her alcohol level was 135 in the ER, CXR revealed Pulm edema, her Bili is 8 and she was started on IV Zosyn for Aspiration Pneumonitis, her Na was also low at 127. 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 FH-M of CAD and DM II, F of DM II, No sisters, 3 Healthy Brothers, 3 Healthy Sons and 1 Healthy Dtr Primary Care Provider: Adrian Gaston DO Principal Diagnosis ACUTE HYPOXEMIC RESPIRATORY FAILURE, ALCOHOL ABUSE, IDIOPATHIC ALVEOLAR HEMORRHAGE Discharge Exam Constitutional WD/WN, vitals as above no acute distress Eyes PERRL, conjunctivae normal, anicteric sclerae ENMT external ear and nose normal, oropharynx normal Neck trachea midline, no thyromegaly Respiratory normal respiratory effort; no respiratory distress, no cough and not tachypneic Auscultation: + diminished lung sounds; no crackles, no rales, no rhonchi and no wheezes Cardiovascular RRR, no murmur, no edema Gastrointestinal (Abdomen) normal bowel sounds, soft, nontender, no hepatosplenomegaly Musculoskeletal Head/Neck/Chest: normocephalic and head atraumatic Extremities: extremities normal to inspection Skin no rashes, warm and dry Neurologic PERRL, EOMI, accommodation nl, no face palsy, no dysarthria Psychiatric A+Ox3, euthymic affect Discharge Data Allergies Allergy/AdvReac Type Severity Reaction Status Date / Time propoxyphene Allergy Unknown ` Verified 01/29/19 06:23 Consultations 01/29/19 07:10 ED Decision to Admit Stat 01/29/19 17:18 Consult Gastroenterology Routine Consult Nephrology Routine 01/30/19 05:49 Consult Cardiology Routine 01/30/19 05:50 Consult Pulmonology Routine 01/31/19 23:25 Consult Audit Director Routine Ordered Studies 01/29/19 05:26 US venous doppler LE BI Stat 01/29/19 06:15 CT angio chest PE protocol Stat 01/29/19 12:14 US duplex portal hepatic veins Routine 01/30/19 07:42 MR MRCP Routine 01/31/19 20:34 US point of care ultrasound Stat Hospital Course (1) Acute hypoxemic respiratory failure: Respiratory status continues to improve, O2 wean downed to 3 L via NC SPO2 around 90% No respiratory distress, not have any cough, cont night time Bipap setting 03/16 , Fi02 50 % pt will continue with night time Bipap at rehab setting for BiPAP placed on discharge instruction Patient is stable to be discharged to [facility] for acute rehab Appreciate input from pulmonology Bronchoscopy on 02/01/2019 showed evidence of diffuse alveolar hemorrhage due to unknown etiology Per pulmonology: BAL galactomannan was positive. Autoimmune work-up reports still pending(reference lab) Possible diagnosis idiopathic pulmonary hemorrhage if autoimmune studies/vas culitis work-up -negative 54-year-old female with past medical history of alcohol abuse/hepatitis, admitted to ICU with alcohol withdrawal, acute respiratory failure requiring mechanical ventilation Extubated on 02/04/2019 CT chest showed findings of diffuse bilateral multifocal pneumonitis versus pulmonary edema. No evidence of PE Chest x-ray : 02/06/2019 :Slightly improved aeration of the bilateral lungs with persistent mixed interstitial and alveolar opacities suggestive of probable pulmonary edema. Possible decompensation of underlying CHF with diastolic dysfunction, due to hypoxia, respiratory failure Echo: 01/30/2019 Left ventricle is normal in size. Left ventricle systolic function is normal. Ejection fraction 55-60% Right ventricular systolic function is normal The left atrial size is normal. Right atrial size is normal. There is mild to moderate mitral regurgitation. There is mild tricuspid agitation On PO prednisone 60 mg daily ordered for gradual taper then cont on 30 mg PO daily till evaluated by pulmonology at clinic PO Bactrim DS BID added for Prophylaxis for PJP ( pneumocystis Jiroveci Pneumonia ) -as pt will be on prolong steroid taper Patient follow-up with pulmonology in 2-3 weeks, Will need pulmonary function test, repeat chest x-ray (2) Hypotension: Blood pressure remains stable Echo showed no wall motion abnormality with EF 55-60% Patient will be discharged Lasix 40 mg daily, to prevent recurrent pleural effusion (3) Alcohol abuse: History of alcohol abuse, Presented with transaminitis MRCP showed No biliary ductal dilatation or choledocholithiasis to suggest biliary obstruction. Mildly distended gallbladder with gallbladder sludge and wall thickening. Appreciate input from GI Strict EtOH cessation advised She will need outpatient follow-up with GI/hematology for continued evaluation of liver disease (4) Hepatic dysfunction: Possible secondary to acute alcoholic hepatitis question on admission ETOH level : 134 Presented with thrombocytopenia, coagulopathy -history of jail heavy alcohol abuse MRCP: Shows liver normal morphology/cirrhosis noted GI consulted, appreciate input calculated Maddrey's Discriminant Function 23.6 < 32 ; did not require glucocorticoid therapy for Acute alcoholic hepatitis Counseling provided to patient regarding importance of strict alcohol abstinence -patient is agreeable Liver function: On 02/12/2019 total bili remains elevated 8.7 AST 128 ALT : had transient elevation then normalized HEPATITIS PANEL NEGATIVE pt will need continued clinic follow up with GI Stable to be discharged to acute rehab today (5) Hyponatremia: Resolved Due to alcohol abuse/alcoholic hepatitis/volume overload Presented with severe hyponatremia sodium 127 appreciate nephrology consult (6) Elevated lactic acid level: Resolved Likely related to hypoxia +/- hepatic dysfunction /alcoholic hepatitis Negative blood cultures Antibiotic discontinued (7) DVT prophylaxis: DVT px on SCDs due to thrombocytopenia and coagulopathy CODE STATUS: Full code Disposition: Patient will need skilled rehab after discharge from hospital Referral made to [facility], transfer to [facility] today pt will need to be on 4 L 02 via nasal canula will need wheel chair van transport Total Time Total Time Spent Total Time Spent (In Minutes): Approximately 45 minutes Total Time Includes: Examination of the Patient, Discharge Planning and Medication Reconciliation Discharge Plan Discharge Items Patient Disposition: Transfer Inpatient Rehab Fac Reason For Visit: PNEUMONITIS, ALCOHOLIC KA Discharge Diagnosis: ACUTE HYPOXEMIC RESPIRATORY FAILURE, ALCOHOL ABUSE, IDIOPATHIC ALVEOLAR HEMORRHAGE Activity: As commented below Activity Comment: Continue physical therapy, occupational therapy at rehab Non-emergency contact: Primary Care Provider Call non-emergency contact if: you have any medication questions Follow-up/Referrals: Dc Pugh MD [Physician] - (Lung specialist follow-up in clinic in 2-3 weeks) Adrian Gaston DO [Primary Care Provider] - Diet: Heart Healthy Addtl Attending Provider Instructions: CONTINUE BIPAP AT NIGHT SETTING : 12 IPAP/6 EPAP WITH 50% FI02 LAB : COMPREHENSIVE METABOLIC PANEL , COMPLETE BLOOD COUNT IN 1 WEEK Hospital follow-up with lung specialist in 2-3 weeks Continue oral prednisone taper: 60 mg daily for 1 week/50 mg daily for 1 week/40 mg daily for 1 week/30 mg daily and continue PULMONARY FUNCTION TEST AND REPEAT CHEST XRAY IN 2 WEEKS BACTRIM DS 1 TABLET TWICE DAILY WHILE ON PROLONG COURSE OF PREDNISONE Pending Studies at Discharge: No Stand-Alone Forms: My [facility] Skilled Items Patient informed of condition?: Yes DNR: No Discharge Level of Care: Acute rehab Communicable Disease: No Discharge Prognosis: Stable Lines: None Urinary Catheter: No Medications and DC Order Prescriptions: New multivitamin [Daily-Katy] Tablet 1 tab PO QAM 30 Days Qty: 30 RF: 0 furosemide 40 mg Tablet 40 mg PO QAM 30 Days Qty: 30 RF: 0 ipratropium-albuterol 0.5 mg-3 mg(2.5 mg base)/3 mL Solution For Nebulization 3 ml NEB Q6R PRN (Reason: WHEEZE) 30 Days Qty: 90 RF: 0 pantoprazole 40 mg Tablet,Delayed Release (Dr/Ec) 40 mg PO QAM 30 Days Qty: 30 RF: 0 lactulose 20 gram/30 mL Solution 30 ml PO BID 30 Days Qty: 1800 RF: 0 prednisone 20 mg Tablet 60 mg PO DAILY 30 Days Qty: 90 RF: 0 sulfamethoxazole-trimethoprim [Bactrim DS] 800-160 mg tablet 1 tab PO BID 30 Days Qty: 60 RF: 0 Discharge Orders: Discharge Order (Routine); Ordered 02/13/19 Ordered By: Nhung Gonzalez Admission Data Admit Date/Time: 01/29/19 08:11 Attending Provider: Nhung Gonzalez Admit Provider: Yoshi Cormier Primary Care Provider: Adrian Gaston Other Providers: Yoshi Cormier ; Sully Rangel ; Yony Jackson ; Rose Ivy ; Jordan Siddiqui ; Noris Dove ; Eitan Brown ; Alexander Leroy ; Damari Cisneros ; Abbie Burton ; Kirt Taylor ; Mark Anthony Bryant ; Diana Jackson ; Ronna Arceo ; Inés Richardson ; Martina Castañeda ; Jo Hein ; Joya Lockwood ; Bernabe Landry ; Colten Singleton ; Tello Álvarez ; Biju Brumfield ; Stephen Ham ; Hayes Medina ; Hnanah Fajardo ; Yolis Tavares ; Kirt Quinonez ; Dc Pugh ; [facility] Other Interventions: Discharge Summary Assessment (RN) Last Done: 02/13/19 10:26
== END 2019-02-13 12:55 | DRG 204 ==
LOC: ED 04:58 → SUATTDRO 08:11 → 2S 08:11 → 1E 01-31 13:31 → 2E 02-07 14:06

== ENCOUNTER 2022-05-10 20:07 | Inpatient (IN) ==
[2022-05-10] MEDS ORDERED: ONDANSETRON INJ 2 MG/ML 2 ML VIAL IV STA ×2 (21:05→22:42)
[2022-05-10] MEDS ORDERED: ONDANSETRON INJ 2 MG/ML 2 ML VIAL ONE (21:06)
[2022-05-10 21:15] LABS: Basophils # (auto) 0.03 K/uL (0-0.2); Basophils % (auto) 0.4 %; Eosinophils # (auto) 0.01 K/uL (0-0.50); Eosinophils % (auto) 0.1 %; Hematocrit (blood only) 42.2 % (37.0-47.0); Immature Granulocytes # (auto) 0.06 K/uL (0.01-0.20); Immature Granulocytes % (auto) 0.8 %; Lymphocytes # (auto) 0.88 K/uL (1.2-3.4); Lymphocytes % (auto) 11.6 %; Mean Corpuscular Hemoglobin 36.3 pg (25.0-34.0); Mean Corpuscular Hgb Conc 35.5 g/dL (32.0-36.0); Mean Corpuscular Volume 102.2 fL (80.0-100.0); Mean Platelet Volume 11.3 fL (9.4-12.4); Monocytes # (auto) 0.28 K/uL (0.11-0.59); Monocytes % (auto) 3.7 %; Neutrophils # (auto) 6.32 K/uL (1.40-6.50); Neutrophils % (auto) 83.4 %; Platelet Count 91 K/uL (130-400); RDW Coefficient of Variation 15.5 % (11.5-14.5); RDW Standard Deviation 58.4 fL (36.4-46.3); Red Blood Count 4.13 M/uL (4.20-5.40); White Blood Count 7.58 K/ul (4.8-10.8)
[2022-05-10 21:32] LABS: INR 1.3 (0.9-1.1); Partial Thromboplastin Ratio 1.1; Partial Thromboplastin Time 31.3 Seconds (21.0-31.0); Prothrombin Time 14.1 Seconds (9.0-12.0)
[2022-05-10 21:36] LABS: Alanine Aminotransferase 93 U/L (7-52); Albumin Globulin Ratio 1.1 (0.9-2); Albumin Level 3.7 gm/dl (3.4-5.0); Alkaline Phosphatase 102 U/L (34-104); Anion Gap 28 (3-11); Aspartate Aminotransferase 284 U/L (13-39); BUN Creatinine Ratio 9.7 (10-20); Bilirubin,Total 5.6 mg/dl (0.2-1.0); Blood Urea Nitrogen 6 mg/dl (6-23); Calcium 8.6 mg/dl (8.5-10.1); Carbon Dioxide 16 mmol/L (21-32); Chloride 94 mmol/L (98-107); Est GFR (African American) 116.8 ml/min; Est GFR (Non-African American) 100.8 ml/min; Globulin 3.4 gm/dl (2.5-4.0); Glucose 69 mg/dl (70-99(Fasting)); Potassium 3.3 mmol/L (3.5-5.1); Sodium 138 mmol/L (136-145); Total Protein 7.1 gm/dl (6.0-8.3)
[2022-05-10 21:42] LABS: Troponin I High Sensitivity 7.1 pg/ml (0-14)
[2022-05-10 21:49] LABS: Influenza A virus by PCR Negative (Neg); Influenza B virus by PCR Negative (Neg); RSV by PCR Negative (Neg); SARS CoV2 RNA(COVID-19) Ceph NEGATIVE (Negative)
[2022-05-10] MEDS ORDERED: SODIUM CHLORIDE 0.9% 1000ML 1,000 ML IV ONE (22:42)
[2022-05-10] MEDS ORDERED: MoRPHine SULFATE 4 MG/ML 1 ML CARP\\VIAL IV STA (22:42)
--- NOTE | 2022-05-10 22:59 | Emergency Department Note ---
History of Present Illness General Chief complaint: Illness Stated complaint: SEVERE NAUSEA,DIARREAH, Time Seen by Provider: 05/10/22 22:28 History of Present Illness Maximum Pain Intensity: 10 This 57-year-old female with a history of alcoholism who drinks beer occasionally presents to the ER complaining of nausea, vomiting, diarrhea and abdominal pain for the past day. Patient denies recent antibiotics or well water. Patient denies chest pain, dyspnea, fevers, flulike illness. No bad food exposure. Home Medications Medication Instructions Recorded Confirmed Type furosemide 20 mg tablet 20 mg PO DAILY 04/17/19 05/10/22 History lactulose 10 gram/15 mL oral 10 gm PO DAILY PRN Constipation 04/17/19 05/10/22 History solution pantoprazole 40 mg tablet,delayed 40 mg PO DAILY 04/17/19 05/10/22 History release fluticasone propionate 50 2 spray intranasal DAILY PRN 04/22/21 05/10/22 History mcg/actuation nasal Congestion spray,suspension (Allergy Relief (fluticasone)) Allergies Allergy/AdvReac Type Severity Reaction Status Date / Time propoxyphene AdvReac Intermediate Vomiting Verified 05/10/22 23:08 Past Med/Surg History Medical History Alcohol abuse Pulmonary edema which is most likely multifactorial and related to alcohol abuse. She has volume overload probably from chronic cirrhosis. She could have an alcoholic cardiomyopathy. She did have an echocardiogram today which I will review and make further recommendations. Currently she is clinically stable. History of tobacco abuse Obesity (BMI 30-39.9) Surgical History H/O tubal ligation Family History Father Diabetes Mother Diabetes Social History Smoking Status: Never smoker Second Hand Exposure: No; Hx Alcohol Use: Yes Alcohol type: beer Hx Substance Use: No Preferred Language: Hungarian Communication Ability: Effective Visual Impairment: No Limitations Tire Balancer Required: No Beliefs That Will Affect Care: None marital status: Current Living Situation: Spouse Current Living Situation Comment: lives with ex- Feels Safe at Home: Yes Assistive Devices: Walker Review of Systems A total of 10 systems reviewed and were otherwise negative Physical Exam Vital Signs Vital Signs - 24 hr 05/10/22 20:33 Temperature 36.8 C Temperature Source Temporal Artery Scan Pulse Rate 117 H Respiratory Rate 18 Respiratory Effort / Characteristics Non-Labored Spontaneous Respiratory Depth Normal Blood Pressure 121/76 Blood Pressure Mean 91 Blood Pressure Position Sitting Pulse Oximetry 99 Oxygen Delivery Method Room Air Sepsis Recent Fever Within 48 Hours No Sepsis New/Unexplained Change in Mental Status No Sepsis Action Taken by Nursing No Action Required VITALS: Vitals are noted on the nurse's note and reviewed by myself. Vital signs stable. GENERAL: Pleasant female with partner present, in no acute distress, n ondiaphoretic, well-developed well-nourished. SKIN: The skin was without rashes, erythema, edema, or bruising. There is no tenting of the skin. Capillary reflex less than 2 seconds. HEAD: Normocephalic atraumatic. EARS: External auditory canals clear, EYES: Pupils equal round and reactive to light and accommodation. Conjunctivae without injection, sclerae without icterus. Extraocular movements intact. NOSE: Patent, turbinates without inflammation or discharge. MOUTH: Mucous membranes mildly dry. Pharynx without erythema or exudate. Uvula midline. Airway patent. Tongue does not deviate. NECK: Supple without nuchal rigidity. No lymphadenopathy. No thyromegaly. Cervical spine is nontender. No JVD. HEART: Regular rate and rhythm LUNGS: Clear to auscultation bilaterally without wheezes, rales or rhonchi. No retractions or accessory muscle use. ABDOMEN: Positive bowel sounds x 4. Normal tympanic percussion. Soft, tender to palpation lower abdomen, without masses or organomegaly. Banks sign negative. No guarding or rebound tenderness. No CVA tenderness MUSCULOSKELETAL: No muscle atrophy, erythema, or edema noted. NEURO: Patient was alert and oriented to person place and time. Normal sensation to light and sharp touch. No focal neurological deficits. Course Administered Medications Morphine Sulfate (Morphine Sulfate 4 Mg/Ml 1 Ml Carp\Vial) 4 mg IV Q4H PRN PRN Reason: Pain Stop: 05/25/22 02:14 Last Admin: 05/11/22 02:19 Dose: 4 mg Documented By: MED Discontinued Medications Sodium Chloride (Nss 1000ml) 1,000 mls @ 999 mls/hr IV .Q1H1M ONE Stop: 05/10/22 23:42 Last Admin: 05/10/22 22:52 Dose: 999 mls/hr Documented By: [id number] Magnesium Sulfate/Dextrose (Magnesium Sulfate / D5w) 1 gm in 100 mls @ 100 mls/hr IV Q1H JAYMIE Stop: 05/11/22 01:54 Last Infusion: 05/11/22 02:53 Dose: 0 mls/hr Documented By: customer service sales associate: 05/11/22 01:40 Dose: 100 mls/hr Documented By: Infusion: 05/11/22 01:40 Dose: 100 mls/hr Documented By: customer service sales associate: 05/11/22 00:51 Dose: 100 mls/hr Documented By: DENILSON Lactated Ringer's (Lr) 1,000 mls @ 500 mls/hr IV .Q2H ONE Stop: 05/11/22 02:36 Last Admin: 05/11/22 01:41 Dose: 500 mls/hr Documented By: DENILSON Thiamine HCl 100 mg/ Syringe 10 mls @ 2 mls/min IV NOW STA Stop: 05/11/22 01:01 Last Admin: 05/11/22 02:08 Dose: 2 mls/min Documented By: DENILSON Piperacillin Sod/Tazobactam Sod (Zosyn) 4.5 gm in 120 mls @ 240 mls/hr IV NOW ONE Stop: 05/11/22 02:11 Last Admin: 05/11/22 02:49 Dose: 240 mls/hr Documented By: MED Ioversol (Optiray 350 100ml) 100 ml IV ONCE ONE Stop: 05/10/22 23:40 Last Admin: 05/10/22 23:40 Dose: 86 ml Documented By: VIDAL Morphine Sulfate (Morphine Sulfate 4 Mg/Ml 1 Ml Carp\Vial) 4 mg IV NOW STA Stop: 05/10/22 22:43 Last Admin: 05/10/22 22:52 Dose: 4 mg Documented By: [id number] Ondansetron HCl (Ondansetron Inj 2 Mg/Ml 2 Ml Vial) 4 mg IV NOW STA Stop: 05/10/22 21:06 Last Admin: 05/10/22 21:08 Dose: 4 mg Documented By: AHRMEET Ondansetron HCl (Ondansetron Inj 2 Mg/Ml 2 Ml Vial) Confirm Administered Dose 4 mg .ROUTE .STK-MED ONE Stop: 05/10/22 21:07 Last Admin: 05/10/22 21:07 Dose: Not Given Documented By: HARMEET Ondansetron HCl (Ondansetron Inj 2 Mg/Ml 2 Ml Vial) 4 mg IV NOW STA Stop: 05/10/22 22:43 Last Admin: 05/10/22 22:53 Dose: 4 mg Documented By: [id number] Ondansetron HCl (Ondansetron Inj 2 Mg/Ml 2 Ml Vial) 4 mg IV NOW STA Stop: 05/11/22 01:03 Last Admin: 05/11/22 01:26 Dose: 4 mg Documented By: DENILSON Potassium Chloride (Potassium Chloride Pwd 20 Meq Pack) 40 meq PO NOW STA Stop: 05/11/22 00:51 Last Admin: 05/11/22 01:51 Dose: 40 meq Documented By: MED Medical Decision Making Medical Records Attestation: I reviewed the patient's medical records. Home Medications Current Medication List: was personally reviewed by me Laboratory Data Attestation: I reviewed the patient's lab results. 05/10/22 21:00 05/10/22 21:00 Lab Results 05/10/22 05/10/22 05/10/22 Range/Units 21:00 21:00 21:00 WBC 7.58 (4.8-10.8) K/ul RBC 4.13 L (4.20-5.40) M/uL Hgb 15.0 (12.0-16.0) g/dl Hct 42.2 (37.0-47.0) % MCV 102.2 H (80.0-100.0) fL MCH 36.3 H (25.0-34.0) pg MCHC 35.5 (32.0-36.0) g/dL RDW Std Deviation 58.4 H (36.4-46.3) fL RDW Coeff of Wesley 15.5 H (11.5-14.5) % Plt Count 91 L (130-400) K/uL MPV 11.3 (9.4-12.4) fL Immature Gran % (Auto) 0.8 % Neut % (Auto) 83.4 % Lymph % (Auto) 11.6 % Bowman % (Auto) 3.7 % Eos % (Auto) 0.1 % Baso % (Auto) 0.4 % Neut # (Auto) 6.32 (1.40-6.50) K/uL Lymph # (Auto) 0.88 L (1.2-3.4) K/uL Bowman # (Auto) 0.28 (0.11-0.59) K/uL Eos # (Auto) 0.01 (0-0.50) K/uL Baso # (Auto) 0.03 (0-0.2) K/uL Immature Gran # (Auto) 0.06 (0.01-0.20) K/uL PT 14.1 H (9.0-12.0) Seconds INR 1.3 H (0.9-1.1) APTT 31.3 H (21.0-31.0) Seconds PTT Ratio 1.1 Sodium 138 (136-145) mmol/L Potassium 3.3 L (3.5-5.1) mmol/L Chloride 94 L (98-107) mmol/L Carbon Dioxide 16 L (21-32) mmol/L Anion Gap 28 H (3-11) BUN 6 (6-23) mg/dl Creatinine 0.62 (0.6-1.2) mg/dl Est Cr Clr Drug Dosing Not Reportable Est GFR ( Amer) 116.8 ml/min Est GFR (Non-Af Amer) 100.8 ml/min BUN/Creatinine Ratio 9.7 L (10-20) Glucose 69 L (70-99(Fasting)) mg/dl Lactate (0.4-2.0) mmol/L Calcium 8.6 (8.5-10.1) mg/dl Magnesium (1.7-2.4) mg/dl Total Bilirubin 5.6 H (0.2-1.0) mg/dl AST 284 H (13-39) U/L ALT 93 H (7-52) U/L Alkaline Phosphatase 102 (34-104) U/L Troponin I High Sens 7.1 (0-14) pg/ml Total Protein 7.1 (6.0-8.3) gm/dl Albumin 3.7 (3.4-5.0) gm/dl Globulin 3.4 (2.5-4.0) gm/dl Albumin/Globulin Ratio 1.1 (0.9-2) Ethyl Alcohol mg/dL (<10.0) mg/dl SARS-CoV-2 (PCR) (Negative) Influenza Type A (PCR) (Neg) Influenza Type B (PCR) (Neg) RSV (RT-PCR) (Neg) 05/10/22 05/10/22 05/10/22 Range/Units 21:03 22:47 22:47 WBC (4.8-10.8) K/ul RBC (4.20-5.40) M/uL Hgb (12.0-16.0) g/dl Hct (37.0-47.0) % MCV (80.0-100.0) fL MCH (25.0-34.0) pg MCHC (32.0-36.0) g/dL RDW Std Deviation (36.4-46.3) fL RDW Coeff of Wesley (11.5-14.5) % Plt Count (130-400) K/uL MPV (9.4-12.4) fL Immature Gran % (Auto) % Neut % (Auto) % Lymph % (Auto) % Bowman % (Auto) % Eos % (Auto) % Baso % (Auto) % Neut # (Auto) (1.40-6.50) K/uL Lymph # (Auto) (1.2-3.4) K/uL Bowman # (Auto) (0.11-0.59) K/uL Eos # (Auto) (0-0.50) K/uL Baso # (Auto) (0-0.2) K/uL Immature Gran # (Auto) (0.01-0.20) K/uL PT (9.0-12.0) Seconds INR (0.9-1.1) APTT (21.0-31.0) Seconds PTT Ratio Sodium (136-145) mmol/L Potassium (3.5-5.1) mmol/L Chloride (98-107) mmol/L Carbon Dioxide (21-32) mmol/L Anion Gap (3-11) BUN (6-23) mg/dl Creatinine (0.6-1.2) mg/dl Est Cr Clr Drug Dosing Est GFR ( Amer) ml/min Est GFR (Non-Af Amer) ml/min BUN/Creatinine Ratio (10-20) Glucose (70-99(Fasting)) mg/dl Lactate (0.4-2.0) mmol/L Calcium (8.5-10.1) mg/dl Magnesium 1.6 L (1.7-2.4) mg/dl Total Bilirubin (0.2-1.0) mg/dl AST (13-39) U/L ALT (7-52) U/L Alkaline Phosphatase (34-104) U/L Troponin I High Sens 6.7 (0-14) pg/ml Total Protein (6.0-8.3) gm/dl Albumin (3.4-5.0) gm/dl Globulin (2.5-4.0) gm/dl Albumin/Globulin Ratio (0.9-2) Ethyl Alcohol mg/dL 53.0 H (<10.0) mg/dl SARS-CoV-2 (PCR) NEGATIVE (Negative) Influenza Type A (PCR) Negative (Neg) Influenza Type B (PCR) Negative (Neg) RSV (RT-PCR) Negative (Neg) 05/11/22 05/11/22 Range/Units 00:45 00:45 WBC (4.8-10.8) K/ul RBC (4.20-5.40) M/uL Hgb (12.0-16.0) g/dl Hct (37.0-47.0) % MCV (80.0-100.0) fL MCH (25.0-34.0) pg MCHC (32.0-36.0) g/dL RDW Std Deviation (36.4-46.3) fL RDW Coeff of Wesley (11.5-14.5) % Plt Count (130-400) K/uL MPV (9.4-12.4) fL Immature Gran % (Auto) % Neut % (Auto) % Lymph % (Auto) % Bowman % (Auto) % Eos % (Auto) % Baso % (Auto) % Neut # (Auto) (1.40-6.50) K/uL Lymph # (Auto) (1.2-3.4) K/uL Bowman # (Auto) (0.11-0.59) K/uL Eos # (Auto) (0-0.50) K/uL Baso # (Auto) (0-0.2) K/uL Immature Gran # (Auto) (0.01-0.20) K/uL PT (9.0-12.0) Seconds INR (0.9-1.1) APTT (21.0-31.0) Seconds PTT Ratio Sodium 138 (136-145) mmol/L Potassium 3.4 L (3.5-5.1) mmol/L Chloride 97 L (98-107) mmol/L Carbon Dioxide 16 L (21-32) mmol/L Anion Gap 25 H (3-11) BUN 6 (6-23) mg/dl Creatinine 0.52 L (0.6-1.2) mg/dl Est Cr Clr Drug Dosing 130.2 Est GFR ( Amer) 123.8 ml/min Est GFR (Non-Af Amer) 106.8 ml/min BUN/Creatinine Ratio 11.5 (10-20) Glucose 62 L (70-99(Fasting)) mg/dl Lactate 7.4 H* (0.4-2.0) mmol/L Calcium 7.7 L (8.5-10.1) mg/dl Magnesium (1.7-2.4) mg/dl Total Bilirubin (0.2-1.0) mg/dl AST (13-39) U/L ALT (7-52) U/L Alkaline Phosphatase (34-104) U/L Troponin I High Sens (0-14) pg/ml Total Protein (6.0-8.3) gm/dl Albumin (3.4-5.0) gm/dl Globulin (2.5-4.0) gm/dl Albumin/Globulin Ratio (0.9-2) Ethyl Alcohol mg/dL (<10.0) mg/dl SARS-CoV-2 (PCR) (Negative) Influenza Type A (PCR) (Neg) Influenza Type B (PCR) (Neg) RSV (RT-PCR) (Neg) Imaging Data Attestation: I personally reviewed and interpreted this imaging study as follows: MDM Narrative Prior records/ancillary studies reviewed. Triage Nursing notes reviewed. Additional history obtained from the family. The patient's history was concerning for nausea, vomiting, diarrhea, and abdominal pain. Differential diagnosis: Etiologies such as gastroenteritis, food borne illness, infections, appendicitis, diverticulitis, inflammatory bowel disease, obstruction, GI bleed, biliary pathology, as well as others were entertained. Physical examination findings: As above. Abdominal examination revealed tenderness to the lower abdomen. Vital signs reviewed and revealed mildly tachycardic. ER treatment provided: IV hydration 1 L NSS., LR 1 L bolus Zofran morphine and IV fluids were ordered Magnesium IV On reassessment the patient felt better. Patient was tolerating p.o. intake. Diagnostics interpretation by me: The labs Independently Interpreted by myself revealed elevated alcohol, elevated LFTs No worrisome leukocytosis Low magnesium Repeat BMP is slightly improved per my interpretation. Imaging studies: CT ABDOMEN & PELVIS With Contrast: Wall thickening and surrounding inflammation of the right and proximal transverse colon consistent with either an infectious or ischemic colitis. 2 diffuse of involvement to be diverticulitis. Cholelithiasis. Cirrhotic liver with diffuse fatty infiltration. Periesophageal varices. Small splenorenal shunt. Radiologist: Min Hahn M.D. Consultation: A consultation was placed with the hospitalist. The case was discussed and diagnostics were reviewed. The patient was evaluated in the ER for further treatment. I consulted surgery, Dr. Abbott and reviewed the case was reviewed. He recommends IV fluids and antibiotics. He recommends medical admission. This appears to be consistent with colitis, infectious versus ischemic, dehydration most likely related to her alcoholism. CAT scan was concerning for colitis. Patient was feeling much better after the IV fluids. She was reassessed multiple times. Lactic was ordered for findings on CT imaging. Medicine was consulted and the case was discussed. Patient will be admitted to the medical service. Patient was medicated as above. Labs and diagnostics were independently reviewed by myself and CT was read by radiology. By the evaluation outlined above emergent etiologies such as appendicitis, diverticulitis, obstruction, cardiac sources, mesenteric ischemia, aortic pathology, inflammatory bowel disease, renal colic, PUD, biliary pathology, UTI, as well as others were deemed relatively unlikely. The pt informed about the findings as listed above. All questions were answered and pleased with the treatment. The chart was completed utilizing [employer] voice recognition software. Grammatical errors, random word insertions, pronoun errors, and incomplete sentences are an occassional consequence of this system due to software limitat ions, ambient noise, and hardware issues. Any formal questions or concerns about the content, text, or information contained within the body of this dictation should be directly addressed to the physician photographer assistant for clarification. Impression & Plan Colitis, Nausea vomiting and diarrhea, Alcoholism, Acute dehydration, Hypomagnesemia Discharge Plan Visit Data Chief Complaint: Illness Stated Complaint: SEVERE NAUSEA,DIARREAH, ED Provider: Bernabe Johnson ED Midlevel Provider: Mirna Mejia Discharge Problem: Colitis, Nausea vomiting and diarrhea, Alcoholism, Acute dehydration, Hypomagnesemia Patient Disposition: Admitted As Inpatient Condition: Fair
[2022-05-10 23:35] LABS: Magnesium 1.6 mg/dl (1.7-2.4)
[2022-05-10] MEDS ORDERED: OPTIRAY 350 100ml IV ONE (23:39)
[2022-05-10 23:43] LABS: Troponin I High Sensitivity 6.7 pg/ml (0-14)
[2022-05-11] MEDS ORDERED: LACTATED RINGER'S 1,000 ML IV ONE ×2 (00:37→02:30)
[2022-05-11] MEDS ORDERED: POTASSIUM CHLORIDE PWD 20 MEQ PACK PO STA (00:50)
[2022-05-11] MEDS: MAGNESIUM SULFATE / D5W 1 GM/100 ML BAG IV SCH ×2 (00:51→01:40)
--- NOTE | 2022-05-11 00:54 | History & Physical Report ---
Date of Service May 11, 2022 Assessment & Plan (1) Ischemic colitis: Plan: hx chronic diastolic heart failure (EF 55 to 60%, TTE 2020) hx valvular heart disease (moderate MR, mild TR) COPD, pulmonary hypertension, lung status at baseline alcoholic cirrhosis, hx portal hypertension, no overt decompensation Alcoholic hepatitis, good prognosis with Madrey's DF score of 17.6 points chronic thrombocytopenia secondary to cirrhosis Hypokalemia, hypomagnesemia secondary to emesis/diarrhea symptoms past tobacco abuse Medical telemetry Zosyn Bowel rest Follow lactic acid response to cautious IV hydration given history of portal gastropathy General surgery consult Re: Possible ischemic colitis (ER provider already in touch with Dr. Abbott. DT precautions, HEAVENLY S if with signs of alcohol withdrawal Replace electrolytes Appropriate to hold home diuretic until patient euvolemic DVT prophylaxis. SCDs Re: Thrombocytopenia Full code Text document was generated using [employer] voice recognition software. It may contain grammatical or spelling errors. Kindly contact undersigned for clarification of any documentation item in question. History of Present Illness Chief Complaint: Abdominal pain, nausea, vomiting, diarrhea Primary Care Provider: Adrian Gaston DO History obtained from patient, family, and records. Medical history significant for chronic diastolic heart failure (EF 55 to 60%, TTE 2020), valvular heart disease (moderate MR, mild TR), pulmonary hypertension, COPD, history diffuse pulmonary alveolar hemorrhage, alcoholic cirrhosis, portal hypertension, GERD, anxiety, alcohol abuse, chronic thrombocytopenia, past tobacco abuse. 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 One day history of generalized abdominal pain followed by nausea, vomiting, watery diarrhea symptoms. No known sick contacts. No fever, no chills. No recent antibiotic Rx/out-of-town travel.. Patient denies headache, chest pain, SOB. Patient brought by family to the ER for evaluation. Medical History as above Surgical History : Breast biopsy, BTL, appendectomy Family History : Heart disease, breast cancer, DM Personal/Social history : Past tobacco abuse, alcohol abuse as per records, c urrently unemployed Allergies Allergy/AdvReac Type Severity Reaction Status Date / Time propoxyphene AdvReac Intermediate Vomiting Verified 05/10/22 23:08 Home Medications Medication Instructions Recorded Confirmed Type furosemide 20 mg tablet 20 mg PO DAILY 04/17/19 05/10/22 History lactulose 10 gram/15 mL oral 10 gm PO DAILY PRN Constipation 04/17/19 05/10/22 History solution pantoprazole 40 mg tablet,delayed 40 mg PO DAILY 04/17/19 05/10/22 History release fluticasone propionate 50 2 spray intranasal DAILY PRN 04/22/21 05/10/22 History mcg/actuation nasal Congestion spray,suspension (Allergy Relief (fluticasone)) Past Med/Surg History Medical History Alcohol abuse Pulmonary edema which is most likely multifactorial and related to alcohol abuse. She has volume overload probably from chronic cirrhosis. She could have an alcoholic cardiomyopathy. She did have an echocardiogram today which I will review and make further recommendations. Currently she is clinically stable. History of tobacco abuse Obesity (BMI 30-39.9) Surgical History H/O tubal ligation Family History Father Diabetes Mother Diabetes Social History Smoking Status: Never smoker Second Hand Exposure: No; Hx Alcohol Use: Yes Alcohol type: beer Hx Substance Use: No Preferred Language: Pashto Communication Ability: Effective Visual Impairment: No Limitations Order Fulfillment Specialist Required: No Beliefs That Will Affect Care: None marital status: Current Living Situation: Spouse Current Living Situation Comment: apartment Other Information That Helps Us Care for You: No Feels Safe at Home: Yes Safety Concerns: Feels Safe At This Time Assistive Devices: None Review of Systems Review of Systems: As per HPI, all other systems reviewed and negative Physical Exam Physical Exam: GENERAL: Slightly uncomfortable, obese, no respiratory distress SKIN: Normal color, warm HEENT: Bespectacled, [place] palpebral conjunctivae, no ptosis, dry buccal mucosa NECK : Supple, no tenderness CHEST : CTA, no tenderness HEART : Tachycardic, no obvious murmurs ABDOMEN: Some distention, generalized abdominal tenderness EXTREMITIES : Minimal LE swelling, no LE tenderness, no other conspicuous deformities noted NEUROLOGIC : Coherent, no facial asymmetry, no other gross focality Results & Data Results & Data ([facility]) Vital Signs (Past 12 Hours) Vital Signs Temp Pulse Resp BP Pulse Ox O2 Del Method 05/10/22 20:33 36.8 C 117 H 18 121/76 99 Room Air Laboratory Results Laboratory Results WBC 7.58 K/ul (4.8-10.8) 05/10/22 21:00 RBC 4.13 M/uL (4.20-5.40) L 05/10/22 21:00 Hgb 15.0 g/dl (12.0-16.0) 05/10/22 21:00 Hct 42.2 % (37.0-47.0) 05/10/22 21:00 MCV 102.2 fL (80.0-100.0) H 05/10/22 21:00 MCH 36.3 pg (25.0-34.0) H 05/10/22 21:00 MCHC 35.5 g/dL (32.0-36.0) 05/10/22 21:00 RDW Std Deviation 58.4 fL (36.4-46.3) H 05/10/22 21:00 RDW Coeff of Wesley 15.5 % (11.5-14.5) H 05/10/22 21:00 Plt Count 91 K/uL (130-400) L 05/10/22 21:00 MPV 11.3 fL (9.4-12.4) 05/10/22 21:00 Immature Gran % (Auto) 0.8 % 05/10/22 21:00 Neut % (Auto) 83.4 % 05/10/22 21:00 Lymph % (Auto) 11.6 % 05/10/22 21:00 Luna % (Auto) 3.7 % 05/10/22 21:00 Eos % (Auto) 0.1 % 05/10/22 21:00 Baso % (Auto) 0.4 % 05/10/22 21:00 Neut # (Auto) 6.32 K/uL (1.40-6.50) 05/10/22 21:00 Lymph # (Auto) 0.88 K/uL (1.2-3.4) L 05/10/22 21:00 Luna # (Auto) 0.28 K/uL (0.11-0.59) 05/10/22 21:00 Eos # (Auto) 0.01 K/uL (0-0.50) 05/10/22 21:00 Baso # (Auto) 0.03 K/uL (0-0.2) 05/10/22 21:00 Immature Gran # (Auto) 0.06 K/uL (0.01-0.20) 05/10/22 21:00 PT 14.1 Seconds (9.0-12.0) H 05/10/22 21:00 INR 1.3 (0.9-1.1) H 05/10/22 21:00 APTT 31.3 Seconds (21.0-31.0) H 05/10/22 21:00 PTT Ratio 1.1 05/10/22 21:00 Sodium 138 mmol/L (136-145) 05/10/22 21:00 Potassium 3.3 mmol/L (3.5-5.1) L 05/10/22 21:00 Chloride 94 mmol/L (98-107) L 05/10/22 21:00 Carbon Dioxide 16 mmol/L (21-32) L 05/10/22 21:00 Anion Gap 28 (3-11) H 05/10/22 21:00 BUN 6 mg/dl (6-23) 05/10/22 21:00 Creatinine 0.62 mg/dl (0.6-1.2) 05/10/22 21:00 Est Cr Clr Drug Dosing Not Reportable 05/10/22 21:00 Est GFR ( Amer) 116.8 ml/min 05/10/22 21:00 Est GFR (Non-Af Amer) 100.8 ml/min 05/10/22 21:00 BUN/Creatinine Ratio 9.7 (10-20) L 05/10/22 21:00 Glucose 69 mg/dl (70-99(Fasting)) L 05/10/22 21:00 Calcium 8.6 mg/dl (8.5-10.1) 05/10/22 21:00 Magnesium 1.6 mg/dl (1.7-2.4) L 05/10/22 22:47 Total Bilirubin 5.6 mg/dl (0.2-1.0) H 05/10/22 21:00 AST 284 U/L (13-39) H 05/10/22 21:00 ALT 93 U/L (7-52) H 05/10/22 21:00 Alkaline Phosphatase 102 U/L (34-104) 05/10/22 21:00 Troponin I High Sens 6.7 pg/ml (0-14) 05/10/22 22:47 Total Protein 7.1 gm/dl (6.0-8.3) 05/10/22 21:00 Albumin 3.7 gm/dl (3.4-5.0) 05/10/22 21:00 Globulin 3.4 gm/dl (2.5-4.0) 05/10/22 21:00 Albumin/Globulin Ratio 1.1 (0.9-2) 05/10/22 21:00 Ethyl Alcohol mg/dL 53.0 mg/dl (<10.0) H 05/10/22 22:47 SARS-CoV-2 (PCR) NEGATIVE (Negative) 05/10/22 21:03 Influenza Type A (PCR) Negative (Neg) 05/10/22 21:03 Influenza Type B (PCR) Negative (Neg) 05/10/22 21:03 RSV (RT-PCR) Negative (Neg) 05/10/22 21:[address] abdomen pelvis initial read: Wall thickening and surrounding inflammation of the right and proximal transverse colon consistent with either an infectious or ischemic colitis. 2 diffuse of involvement to be diverticulitis. Cholelithiasis. Cirrhotic liver with diffuse fatty infiltration. Periesophageal varices. Small splenorenal shunt. EKG as per my interpretation : Rate 110, sinus tachycardia, normal axis, no ischemia
[2022-05-11] MEDS ORDERED: THIAMINE HCL 100 MG in SYRINGE 9 ML IV STA (00:57)
[2022-05-11] MEDS ORDERED: ONDANSETRON INJ 2 MG/ML 2 ML VIAL IV STA (01:02)
[2022-05-11] MEDS ORDERED: PROMETHAZINE HCL 12.5 MG in SODIUM CHLORIDE 0.9% 50 ML IV PRN (01:38)
[2022-05-11] MEDS ORDERED: oxyCODONE HCL IR 5 MG TAB (IMMEDIATE RELEASE) PO PRN (01:38)
[2022-05-11] MEDS ORDERED: ACETAMINOPHEN 325 MG TAB PO PRN (01:38)
[2022-05-11] MEDS ORDERED: PIPERACILLIN/TAZOBACTAM 4.5 GM/120 ML BAG IV ONE ×2 (01:42→01:46)
[2022-05-11 01:54] LABS: BUN Creatinine Ratio 11.5 (10-20); Calcium 7.7 mg/dl (8.5-10.1); Creatinine Clr Calc Pharmacy 130.2 ml/min; Est GFR (African American) 123.8 ml/min; Est GFR (Non-African American) 106.8 ml/min; Potassium 3.4 mmol/L (3.5-5.1)
[2022-05-11] MEDS ORDERED: POTASSIUM CHLORIDE / WTR 10 MEQ/100 ML PLCT IV ONE (02:12)
[2022-05-11] MEDS ORDERED: MoRPHine SULFATE 4 MG/ML 1 ML CARP\\VIAL IV PRN (02:15)
[2022-05-11] MEDS ORDERED: FLUTICASONE PROPIONATE NA SPR 16 GM BTL PRN (03:07)
[2022-05-11] MEDS ORDERED: LORazepam 2 MG/1 ML VIAL IV PRN (03:07)
[2022-05-11 05:28] LABS: Albumin Globulin Ratio 1.1 (0.9-2); Albumin Level 3.1 gm/dl (3.4-5.0); BUN Creatinine Ratio 8.8 (10-20); Bilirubin,Total 5.6 mg/dl (0.2-1.0); Calcium 7.6 mg/dl (8.5-10.1); Creatinine Clr Calc Pharmacy 120.3 ml/min; Est GFR (African American) 120.1 ml/min; Est GFR (Non-African American) 103.6 ml/min; Globulin 2.7 gm/dl (2.5-4.0); Magnesium 2.1 mg/dl (1.7-2.4); Potassium 3.8 mmol/L (3.5-5.1); Total Protein 5.8 gm/dl (6.0-8.3)
[2022-05-11 05:50] LABS: Appearance Urine Clear (Clear); Bacteria Urine Automated Negative (Negative); Blood Urine Negative (Negative); Color Urine Dark Yellow; Glucose Urine UA Negative (Negative); Ketones Urine 3+ (Negative); Leukocyte Esterase Urine Negative (Negative); Nitrite Urine Negative (Negative); Protein Urine Trace (Negative); RBC Urine Automated 0-4 /hpf (0-4); Specific Gravity Urine > 1.045 (1.000-1.030); Urobilinogen Urine Negative (Negative); pH Urine 5.5 (4.5-7.5)
[2022-05-11 05:51] LABS: Bilirubin Urine 1+ (Negative)
[2022-05-11 06:09] LABS: Basophils # (auto) 0.01 K/uL (0-0.2); Basophils % (auto) 0.1 %; Hematocrit (blood only) 35.9 % (37.0-47.0); Hemoglobin 12.7 g/dl (12.0-16.0); Immature Granulocytes # (auto) 0.02 K/uL (0.01-0.20); Immature Granulocytes % (auto) 0.3 %; Lymphocytes # (auto) 0.55 K/uL (1.2-3.4); Lymphocytes % (auto) 7.2 %; Mean Corpuscular Hemoglobin 36.1 pg (25.0-34.0); Mean Corpuscular Hgb Conc 35.4 g/dL (32.0-36.0); Mean Platelet Volume 11.8 fL (9.4-12.4); Monocytes # (auto) 0.33 K/uL (0.11-0.59); Monocytes % (auto) 4.3 %; Neutrophils # (auto) 6.76 K/uL (1.40-6.50); Neutrophils % (auto) 88.1 %; Platelet Count 64 K/uL (130-400); RDW Coefficient of Variation 15.1 % (11.5-14.5); RDW Standard Deviation 56.6 fL (36.4-46.3); Red Blood Count 3.52 M/uL (4.20-5.40); White Blood Count 7.67 K/ul (4.8-10.8)
[2022-05-11] MEDS ORDERED: D5W AND LACTATED RINGERS 1,000 ML IV SCH (07:00)
--- NOTE | 2022-05-11 08:17 | CT Scan Report ---
CT OF THE ABDOMEN AND PELVIS WITH CONTRAST CLINICAL HISTORY: Severe abdominal pain. COMPARISON STUDY: MRCP January 30, [address] of the abdomen and pelvis March 01, 2022. TECHNIQUE: Following IV administration of 86 mL of Optiray, axial images of the abdomen and pelvis we re obtained from the lung bases to the proximal femurs. Images were reviewed in the axial, sagittal, and coronal planes. IV contrast was administered without complication. Automated exposure control wa s utilized for the study. A dose lowering technique was utilized adhering to the principles of ALARA . CT DOSE: 872.72 mGy.cm FINDINGS: Severe hepatic steatosis has progressed since prior CT. The liver is cirrhotic. No hepatic lesions are identified on this venous phase exam. There is no pneumatosis, free air or portal venous gas. Varices formation is again noted, including paraesophageal varices. There is mild splenomegaly. Trace ascites is present. The main, left and right portal veins are patent. There are gallstones with in the gallbladder. Gallbladder is contracted. Adrenal glands, kidneys and pancreas are unremarkable. There is wall thickening of the ascending colon and transverse colon. There is minimal pericolonic s tranding. There is no evidence for a bowel obstruction. The appendix is not visualized. Major vascula ture is patent. There are no acute fractures. IMPRESSION: 1. Cirrhosis and progression of hepatic steatosis. Manifestations of portal hypertension including sp lenomegaly, varices formation and trace ascites. 2. Wall thickening of the ascending colon and transverse colon. This is likely related to portal hype rtension however a nonspecific colitis could appear similar. 3. Cholelithiasis. 4. No bowel obstruction. ACT 112: Negative or not required by law. Electronically signed by: Mao Gilmore M.D. 05/11/2022 8:15 AM
[2022-05-11] MEDS ORDERED: PROMETHAZINE 12.5 MG/50.5 ML NSS IV ONE (09:16)
--- NOTE | 2022-05-11 09:48 | Surgery Consultation ---
Date of Consultation May 11, 2022 Assessment & Plan (1) Colitis: (2) Nausea vomiting and diarrhea: (3) Acute dehydration: (4) Hypomagnesemia: Plan 57 year-old female with history of alcoholism and cirrhosis presented to ED with 1 day history of abdominal pain, nausea, vomiting, and diarrhea. CT scan with possible infectious vs ischemic colitis of the ascending and right transverse colon. Lactic acid elevated at 7.4 now downtrending with IV fluid hydration. no leukocytosis, afebrile, hemodynmaically stable. Abdomen with tenderness in RUQ but no peritonitis, rebound, or rigidity. Etiology: Possible ischemic colitis secondary to dehydration , GI losses with vomiting and diarrhea vs infectious colitis Plan: No acute surgical intervention recommended at this time Continue conservative management: IV fluids, IV antibiotics, bowel rest, and pain management as needed continue medical management will continue to follow Dr. Kline has seen and examined pt, agrees with above. History of Present Illness Reason for Consultation: Ischemic colitis Requesting Physician: Tino Washburn MD Attending Physician: Sully Rangel MD History of Present Illness Justina is a 57 year-old female with history of alcoholism, anxiety, depression, cirrhosis, who presented to emergency room last evening with complaint of generalized abdominal pain, nausea, vomiting, and diarrhea that began yesterday morning. States symptoms start suddenly and woke her up. Was feeling fine prior. Denies of any fever, chills, chest pain , shortness of breath, difficulty urinating. Did not notice any blood in her stools or with vomiting. Denies of any recent sick contacts or recent travel. States diarrhea and vomiting were constant and very frequent. No history of atrial fibrillation or blood clots. CT scan initial STAT read suggested possible infectious vs ischemic colitis. WBC normal. Lactic acid elevated at 7.4. CT shows cirrhosis. T. bili elevated at 5. Ethyl alcohol elevated at 53. States she is feeling much better since yesterday. Mostly nauseated now which is being controlled. No diarrhea since yesterday. Pain comes and goes but not as severe. Allergies Allergy/AdvReac Type Severity Reaction Status Date / Time propoxyphene AdvReac Intermediate Vomiting Verified 05/10/22 23:08 Home Medications Medication Instructions Recorded Confirmed Type furosemide 20 mg tablet 20 mg PO DAILY 04/17/19 05/10/22 History lactulose 10 gram/15 mL oral 10 gm PO DAILY PRN Constipation 04/17/19 05/10/22 History solution pantoprazole 40 mg tablet,delayed 40 mg PO DAILY 04/17/19 05/10/22 History release fluticasone propionate 50 2 spray intranasal DAILY PRN 04/22/21 05/10/22 History mcg/actuation nasal Congestion spray,suspension (Allergy Relief (fluticasone)) Patient History Medical History Alcohol abuse Pulmonary edema which is most likely multifactorial and related to alcohol abuse. She has volume overload probably from chronic cirrhosis. She could have an alcoholic cardiomyopathy. She did have an echocardiogram today which I will review and make further recommendations. Currently she is clinically stable. History of tobacco abuse Obesity (BMI 30-39.9) Surgical History H/O tubal ligation Family History Father Diabetes Mother Diabetes Social History Smoking Status: Never smoker Second Hand Exposure: No; Hx Alcohol Use: Yes Alcohol type: beer Hx Substance Use: No Preferred Language: German Communication Ability: Effective Visual Impairment: No Limitations Travel Consultant Required: No Beliefs That Will Affect Care: None marital status: Current Living Situation: Spouse Current Living Situation Comment: apartment Other Information That Helps Us Care for You: No Feels Safe at Home: Yes Safety Concerns: Feels Safe At This Time Assistive Devices: None Physical Exam Constitutional: well developed, well nourished, + obese, cooperative and comfortable; no acute distress Neck: normal visual inspection and trachea midline Respiratory: normal respiratory effort, lungs clear to auscultation Cardiovascular: Rate/Rhythm: regular rhythm and + tachycardic Heart Sounds: normal S1 and normal S2 Gastrointestinal (Abdomen): Inspection/Auscultation: abdomen normal to ins pection and normal bowel sounds; abdomen not distended Percussion/Palpation: + abdomen tender (RUQ on deep palpation) and abdomen soft; no guarding, abdomen not rigid and abdomen not firm Skin: no rashes, warm and dry + jaundice (mild icterus) Psychiatric: A+Ox3, euthymic affect Results & Data ([facility]) Vital Signs (Past 12 Hours) Vital Signs Pulse Resp BP Pulse Ox O2 Del Method 05/11/22 06:41 115 H 115/50 L 05/11/22 05:36 113 H 18 116/53 L 05/11/22 05:02 117 H 14 116/53 L 95 Room Air Laboratory Results 05/11/22 05/11/22 05/11/22 Range/Units 06:44 04:49 04:35 WBC (4.8-10.8) K/ul RBC (4.20-5.40) M/uL Hgb (12.0-16.0) g/dl Hct (37.0-47.0) % MCV (80.0-100.0) fL MCH (25.0-34.0) pg MCHC (32.0-36.0) g/dL RDW Std Deviation (36.4-46.3) fL RDW Coeff of Wesley (11.5-14.5) % Plt Count (130-400) K/uL MPV (9.4-12.4) fL Immature Gran % (Auto) % Neut % (Auto) % Lymph % (Auto) % Bennett % (Auto) % Eos % (Auto) % Baso % (Auto) % Neut # (Auto) (1.40-6.50) K/uL Lymph # (Auto) (1.2-3.4) K/uL Bennett # (Auto) (0.11-0.59) K/uL Eos # (Auto) (0-0.50) K/uL Baso # (Auto) (0-0.2) K/uL Immature Gran # (Auto) (0.01-0.20) K/uL PT (9.0-12.0) Seconds INR (0.9-1.1) APTT (21.0-31.0) Seconds PTT Ratio Sodium (136-145) mmol/L Potassium (3.5-5.1) mmol/L Chloride (98-107) mmol/L Carbon Dioxide (21-32) mmol/L Anion Gap (3-11) BUN (6-23) mg/dl Creatinine (0.6-1.2) mg/dl Est Cr Clr Drug Dosing Est GFR ( Amer) ml/min Est GFR (Non-Af Amer) ml/min BUN/Creatinine Ratio (10-20) Glucose (70-99(Fasting)) mg/dl POC Glucose (70-99) mg/dl Lactate 3.6 H* 5.4 H* (0.4-2.0) mmol/L Calcium (8.5-10.1) mg/dl Magnesium (1.7-2.4) mg/dl Total Bilirubin (0.2-1.0) mg/dl AST (13-39) U/L ALT (7-52) U/L Alkaline Phosphatase (34-104) U/L Troponin I High Sens (0-14) pg/ml Total Protein (6.0-8.3) gm/dl Albumin (3.4-5.0) gm/dl Globulin (2.5-4.0) gm/dl Albumin/Globulin Ratio (0.9-2) Urine Color Dark Yellow Urine Appearance Clear (Clear) Urine pH 5.5 (4.5-7.5) Ur Specific Sterling > 1.045 H (1.000-1.030) Urine Protein Trace H (Negative) Urine Glucose (UA) Negative (Negative) Urine Ketones 3+ H (Negative) Urine Blood Negative (Negative) Urine Nitrite Negative (Negative) Urine Bilirubin 1+ H (Negative) Urine Urobilinogen Negative (Negative) Ur Leukocyte Esterase Negative (Negative) Urine WBC (Auto) 1-5 (0-5) /hpf Urine RBC (Auto) 0-4 (0-4) /hpf U Hyaline Cast (Auto) 1-5 (0-5) /lpf U Epithel Cells (Auto) 5-10 H (0-5) /lpf Urine Bacteria (Auto) Negative (Negative) Ethyl Alcohol mg/dL (<10.0) mg/dl SARS-CoV-2 (PCR) (Negative) Influenza Type A (PCR) (Neg) Influenza Type B (PCR) (Neg) RSV (RT-PCR) (Neg) 05/11/22 05/11/22 05/11/22 Range/Units 04:31 04:31 02:32 WBC 7.67 (4.8-10.8) K/ul RBC 3.52 L (4.20-5.40) M/uL Hgb 12.7 (12.0-16.0) g/dl Hct 35.9 L (37.0-47.0) % MCV 102.0 H (80.0-100.0) fL MCH 36.1 H (25.0-34.0) pg MCHC 35.4 (32.0-36.0) g/dL RDW Std Deviation 56.6 H (36.4-46.3) fL RDW Coeff of Wesley 15.1 H (11.5-14.5) % Plt Count 64 L (130-400) K/uL MPV 11.8 (9.4-12.4) fL Immature Gran % (Auto) 0.3 % Neut % (Auto) 88.1 % Lymph % (Auto) 7.2 % Bennett % (Auto) 4.3 % Eos % (Auto) 0.0 % Baso % (Auto) 0.1 % Neut # (Auto) 6.76 H (1.40-6.50) K/uL Lymph # (Auto) 0.55 L (1.2-3.4) K/uL Bennett # (Auto) 0.33 (0.11-0.59) K/uL Eos # (Auto) 0.00 (0-0.50) K/uL Baso # (Auto) 0.01 (0-0.2) K/uL Immature Gran # (Auto) 0.02 (0.01-0.20) K/uL PT (9.0-12.0) Seconds INR (0.9-1.1) APTT (21.0-31.0) Seconds PTT Ratio Sodium 137 (136-145) mmol/L Potassium 3.8 (3.5-5.1) mmol/L Chloride 98 (98-107) mmol/L Carbon Dioxide 18 L (21-32) mmol/L Anion Gap 21 H (3-11) BUN 5 L (6-23) mg/dl Creatinine 0.57 L (0.6-1.2) mg/dl Est Cr Clr Drug Dosing 120.3 Est GFR ( Amer) 120.1 ml/min Est GFR (Non-Af Amer) 103.6 ml/min BUN/Creatinine Ratio 8.8 L (10-20) Glucose 104 H (70-99(Fasting)) mg/dl POC Glucose 96 (70-99) mg/dl Lactate (0.4-2.0) mmol/L Calcium 7.6 L (8.5-10.1) mg/dl Magnesium 2.1 (1.7-2.4) mg/dl Total Bilirubin 5.6 H (0.2-1.0) mg/dl AST 218 H (13-39) U/L ALT 75 H (7-52) U/L Alkaline Phosphatase 80 (34-104) U/L Troponin I High Sens (0-14) pg/ml Total Protein 5.8 L (6.0-8.3) gm/dl Albumin 3.1 L (3.4-5.0) gm/dl Globulin 2.7 (2.5-4.0) gm/dl Albumin/Globulin Ratio 1.1 (0.9-2) Urine Color Urine Appearance (Clear) Urine pH (4.5-7.5) Ur Specific Sterling (1.000-1.030) Urine Protein (Negative) Urine Glucose (UA) (Negative) Urine Ketones (Negative) Urine Blood (Negative) Urine Nitrite (Negative) Urine Bilirubin (Negative) Urine Urobilinogen (Negative) Ur Leukocyte Esterase (Negative) Urine WBC (Auto) (0-5) /hpf Urine RBC (Auto) (0-4) /hpf U Hyaline Cast (Auto) (0-5) /lpf U Epithel Cells (Auto) (0-5) /lpf Urine Bacteria (Auto) (Negative) Ethyl Alcohol mg/dL (<10.0) mg/dl SARS-CoV-2 (PCR) (Negative) Influenza Type A (PCR) (Neg) Influenza Type B (PCR) (Neg) RSV (RT-PCR) (Neg) 05/11/22 05/11/22 05/10/22 Range/Units 00:45 00:45 22:47 WBC (4.8-10.8) K/ul RBC (4.20-5.40) M/uL Hgb (12.0-16.0) g/dl Hct (37.0-47.0) % MCV (80.0-100.0) fL MCH (25.0-34.0) pg MCHC (32.0-36.0) g/dL RDW Std Deviation (36.4-46.3) fL RDW Coeff of Wesley (11.5-14.5) % Plt Count (130-400) K/uL MPV (9.4-12.4) fL Immature Gran % (Auto) % Neut % (Auto) % Lymph % (Auto) % Bennett % (Auto) % Eos % (Auto) % Baso % (Auto) % Neut # (Auto) (1.40-6.50) K/uL Lymph # (Auto) (1.2-3.4) K/uL Bennett # (Auto) (0.11-0.59) K/uL Eos # (Auto) (0-0.50) K/uL Baso # (Auto) (0-0.2) K/uL Immature Gran # (Auto) (0.01-0.20) K/uL PT (9.0-12.0) Seconds INR (0.9-1.1) APTT (21.0-31.0) Seconds PTT Ratio Sodium 138 (136-145) mmol/L Potassium 3.4 L (3.5-5.1) mmol/L Chloride 97 L (98-107) mmol/L Carbon Dioxide 16 L (21-32) mmol/L Anion Gap 25 H (3-11) BUN 6 (6-23) mg/dl Creatinine 0.52 L (0.6-1.2) mg/dl Est Cr Clr Drug Dosing 130.2 Est GFR ( Amer) 123.8 ml/min Est GFR (Non-Af Amer) 106.8 ml/min BUN/Creatinine Ratio 11.5 (10-20) Glucose 62 L (70-99(Fasting)) mg/dl POC Glucose (70-99) mg/dl Lactate 7.4 H* (0.4-2.0) mmol/L Calcium 7.7 L (8.5-10.1) mg/dl Magnesium (1.7-2.4) mg/dl Total Bilirubin (0.2-1.0) mg/dl AST (13-39) U/L ALT (7-52) U/L Alkaline Phosphatase (34-104) U/L Troponin I High Sens (0-14) pg/ml Total Protein (6.0-8.3) gm/dl Albumin (3.4-5.0) gm/dl Globulin (2.5-4.0) gm/dl Albumin/Globulin Ratio (0.9-2) Urine Color Urine Appearance (Clear) Urine pH (4.5-7.5) Ur Specific Sterling (1.000-1.030) Urine Protein (Negative) Urine Glucose (UA) (Negative) Urine Ketones (Negative) Urine Blood (Negative) Urine Nitrite (Negative) Urine Bilirubin (Negative) Urine Urobilinogen (Negative) Ur Leukocyte Esterase (Negative) Urine WBC (Auto) (0-5) /hpf Urine RBC (Auto) (0-4) /hpf U Hyaline Cast (Auto) (0-5) /lpf U Epithel Cells (Auto) (0-5) /lpf Urine Bacteria (Auto) (Negative) Ethyl Alcohol mg/dL 53.0 H (<10.0) mg/dl SARS-CoV-2 (PCR) (Negative) Influenza Type A (PCR) (Neg) Influenza Type B (PCR) (Neg) RSV (RT-PCR) (Neg) 05/10/22 05/10/22 05/10/22 Range/Units 22:47 21:03 21:00 WBC (4.8-10.8) K/ul RBC (4.20-5.40) M/uL Hgb (12.0-16.0) g/dl Hct (37.0-47.0) % MCV (80.0-100.0) fL MCH (25.0-34.0) pg MCHC (32.0-36.0) g/dL RDW Std Deviation (36.4-46.3) fL RDW Coeff of Wesley (11.5-14.5) % Plt Count (130-400) K/uL MPV (9.4-12.4) fL Immature Gran % (Auto) % Neut % (Auto) % Lymph % (Auto) % Bennett % (Auto) % Eos % (Auto) % Baso % (Auto) % Neut # (Auto) (1.40-6.50) K/uL Lymph # (Auto) (1.2-3.4) K/uL Bennett # (Auto) (0.11-0.59) K/uL Eos # (Auto) (0-0.50) K/uL Baso # (Auto) (0-0.2) K/uL Immature Gran # (Auto) (0.01-0.20) K/uL PT 14.1 H (9.0-12.0) Seconds INR 1.3 H (0.9-1.1) APTT 31.3 H (21.0-31.0) Seconds PTT Ratio 1.1 Sodium (136-145) mmol/L Potassium (3.5-5.1) mmol/L Chloride (98-107) mmol/L Carbon Dioxide (21-32) mmol/L Anion Gap (3-11) BUN (6-23) mg/dl Creatinine (0.6-1.2) mg/dl Est Cr Clr Drug Dosing Est GFR ( Amer) ml/min Est GFR (Non-Af Amer) ml/min BUN/Creatinine Ratio (10-20) Glucose (70-99(Fasting)) mg/dl POC Glucose (70-99) mg/dl Lactate (0.4-2.0) mmol/L Calcium (8.5-10.1) mg/dl Magnesium 1.6 L (1.7-2.4) mg/dl Total Bilirubin (0.2-1.0) mg/dl AST (13-39) U/L ALT (7-52) U/L Alkaline Phosphatase (34-104) U/L Troponin I High Sens 6.7 (0-14) pg/ml Total Protein (6.0-8.3) gm/dl Albumin (3.4-5.0) gm/dl Globulin (2.5-4.0) gm/dl Albumin/Globulin Ratio (0.9-2) Urine Color Urine Appearance (Clear) Urine pH (4.5-7.5) Ur Specific Sterling (1.000-1.030) Urine Protein (Negative) Urine Glucose (UA) (Negative) Urine Ketones (Negative) Urine Blood (Negative) Urine Nitrite (Negative) Urine Bilirubin (Negative) Urine Urobilinogen (Negative) Ur Leukocyte Esterase (Negative) Urine WBC (Auto) (0-5) /hpf Urine RBC (Auto) (0-4) /hpf U Hyaline Cast (Auto) (0-5) /lpf U Epithel Cells (Auto) (0-5) /lpf Urine Bacteria (Auto) (Negative) Ethyl Alcohol mg/dL (<10.0) mg/dl SARS-CoV-2 (PCR) NEGATIVE (Negative) Influenza Type A (PCR) Negative (Neg) Influenza Type B (PCR) Negative (Neg) RSV (RT-PCR) Negative (Neg) 05/10/22 05/10/22 Range/Units 21:00 21:00 WBC 7.58 (4.8-10.8) K/ul RBC 4.13 L (4.20-5.40) M/uL Hgb 15.0 (12.0-16.0) g/dl Hct 42.2 (37.0-47.0) % MCV 102.2 H (80.0-100.0) fL MCH 36.3 H (25.0-34.0) pg MCHC 35.5 (32.0-36.0) g/dL RDW Std Deviation 58.4 H (36.4-46.3) fL RDW Coeff of Wesley 15.5 H (11.5-14.5) % Plt Count 91 L (130-400) K/uL MPV 11.3 (9.4-12.4) fL Immature Gran % (Auto) 0.8 % Neut % (Auto) 83.4 % Lymph % (Auto) 11.6 % Bennett % (Auto) 3.7 % Eos % (Auto) 0.1 % Baso % (Auto) 0.4 % Neut # (Auto) 6.32 (1.40-6.50) K/uL Lymph # (Auto) 0.88 L (1.2-3.4) K/uL Bennett # (Auto) 0.28 (0.11-0.59) K/uL Eos # (Auto) 0.01 (0-0.50) K/uL Baso # (Auto) 0.03 (0-0.2) K/uL Immature Gran # (Auto) 0.06 (0.01-0.20) K/uL PT (9.0-12.0) Seconds INR (0.9-1.1) APTT (21.0-31.0) Seconds PTT Ratio Sodium 138 (136-145) mmol/L Potassium 3.3 L (3.5-5.1) mmol/L Chloride 94 L (98-107) mmol/L Carbon Dioxide 16 L (21-32) mmol/L Anion Gap 28 H (3-11) BUN 6 (6-23) mg/dl Creatinine 0.62 (0.6-1.2) mg/dl Est Cr Clr Drug Dosing Not Reportable Est GFR ( Amer) 116.8 ml/min Est GFR (Non-Af Amer) 100.8 ml/min BUN/Creatinine Ratio 9.7 L (10-20) Glucose 69 L (70-99(Fasting)) mg/dl POC Glucose (70-99) mg/dl Lactate (0.4-2.0) mmol/L Calcium 8.6 (8.5-10.1) mg/dl Magnesium (1.7-2.4) mg/dl Total Bilirubin 5.6 H (0.2-1.0) mg/dl AST 284 H (13-39) U/L ALT 93 H (7-52) U/L Alkaline Phosphatase 102 (34-104) U/L Troponin I High Sens 7.1 (0-14) pg/ml Total Protein 7.1 (6.0-8.3) gm/dl Albumin 3.7 (3.4-5.0) gm/dl Globulin 3.4 (2.5-4.0) gm/dl Albumin/Globulin Ratio 1.1 (0.9-2) Urine Color Urine Appearance (Clear) Urine pH (4.5-7.5) Ur Specific Sterling (1.000-1.030) Urine Protein (Negative) Urine Glucose (UA) (Negative) Urine Ketones (Negative) Urine Blood (Negative) Urine Nitrite (Negative) Urine Bilirubin (Negative) Urine Urobilinogen (Negative) Ur Leukocyte Esterase (Negative) Urine WBC (Auto) (0-5) /hpf Urine RBC (Auto) (0-4) /hpf U Hyaline Cast (Auto) (0-5) /lpf U Epithel Cells (Auto) (0-5) /lpf Urine Bacteria (Auto) (Negative) Ethyl Alcohol mg/dL (<10.0) mg/dl SARS-CoV-2 (PCR) (Negative) Influenza Type A (PCR) (Neg) Influenza Type B (PCR) (Neg) RSV (RT-PCR) (Neg) Diagnostic Findings CT OF THE ABDOMEN AND PELVIS WITH CONTRAST CLINICAL HISTORY: Severe abdominal pain. COMPARISON STUDY: MRCP January 30, [address] of the abdomen and pelvis March 01, 2022. TECHNIQUE: Following IV administration of 86 mL of Optiray, axial images of the abdomen and pelvis were obtained from the lung bases to the proximal femurs. Images were reviewed in the axial, sagittal, and coronal planes. IV contrast was administered without complication. Automated exposure control was utilized for the study. A dose lowering technique was utilized adhering to the principles of ALARA. CT DOSE: 872.72 mGy.cm FINDINGS: Severe hepatic steatosis has progressed since prior CT. The liver is cirrhotic. No hepatic lesions are identified on this venous phase exam. There is no pneumatosis, free air or portal venous gas. Varices formation is again noted, including paraesophageal varices. There is mild splenomegaly. Trace ascites is present. The main, left and right portal veins are patent. There are gallstones within the gallbladder. Gallbladder is contracted. Adrenal glands, kidneys and pancreas are unremarkable. There is wall thickening of the ascending colon and transverse colon. There is minimal pericolonic stranding. There is no evidence for a bowel obstruction. The appendix is not visualized. Major vasculature is patent. There are no acute fractures. IMPRESSION: 1. Cirrhosis and progression of hepatic steatosis. Manifestations of portal hypertension including splenomegaly, varices formation and trace ascites. 2. Wall thickening of the ascending colon and transverse colon. This is likely related to portal hypertension however a nonspecific colitis could appear similar. 3. Cholelithiasis. 4. No bowel obstruction.
[2022-05-11] MEDS: LACTATED RINGER'S 1,000 ML IV SCH ×2 (10:08→19:49)
[2022-05-11] MEDS: PANTOprazole 40 MG TAB PO SCH (10:08)
[2022-05-11] MEDS: PIPERACILLIN/TAZOBACTAM 3.375 GM in DEXTROSE 5% 100 ML IV SCH ×2 (10:08→15:24)
[2022-05-11] MEDS: FOLIC ACID 1 MG TAB PO SCH (10:08)
[2022-05-11] MEDS: MULTIVITAMIN TAB PO SCH (10:08)
--- NOTE | 2022-05-11 15:28 | Electrocardiogram Report ---
Test Reason : Blood Pressure : / mmHG Vent. Rate : 112 BPM Atrial Rate : 112 BPM P-R Int : 148 ms QRS Dur : 086 ms QT Int : 350 ms P-R-T Axes : 078 057 045 degrees QTc Int : 477 ms Sinus tachycardia Otherwise normal ECG When compared with ECG of 31-JAN-2019 10:32, No significant change was found Confirmed by Kirt Quintero ([id number]) on 05/11/2022 3:28:16 PM Referred By: REFERRED SELF Confirmed By:Kirt Quintero
--- NOTE | 2022-05-11 17:51 | Communication Note ---
Date of Service: May 11, 2022 Pt was seen and examined for follow up of abdominal pain associated with nausea/vomiting and diarrhea. at bedside. Pt said that her abdominal chantel n improves. She said that diarrhea is slowing diet and has not vomited much compare to yesterday. CT abd/pelvis showed wall thickening of the ascending colon and transverse colon. This is likely related to portal hypertension however a nonspecific colitis could appear similar. LFT elevated with AST 218 and ALT 75 and Lactic acid was elevated at 7.4 and normalized now. Surgery on board recommended no acute surgical intervention at this time. Continue conservative management with IV fluids, IV antibiotics, bowel rest. Continue pain control. Continue monitor LFT and electrolytes. MD Juan Carlos
[2022-05-12] MEDS: PIPERACILLIN/TAZOBACTAM 3.375 GM in DEXTROSE 5% 100 ML IV SCH ×2 (00:27→08:55)
[2022-05-12] MEDS ORDERED: NSS + 20MEQ KCL 20 MEQ/1,000 ML BAG IV SCH (00:30)
[2022-05-12 02:52] LABS: Cdiff Antigen Positive; Cdiff Toxin A+B Negative Cdiff Toxin (Negative); Cdiff Toxin B Gene (2yr or >) Positive Cdiff Gene (Neg)
[2022-05-12 08:22] LABS: Hematocrit (blood only) 34.5 % (37.0-47.0); Hemoglobin 11.9 g/dl (12.0-16.0); Mean Corpuscular Hemoglobin 35.6 pg (25.0-34.0); Mean Corpuscular Hgb Conc 34.5 g/dL (32.0-36.0); Mean Corpuscular Volume 103.3 fL (80.0-100.0); Mean Platelet Volume 11.1 fL (9.4-12.4); Platelet Count 52 K/uL (130-400); RDW Standard Deviation 56.9 fL (36.4-46.3); Red Blood Count 3.34 M/uL (4.20-5.40); White Blood Count 3.92 K/ul (4.8-10.8)
[2022-05-12 08:30] LABS: Anion Gap 9 (3-11); BUN Creatinine Ratio 13.4 (10-20); Blood Urea Nitrogen 9 mg/dl (6-23); Calcium 7.7 mg/dl (8.5-10.1); Carbon Dioxide 29 mmol/L (21-32); Chloride 99 mmol/L (98-107); Creatinine Clr Calc Pharmacy 102.8 ml/min; Est GFR (African American) 113.9 ml/min; Est GFR (Non-African American) 98.3 ml/min; Glucose 88 mg/dl (70-99(Fasting)); Potassium 3.4 mmol/L (3.5-5.1); Sodium 137 mmol/L (136-145)
--- NOTE | 2022-05-12 08:48 | Hospitalist Progress Note ---
Date of Service May 12, 2022 Assessment & Plan (1) Ischemic colitis: Plan: Medical telemetry Zosyn on admission Bowel rest lactic acid elevated on admission -> now normalized General surgery consult Re: Possible ischemic colitis (ER provider already in touch with Dr. Abbott. Seen by gen. surgery - conservative management recommended with IV fluids, IV antibiotics, bowel rest. Seen in follow up by surgery - recommend to stop Abx and start diet Pt is tolerating diet Stool studies - negative Pt feels well, only had one BM yesterday and one today, she wants to go home Electrolytes checked and repleted DT precautions, HEAVENLY S if with signs of alcohol withdrawal No signs of withdrawal Appropriate to hold home diuretic until patient euvolemic Chronic conditions: hx chronic diastolic heart failure (EF 55 to 60%, TTE 2020) hx valvular heart disease (moderate MR, mild TR) COPD, pulmonary hypertension, lung status at baseline alcoholic cirrhosis, hx portal hypertension, no overt decompensation Alcoholic hepatitis, good prognosis with Madrey's DF score of 17.6 points chronic thrombocytopenia secondary to cirrhosis Hypokalemia, hypomagnesemia secondary to emesis/diarrhea symptoms past tobacco abuse DVT prophylaxis. SCDs Re: Thrombocytopenia Full code Admission and Anticipated Discharge Date Admission Date: May 11, 2022 Subjective Pt seen in follow up of abd. pain, nausea, vomiting, diarrhea, colitis on CT Surgery consulted - conservative management recommended Pt is currently feeling well, only had one BM yesterday and one today, she would like to go home Denies any fever,chills, chest pain, shortness of breath Denies any abd. pain Review of Systems Review of Systems: All systems reviewed & are unremarkable except as noted in Subjective Physical Exam 2 Physical Exam: GENERAL: obese F in NAD SKIN: Normal color, warm HEENT: NC/AT, EOMI, PERRL NECK : Supple, no tenderness CHEST : CTA, no tenderness HEART : RRR, no obvious murmurs ABDOMEN: Some distention, nontender, soft, + bowel sounds EXTREMITIES : Minimal LE swelling, no LE tenderness, no other conspicuous deformities noted NEUROLOGIC : Coherent, no facial asymmetry, speech fluent, moves extremities Results & Data Results & Data ([facility]) Vital Signs (Past 12 Hours) Vital Signs Temp Pulse Pulse Resp BP Pulse Ox O2 Del Method 05/12/22 07:59 36.5 C 97 H 16 109/70 94 Room Air 05/12/22 07:12 102 H 05/12/22 03:57 96 Nasal Cannula 05/12/22 03:05 37.0 C 97 H 18 92/57 L 93 Room Air 05/11/22 22:00 104 H 05/11/22 22:55 37.0 C 97 H 18 91/51 L 95 Room Air O2 Flow Rate 05/12/22 07:59 05/12/22 07:12 05/12/22 03:57 2 05/12/22 03:05 05/11/22 22:00 05/11/22 22:55 Laboratory Results 05/12/22 05/12/22 05/12/22 Range/Units 10:40 07:57 07:57 WBC 3.92 L (4.8-10.8) K/ul RBC 3.34 L (4.20-5.40) M/uL Hgb 11.9 L (12.0-16.0) g/dl Hct 34.5 L (37.0-47.0) % MCV 103.3 H (80.0-100.0) fL MCH 35.6 H (25.0-34.0) pg MCHC 34.5 (32.0-36.0) g/dL RDW Std Deviation 56.9 H (36.4-46.3) fL RDW Coeff of Wesley 15.0 H (11.5-14.5) % Plt Count 52 L (130-400) K/uL MPV 11.1 (9.4-12.4) fL Sodium 137 (136-145) mmol/L Potassium 3.4 L (3.5-5.1) mmol/L Chloride 99 (98-107) mmol/L Carbon Dioxide 29 (21-32) mmol/L Anion Gap 9 (3-11) BUN 9 (6-23) mg/dl Creatinine 0.67 (0.6-1.2) mg/dl Est Cr Clr Drug Dosing 102.8 ml/min Est GFR ( Amer) 113.9 ml/min Est GFR (Non-Af Amer) 98.3 ml/min BUN/Creatinine Ratio 13.4 (10-20) Glucose 88 (70-99(Fasting)) mg/dl Calcium 7.7 L (8.5-10.1) mg/dl Phosphorus < 1.0 L* (2.5-4.9) mg/dl Magnesium 2.0 (1.7-2.4) mg/dl Total Bilirubin 5.2 H (0.2-1.0) mg/dl AST 193 H (13-39) U/L ALT 73 H (7-52) U/L Alkaline Phosphatase 78 (34-104) U/L Total Protein 5.5 L (6.0-8.3) gm/dl Albumin 2.9 L (3.4-5.0) gm/dl Globulin 2.6 (2.5-4.0) gm/dl Albumin/Globulin Ratio 1.1 (0.9-2) Stl C. cayetanensis PCR Not Detected Stool Rotavirus A PCR Not Detected Stl Adenov F 40/41 PCR Not Detected Stool Astrovirus (PCR) Not Detected Stool Campylobacter PCR Not Detected Stl C. diff Tox B Gene (Neg) Stl C.difficile Tox A&B (Negative) Stool Cryptosporidium PCR Not Detected Stl E.coli Shiga Tox PCR Not Detected Stool E coli O157 PCR Stl Enterotoxigenic E PCR Not Detected Stool EPEC (PCR) Not Detected Stool EAEC (PCR) Not Detected Stl E. histolytica PCR Not Detected Stool Giardia Lamblia PCR Not Detected Stool Salmonella PCR Not Detected Stool Sapovirus (PCR) Not Detected Stl P. shigelloides PCR Not Detected Stl Shigella/EIEC PCR Not Detected St Y.enterocolitica PCR Not Detected Stool Vibrio (PCR) Not Detected Stl Vibrio cholerae PCR Not Detected Stl Norovirus GI/GII PCR Not Detected 05/12/22 05/12/22 Range/Units :03 05: WBC (4.8-10.8) K/ul RBC (4.20-5.40) M/uL Hgb (12.0-16.0) g/dl Hct (37.0-47.0) % MCV (80.0-100.0) fL MCH (25.0-34.0) pg MCHC (32.0-36.0) g/dL RDW Std Deviation (36.4-46.3) fL RDW Coeff of Wesley (11.5-14.5) % Plt Count (130-400) K/uL MPV (9.4-12.4) fL Sodium (136-145) mmol/L Potassium (3.5-5.1) mmol/L Chloride (98-107) mmol/L Carbon Dioxide (21-32) mmol/L Anion Gap (3-11) BUN (6-23) mg/dl Creatinine (0.6-1.2) mg/dl Est Cr Clr Drug Dosing ml/min Est GFR ( Amer) ml/min Est GFR (Non-Af Amer) ml/min BUN/Creatinine Ratio (10-20) Glucose (70-99(Fasting)) mg/dl Calcium (8.5-10.1) mg/dl Phosphorus (2.5-4.9) mg/dl Magnesium (1.7-2.4) mg/dl Total Bilirubin (0.2-1.0) mg/dl AST (13-39) U/L ALT (7-52) U/L Alkaline Phosphatase (34-104) U/L Total Protein (6.0-8.3) gm/dl Albumin (3.4-5.0) gm/dl Globulin (2.5-4.0) gm/dl Albumin/Globulin Ratio (0.9-2) Stl C. cayetanensis PCR Cancelled Stool Rotavirus A PCR Cancelled Stl Adenov F 40/41 PCR Cancelled Stool Astrovirus (PCR) Cancelled Stool Campylobacter PCR Cancelled Stl C. diff Tox B Gene Positive Cdiff Gene H (Neg) Stl C.difficile Tox A&B Negative Cdiff Toxin (Negative) Stool Cryptosporidium PCR Cancelled Stl E.coli Shiga Tox PCR Cancelled Stool E coli O157 PCR Cancelled Stl Enterotoxigenic E PCR Cancelled Stool EPEC (PCR) Cancelled Stool EAEC (PCR) Cancelled Stl E. histolytica PCR Cancelled Stool Giardia Lamblia PCR Cancelled Stool Salmonella PCR Cancelled Stool Sapovirus (PCR) Cancelled Stl P. shigelloides PCR Cancelled Stl Shigella/EIEC PCR Cancelled St Y.enterocolitica PCR Cancelled Stool Vibrio (PCR) Cancelled Stl Vibrio cholerae PCR Cancelled Stl Norovirus GI/GII PCR Cancelled Medications Administered Current Inpatient Medications Acetaminophen (Acetaminophen 325 Mg Tab) 325 mg PO Q6H PRN PRN Reason: Mild Pain Stop: 06/10/22 01:37 Fluticasone Propionate (Fluticasone Propionate Na Spr 16 Gm Btl) 2 sprays NA DAILY PRN PRN Reason: Congestion Stop: 06/10/22 03:06 Folic Acid (Folic Acid 1 Mg Tab) 1 mg PO [facility] Stop: 06/10/22 08:59 Last Admin: 05/11/22 10:08 Dose: 1 mg Promethazine HCl 12.5 mg/ (Sodium Chloride) 50.5 mls @ 202 mls/hr IV Q6H PRN PRN Reason: Nausea And Vomiting Stop: 06/10/22 01:37 Piperacillin Sod/Tazobactam (Sod 3.375 gm/ Dextrose) 115 mls @ 28.75 mls/hr IV Q8H [facility]; Protocol Stop: 05/21/22 07:59 Last Infusion: 05/12/22 04:43 Dose: Infused Potassium Chloride/Sodium Chloride (Normal Saline W/20 Meq Kcl) 20 meq in 1,000 mls @ 80 mls/hr IV .[id number] [facility]; Protocol Stop: 06/11/22 00:29 Last Admin: 05/12/22 01:03 Dose: 80 mls/hr Lorazepam (Lorazepam 2 Mg/1 Ml Vial) 0.5 mg IV Q6H PRN PRN Reason: Anxiety Stop: 06/10/22 03:06 Morphine Sulfate (Morphine Sulfate 4 Mg/Ml 1 Ml Carp\Vial) 4 mg IV Q4H PRN PRN Reason: Pain Stop: 05/25/22 02:14 Last Admin: 05/11/22 02:19 Dose: 4 mg Multivitamins (Multivitamin Tab) 1 tab PO [facility] Stop: 06/10/22 08:59 Last Admin: 05/11/22 10:08 Dose: 1 tab Oxycodone HCl (Oxycodone Hcl Ir 5 Mg Tab (Immediate Release)) 5 mg PO Q4H PRN PRN Reason: Pain Stop: 05/25/22 01:37 Pantoprazole Sodium (Pantoprazole 40 Mg Tab) 40 mg PO DAILY [facility] Stop: 06/10/22 08:59 Last Admin: 05/11/22 10:08 Dose: 40 mg Thiamine HCl (Thiamine Hcl 100 Mg Tab) 100 mg PO [facility] Stop: 06/11/22 08:59
[2022-05-12] MEDS ORDERED: POTASSIUM CHLORIDE CRTAB 20 MEQ TABCR PO STA (08:49)
[2022-05-12] MEDS: PANTOprazole 40 MG TAB PO SCH (08:55)
[2022-05-12] MEDS: FOLIC ACID 1 MG TAB PO SCH (08:55)
[2022-05-12] MEDS: MULTIVITAMIN TAB PO SCH (08:55)
[2022-05-12] MEDS ORDERED: THIAMINE HCL 100 MG TAB PO SCH (09:00)
[2022-05-12 09:23] LABS: Alanine Aminotransferase 73 U/L (7-52); Albumin Globulin Ratio 1.1 (0.9-2); Albumin Level 2.9 gm/dl (3.4-5.0); Alkaline Phosphatase 78 U/L (34-104); Aspartate Aminotransferase 193 U/L (13-39); Bilirubin,Total 5.2 mg/dl (0.2-1.0); Globulin 2.6 gm/dl (2.5-4.0); Total Protein 5.5 gm/dl (6.0-8.3)
--- NOTE | 2022-05-12 09:43 | Surgery Progress Note ---
Date of Service May 12, 2022 Assessment & Plan (1) Colitis: Plan: ? possible ischemic due to GI losses vs Infectious colitis Lactic acid normalized abd pain resolved c. diff gene positive but toxin negative (2) Nausea vomiting and diarrhea: Plan: resolved (3) Acute dehydration: (4) Hypomagnesemia: Plan 57 year-old female with history of alcoholism and cirrhosis presented to ED with 1 day history of abdominal pain, nausea, vomiting, and diarrhea. CT scan with possible infectious vs ischemic colitis of the ascending and right transverse colon. Lactic acid elevated at 7.4 Plan: No surgical intervention recommended at this time Okay for full liquids can d/c IV zosyn Can discontinue IV fluids if taking PO well continue medical management Should have low fiber diet for 1-2 weeks at discharge Our services signing off, please call with any questions/concerns. Dr. Kline was present during my examination and agrees with above. Admission and Anticipated Discharge Date Admission Date: May 11, 2022 Subjective feeling great today no abdominal pain no nausea no vomiting really hungry had bowel movement yesterday, no diarrhea Physical Exam Constitutional: WD/WN, vitals as above + obese, cooperative and comfortable; no acute distress and not ill appearing Respiratory: normal respiratory effort; no respiratory distress and no labored breathing Gastrointestinal (Abdomen): Inspection/Auscultation: abdomen normal to inspection and + hypoactive bowel sounds; abdomen not distended and + abnormal bowel sounds Percussion/Palpation: abdomen soft; abdomen nontender, no guarding and abdomen not rigid Skin: no rashes, warm and dry Psychiatric: A+Ox3, euthymic affect Results & Data ([facility]) Vital Signs (Past 12 Hours) Vital Signs Temp Pulse Pulse Resp BP Pulse Ox O2 Del Method 05/12/22 07:59 36.5 C 97 H 16 109/70 94 Room Air 05/12/22 07:12 102 H 05/12/22 03:57 96 Nasal Cannula 05/12/22 03:05 37.0 C 97 H 18 92/57 L 93 Room Air 05/11/22 22:00 104 H 05/11/22 22:55 37.0 C 97 H 18 91/51 L 95 Room Air O2 Flow Rate 05/12/22 07:59 05/12/22 07:12 05/12/22 03:57 2 05/12/22 03:05 05/11/22 22:00 05/11/22 22:55 Laboratory Results 05/12/22 05/12/22 05/12/22 Range/Units 07:57 07:57 01:23 WBC 3.92 L (4.8-10.8) K/ul RBC 3.34 L (4.20-5.40) M/uL Hgb 11.9 L (12.0-16.0) g/dl Hct 34.5 L (37.0-47.0) % MCV 103.3 H (80.0-100.0) fL MCH 35.6 H (25.0-34.0) pg MCHC 34.5 (32.0-36.0) g/dL RDW Std Deviation 56.9 H (36.4-46.3) fL RDW Coeff of Wesley 15.0 H (11.5-14.5) % Plt Count 52 L (130-400) K/uL MPV 11.1 (9.4-12.4) fL Sodium 137 (136-145) mmol/L Potassium 3.4 L (3.5-5.1) mmol/L Chloride 99 (98-107) mmol/L Carbon Dioxide 29 (21-32) mmol/L Anion Gap 9 (3-11) BUN 9 (6-23) mg/dl Creatinine 0.67 (0.6-1.2) mg/dl Est Cr Clr Drug Dosing 102.8 ml/min Est GFR ( Amer) 113.9 ml/min Est GFR (Non-Af Amer) 98.3 ml/min BUN/Creatinine Ratio 13.4 (10-20) Glucose 88 (70-99(Fasting)) mg/dl Lactate (0.4-2.0) mmol/L Calcium 7.7 L (8.5-10.1) mg/dl Phosphorus Pending Magnesium 2.0 (1.7-2.4) mg/dl Total Bilirubin 5.2 H (0.2-1.0) mg/dl AST 193 H (13-39) U/L ALT 73 H (7-52) U/L Alkaline Phosphatase 78 (34-104) U/L Total Protein 5.5 L (6.0-8.3) gm/dl Albumin 2.9 L (3.4-5.0) gm/dl Globulin 2.6 (2.5-4.0) gm/dl Albumin/Globulin Ratio 1.1 (0.9-2) Stl C. cayetanensis PCR Stool Rotavirus A PCR Stl Adenov F PCR Stool Astrovirus (PCR) Stool Campylobacter PCR Stl C. diff Tox B Gene Positive Cdiff Gene H (Neg) Stl C.difficile Tox A&B Negative Cdiff Toxin (Negative) Stool Cryptosporidium PCR Stl E.coli Shiga Tox PCR Stool E coli O157 PCR Stl Enterotoxigenic E PCR Stool EPEC (PCR) Stool EAEC (PCR) Stl E. histolytica PCR Stool Giardia Lamblia PCR Stool Salmonella PCR Stool Sapovirus (PCR) Stl P. shigelloides PCR Stl Shigella/EIEC PCR St Y.enterocolitica PCR Stool Vibrio (PCR) Stl Vibrio cholerae PCR Stl Norovirus GI/GII PCR 05/12/22 05/11/22 Range/Units 01:23 12:07 WBC (4.8-10.8) K/ul RBC (4.20-5.40) M/uL Hgb (12.0-16.0) g/dl Hct (37.0-47.0) % MCV (80.0-100.0) fL MCH (25.0-34.0) pg MCHC (32.0-36.0) g/dL RDW Std Deviation (36.4-46.3) fL RDW Coeff of Wesley (11.5-14.5) % Plt Count (130-400) K/uL MPV (9.4-12.4) fL Sodium (136-145) mmol/L Potassium (3.5-5.1) mmol/L Chloride (98-107) mmol/L Carbon Dioxide (21-32) mmol/L Anion Gap (3-11) BUN (6-23) mg/dl Creatinine (0.6-1.2) mg/dl Est Cr Clr Drug Dosing ml/min Est GFR ( Amer) ml/min Est GFR (Non-Af Amer) ml/min BUN/Creatinine Ratio (10-20) Glucose (70-99(Fasting)) mg/dl Lactate 1.2 (0.4-2.0) mmol/L Calcium (8.5-10.1) mg/dl Phosphorus Magnesium (1.7-2.4) mg/dl Total Bilirubin (0.2-1.0) mg/dl AST (13-39) U/L ALT (7-52) U/L Alkaline Phosphatase (34-104) U/L Total Protein (6.0-8.3) gm/dl Albumin (3.4-5.0) gm/dl Globulin (2.5-4.0) gm/dl Albumin/Globulin Ratio (0.9-2) Stl C. cayetanensis PCR Cancelled Stool Rotavirus A PCR Cancelled Stl Adenov F 40 PCR Cancelled Stool Astrovirus (PCR) Cancelled Stool Campylobacter PCR Cancelled Stl C. diff Tox B Gene (Neg) Stl C.difficile Tox A&B (Negative) Stool Cryptosporidium PCR Cancelled Stl E.coli Shiga Tox PCR Cancelled Stool E coli O157 PCR Cancelled Stl Enterotoxigenic E PCR Cancelled Stool EPEC (PCR) Cancelled Stool EAEC (PCR) Cancelled Stl E. histolytica PCR Cancelled Stool Giardia Lamblia PCR Cancelled Stool Salmonella PCR Cancelled Stool Sapovirus (PCR) Cancelled Stl P. shigelloides PCR Cancelled Stl Shigella/EIEC PCR Cancelled St Y.enterocolitica PCR Cancelled Stool Vibrio (PCR) Cancelled Stl Vibrio cholerae PCR Cancelled Stl Norovirus GI/GII PCR Cancelled
[2022-05-12 10:17] LABS: Phosphorus < 1.0 mg/dl (2.5-4.9)
[2022-05-12] MEDS ORDERED: POTASSIUM PHOS 3 MMOL/1 ML INFUSION IV STA (10:54)
[2022-05-12] MEDS ORDERED: POTASSIUM PHOSPHATE 9 MMOL in SODIUM CHLORIDE 0.9% 250 ML IV ONE (11:00)
[2022-05-12 12:25] LABS: Adenovirus F 40/41 PCR Not Detected (NotDetected); Astrovirus PCR Not Detected (NotDetected); Campylobacter PCR Not Detected (NotDetected); Cryptosporidium PCR Not Detected (NotDetected); Cyclospora cayetanensis PCR Not Detected (NotDetected); Entamoeba histolytica PCR Not Detected (NotDetected); Enteroaggregative E.coli(EAEC) Not Detected (NotDetected); Enteropathogenic E.coli (EPEC) Not Detected (NotDetected); Enterotoxigenic E.coli (ETEC) Not Detected (NotDetected); Giardia lamblia PCR Not Detected (NotDetected); Norovirus GI/GII PCR Not Detected (NotDetected); Plesiomonas shigelloides PCR Not Detected (NotDetected); Rotavirus A PCR Not Detected (NotDetected); Salmonella PCR Not Detected (NotDetected); Sapovirus PCR Not Detected (NotDetected); Shiga-like Toxin E.coli (STEC) Not Detected (NotDetected); Shigella/Enteroinvasive E.coli Not Detected (NotDetected); Vibrio cholerae PCR Not Detected (NotDetected); Vibrio species PCR Not Detected (NotDetected); Yersinia enterocolitica PCR Not Detected (NotDetected)
--- NOTE | 2022-05-12 13:05 | Discharge Summary ---
Date of Service May 12, 2022 Admission HPI Per Admitting Provider History obtained from patient, family, and records. Medical history significant for chronic diastolic heart failure (EF 55 to 60%, TTE 2020), valvular heart disease (moderate MR, mild TR), pulmonary hypertension, COPD, history diffuse pulmonary alveolar hemorrhage, alcoholic cirrhosis, portal hypertension, GERD, anxiety, alcohol abuse, chronic thrombocytopenia, past tobacco abuse. 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 One day history of generalized abdominal pain followed by nausea, vomiting, watery diarrhea symptoms. No known sick contacts. No fever, no chills. No recent antibiotic Rx/out-of-town travel.. Patient denies headache, chest pain, SOB. Patient brought by family to the ER for evaluation. Medical History as above Surgical History : Breast biopsy, BTL, appendectomy Family History : Heart disease, breast cancer, DM Personal/Social history : Past tobacco abuse, alcohol abuse as per records, currently unemployed Admission Exam Per Admitting Provider GENERAL: Slightly uncomfortable, obese, no respiratory distress SKIN: Normal color, warm HEENT: Bespectacled, [place] palpebral conjunctivae, no ptosis, dry buccal mucosa NECK : Supple, no tenderness CHEST : CTA, no tenderness HEART : Tachycardic, no obvious murmurs ABDOMEN: Some distention, generalized abdominal tenderness EXTREMITIES : Minimal LE swelling, no LE tenderness, no other conspicuous deformities noted NEUROLOGIC : Coherent, no facial asymmetry, no other gross focality Principal Diagnosis Nausea, vomiting Electrolyte abnormalities Elevated LFT Possible colitis on CT imaging Discharge Exam GENERAL: obese F in NAD SKIN: Normal color, warm HEENT: NC/AT, EOMI, PERRL NECK : Supple, no tenderness CHEST : CTA, no tenderness HEART : RRR, no obvious murmurs ABDOMEN: Some distention, nontender, soft, + bowel sounds EXTREMITIES : Minimal LE swelling, no LE tenderness, no other conspicuous deformities noted NEUROLOGIC : Coherent, no facial asymmetry, speech fluent, moves extremities Discharge Data Allergies Allergy/AdvReac Type Severity Reaction Status Date / Time propoxyphene AdvReac Intermediate Vomiting Verified 05/10/22 23:08 Consultations 05/11/22 00:59 ED Decision to Admit Stat 05/11/22 06:00 Consult General Surgery Routine Ordered Studies 05/10/22 22:42 CT abd pelvis IV con only Urgent FINDINGS: Severe hepatic steatosis has progressed since prior CT. The liver is cirrhotic. No hepatic lesions are identified on this venous phase exam. There is no pneumatosis, free air or portal venous gas. Varices formation is again noted, including paraesophageal varices. There is mild splenomegaly. Trace ascites is present. The main, left and right portal veins are patent. There are gallstones within the gallbladder. Gallbladder is contracted. Adrenal glands, kidneys and pancreas are unremarkable. There is wall thickening of the ascending colon and transverse colon. There is minimal pericolonic stranding. There is no evidence for a bowel obstruction. The appendix is not visualized. Major vasculature is patent. There are no acute fractures. IMPRESSION: 1. Cirrhosis and progression of hepatic steatosis. Manifestations of portal hypertension including splenomegaly, varices formation and trace ascites. 2. Wall thickening of the ascending colon and transverse colon. This is likely related to portal hypertension however a nonspecific colitis could appear similar. 3. Cholelithiasis. 4. No bowel obstruction. Hospital Course (1) Ischemic colitis: Medical telemetry Zosyn on admission Bowel rest lactic acid elevated on admission -> now normalized General surgery consult Re: Possible ischemic colitis (ER provider already in touch with Dr. Abbott. Seen by gen. surgery - conservative management recommended with IV fluids, IV antibiotics, bowel rest. Seen in follow up by surgery - recommend to stop Abx and start diet Pt is tolerating diet Stool studies - negative Pt feels well, only had one BM yesterday and one today, she wants to go home Electrolytes checked and repleted DT precautions, HEAVENLY S if with signs of alcohol withdrawal No signs of withdrawal Appropriate to hold home diuretic until patient euvolemic Chronic conditions: hx chronic diastolic heart failure (EF 55 to 60%, TTE 2020) hx valvular heart disease (moderate MR, mild TR) COPD, pulmonary hypertension, lung status at baseline alcoholic cirrhosis, hx portal hypertension, no overt decompensation Alcoholic hepatitis, good prognosis with Madrey's DF score of 17.6 points chronic thrombocytopenia secondary to cirrhosis Hypokalemia, hypomagnesemia secondary to emesis/diarrhea symptoms past tobacco abuse Total Time Total Time Spent Total Time Spent (In Minutes): 40 Discharge Plan Discharge Items Patient Disposition: Home - Self-Care Reason For Visit: HYPOMAG, COLITIS Discharge Diagnosis: Nausea, vomiting Electrolyte abnormalities Elevated LFT Possible colitis on CT Condition on Discharge: Fair Activity: Per Instructions section Non-emergency contact: Primary Care Provider Call non-emergency contact if: you have any medication questions and your symptoms worsen Follow-up/Referrals: Adrian Gaston, DO [Primary Care Provider] - (Date & Time 05/19/2022 2:00 PM Provider Og Steinberg III, MD Department [facility] ) Diet: Low Fiber Addtl Attending Provider Instructions: Follow up with your primary care doctor, the appointment was scheduled for you for 05/19/2022. Recommend low fiber diet for the next 1-2 weeks. Do not take furosemide until seen by your primary care doctor. Check your blood pressure at home if you can and record your numbers. Stay well hydrated. Pending Studies at Discharge: No Stand-Alone Forms: [facility] [place] [facility] [employer], Smoking Cessation Medications and DC Order Prescriptions: Continued furosemide 20 mg tablet 20 mg PO DAILY lactulose 10 gram/15 mL solution 10 gm PO DAILY PRN (Reason: Constipation) pantoprazole 40 mg tablet,delayed release (DR/EC) 40 mg PO DAILY fluticasone propionate [Allergy Relief (fluticasone)] 50 mcg/actuation spray,suspension 2 spray INTNAS DAILY PRN (Reason: Congestion) Discharge Orders: Discharge Order (Routine); Ordered 05/12/22 Ordered By: Ronen Solis Admission Data Admit Date/Time: 05/11/22 01:35 Attending Provider: Ronen Solis Admit Provider: Tino Wells Primary Care Provider: Adrian Gaston Other Providers: Tino Wells ; Stephen Abbott ; Sully Rangel
== END 2022-05-12 17:20 | disposition home or self-care (01) | DRG 394 ==
LOC: ED 20:07 → EDINP 05-11 01:35 → SUATTDRO 05-11 01:35 → 2W 05-11 03:07

== ENCOUNTER 2022-08-10 15:59 | Inpatient (IN) ==
[2022-08-10 16:58] LABS: Alanine Aminotransferase 49 U/L (7-52); Albumin Globulin Ratio 0.8 (0.9-2); Albumin Level 2.6 gm/dl (3.4-5.0); Alkaline Phosphatase 90 U/L (34-104); Anion Gap 12 (3-11); Aspartate Aminotransferase 95 U/L (13-39); BUN Creatinine Ratio 9.6 (10-20); Bilirubin,Total 16.6 mg/dl (0.2-1.0); Blood Urea Nitrogen 7 mg/dl (6-23); Calcium 8.3 mg/dl (8.6-10.3); Carbon Dioxide 29 mmol/L (21-32); Chloride 85 mmol/L (98-107); Creatinine Clr Calc Pharmacy 93.9 ml/min; Est GFR (African American) 106.7 ml/min; Est GFR (Non-African American) 92.1 ml/min; Globulin 3.2 gm/dl (2.5-4.0); Glucose 108 mg/dl (70-99(Fasting)); Potassium 2.9 mmol/L (3.5-5.1); Sodium 126 mmol/L (136-145); Total Protein 5.8 gm/dl (6.0-8.3)
[2022-08-10] MEDS ORDERED: SODIUM CHLORIDE 0.9% 1000ML 1,000 ML IV ONE (17:29)
[2022-08-10] MEDS ORDERED: ONDANSETRON INJ 2 MG/ML 2 ML VIAL IV STA (17:29)
[2022-08-10] MEDS ORDERED: POTASSIUM CHLORIDE CRTAB 20 MEQ TABCR PO STA (17:32)
[2022-08-10] MEDS ORDERED: POTASSIUM CHLORIDE / WTR 10 MEQ/100 ML PLCT IV ONE (17:32)
--- NOTE | 2022-08-10 17:33 | Emergency Department Note ---
Impression & Plan Hyperbilirubinemia, Acute hyponatremia, Hypokalemia, Urinary tract infection, Right upper quadrant abdominal pain, Alcoholic cirrhosis ED Provider Note NAME: RO TALBERT AGE: 57 SEX: F : 1965 ARRIVES VIA: Walk-In INFORMANT: Patient, ED PROVIDER(S): Kirt Wiley DO CHIEF COMPLAINT: Abdominal pain HPI: The patient is a 57-year-old female who has a history of alcohol cirrhosis who presented to the emergency department for an evaluation of right upper quadrant pain. The patient started having symptoms over the course the last we ek. She states that her significant other thought that she looked more jaundiced. She does have a history of cirrhosis. She also has a history of alcohol abuse and she still uses alcohol. Her last alcohol intake was yesterday. She denies having any fever. She denies having any chest pain or di fficulty breathing. The patient states she has noticed lower extremity swelling and abdominal distention which is worse than usual. ROS: See above HPI for pertinent positives & negatives. A total of 10 systems reviewed and were otherwise negative. PAST MEDICAL HISTORY: See Below PAST SURGICAL HISTORY: See Below FAMILY HISTORY: See Below SOCIAL HISTORY: See Below HOME MEDICATIONS: See Below ALLERGIES: See Below VITALS: See Below PHYSICAL EXAMINATION: GENERAL: The patient is awake and alert. She is uncomfortable appearing. EYES: The conjunctivae are icteric. The pupils are round and reactive. EARS, NOSE, MOUTH AND THROAT: The nose is without any evidence of any deformity. Mucous membranes are dry. NECK: The neck is nontender and supple. RESPIRATORY: Normal respiratory effort is noted there is no evidence of wheezing rhonchi or rales CARDIOVASCULAR: Regular rate and rhythm noted there no murmurs rubs or gallops normal S1 normal S2. GASTROINTESTINAL: The abdomen is distended. There is right upper quadrant tenderness to palpation which is moderate. MUSCULOSKELETAL/EXTREMITIES: There is no evidence of gross deformity full range of motion is noted in the hips and shoulders. SKIN: Skin is warm and dry. There is jaundice noted. There is pedal edema bi laterally. NEUROLOGIC: Patient is awake alert and oriented x3. MEDICAL DECISION MAKING: The patient is a 57-year-old female who has a history of alcoholic cirrhosis who presented to the emergency department for an evaluation of abdominal pain. The patient was treated with IV fluids in the emergency department. She was also treated with IV antibiotics for presumed urinary tract infection. Her potassium was replaced. I discussed the patient's laboratory and radiographic studies with her. She was found to have a significant elevation in her bilirubin compared to baseline. This may represent a significant increase in her underlying status of her liver malfunction but she continues to drink alcohol and I do not feel that she is a candidate for transplant at this time. The patient was feeling somewhat improved on reevaluation. Given her findings I [facility] have agreed to evaluate the patient in the emergency department for further management and disposition. Triage Nursing notes reviewed. Prior medical records reviewed Vital Signs: reviewed and remarkable for hypotension. Differential diagnosis: Etiologies such as appendicitis, diverticulitis, obstruction, inflammatory bowel disease, renal colic, PUD, biliary pathology, pancreatitis, mesenteric ischemia, aortic pathology, infections, genitourinary, UTI, perforated viscus, as well as others were entertained. ER treatment provided: See below Diagnostics interpreted by me: ECG: EKG was obtained in the emergency department. My interpretation is sinus tachycardia 111 bpm. There is no ectopy. There is no acute ST segment abnormalities noted. This was compared to a tracing from May 10, 2022. The re is an increase in rate otherwise no changes were noted Cardiac Monitoring: An order was placed for continuous cardiac monitoring. The monitor shows a rate of 99 bpm with sinus rhythm. Laboratory studies: As stated above and show below. Imaging studies: See below. Radiographic imaging was reviewed by myself Consultation(s): I discussed this case with Dr. Gaines who [facility] He will evaluate the patient in the emergency department. Past Med/Surg History Medical History Alcohol abuse Pulmonary edema which is most likely multifactorial and related to alcohol a buse. She has volume overload probably from chronic cirrhosis. She could have an alcoholic cardiomyopathy. She did have an echocardiogram today which I will review and make further recommendations. Currently she is clinically stable. History of tobacco abuse Obesity (BMI 30-39.9) Surgical History H/O tubal ligation Family History Father Diabetes Mother Diabetes Social History Smoking Status: Former smoker Second Hand Exposure: No; Do You Dip or Chew Tobacco: No; Hx Alcohol Use: Yes Alcohol type: beer Hx Substance Use: No Preferred Language: Spanish Communication Ability: Effective Visual Impairment: No Limitations Fusing Machine Feeder Required: No Beliefs That Will Affect Care: None marital status: Current Living Situation: Spouse Current Living Situation Comment: apartment Feels Safe at Home: Yes Assistive Devices: None Allergies Allergies Allergy/AdvReac Type Severity Reaction Status Date / Time propoxyphene AdvReac Intermediate Vomiting Verified 05/10/22 23:08 Home Meds Home Medications Medication Instructions Recorded Confirmed furosemide 20 mg tablet 20 mg PO DAILY 04/17/19 08/10/22 lactulose 10 gram/15 mL oral 10 gm PO DAILY PRN Constipation 04/17/19 08/10/22 solution pantoprazole 40 mg tablet,delayed 40 mg PO DAILY 04/17/19 08/10/22 release fluticasone propionate 50 2 spray intranasal DAILY PRN 04/22/21 08/10/22 mcg/actuation nasal Congestion spray,suspension (Allergy Relief (fluticasone)) doxepin 10 mg capsule 10 mg PO HS 08/10/22 08/10/22 Results & Data (ED) Vital Signs Vital Signs - 24 hr 08/10/22 16:02 08/10/22 18:47 08/10/22 20:35 Temperature 35.9 C L Temperature Source Temporal Artery Scan Pulse Rate 113 H Pulse Rate [Finger] 101 H 99 H Pulse Rhythm Regular Pulse Rhythm [Finger] Regular Regular Pulse Strength Normal Pulse Strength [Finger] Normal Respiratory Rate 20 18 18 Respiratory Effort / Characteristics Non-Labored Spontaneous Non-Labored Spontaneous Non-Labored Spontaneous Respiratory Depth Normal Normal Normal Respiratory Pattern Regular Regular Regular Blood Pressure 124/75 Blood Pressure [Left Arm] 93/49 L Blood Pressure [Right Arm] 114/58 L Blood Pressure Mean 91 Blood Pressure Mean [Left Arm] 63 Blood Pressure Mean [Right Arm] 76 Blood Pressure Position Sitting Blood Pressure Position [Left Arm] Semi-fowlers Blood Pressure Position [Right Arm] Semi-fowlers Pulse Oximetry 93 93 95 Oxygen Delivery Method Room Air Room Air Room Air Sepsis Recent Fever Within 48 Hours No Sepsis New/Unexplained Change in Mental Status No Sepsis Action Taken by Nursing No Action Required Home Medications Current Medication List: was personally reviewed by me Laboratory Data Attestation: I reviewed the patient's lab results. 08/10/22 16:13 08/10/22 16:13 Lab Results 08/10/22 08/10/22 08/10/22 Range/Units 16:13 16:13 16:13 WBC 7.19 (4.8-10.8) K/ul RBC 2.76 L (4.20-5.40) M/uL Hgb 11.1 L (12.0-16.0) g/dl Hct 28.8 L (37.0-47.0) % MCV 104.1 H (80.0-100.0) fL MCH 40.3 H (25.0-34.0) pg MCHC 38.7 H (32.0-36.0) g/dL RDW Std Deviation 72.1 H (36.4-46.3) fL RDW Coeff of [place] 19.4 H (11.5-14.5) % Plt Count 104 L (130-400) K/uL MPV 11.0 (9.4-12.4) fL Immature Gran % (Auto) 1.7 % Neut % (Auto) 69.5 % Lymph % (Auto) 17.6 % [place] % (Auto) 9.9 % Eos % (Auto) 0.8 % Baso % (Auto) 0.5 % Neut # (Auto) 4.43 (1.40-6.50) K/uL Lymph # (Auto) 1.12 L (1.2-3.4) K/uL [place] # (Auto) 0.63 H (0.11-0.59) K/uL Eos # (Auto) 0.05 (0-0.50) K/uL Baso # (Auto) 0.03 (0-0.2) K/uL Immature Gran # (Auto) 0.11 (0.01-0.20) K/uL Absolute Nucleated RBC 0.00 (0-0.12) K/uL Nucleated RBC % (auto) 0.0 % Polychromasia 1+ Macrocytosis Present Target Cells 1+ PT 18.2 H (9.0-12.0) Seconds INR 1.7 H (0.9-1.1) Sodium 126 L (136-145) mmol/L Potassium 2.9 L (3.5-5.1) mmol/L Chloride 85 L (98-107) mmol/L Carbon Dioxide 29 (21-32) mmol/L Anion Gap 12 H (3-11) BUN 7 (6-23) mg/dl Creatinine 0.73 (0.6-1.2) mg/dl Est Cr Clr Drug Dosing 93.9 ml/min Est GFR ( Amer) 106.7 ml/min Est GFR (Non-Af Amer) 92.1 ml/min BUN/Creatinine Ratio 9.6 L (10-20) Glucose 108 H (70-99(Fasting)) mg/dl Osmolality (280-300) mOsm/kg Lactate (0.4-2.0) mmol/L Calcium 8.3 L (8.6-10.3) mg/dl Magnesium 1.5 L (1.7-2.4) mg/dl Total Bilirubin 16.6 H (0.2-1.0) mg/dl Direct Bilirubin (0-0.2) mg/dl AST 95 H (13-39) U/L ALT 49 (7-52) U/L Alkaline Phosphatase 90 (34-104) U/L Total Protein 5.8 L (6.0-8.3) gm/dl Albumin 2.6 L (3.4-5.0) gm/dl Globulin 3.2 (2.5-4.0) gm/dl Albumin/Globulin Ratio 0.8 L (0.9-2) Lipase TNP Procalcitonin (0-0.5) ng/ml TSH (0.300-4.500) uIu/ml Urine Color Urine Appearance (Clear) Urine pH (4.5-7.5) Ur Specific [place] (1.000-1.030) Urine Protein (Negative) Urine Glucose (UA) (Negative) Urine Ketones (Negative) Urine Blood (Negative) Urine Nitrite (Negative) Urine Bilirubin (Negative) Urine Urobilinogen (Negative) Ur Leukocyte Esterase (Negative) Urine RBC (0-4) /hpf Urine WBC (0-5) /hpf Ur Epithelial Cells (0-5) /lpf Urine Bacteria (Negative) Hyaline Casts (0-5) /lpf Ethyl Alcohol mg/dL (<10.0) mg/dl SARS-CoV-2, RNA, NAAT (NEGATIVE) 08/10/22 08/10/22 08/10/22 Range/Units 16:13 16:13 16:13 WBC (4.8-10.8) K/ul RBC (4.20-5.40) M/uL Hgb (12.0-16.0) g/dl Hct (37.0-47.0) % MCV (80.0-100.0) fL MCH (25.0-34.0) pg MCHC (32.0-36.0) g/dL RDW Std Deviation (36.4-46.3) fL RDW Coeff of [place] (11.5-14.5) % Plt Count (130-400) K/uL MPV (9.4-12.4) fL Immature Gran % (Auto) % Neut % (Auto) % Lymph % (Auto) % [place] % (Auto) % Eos % (Auto) % Baso % (Auto) % Neut # (Auto) (1.40-6.50) K/uL Lymph # (Auto) (1.2-3.4) K/uL [place] # (Auto) (0.11-0.59) K/uL Eos # (Auto) (0-0.50) K/uL Baso # (Auto) (0-0.2) K/uL Immature Gran # (Auto) (0.01-0.20) K/uL Absolute Nucleated RBC (0-0.12) K/uL Nucleated RBC % (auto) % Polychromasia Macrocytosis Target Cells PT (9.0-12.0) Seconds INR (0.9-1.1) Sodium (136-145) mmol/L Potassium (3.5-5.1) mmol/L Chloride (98-107) mmol/L Carbon Dioxide (21-32) mmol/L Anion Gap (3-11) BUN (6-23) mg/dl Creatinine (0.6-1.2) mg/dl Est Cr Clr Drug Dosing ml/min Est GFR ( Amer) ml/min Est GFR (Non-Af Amer) ml/min BUN/Creatinine Ratio (10-20) Glucose (70-99(Fasting)) mg/dl Osmolality 263 L (280-300) mOsm/kg Lactate (0.4-2.0) mmol/L Calcium (8.6-10.3) mg/dl Magnesium (1.7-2.4) mg/dl Total Bilirubin (0.2-1.0) mg/dl Direct Bilirubin (0-0.2) mg/dl AST (13-39) U/L ALT (7-52) U/L Alkaline Phosphatase (34-104) U/L Total Protein (6.0-8.3) gm/dl Albumin (3.4-5.0) gm/dl Globulin (2.5-4.0) gm/dl Albumin/Globulin Ratio (0.9-2) Lipase Procalcitonin 0.08 (0-0.5) ng/ml TSH 3.186 (0.300-4.500) uIu/ml Urine Color Urine Appearance (Clear) Urine pH (4.5-7.5) Ur Specific [place] (1.000-1.030) Urine Protein (Negative) Urine Glucose (UA) (Negative) Urine Ketones (Negative) Urine Blood (Negative) Urine Nitrite (Negative) Urine Bilirubin (Negative) Urine Urobilinogen (Negative) Ur Leukocyte Esterase (Negative) Urine RBC (0-4) /hpf Urine WBC (0-5) /hpf Ur Epithelial Cells (0-5) /lpf Urine Bacteria (Negative) Hyaline Casts (0-5) /lpf Ethyl Alcohol mg/dL (<10.0) mg/dl SARS-CoV-2, RNA, NAAT (NEGATIVE) 08/10/22 08/10/22 08/10/22 Range/Units 17:36 17:36 17:53 WBC (4.8-10.8) K/ul RBC (4.20-5.40) M/uL Hgb (12.0-16.0) g/dl Hct (37.0-47.0) % MCV (80.0-100.0) fL MCH (25.0-34.0) pg MCHC (32.0-36.0) g/dL RDW Std Deviation (36.4-46.3) fL RDW Coeff of [place] (11.5-14.5) % Plt Count (130-400) K/uL MPV (9.4-12.4) fL Immature Gran % (Auto) % Neut % (Auto) % Lymph % (Auto) % [place] % (Auto) % Eos % (Auto) % Baso % (Auto) % Neut # (Auto) (1.40-6.50) K/uL Lymph # (Auto) (1.2-3.4) K/uL [place] # (Auto) (0.11-0.59) K/uL Eos # (Auto) (0-0.50) K/uL Baso # (Auto) (0-0.2) K/uL Immature Gran # (Auto) (0.01-0.20) K/uL Absolute Nucleated RBC (0-0.12) K/uL Nucleated RBC % (auto) % Polychromasia Macrocytosis Target Cells PT (9.0-12.0) Seconds INR (0.9-1.1) Sodium (136-145) mmol/L Potassium (3.5-5.1) mmol/L Chloride (98-107) mmol/L Carbon Dioxide (21-32) mmol/L Anion Gap (3-11) BUN (6-23) mg/dl Creatinine (0.6-1.2) mg/dl Est Cr Clr Drug Dosing ml/min Est GFR ( Amer) ml/min Est GFR (Non-Af Amer) ml/min BUN/Creatinine Ratio (10-20) Glucose (70-99(Fasting)) mg/dl Osmolality (280-300) mOsm/kg Lactate (0.4-2.0) mmol/L Calcium (8.6-10.3) mg/dl Magnesium (1.7-2.4) mg/dl Total Bilirubin (0.2-1.0) mg/dl Direct Bilirubin 5.7 H (0-0.2) mg/dl AST (13-39) U/L ALT (7-52) U/L Alkaline Phosphatase (34-104) U/L Total Protein (6.0-8.3) gm/dl Albumin (3.4-5.0) gm/dl Globulin (2.5-4.0) gm/dl Albumin/Globulin Ratio (0.9-2) Lipase Procalcitonin (0-0.5) ng/ml TSH (0.300-4.500) uIu/ml Urine Color [place] Urine Appearance Slightly Cloudy (Clear) Urine pH (4.5-7.5) Ur Specific [place] 1.016 (1.000-1.030) Urine Protein (Negative) Urine Glucose (UA) (Negative) Urine Ketones (Negative) Urine Blood (Negative) Urine Nitrite (Negative) Urine Bilirubin (Negative) Urine Urobilinogen (Negative) Ur Leukocyte Esterase (Negative) Urine RBC 0-4 (0-4) /hpf Urine WBC 10-30 H (0-5) /hpf Ur Epithelial Cells 10-20 H (0-5) /lpf Urine Bacteria 3+ H (Negative) Hyaline Casts 0-5 (0-5) /lpf Ethyl Alcohol mg/dL (<10.0) mg/dl SARS-CoV-2, RNA, NAAT NEGATIVE (NEGATIVE) 08/10/22 08/10/22 08/10/22 Range/Units 17:53 19:55 20:54 WBC (4.8-10.8) K/ul RBC (4.20-5.40) M/uL Hgb (12.0-16.0) g/dl Hct (37.0-47.0) % MCV (80.0-100.0) fL MCH (25.0-34.0) pg MCHC (32.0-36.0) g/dL RDW Std Deviation (36.4-46.3) fL RDW Coeff of [place] (11.5-14.5) % Plt Count (130-400) K/uL MPV (9.4-12.4) fL Immature Gran % (Auto) % Neut % (Auto) % Lymph % (Auto) % [place] % (Auto) % Eos % (Auto) % Baso % (Auto) % Neut # (Auto) (1.40-6.50) K/uL Lymph # (Auto) (1.2-3.4) K/uL [place] # (Auto) (0.11-0.59) K/uL Eos # (Auto) (0-0.50) K/uL Baso # (Auto) (0-0.2) K/uL Immature Gran # (Auto) (0.01-0.20) K/uL Absolute Nucleated RBC (0-0.12) K/uL Nucleated RBC % (auto) % Polychromasia Macrocytosis Target Cells PT (9.0-12.0) Seconds INR (0.9-1.1) Sodium (136-145) mmol/L Potassium (3.5-5.1) mmol/L Chloride (98-107) mmol/L Carbon Dioxide (21-32) mmol/L Anion Gap (3-11) BUN (6-23) mg/dl Creatinine (0.6-1.2) mg/dl Est Cr Clr Drug Dosing ml/min Est GFR ( Amer) ml/min Est GFR (Non-Af Amer) ml/min BUN/Creatinine Ratio (10-20) Glucose (70-99(Fasting)) mg/dl Osmolality (280-300) mOsm/kg Lactate 2.4 H* (0.4-2.0) mmol/L Calcium (8.6-10.3) mg/dl Magnesium Cancelled (1.7-2.4) mg/dl Total Bilirubin (0.2-1.0) mg/dl Direct Bilirubin (0-0.2) mg/dl AST (13-39) U/L ALT (7-52) U/L Alkaline Phosphatase (34-104) U/L Total Protein (6.0-8.3) gm/dl Albumin (3.4-5.0) gm/dl Globulin (2.5-4.0) gm/dl Albumin/Globulin Ratio (0.9-2) Lipase Procalcitonin (0-0.5) ng/ml TSH (0.300-4.500) uIu/ml Urine Color Urine Appearance (Clear) Urine pH (4.5-7.5) Ur Specific [place] (1.000-1.030) Urine Protein (Negative) Urine Glucose (UA) (Negative) Urine Ketones (Negative) Urine Blood (Negative) Urine Nitrite (Negative) Urine Bilirubin (Negative) Urine Urobilinogen (Negative) Ur Leukocyte Esterase (Negative) Urine RBC (0-4) /hpf Urine WBC (0-5) /hpf Ur Epithelial Cells (0-5) /lpf Urine Bacteria (Negative) Hyaline Casts (0-5) /lpf Ethyl Alcohol mg/dL < 10.0 (<10.0) mg/dl SARS-CoV-2, RNA, NAAT (NEGATIVE) Administered Medications Fentanyl Citrate (Fentanyl Citrate Pf 100 Mcg/2 Ml Vial) 50 mcg IV Q15M PRN PRN Reason: Pain Stop: 08/24/22 17:28 Last Admin: 08/10/22 19:43 Dose: 50 mcg Documented By: Admin: 08/10/22 18:01 Dose: 50 mcg Documented By: KUSUM Discontinued Medications Sodium Chloride (Nss 1000ml) 1,000 mls @ 999 mls/hr IV .Q1H1M ONE Stop: 08/10/22 18:29 Last Infusion: 08/10/22 19:18 Dose: 0 mls/hr Documented By: Admin: 08/10/22 17:56 Dose: 999 mls/hr Documented By: KUSUM Potassium Chloride (K Toni / Wtr) 10 meq in 100 mls @ 100 mls/hr IV ONE ONE Stop: 08/10/22 18:31 Last Infusion: 08/10/22 19:18 Dose: 0 mls/hr Documented By: Admin: 08/10/22 18:01 Dose: 100 mls/hr Documented By: KUSUM Ceftriaxone Sodium (Rocephin) 2,000 mg in 70 mls @ 140 mls/hr IV NOW STA Stop: 08/10/22 19:06 Last Infusion: 08/10/22 20:19 Dose: 0 mls/hr Documented By: Admin: 08/10/22 19:27 Dose: 140 mls/hr Documented By: Thiamine HCl 100 mg/ Syringe 10 mls @ 2 mls/min IV NOW STA Stop: 08/10/22 20:03 Last Admin: 08/10/22 20:43 Dose: 2 mls/min Documented By: Albumin Human (Albumin 25% 100 Ml) 25 gm in 100 mls @ 50 mls/hr IV ONE ONE Stop: 08/10/22 22:14 Last Infusion: 08/10/22 22:30 Dose: 0 mls/hr Documented By: Admin: 08/10/22 20:27 Dose: 50 mls/hr Documented By: Ioversol (Optiray 320 100ml) 83 ml IV ONCE ONE Stop: 08/10/22 18:44 Last Admin: 08/10/22 18:44 Dose: 83 ml Documented By: ANIL Ondansetron HCl (Ondansetron Inj 2 Mg/Ml 2 Ml Vial) 4 mg IV NOW STA Stop: 08/10/22 17:30 Last Admin: 08/10/22 18:01 Dose: 4 mg Documented By: KUSUM Potassium Chloride (Potassium Chloride Crtab 20 Meq Tabcr) 40 meq PO NOW STA Stop: 08/10/22 17:33 Last Admin: 08/10/22 18:01 Dose: 40 meq Documented By: KUSUM Imaging Data Attestation: I personally reviewed and interpreted this imaging study as follows: My Impression: CT of the abdomen and pelvis was obtained in the emergency department. My interpretation is no free air, no definite bowel obstruction, final report below Radiologist's Impression: Abdomen/Pelvis CT 08/10/22 17:29 CT SCAN OF THE ABDOMEN AND PELVIS WITH IV CONTRAST CLINICAL HISTORY: Right upper quadrant abdominal pain. COMPARISON STUDY: Abdominal CT dated 05/10/2022. TECHNIQUE: Following the IV administration of 83 cc of Optiray 350, CT scan of the abdomen and pelvis is performed from the lung bases to the proximal femora. Images are reviewed in the axial, sagittal, and coronal planes. IV contrast was administered without complication. A dose lowering technique was utilized adhering to the principles of ALARA. CT DOSE: 880.19 mGy.cm FINDINGS: Lung bases: The heart is normal in size and without pericardial effusion. There is trace left pleural effusion. There is bibasilar scarring/atelectasis. There is a small hiatal hernia. Esophageal varices are noted. Liver: The contrast-enhanced liver is cirrhotic in morphology and markedly heterogeneous in attenuation. Hepatic attenuation is diminished indicating severe steatosis. There is no intrahepatic biliary ductal dilatation. The hepatic veins and portal veins are patent. There is recanalization of the periumbilical vein. Gallbladder: There are large calcified gallstones with no CT evidence of acute cholecystitis. Spleen: The spleen is top normal in size and homogeneous in attenuation. Pancreas: The unenhanced pancreas is moderately atrophic and grossly unre markable. Adrenal glands: Unremarkable. Kidneys: The contrast enhanced kidneys are normal in size and without hydronephrosis. The kidneys enhance symmetrically. Abdominal vasculature: The abdominal aorta is normal in course and caliber noting mild atherosclerotic calcification. Bowel: There is mild colonic fecal retention. No bowel obstruction is seen. The appendix is not identified and reported surgically absent. Peritoneum: No intraperitoneal free air is identified. There is a small to moderate volume of abdominopelvic ascites.. Lymphadenopathy: None. Pelvic viscera: The bladder is decompressed and not well evaluated. The uterus and adnexa are normal as visualized. Skeletal structures: The skeletal structures are osteopenic. There is mild lumbosacral spondylosis. No lytic or blastic lesions are seen. IMPRESSION: 1. No acute infectious or inflammatory findings are identified in the abdomen or pelvis. 2. The liver is cirrhotic in morphology and severely steatotic. 3. Esophageal varices, recanalization of the periumbilical vein, and abdominal ascites indicate portal hypertension. 4. Cholelithiasis. 5. Additional findings as above. ACT 112: Negative or not required by law. Electronically signed by: Jelani Ramsey M.D. 08/10/2022 6:59 PM Discharge Plan Visit Data Chief Complaint: Abdominal Pain Stated Complaint: severe abd pain, possible jaudice, retaining fluid ED Provider: Kirt Wiley Discharge Problem: Hyperbilirubinemia, Acute hyponatremia, Hypokalemia, Urinary tract infection, Right upper quadrant abdominal pain, Alcoholic cirrhosis Forms Stand Alone Forms: [facility] [place] [facility] Prescriptions Prescriptions: No Action furosemide 20 mg tablet 20 mg PO DAILY lactulose 10 gram/15 mL solution 10 gm PO DAILY PRN (Reason: Constipation) pantoprazole 40 mg tablet,delayed release (DR/EC) 40 mg PO DAILY fluticasone propionate [Allergy Relief (fluticasone)] 50 mcg/actuation spray,suspension 2 spray INTNAS DAILY PRN (Reason: Congestion) doxepin 10 mg capsule 10 mg PO HS Referrals Referrals: Adrian Gaston DO [Primary Care Provider] - Urinary tract infection Qualifiers: Urinary tract infection type: site unspecified Hematuria presence: without hematuria Qualified Code(s): N39.0 - Urinary tract infection, site not specified
[2022-08-10] MEDS: fentaNYL citrate PF 100 MCG/2 ML VIAL IV PRN ×2 (18:01→19:43)
[2022-08-10 18:09] LABS: Macrocytosis Present; Polychromasia 1+; Target Cells 1+
[2022-08-10 18:23] LABS: Basophils % (auto) 0.5 %; Eosinophils % (auto) 0.8 %; Immature Granulocytes % (auto) 1.7 %; Lymphocytes # (auto) 1.12 K/uL (1.2-3.4); Lymphocytes % (auto) 17.6 %; Monocytes # (auto) 0.63 K/uL (0.11-0.59); Monocytes % (auto) 9.9 %; Neutrophils # (auto) 4.43 K/uL (1.40-6.50); Neutrophils % (auto) 69.5 %
[2022-08-10 18:24] LABS: Basophils # (auto) 0.03 K/uL (0-0.2); Eosinophils # (auto) 0.05 K/uL (0-0.50); Immature Granulocytes # (auto) 0.11 K/uL (0.01-0.20)
[2022-08-10 18:27] LABS: Appearance Urine Slightly Cloudy (Clear); Color Urine Orange
[2022-08-10 18:29] LABS: Bacteria Urine 3+ (Negative); Hyaline Casts Urine 0-5 /lpf (0-5); RBC Urine 0-4 /hpf (0-4)
[2022-08-10] MEDS ORDERED: cefTRIAXone SODIUM 2,000 MG/70 ML BAG IV STA (18:37)
[2022-08-10] MEDS ORDERED: OPTIRAY 320 100ml IV ONE (18:43)
[2022-08-10 18:55] LABS: Specific Gravity Urine 1.016 (1.000-1.030)
--- NOTE | 2022-08-10 19:01 | CT Scan Report ---
CT SCAN OF THE ABDOMEN AND PELVIS WITH IV CONTRAST CLINICAL HISTORY: Right upper quadrant abdominal pain. COMPARISON STUDY: Abdominal CT dated 05/10/2022. TECHNIQUE: Following the IV administration of 83 cc of Optiray 350, CT scan of the abdomen and pelvi s is performed from the lung bases to the proximal femora. Images are reviewed in the axial, sagittal , and coronal planes. IV contrast was administered without complication. A dose lowering technique wa s utilized adhering to the principles of ALARA. CT DOSE: 880.19 mGy.cm FINDINGS: Lung bases: The heart is normal in size and without pericardial effusion. There is trace left pleural effusion. There is bibasilar scarring/atelectasis. There is a small hiatal hernia. Esophageal varice s are noted. Liver: The contrast-enhanced liver is cirrhotic in morphology and markedly heterogeneous in attenuati on. Hepatic attenuation is diminished indicating severe steatosis. There is no intrahepatic biliary d uctal dilatation. The hepatic veins and portal veins are patent. There is recanalization of the periu mbilical vein. Gallbladder: There are large calcified gallstones with no CT evidence of acute cholecystitis. Spleen: The spleen is top normal in size and homogeneous in attenuation. Pancreas: The unenhanced pancreas is moderately atrophic and grossly unremarkable. Adrenal glands: Unremarkable. Kidneys: The contrast enhanced kidneys are normal in size and without hydronephrosis. The kidneys enh ance symmetrically. Abdominal vasculature: The abdominal aorta is normal in course and caliber noting mild atheroscleroti c calcification. Bowel: There is mild colonic fecal retention. No bowel obstruction is seen. The appendix is not iden tified and reported surgically absent. Peritoneum: No intraperitoneal free air is identified. There is a small to moderate volume of abdomin opelvic ascites.. Lymphadenopathy: None. Pelvic viscera: The bladder is decompressed and not well evaluated. The uterus and adnexa are normal as visualized. Skeletal structures: The skeletal structures are osteopenic. There is mild lumbosacral spondylosis. N o lytic or blastic lesions are seen. IMPRESSION: 1. No acute infectious or inflammatory findings are identified in the abdomen or pelvis. 2. The liver is cirrhotic in morphology and severely steatotic. 3. Esophageal varices, recanalization of the periumbilical vein, and abdominal ascites indicate babs l hypertension. 4. Cholelithiasis. 5. Additional findings as above. ACT 112: Negative or not required by law. Electronically signed by: Jelani Ramsey M.D. 08/10/2022 6:59 PM
[2022-08-10] MEDS ORDERED: THIAMINE HCL 100 MG in SYRINGE 9 ML IV STA (19:59)
[2022-08-10 20:03] LABS: INR 1.7 (0.9-1.1); Prothrombin Time 18.2 Seconds (9.0-12.0)
[2022-08-10] MEDS ORDERED: ALBUMIN 25% 100 mL 25 GM/100 ML VIAL IV ONE (20:15)
--- NOTE | 2022-08-10 21:02 | Electrocardiogram Report ---
Test Reason : Blood Pressure : / mmHG Vent. Rate : 111 BPM Atrial Rate : 111 BPM P-R Int : 156 ms QRS Dur : 088 ms QT Int : 342 ms P-R-T Axes : 056 051 035 degrees QTc Int : 465 ms Sinus tachycardia Otherwise normal ECG When compared with ECG of 10-MAY-2022 20:59, No significant change was found Confirmed by Good De Los Santos ([id number]) on 08/10/2022 9:02:30 PM Referred By: Confirmed By:Good De Los Santos
[2022-08-10 21:19] LABS: Magnesium 1.5 mg/dl (1.7-2.4)
--- NOTE | 2022-08-10 23:15 | History & Physical Report ---
Date of Service August 10, 2022 Assessment & Plan (1) Decompensated hepatic cirrhosis: Plan: History alcoholic cirrhosis Possible SBP, complicated UTI, possible sepsis Rule out biliary colic as etiology of right upper quadrant pain Hypotension, hyponatremia secondary to illness hx chronic diastolic heart failure, equivocal volume status given third spacing hx valvular heart disease (moderate MR, mild TR) COPD, pulmonary hypertension, lung status at baseline Alcoholic hepatitis, poor prognosis with Madrey's DF score of 52 points Coagulopathy/chronic thrombocytopenia secondary to cirrhosis Acute on chronic anemia, patient denies overt GI bleed symptoms past tobacco abuse PCU given hypotension CS IV albumin, ceftriaxone for possible SBP Diagnostic/therapeutic paracentesis in a.m. GI consult Re: Decompensated cirrhosis, alcoholic hepatitis General surgery consult Re: Possible biliary colic DT precautions, HEAVENLY S if with signs of alcohol withdrawal Hyponatremia work-up Resume diuretic Rx once BP improved. DVT prophylaxis. SCDs Re: Thrombocytopenia Full code Text document was generated using [employer] voice recognition software. It may contain grammatical or spelling errors. Kindly contact undersigned for clarification of any documentation item in question. History of Present Illness Chief Complaint: Right-sided abdominal pain Primary Care Provider: Adrian Gaston DO History obtained from patient and records. Medical history significant for chronic diastolic heart failure (EF 55 to 60%, TTE 2020), valvular heart disease (moderate MR, mild TR), pulmonary hypertension, COPD, history diffuse pulmonary alveolar hemorrhage, alcoholic cirrhosis, portal hypertension, GERD, anxiety, alcohol abuse, cholelithiasis, chronic anemia (baseline hemoglobin of 11, May 2022 ), chronic thrombocytopenia, past tobacco abuse. Last confinement May 2022 for ischemic colitis status post antibiotic Rx. Few days history of achy right upper quadrant pain reminiscent of gallstone pain. Patient noted to be more jaundiced at home. Denies fever, chills. Denies chest pain, SOB, headache. Worsening abdominal distention and leg swelling. Patient denies black/bloody stools. Last EtOH intake was yesterday. IV ceftriaxone administered at the ER. Medical Historyas above Surgical History : Breast biopsy, BTL, appendectomy Family History : Heart disease, breast cancer, DM Personal/Social history : Past tobacco abuse, alcohol abuse as per records, currently unemployed Allergies Allergy/AdvReac Type Severity Reaction Status Date / Time propoxyphene AdvReac Intermediate Vomiting Verified 05/10/22 23:08 Home Medications Medication Instructions Recorded Confirmed Type furosemide 20 mg tablet 20 mg PO DAILY 04/17/19 08/10/22 History lactulose 10 gram/15 mL oral 10 gm PO DAILY PRN Constipation 04/17/19 08/10/22 History solution pantoprazole 40 mg tablet,delayed 40 mg PO DAILY 04/17/19 08/10/22 History release fluticasone propionate 50 2 spray intranasal DAILY PRN 04/22/21 08/10/22 History mcg/actuation nasal Congestion spray,suspension (Allergy Relief (fluticasone)) doxepin 10 mg capsule 10 mg PO HS 08/10/22 08/10/22 History Past Med/Surg History Medical History Alcohol abuse Pulmonary edema which is most likely multifactorial and related to alcohol abuse. She has volume overload probably from chronic cirrhosis. She could have an alcoholic cardiomyopathy. She did have an echocardiogram today which I will review and make further recommendations. Currently she is clinically stable. History of tobacco abuse Obesity (BMI 30-39.9) Surgical History H/O tubal ligation Family History Father Diabetes Mother Diabetes Social History Smoking Status: Former smoker Second Hand Exposure: No; Do You Dip or Chew Tobacco: No; Hx Alcohol Use: Yes Alcohol type: beer Hx Substance Use: No Preferred Language: Turkish Communication Ability: Effective Visual Impairment: No Limitations Strategic Planning Consultant Required: No Beliefs That Will Affect Care: None marital status: Current Living Situation: Spouse Current Living Situation Comment: apartment Other Information That Helps Us Care for You: No Feels Safe at Home: Yes Safety Concerns: Feels Safe At This Time Assistive Devices: None Review of Systems Review of Systems: As per HPI, all other systems reviewed and negative Physical Exam Physical Exam: GENERAL: Slightly uncomfortable, obese, pleasant, no respiratory distress SKIN: Jaundiced, warm HEENT: Bespectacled, pale palpebral conjunctivae, no ptosis, dry buccal mucosa NECK : Supple, no tenderness CHEST : CTA, no tenderness HEART : Tachycardic, no obvious murmurs ABDOMEN: Some distention, right upper quadrant tenderness EXTREMITIES : Bilateral LE swelling, no LE tenderness, no other conspicuous deformities noted NEUROLOGIC : Coherent, no facial asymmetry, no other gross focality Results & Data Results & Data Vital Signs (Past 12 Hours) Vital Signs Temp Pulse Pulse Resp BP BP BP 08/10/22 20:35 99 H 18 93/49 L 08/10/22 18:47 101 H 18 114/58 L 08/10/22 16:02 35.9 C L 113 H 20 124/75 Pulse Ox O2 Del Method 08/10/22 20:35 95 Room Air 08/10/22 18:47 93 Room Air 08/10/22 16:02 93 Room Air Laboratory Results Laboratory Results WBC 7.19 K/ul (4.8-10.8) 08/10/22 16:13 RBC 2.76 M/uL (4.20-5.40) L 08/10/22 16:13 Hgb 11.1 g/dl (12.0-16.0) L 08/10/22 16:13 Hct 28.8 % (37.0-47.0) L 08/10/22 16:13 MCV 104.1 fL (80.0-100.0) H 08/10/22 16:13 MCH 40.3 pg (25.0-34.0) H 08/10/22 16:13 MCHC 38.7 g/dL (32.0-36.0) H 08/10/22 16:13 RDW Std Deviation 72.1 fL (36.4-46.3) H 08/10/22 16:13 RDW Coeff of Wesley 19.4 % (11.5-14.5) H 08/10/22 16:13 Plt Count 104 K/uL (130-400) L 08/10/22 16:13 MPV 11.0 fL (9.4-12.4) 08/10/22 16:13 Immature Gran % (Auto) 1.7 % 08/10/22 16:13 Neut % (Auto) 69.5 % 08/10/22 16:13 Lymph % (Auto) 17.6 % 08/10/22 16:13 [place] % (Auto) 9.9 % 08/10/22 16:13 Eos % (Auto) 0.8 % 08/10/22 16:13 Baso % (Auto) 0.5 % 08/10/22 16:13 Neut # (Auto) 4.43 K/uL (1.40-6.50) 08/10/22 16:13 Lymph # (Auto) 1.12 K/uL (1.2-3.4) L 08/10/22 16:13 [place] # (Auto) 0.63 K/uL (0.11-0.59) H 08/10/22 16:13 Eos # (Auto) 0.05 K/uL (0-0.50) 08/10/22 16:13 Baso # (Auto) 0.03 K/uL (0-0.2) 08/10/22 16:13 Immature Gran # (Auto) 0.11 K/uL (0.01-0.20) 08/10/22 16:13 Absolute Nucleated RBC 0.00 K/uL (0-0.12) 08/10/22 16:13 Nucleated RBC % (auto) 0.0 % 08/10/22 16:13 Polychromasia 1+ 08/10/22 16:13 Macrocytosis Present 08/10/22 16:13 Target Cells 1+ 08/10/22 16:13 PT 18.2 Seconds (9.0-12.0) H 08/10/22 16:13 INR 1.7 (0.9-1.1) H 08/10/22 16:13 Sodium 126 mmol/L (136-145) L 08/10/22 16:13 Potassium 2.9 mmol/L (3.5-5.1) L 08/10/22 16:13 Chloride 85 mmol/L (98-107) L 08/10/22 16:13 Carbon Dioxide 29 mmol/L (21-32) 08/10/22 16:13 Anion Gap 12 (3-11) H 08/10/22 16:13 BUN 7 mg/dl (6-23) 08/10/22 16:13 Creatinine 0.73 mg/dl (0.6-1.2) 08/10/22 16:13 Est Cr Clr Drug Dosing 93.9 ml/min 08/10/22 16:13 Est GFR ( Amer) 106.7 ml/min 08/10/22 16:13 Est GFR (Non-Af Amer) 92.1 ml/min 08/10/22 16:13 BUN/Creatinine Ratio 9.6 (10-20) L 08/10/22 16:13 Glucose 108 mg/dl (70-99(Fasting)) H 08/10/22 16:13 Osmolality 263 mOsm/kg (280-300) L 08/10/22 16:13 Lactate 2.4 mmol/L (0.4-2.0) H* 08/10/22 20:54 Calcium 8.3 mg/dl (8.6-10.3) L 08/10/22 16:13 Magnesium Cancelled 08/10/22 19:55 Total Bilirubin 16.6 mg/dl (0.2-1.0) H 08/10/22 16:13 Direct Bilirubin 5.7 mg/dl (0-0.2) H 08/10/22 17:53 AST 95 U/L (13-39) H 08/10/22 16:13 ALT 49 U/L (7-52) 08/10/22 16:13 Alkaline Phosphatase 90 U/L (34-104) 08/10/22 16:13 Total Protein 5.8 gm/dl (6.0-8.3) L 08/10/22 16:13 Albumin 2.6 gm/dl (3.4-5.0) L 08/10/22 16:13 Globulin 3.2 gm/dl (2.5-4.0) 08/10/22 16:13 Albumin/Globulin Ratio 0.8 (0.9-2) L 08/10/22 16:13 Lipase TNP 08/10/22 16:13 Procalcitonin 0.08 ng/ml (0-0.5) 08/10/22 16:13 TSH 3.186 uIu/ml (0.300-4.500) 08/10/22 16:13 Urine Color [place] 08/10/22 17:36 Urine Appearance Slightly Cloudy (Clear) 08/10/22 17:36 Urine pH (4.5-7.5) 08/10/22 17:36 Ur Specific [place] 1.016 (1.000-1.030) 08/10/22 17:36 Urine Protein (Negative) 08/10/22 17:36 Urine Glucose (UA) (Negative) 08/10/22 17:36 Urine Ketones (Negative) 08/10/22 17:36 Urine Blood (Negative) 08/10/22 17:36 Urine Nitrite (Negative) 08/10/22 17:36 Urine Bilirubin (Negative) 08/10/22 17:36 Urine Urobilinogen (Negative) 08/10/22 17:36 Ur Leukocyte Esterase (Negative) 08/10/22 17:36 Urine RBC 0-4 /hpf (0-4) 08/10/22 17:36 Urine WBC 10-30 /hpf (0-5) H 08/10/22 17:36 Ur Epithelial Cells 10-20 /lpf (0-5) H 08/10/22 17:36 Urine Bacteria 3+ (Negative) H 08/10/22 17:36 Hyaline Casts 0-5 /lpf (0-5) 08/10/22 17:36 Ethyl Alcohol mg/dL < 10.0 mg/dl (<10.0) 08/10/22 17:53 SARS-CoV-2, RNA, NAAT NEGATIVE (NEGATIVE) 08/10/22 17:36 Impressions Abdomen/Pelvis CT 08/10/22 17:29 CT SCAN OF THE ABDOMEN AND PELVIS WITH IV CONTRAST CLINICAL HISTORY: Right upper quadrant abdominal pain. COMPARISON STUDY: Abdominal CT dated 05/10/2022. TECHNIQUE: Following the IV administration of 83 cc of Optiray 350, CT scan of the abdomen and pelvis is performed from the lung bases to the proximal femora. Images are reviewed in the axial, sagittal, and coronal planes. IV contrast was administered without complication. A dose lowering technique was utilized adhering to the principles of ALARA. CT DOSE: 880.19 mGy.cm FINDINGS: Lung bases: The heart is normal in size and without pericardial effusion. There is trace left pleural effusion. There is bibasilar scarring/atelectasis. There is a small hiatal hernia. Esophageal varices are noted. Liver: The contrast-enhanced liver is cirrhotic in morphology and markedly heterogeneous in attenuation. Hepatic attenuation is diminished indicating severe steatosis. There is no intrahepatic biliary ductal dilatation. The hepatic veins and portal veins are patent. There is recanalization of the periumbilical vein. Gallbladder: There are large calcified gallstones with no CT evidence of acute cholecystitis. Spleen: The spleen is top normal in size and homogeneous in attenuation. Pancreas: The unenhanced pancreas is moderately atrophic and grossly unremarkable. Adrenal glands: Unremarkable. Kidneys: The contrast enhanced kidneys are normal in size and without hydronephrosis. The kidneys enhance symmetrically. Abdominal vasculature: The abdominal aorta is normal in course and caliber noting mild atherosclerotic calcification. Bowel: There is mild colonic fecal retention. No bowel obstruction is seen. The appendix is not identified and reported surgically absent. Peritoneum: No intraperitoneal free air is identified. There is a small to moderate volume of abdominopelvic ascites.. Lymphadenopathy: None. Pelvic viscera: The bladder is decompressed and not well evaluated. The uterus and adnexa are normal as visualized. Skeletal structures: The skeletal structures are osteopenic. There is mild lumbosacral spondylosis. No lytic or blastic lesions are seen. IMPRESSION: 1. No acute infectious or inflammatory findings are identified in the abdomen or pelvis. 2. The liver is cirrhotic in morphology and severely steatotic. 3. Esophageal varices, recanalization of the periumbilical vein, and abdominal ascites indicate portal hypertension. 4. Cholelithiasis. 5. Additional findings as above. ACT 112: Negative or not required by law. Electronically signed by: Jelani Ramsey M.D. 08/10/2022 6:59 PM Diagnostic Findings Chest x-ray as per my interpretation cardiomegaly, minimal congestion EKG as per my interpretation : Rate 110, sinus tachycardia, normal axis, T wave abnormalities inferior leads
[2022-08-10] MEDS: MAGNESIUM SULFATE / D5W 1 GM/100 ML BAG IV SCH (23:20)
[2022-08-11] MEDS ORDERED: FLUTICASONE PROPIONATE NA SPR 16 GM BTL PRN (00:16)
[2022-08-11] MEDS ORDERED: ACETAMINOPHEN 325 MG TAB PO PRN (00:16)
[2022-08-11] MEDS ORDERED: LORazepam 2 MG/1 ML VIAL IV PRN (00:16)
[2022-08-11] MEDS ORDERED: oxyCODONE HCL IR 5 MG TAB (IMMEDIATE RELEASE) PO PRN (00:16)
[2022-08-11] MEDS: MAGNESIUM SULFATE / D5W 1 GM/100 ML BAG IV SCH (01:32)
--- NOTE | 2022-08-11 02:59 | Surgery Consultation ---
Date of Consultation August 11, 2022 Assessment & Plan (1) Right upper quadrant abdominal pain: The patient has been admitted on the medical service. General surgery has been asked to see due to concern for biliary colic. The patient does not have any evidence of cholecystitis on imaging. I suspect the patient's underlying pain is due to her underlying cirrhosis and progression of this illness. Progression of her cirrhosis is evident on CT scan by increased volume of ascites and progression of her cirrhotic morphology of her liver. Any surgical intervention in this patient would be high risk due to her underlying cirrhosis. The admitting service has requested a paracentesis to be performed. A gastroenterology consultation has been requested which is pending; we will await their recommendations. If the patient would require any surgical intervention her underlying cirrhosis would need to be optimized. I have encouraged the patient to abstain from alcohol consumption. At the time of my interview the patient was noted to be resting comfortably in bed and she was noted to be hemodynamically stable (She was normotensive with only a slight tachycardia with a heart rate of approximately 100 and noted to be afebrile. Pulse ox was 91% on room air). The patient was neurologically intact and did not exhibit any signs or symptoms of confusion. We will continue to follow along while the patient is hospitalized. As above. Patient seen. No clinical evidence of acute cholecystitis. I suspe ct her pain is from liver capsular stretch. She states that she has had the pain before. No indication for surgical intervention at this time. We will sign off. Please call if any questions or concerns. History of Present Illness Reason for Consultation: Biliary colic Attending Physician: Hong Badillo MD History of Present Illness This is a 57-year-old female with a known history of cirrhosis who presented to the emergency department at [facility] due to worsening abdominal pain. Patient notes that she has had abdominal pain for approximately 2 weeks that is gotten progressively worse. She notes that the pain is sometimes present at rest but is sometimes worse after eating certain foods. Patient does not report any additional provocative factors to abdominal pain. She does not report any palliative factors and notes that the pain does not radiate. She does have occasional nausea and vomiting and specifically denies any hematemesis. She denies any fevers, shakes, or chills. She has not had any diarrhea and specifically denies any melena, hematochezia, or bright blood per rectum. She does note that her urine appears somewhat discolored. The patient tells me that her cirrhosis is due to underlying alcohol use. The patient says she currently drinks approximately 5-6 alcoholic beverages per day and this is decreased from what she used to drink in the past. She says she previously followed with [facility] gastroenterology but has not seen them in several months. Since arrival to the hospital the patient has had labs and imaging which I independently reviewed. Chest x-ray showed patient had some increased pulmonary vasculature. A CT scan of the abdomen pelvis showed the patient had a cirrhotic appearing liver which had decreased attenuation indicating severe hepatic steatosis. There is no intrahepatic biliary ductal dilatation. The hepatic veins and portal vein appeared patent. Recannulization of the periumbilical vein and esophageal varices were noted. Was noted. There is no CT evidence of cholecystitis but patient was noted to have large calcified gallstones. There is no evidence of bowel obstruction. Moderate fecal retention was noted. There is no intraperitoneal free air. A moderate volume of abdominal pelvic ascites was noted. No additional infectious or inflammatory findings were noted in the abdomen. Labs include a CBC were white blood cell count was normal. Her hemoglobin and hematocrit were 11.1 and 28.8. Platelet count was noted to be 104,000. (This level of platelets was higher than previously noted values) the patient's INR is noted to be 1.7. Chemistry profile shows sodium and potassium are 127 and 2.9. BUN and creatinine were both normal. Patient's lactic acid level initially was noted be 2.4 but has improved to 1.8. Total bilirubin is elevated 16.6 and this was noted to be higher than previous levels earlier this year which were approximately 5.2-5.6. Her AST was noted to be 95. ALT was within normal range. Alkaline phosphatase was nonelevated. Patient's total protein is 5.8 with an albumin of 2.6. Lipase was not able to be assessed. Urinalysis showed 10-30 white blood cells per high-power field and 3+ bacteria. A COVID test was negative. The patient did have an admission to [facility] from May 11 through May 12 of this year secondary to abdominal pain. During this ad mission a CT scan was performed on 05/10/2022 that showed cirrhosis with hepatic steatosis. There were more manifestation of portal hypertension with varices and trace ascites noted. There is also wall thickening of the a sending colon and transverse colon felt to be the result of portal hypertension or nonspecific colitis. The patient was noted to have gallstones on this study. During this admission general surgery was consulted due to the above noted colitis. This was potentially felt to be ischemic in nature or related to an infectious etiology. The patient was treated in a conservative manner with antibiotics and intravenous fluids and her abdominal pain improved. Surgical intervention was not required. The patient also had a previous abdominal CT scan in February 2022 that showed again cirrhosis with hepatic steatosis and evidence for portal hypertension. She was again noted to have gallstones but no evidence of acute cholecystitis. At the time of my interview the patient was resting comfortably in bed and she was in no distress. Allergies Allergy/AdvReac Type Severity Reaction Status Date / Time propoxyphene AdvReac Intermediate Vomiting Verified 05/10/22 23:08 Home Medications Medication Instructions Recorded Confirmed Type furosemide 20 mg tablet 20 mg PO DAILY 04/17/19 08/10/22 History lactulose 10 gram/15 mL oral 10 gm PO DAILY PRN Constipation 04/17/19 08/10/22 History solution pantoprazole 40 mg tablet,delayed 40 mg PO DAILY 04/17/19 08/10/22 History release fluticasone propionate 50 2 spray intranasal DAILY PRN 04/22/21 08/10/22 History mcg/actuation nasal Congestion spray,suspension (Allergy Relief (fluticasone)) doxepin 10 mg capsule 10 mg PO HS 08/10/22 08/10/22 History Patient History Medical History Alcohol abuse Pulmonary edema which is most likely multifactorial and related to alcohol abuse. She has volume overload probably from chronic cirrhosis. She could have an alcoholic cardiomyopathy. She did have an echocardiogram today which I will review and make further recommendations. Currently she is clinically stable. History of tobacco abuse Obesity (BMI 30-39.9) Surgical History H/O tubal ligation Family History Father Diabetes Mother Diabetes Social History Smoking Status: Former smoker Second Hand Exposure: No; Do You Dip or Chew Tobacco: No; Hx Alcohol Use: Yes Alcohol type: beer Hx Substance Use: No Preferred Language: German Communication Ability: Effective Visual Impairment: No Limitations Bridge Builder Required: No Beliefs That Will Affect Care: None marital status: Current Living Situation: Spouse Current Living Situation Comment: apartment Other Information That Helps Us Care for You: No Feels Safe at Home: Yes Safety Concerns: Feels Safe At This Time Assistive Devices: Denture - Upper and Glasses Review of Systems Constitutional: no fever and no chills Eyes: no eye pain Ear, Nose, Mouth, Throat: no hearing loss Respiratory: no cough and no dyspnea Cardiovascular: no chest pain Gastrointestinal: as per Subjective / HPI Genitourinary: no dysuria Musculoskeletal: no back pain Integumentary: no rash Neurologic: no localized weakness Physical Exam Constitutional: well developed and well nourished; no acute distress Eyes: Scleral jaundice noted. ENMT: Ears: no hearing impairment and no external ear abnormality Sublingual jaundice noted Neck: trachea midline Respiratory: normal respiratory effort; no respiratory distress and no labored breathing Slight decrease of breath sounds noted at the bases. There is no wheezing or use of accessory muscles. Cardiovascular: Rate/Rhythm: regular rate and regular rhythm Vessels: dorsalis pedis pulses present and radial pulses present Gastrointestinal (Abdomen): Patient's abdomen is rotund and mildly distended. There is no rebound tenderness or guarding. I did not appreciate any masses. The patient did have pain with palpation in the right upper quadrant. I did not appreciate any evidence of caput medusa. Musculoskeletal: No calf tenderness. Skin: + jaundice Neurologic: Patient is alert and oriented x3. She can follow simple commands and move all 4 extremities without signs of any neurologic deficit. Psychiatric: A+Ox3, euthymic affect Results & Data Vital Signs (Past 12 Hours) Vital Signs Temp Pulse Pulse Resp BP BP BP 08/11/22 01:10 101 H 08/11/22 00:16 37.2 C 106 H 19 111/68 08/11/22 00:23 37.2 C 106 H 19 111/68 08/10/22 23:55 99 H 08/10/22 23:29 103 H 11 L 102/53 L 08/10/22 20:35 99 H 18 93/49 L 08/10/22 18:47 101 H 18 114/58 L 08/10/22 16:02 35.9 C L 113 H 20 124/75 Pulse Ox O2 Del Method 08/11/22 01:10 08/11/22 00:16 91 Room Air 08/11/22 00:23 91 Room Air 08/10/22 23:55 08/10/22 23:29 89 L Room Air 08/10/22 20:35 95 Room Air 08/10/22 18:47 93 Room Air 08/10/22 16:02 93 Room Air PG Care Time/CCT Total # of Minutes Spent Total Time Spent with Patient: Total time spent is greater than 50% in coordination of care (as documented) at patient's floor/unit and/or counseling patient: Coding Level of Care Code 50940 IN/OBS CONSULT LVL 5,80M Diagnoses Right upper quadrant abdominal pain R10.11
[2022-08-11] MEDS: ALBUMIN 25% 100 mL 25 GM/100 ML VIAL IV SCH ×3 (06:02→20:47)
[2022-08-11 07:27] LABS: Hematocrit (blood only) 24.6 % (37.0-47.0); Hemoglobin 9.3 g/dl (12.0-16.0); Mean Corpuscular Hemoglobin 39.9 pg (25.0-34.0); Mean Corpuscular Hgb Conc 37.8 g/dL (32.0-36.0); Mean Corpuscular Volume 105.6 fL (80.0-100.0); Mean Platelet Volume 10.4 fL (9.4-12.4); Platelet Count 86 K/uL (130-400); RDW Coefficient of Variation 20.3 % (11.5-14.5); RDW Standard Deviation 75.6 fL (36.4-46.3); Red Blood Count 2.33 M/uL (4.20-5.40); White Blood Count 5.04 K/ul (4.8-10.8)
[2022-08-11 07:28] LABS: Albumin Globulin Ratio 1.1 (0.9-2); Albumin Level 2.7 gm/dl (3.4-5.0); BUN Creatinine Ratio 11.6 (10-20); Bilirubin,Total 14.8 mg/dl (0.2-1.0); Calcium 7.9 mg/dl (8.6-10.3); Creatinine Clr Calc Pharmacy 99.5 ml/min; Est GFR (African American) 112.8 ml/min; Est GFR (Non-African American) 97.3 ml/min; Globulin 2.5 gm/dl (2.5-4.0); Total Protein 5.2 gm/dl (6.0-8.3)
[2022-08-11 07:30] LABS: Hematocrit (blood only) 28.1 % (37.0-47.0); Hemoglobin 10.6 g/dl (12.0-16.0); Mean Corpuscular Hemoglobin 39.7 pg (25.0-34.0); Mean Corpuscular Hgb Conc 37.7 g/dL (32.0-36.0); Mean Corpuscular Volume 105.2 fL (80.0-100.0); Mean Platelet Volume 10.1 fL (9.4-12.4); Platelet Count 110 K/uL (130-400); RDW Standard Deviation 71.9 fL (36.4-46.3); Red Blood Count 2.67 M/uL (4.20-5.40); White Blood Count 6.35 K/ul (4.8-10.8)
[2022-08-11 07:44] LABS: INR 1.8 (0.9-1.1)
--- NOTE | 2022-08-11 07:54 | XRay Report ---
XR chest 1V portable HISTORY: hyponatremia COMPARISON: Chest 03/12/2019. FINDINGS: No pneumothorax. No pleural effusions. The cardiac silhouette is mildly enlarged. There is progressive interstitial/vascular thickening consistent with mild pulmonary edema. Otherwise, no foca l lung consolidations to suggest a pneumonia. IMPRESSION: Cardiomegaly with mild interstitial pulmonary edema. ACT 112: Negative or not required by law. Electronically signed by: Raymon Pitts M.D. 08/11/2022 7:53 AM
[2022-08-11] MEDS: THIAMINE HCL 100 MG TAB PO SCH (07:57)
[2022-08-11] MEDS: FOLIC ACID 1 MG TAB PO SCH (07:57)
[2022-08-11] MEDS: MULTIVITAMIN TAB PO SCH (07:58)
[2022-08-11 08:04] LABS: Anisocytosis Present; Basophils # (auto) 0.04 K/uL (0-0.2); Basophils % (auto) 0.8 %; Eosinophils # (auto) 0.15 K/uL (0-0.50); Immature Granulocytes # (auto) 0.07 K/uL (0.01-0.20); Immature Granulocytes % (auto) 1.4 %; Lymphocytes # (auto) 0.84 K/uL (1.2-3.4); Lymphocytes % (auto) 16.7 %; Macrocytosis Present; Monocytes # (auto) 0.59 K/uL (0.11-0.59); Monocytes % (auto) 11.7 %; Neutrophils # (auto) 3.35 K/uL (1.40-6.50); Neutrophils % (auto) 66.4 %; Target Cells 1+
--- NOTE | 2022-08-11 08:33 | Gastrointestinal Consultation ---
Date of Consultation August 11, 2022 Assessment & Plan (1) Decompensated hepatic cirrhosis: (2) Hyperbilirubinemia: (3) Right upper quadrant abdominal pain: Plan 57 y/o female with history of ETOH abuse, cirrhosis, and others, admitted w/ RUQ pain, worsening jaundice, new-onset ascites, electrolyte derangements, hypotension. Overall presentation is consistent with decompensated cirrhosis w/ elevated MELD, Maddrey's DF > 32, ? alcoholic hepatitis. Also concern for sepsis, UTI. On exam she has obvious jaundice but is AAO x 3, no asterixis, abd soft, nontender, no overt GIB. She tells me she is hungry and wants to eat. - Paracentesis as scheduled today - Albumin pre and post as per protocol - Please send fluid for cell count, culture, cytology, albumin, protein - IV albumin already on board given concern for SBP - If hypotension persists consider midodrine - Diuretics on hold for low BP, restart when appropriate - Supportive care with IVF - She can advance diet as tolerated to low salt < 2 gm daily - Continue empiric ABX coverage - Will decide whether steroids are appropriate pending r/o of infectious process - Await BCx, UCx, fluid Cx - ? whether NAC would be appropriate, will discuss with attending - ? whether MRCP needed given elevated bili (though no reynaldo dil suggested on CT and suspect she has cholestasis from ETOH abuse/cirrhosis) - ETOH withdrawal protocol - Thiamine, multivitamins, folic acid - MELD = 29. Estimated 27-32% 90 day mortality and this was discussed with her - Daily MELD labs - Correct electrolyte derangements as able - Lactulose if concern for HE (unclear hx of this) - doesn't appear encephalopathic on exam today - Ok for daily PPI - Moving forward recommend strict ETOH avoidance - Pt should consider formal ETOH rehab/counseling and this was discussed with her - Less than 2g of Tylenol if using - Less than 2g sodium - No NSAIDs - Needs formal w/u of cirrhosis as OP including EGD to evaluate for varices (suggested on CT) Thank you for allowing us to participate in the care of this patient. Please call with any acute changes, questions or concerns. Please see addendum below with additional recommendation from my supervising physician. Supervising Physician Co-Signing Physician Notes I have personally seen and examined the patient with Debby Jeffers PA-C. Her note reflects my exam and findings. I agree with her impression and plan. I would add NAD at this point. Patient did drink some ETOH over the past several days but states only one or two drinks "no more". In light of this, I do not think we need to add steroids at this point. Agree with MRCP to look for biliary source of high T. bili. Mark Anthony Bryant M.D. History of Present Illness Reason for Consultation: decompensated cirrhosis Requesting Physician: Dr Wells Attending Physician: Hong Badillo MD History of Present Illness This is a 57 y/o female with PMhx chronic diastolic heart failure (EF 55 to 60%, TTE 2020), valvular heart disease (moderate MR, mild TR), pulmonary hypertension, COPD, history diffuse pulmonary alveolar hemorrhage, alcoholic cirrhosis, portal hypertension, GERD, anxiety, alcohol abuse, cholelithiasis, chronic anemia (baseline hemoglobin of 11May 2022 ), chronic thrombocytopenia, past tobacco abuse. She is admitted after presenting with RUQ abd pain, increased jaundice, worsening abd/leg swelling. Labs w/ WBC 7k, HGB 11, PLT 104, INR 1.7, Na 126, K 2.9, BUN 7, cr 0.73, lactate 2.4, Total bili 16.6, AST 95, ALT 49, ALP 90, albumin 2.6. Imaging w/ cirrhotic liver, esophageal varices, cholelithiasis, mild-moderate ascites. no IHDD. Surgery consulted for possible biliary colic however no obvious acute cholecystitis and they felt no indication for surgical intervention. She was started on IVF, ABX for possible UTI and albumin for possible SBP. Is getting paracentesis today. Maddrey's DF on admit 52. MELD 29. Diuretics held for BP. Overnight she's had some hypotension; Na, K, bili slightly improved. Slight downtrending with HGB and INR 1.8, but no overt GIB. Tolerating clear liquid diet today. She continues ETOH abuse - last ETOH use was 08/09/22. Last saw GI as OP in 2019. Has used ETOH on a chronic basis, previously was 12-15 beers daily, 1-2 gin or tonic occasionally. Now drinks 2-3 beers a day. She has yet to complete work- up for cirrhosis. Does not seem that she has ever had ascites so this is new- onset. Is rx'd lactulose as OP but she doesn't use - ? history of HE. Is rx'd diuretics and PPI as OP as well but she uses them only PRN. Bowels move every other day, brown. No melena, hematochezia, hematemesis, n/v, dysphagia, GERD, fever, chills, santos stool, confusion, falls, CP, cough, dyspnea. Her urine has been dark lately. Never had EGD/colonoscopy. She lives at home with her ex- who is her POA. Allergies Allergy/AdvReac Type Severity Reaction Status Date / Time propoxyphene AdvReac Intermediate Vomiting Verified 05/10/22 23:08 Home Medications Medication Instructions Recorded Confirmed Type furosemide 20 mg tablet 20 mg PO DAILY 04/17/19 08/10/22 History lactulose 10 gram/15 mL oral 10 gm PO DAILY PRN Constipation 04/17/19 08/10/22 History solution pantoprazole 40 mg tablet,delayed 40 mg PO DAILY 04/17/19 08/10/22 History release fluticasone propionate 50 2 spray intranasal DAILY PRN 04/22/21 08/10/22 History mcg/actuation nasal Congestion spray,suspension (Allergy Relief (fluticasone)) doxepin 10 mg capsule 10 mg PO HS 08/10/22 08/10/22 History Patient History Medical History Alcohol abuse Pulmonary edema which is most likely multifactorial and related to alcohol abuse. She has volume overload probably from chronic cirrhosis. She could have an alcoholic cardiomyopathy. She did have an echocardiogram today which I will review and make further recommendations. Currently she is clinically stable. History of tobacco abuse Obesity (BMI 30-39.9) Surgical History H/O tubal ligation Family History Father Diabetes Mother Diabetes Social History Smoking Status: Former smoker Second Hand Exposure: No; Do You Dip or Chew Tobacco: No; Hx Alcohol Use: Yes Alcohol type: beer Hx Substance Use: No Preferred Language: Guyanese Communication Ability: Effective Visual Impairment: No Limitations Eligibility Examiner Required: No Beliefs That Will Affect Care: None marital status: Current Living Situation: Spouse Current Living Situation Comment: apartment Other Information That Helps Us Care for You: No Feels Safe at Home: Yes Safety Concerns: Feels Safe At This Time Assistive Devices: None Review of Systems Review of Systems: All systems reviewed & are unremarkable except as noted in HPI & below Physical Exam Constitutional: well developed; no acute distress + chronically ill appearing Eyes: Sclera icterus ENMT: moist mucous membranes, no pallor Neck: trachea midline supple Respiratory: normal respiratory effort, lungs clear to auscultation Cardiovascular: +tachycardia Gastrointestinal (Abdomen): normal bowel sounds, soft, nontender, no hepatosplenomegaly Inspection/Auscultation: abdomen not distended mild ascites Skin: no rashes, warm and dry (+ jaundice) Neurologic: alert and oriented x 3, no obvious focal neuro deficit . No asterixis Psychiatric: normal mood and affect Results & Data Vital Signs (Past 12 Hours) Vital Signs Temp Pulse Pulse Resp BP BP Pulse Ox 08/11/22 07:11 37.1 C 107 H 20 83/78 L 96/59 L 92 08/11/22 06:40 37.2 C 108 H 17 97/61 L 94 08/11/22 06:32 101/62 08/11/22 04:17 36.8 C 104 H 19 90/54 L 90 08/11/22 01:10 101 H 08/11/22 00:16 37.2 C 106 H 19 111/68 91 08/11/22 00:23 37.2 C 106 H 19 111/68 91 08/10/22 23:55 99 H 08/10/22 23:29 103 H 11 L 102/53 L 89 L 08/10/22 20:35 99 H 18 93/49 L 95 O2 Del Method 08/11/22 07:11 Room Air 08/11/22 06:40 Room Air 08/11/22 06:32 08/11/22 04:17 Room Air 08/11/22 01:10 08/11/22 00:16 Room Air 08/11/22 00:23 Room Air 08/10/22 23:55 08/10/22 23:29 Room Air 08/10/22 20:35 Room Air Laboratory Results 08/11/22 08/11/22 08/11/22 Range/Units Unknown Unknown 06:17 WBC (4.8-10.8) K/ul RBC (4.20-5.40) M/uL Hgb (12.0-16.0) g/dl Hct (37.0-47.0) % MCV (80.0-100.0) fL MCH (25.0-34.0) pg MCHC (32.0-36.0) g/dL RDW Std Deviation (36.4-46.3) fL RDW Coeff of Wesley (11.5-14.5) % Plt Count (130-400) K/uL MPV (9.4-12.4) fL Immature Gran % (Auto) % Neut % (Auto) % Lymph % (Auto) % [place] % (Auto) % Eos % (Auto) % Baso % (Auto) % Neut # (Auto) (1.40-6.50) K/uL Lymph # (Auto) (1.2-3.4) K/uL [place] # (Auto) (0.11-0.59) K/uL Eos # (Auto) (0-0.50) K/uL Baso # (Auto) (0-0.2) K/uL Immature Gran # (Auto) (0.01-0.20) K/uL Absolute Nucleated RBC (0-0.12) K/uL Nucleated RBC % (auto) % Polychromasia Anisocytosis Macrocytosis Target Cells PT (9.0-12.0) Seconds INR (0.9-1.1) Sodium 127 L (136-145) mmol/L Potassium 3.0 L (3.5-5.1) mmol/L Chloride 88 L (98-107) mmol/L Carbon Dioxide 31 (21-32) mmol/L Anion Gap 8 (3-11) BUN 8 (6-23) mg/dl Creatinine 0.69 (0.6-1.2) mg/dl Est Cr Clr Drug Dosing 99.5 ml/min Est GFR ( Amer) 112.8 ml/min Est GFR (Non-Af Amer) 97.3 ml/min BUN/Creatinine Ratio 11.6 (10-20) Glucose 82 (70-99(Fasting)) mg/dl Osmolality (280-300) mOsm/kg Lactate (0.4-2.0) mmol/L Calcium 7.9 L (8.6-10.3) mg/dl Magnesium 2.0 (1.7-2.4) mg/dl Total Bilirubin 14.8 H (0.2-1.0) mg/dl Direct Bilirubin (0-0.2) mg/dl AST 75 H (13-39) U/L ALT 39 (7-52) U/L Alkaline Phosphatase 66 (34-104) U/L Total Protein 5.2 L (6.0-8.3) gm/dl Albumin 2.7 L (3.4-5.0) gm/dl Globulin 2.5 (2.5-4.0) gm/dl Albumin/Globulin Ratio 1.1 (0.9-2) Lipase Procalcitonin (0-0.5) ng/ml TSH (0.300-4.500) uIu/ml Urine Color Urine Appearance (Clear) Urine pH (4.5-7.5) Ur Specific [place] (1.000-1.030) Urine Protein (Negative) Urine Glucose (UA) (Negative) Urine Ketones (Negative) Urine Blood (Negative) Urine Nitrite (Negative) Urine Bilirubin (Negative) Urine Urobilinogen (Negative) Ur Leukocyte Esterase (Negative) Urine RBC (0-4) /hpf Urine WBC (0-5) /hpf Ur Epithelial Cells (0-5) /lpf Urine Bacteria (Negative) Hyaline Casts (0-5) /lpf Fluid Neutrophils % Pending Fluid Comment Peritoneal Color Pending Peritoneal Appearance Pending Peritoneal Tot Protein Pending Peritoneal Albumin Pending Peritoneal LDH Pending Peritoneal Glucose Pending Ethyl Alcohol mg/dL (<10.0) mg/dl SARS-CoV-2, RNA, NAAT (NEGATIVE) 08/11/22 08/11/22 08/10/22 Range/Units 06:17 06:17 23:32 WBC 5.04 (4.8-10.8) K/ul RBC 2.33 L (4.20-5.40) M/uL Hgb 9.3 L (12.0-16.0) g/dl Hct 24.6 L (37.0-47.0) % MCV 105.6 H (80.0-100.0) fL MCH 39.9 H (25.0-34.0) pg MCHC 37.8 H (32.0-36.0) g/dL RDW Std Deviation 75.6 H (36.4-46.3) fL RDW Coeff of [place] 20.3 H (11.5-14.5) % Plt Count 86 L (130-400) K/uL MPV 10.4 (9.4-12.4) fL Immature Gran % (Auto) 1.4 % Neut % (Auto) 66.4 % Lymph % (Auto) 16.7 % [place] % (Auto) 11.7 % Eos % (Auto) 3.0 % Baso % (Auto) 0.8 % Neut # (Auto) 3.35 (1.40-6.50) K/uL Lymph # (Auto) 0.84 L (1.2-3.4) K/uL [place] # (Auto) 0.59 (0.11-0.59) K/uL Eos # (Auto) 0.15 (0-0.50) K/uL Baso # (Auto) 0.04 (0-0.2) K/uL Immature Gran # (Auto) 0.07 (0.01-0.20) K/uL Absolute Nucleated RBC (0-0.12) K/uL Nucleated RBC % (auto) % Polychromasia Anisocytosis Present Macrocytosis Present Target Cells 1+ PT 19.0 H (9.0-12.0) Seconds INR 1.8 H (0.9-1.1) Sodium (136-145) mmol/L Potassium (3.5-5.1) mmol/L Chloride (98-107) mmol/L Carbon Dioxide (21-32) mmol/L Anion Gap (3-11) BUN (6-23) mg/dl Creatinine (0.6-1.2) mg/dl Est Cr Clr Drug Dosing ml/min Est GFR ( Amer) ml/min Est GFR (Non-Af Amer) ml/min BUN/Creatinine Ratio (10-20) Glucose (70-99(Fasting)) mg/dl Osmolality (280-300) mOsm/kg Lactate 1.8 (0.4-2.0) mmol/L Calcium (8.6-10.3) mg/dl Magnesium (1.7-2.4) mg/dl Total Bilirubin (0.2-1.0) mg/dl Direct Bilirubin (0-0.2) mg/dl AST (13-39) U/L ALT (7-52) U/L Alkaline Phosphatase (34-104) U/L Total Protein (6.0-8.3) gm/dl Albumin (3.4-5.0) gm/dl Globulin (2.5-4.0) gm/dl Albumin/Globulin Ratio (0.9-2) Lipase Procalcitonin (0-0.5) ng/ml TSH (0.300-4.500) uIu/ml Urine Color Urine Appearance (Clear) Urine pH (4.5-7.5) Ur Specific [place] (1.000-1.030) Urine Protein (Negative) Urine Glucose (UA) (Negative) Urine Ketones (Negative) Urine Blood (Negative) Urine Nitrite (Negative) Urine Bilirubin (Negative) Urine Urobilinogen (Negative) Ur Leukocyte Esterase (Negative) Urine RBC (0-4) /hpf Urine WBC (0-5) /hpf Ur Epithelial Cells (0-5) /lpf Urine Bacteria (Negative) Hyaline Casts (0-5) /lpf Fluid Neutrophils % Fluid Comment Peritoneal Color Peritoneal Appearance Peritoneal Tot Protein Peritoneal Albumin Peritoneal LDH Peritoneal Glucose Ethyl Alcohol mg/dL (<10.0) mg/dl SARS-CoV-2, RNA, NAAT (NEGATIVE) 08/10/22 08/10/22 08/10/22 Range/Units 23:32 20:54 19:55 WBC (4.8-10.8) K/ul RBC (4.20-5.40) M/uL Hgb (12.0-16.0) g/dl Hct (37.0-47.0) % MCV (80.0-100.0) fL MCH (25.0-34.0) pg MCHC (32.0-36.0) g/dL RDW Std Deviation (36.4-46.3) fL RDW Coeff of [place] (11.5-14.5) % Plt Count (130-400) K/uL MPV (9.4-12.4) fL Immature Gran % (Auto) % Neut % (Auto) % Lymph % (Auto) % [place] % (Auto) % Eos % (Auto) % Baso % (Auto) % Neut # (Auto) (1.40-6.50) K/uL Lymph # (Auto) (1.2-3.4) K/uL [place] # (Auto) (0.11-0.59) K/uL Eos # (Auto) (0-0.50) K/uL Baso # (Auto) (0-0.2) K/uL Immature Gran # (Auto) (0.01-0.20) K/uL Absolute Nucleated RBC (0-0.12) K/uL Nucleated RBC % (auto) % Polychromasia Anisocytosis Macrocytosis Target Cells PT (9.0-12.0) Seconds INR (0.9-1.1) Sodium 127 L (136-145) mmol/L Potassium (3.5-5.1) mmol/L Chloride (98-107) mmol/L Carbon Dioxide (21-32) mmol/L Anion Gap (3-11) BUN (6-23) mg/dl Creatinine (0.6-1.2) mg/dl Est Cr Clr Drug Dosing ml/min Est GFR ( Amer) ml/min Est GFR (Non-Af Amer) ml/min BUN/Creatinine Ratio (10-20) Glucose (70-99(Fasting)) mg/dl Osmolality (280-300) mOsm/kg Lactate 2.4 H* (0.4-2.0) mmol/L Calcium (8.6-10.3) mg/dl Magnesium Cancelled (1.7-2.4) mg/dl Total Bilirubin (0.2-1.0) mg/dl Direct Bilirubin (0-0.2) mg/dl AST (13-39) U/L ALT (7-52) U/L Alkaline Phosphatase (34-104) U/L Total Protein (6.0-8.3) gm/dl Albumin (3.4-5.0) gm/dl Globulin (2.5-4.0) gm/dl Albumin/Globulin Ratio (0.9-2) Lipase Procalcitonin (0-0.5) ng/ml TSH (0.300-4.500) uIu/ml Urine Color Urine Appearance (Clear) Urine pH (4.5-7.5) Ur Specific [place] (1.000-1.030) Urine Protein (Negative) Urine Glucose (UA) (Negative) Urine Ketones (Negative) Urine Blood (Negative) Urine Nitrite (Negative) Urine Bilirubin (Negative) Urine Urobilinogen (Negative) Ur Leukocyte Esterase (Negative) Urine RBC (0-4) /hpf Urine WBC (0-5) /hpf Ur Epithelial Cells (0-5) /lpf Urine Bacteria (Negative) Hyaline Casts (0-5) /lpf Fluid Neutrophils % Fluid Comment Peritoneal Color Peritoneal Appearance Peritoneal Tot Protein Peritoneal Albumin Peritoneal LDH Peritoneal Glucose Ethyl Alcohol mg/dL (<10.0) mg/dl SARS-CoV-2, RNA, NAAT (NEGATIVE) 08/10/22 08/10/22 08/10/22 Range/Units 17:53 17:53 17:36 WBC (4.8-10.8) K/ul RBC (4.20-5.40) M/uL Hgb (12.0-16.0) g/dl Hct (37.0-47.0) % MCV (80.0-100.0) fL MCH (25.0-34.0) pg MCHC (32.0-36.0) g/dL RDW Std Deviation (36.4-46.3) fL RDW Coeff of [place] (11.5-14.5) % Plt Count (130-400) K/uL MPV (9.4-12.4) fL Immature Gran % (Auto) % Neut % (Auto) % Lymph % (Auto) % [place] % (Auto) % Eos % (Auto) % Baso % (Auto) % Neut # (Auto) (1.40-6.50) K/uL Lymph # (Auto) (1.2-3.4) K/uL [place] # (Auto) (0.11-0.59) K/uL Eos # (Auto) (0-0.50) K/uL Baso # (Auto) (0-0.2) K/uL Immature Gran # (Auto) (0.01-0.20) K/uL Absolute Nucleated RBC (0-0.12) K/uL Nucleated RBC % (auto) % Polychromasia Anisocytosis Macrocytosis Target Cells PT (9.0-12.0) Seconds INR (0.9-1.1) Sodium (136-145) mmol/L Potassium (3.5-5.1) mmol/L Chloride (98-107) mmol/L Carbon Dioxide (21-32) mmol/L Anion Gap (3-11) BUN (6-23) mg/dl Creatinine (0.6-1.2) mg/dl Est Cr Clr Drug Dosing ml/min Est GFR ( Amer) ml/min Est GFR (Non-Af Amer) ml/min BUN/Creatinine Ratio (10-20) Glucose (70-99(Fasting)) mg/dl Osmolality (280-300) mOsm/kg Lactate (0.4-2.0) mmol/L Calcium (8.6-10.3) mg/dl Magnesium (1.7-2.4) mg/dl Total Bilirubin (0.2-1.0) mg/dl Direct Bilirubin 5.7 H (0-0.2) mg/dl AST (13-39) U/L ALT (7-52) U/L Alkaline Phosphatase (34-104) U/L Total Protein (6.0-8.3) gm/dl Albumin (3.4-5.0) gm/dl Globulin (2.5-4.0) gm/dl Albumin/Globulin Ratio (0.9-2) Lipase Procalcitonin (0-0.5) ng/ml TSH (0.300-4.500) uIu/ml Urine Color [place] Urine Appearance Slightly Cloudy (Clear) Urine pH (4.5-7.5) Ur Specific [place] 1.016 (1.000-1.030) Urine Protein (Negative) Urine Glucose (UA) (Negative) Urine Ketones (Negative) Urine Blood (Negative) Urine Nitrite (Negative) Urine Bilirubin (Negative) Urine Urobilinogen (Negative) Ur Leukocyte Esterase (Negative) Urine RBC 0-4 (0-4) /hpf Urine WBC 10-30 H (0-5) /hpf Ur Epithelial Cells 10-20 H (0-5) /lpf Urine Bacteria 3+ H (Negative) Hyaline Casts 0-5 (0-5) /lpf Fluid Neutrophils % Fluid Comment Peritoneal Color Peritoneal Appearance Peritoneal Tot Protein Peritoneal Albumin Peritoneal LDH Peritoneal Glucose Ethyl Alcohol mg/dL < 10.0 (<10.0) mg/dl SARS-CoV-2, RNA, NAAT (NEGATIVE) 08/10/22 08/10/22 08/10/22 Range/Units 17:36 16:13 16:13 WBC (4.8-10.8) K/ul RBC (4.20-5.40) M/uL Hgb (12.0-16.0) g/dl Hct (37.0-47.0) % MCV (80.0-100.0) fL MCH (25.0-34.0) pg MCHC (32.0-36.0) g/dL RDW Std Deviation (36.4-46.3) fL RDW Coeff of [place] (11.5-14.5) % Plt Count (130-400) K/uL MPV (9.4-12.4) fL Immature Gran % (Auto) % Neut % (Auto) % Lymph % (Auto) % [place] % (Auto) % Eos % (Auto) % Baso % (Auto) % Neut # (Auto) (1.40-6.50) K/uL Lymph # (Auto) (1.2-3.4) K/uL [place] # (Auto) (0.11-0.59) K/uL Eos # (Auto) (0-0.50) K/uL Baso # (Auto) (0-0.2) K/uL Immature Gran # (Auto) (0.01-0.20) K/uL Absolute Nucleated RBC (0-0.12) K/uL Nucleated RBC % (auto) % Polychromasia Anisocytosis Macrocytosis Target Cells PT (9.0-12.0) Seconds INR (0.9-1.1) Sodium (136-145) mmol/L Potassium (3.5-5.1) mmol/L Chloride (98-107) mmol/L Carbon Dioxide (21-32) mmol/L Anion Gap (3-11) BUN (6-23) mg/dl Creatinine (0.6-1.2) mg/dl Est Cr Clr Drug Dosing ml/min Est GFR ( Amer) ml/min Est GFR (Non-Af Amer) ml/min BUN/Creatinine Ratio (10-20) Glucose (70-99(Fasting)) mg/dl Osmolality 263 L (280-300) mOsm/kg Lactate (0.4-2.0) mmol/L Calcium (8.6-10.3) mg/dl Magnesium (1.7-2.4) mg/dl Total Bilirubin (0.2-1.0) mg/dl Direct Bilirubin (0-0.2) mg/dl AST (13-39) U/L ALT (7-52) U/L Alkaline Phosphatase (34-104) U/L Total Protein (6.0-8.3) gm/dl Albumin (3.4-5.0) gm/dl Globulin (2.5-4.0) gm/dl Albumin/Globulin Ratio (0.9-2) Lipase Procalcitonin (0-0.5) ng/ml TSH 3.186 (0.300-4.500) uIu/ml Urine Color Urine Appearance (Clear) Urine pH (4.5-7.5) Ur Specific [place] (1.000-1.030) Urine Protein (Negative) Urine Glucose (UA) (Negative) Urine Ketones (Negative) Urine Blood (Negative) Urine Nitrite (Negative) Urine Bilirubin (Negative) Urine Urobilinogen (Negative) Ur Leukocyte Esterase (Negative) Urine RBC (0-4) /hpf Urine WBC (0-5) /hpf Ur Epithelial Cells (0-5) /lpf Urine Bacteria (Negative) Hyaline Casts (0-5) /lpf Fluid Neutrophils % Fluid Comment Peritoneal Color Peritoneal Appearance Peritoneal Tot Protein Peritoneal Albumin Peritoneal LDH Peritoneal Glucose Ethyl Alcohol mg/dL (<10.0) mg/dl SARS-CoV-2, RNA, NAAT NEGATIVE (NEGATIVE) 08/10/22 08/10/22 08/10/22 Range/Units 16:13 16:13 16:13 WBC (4.8-10.8) K/ul RBC (4.20-5.40) M/uL Hgb (12.0-16.0) g/dl Hct (37.0-47.0) % MCV (80.0-100.0) fL MCH (25.0-34.0) pg MCHC (32.0-36.0) g/dL RDW Std Deviation (36.4-46.3) fL RDW Coeff of [place] (11.5-14.5) % Plt Count (130-400) K/uL MPV (9.4-12.4) fL Immature Gran % (Auto) % Neut % (Auto) % Lymph % (Auto) % [place] % (Auto) % Eos % (Auto) % Baso % (Auto) % Neut # (Auto) (1.40-6.50) K/uL Lymph # (Auto) (1.2-3.4) K/uL [place] # (Auto) (0.11-0.59) K/uL Eos # (Auto) (0-0.50) K/uL Baso # (Auto) (0-0.2) K/uL Immature Gran # (Auto) (0.01-0.20) K/uL Absolute Nucleated RBC (0-0.12) K/uL Nucleated RBC % (auto) % Polychromasia Anisocytosis Macrocytosis Target Cells PT 18.2 H (9.0-12.0) Seconds INR 1.7 H (0.9-1.1) Sodium 126 L (136-145) mmol/L Potassium 2.9 L (3.5-5.1) mmol/L Chloride 85 L (98-107) mmol/L Carbon Dioxide 29 (21-32) mmol/L Anion Gap 12 H (3-11) BUN 7 (6-23) mg/dl Creatinine 0.73 (0.6-1.2) mg/dl Est Cr Clr Drug Dosing 93.9 ml/min Est GFR ( Amer) 106.7 ml/min Est GFR (Non-Af Amer) 92.1 ml/min BUN/Creatinine Ratio 9.6 L (10-20) Glucose 108 H (70-99(Fasting)) mg/dl Osmolality (280-300) mOsm/kg Lactate (0.4-2.0) mmol/L Calcium 8.3 L (8.6-10.3) mg/dl Magnesium 1.5 L (1.7-2.4) mg/dl Total Bilirubin 16.6 H (0.2-1.0) mg/dl Direct Bilirubin (0-0.2) mg/dl AST 95 H (13-39) U/L ALT 49 (7-52) U/L Alkaline Phosphatase 90 (34-104) U/L Total Protein 5.8 L (6.0-8.3) gm/dl Albumin 2.6 L (3.4-5.0) gm/dl Globulin 3.2 (2.5-4.0) gm/dl Albumin/Globulin Ratio 0.8 L (0.9-2) Lipase TNP Procalcitonin 0.08 (0-0.5) ng/ml TSH (0.300-4.500) uIu/ml Urine Color Urine Appearance (Clear) Urine pH (4.5-7.5) Ur Specific [place] (1.000-1.030) Urine Protein (Negative) Urine Glucose (UA) (Negative) Urine Ketones (Negative) Urine Blood (Negative) Urine Nitrite (Negative) Urine Bilirubin (Negative) Urine Urobilinogen (Negative) Ur Leukocyte Esterase (Negative) Urine RBC (0-4) /hpf Urine WBC (0-5) /hpf Ur Epithelial Cells (0-5) /lpf Urine Bacteria (Negative) Hyaline Casts (0-5) /lpf Fluid Neutrophils % Fluid Comment Peritoneal Color Peritoneal Appearance Peritoneal Tot Protein Peritoneal Albumin Peritoneal LDH Peritoneal Glucose Ethyl Alcohol mg/dL (<10.0) mg/dl SARS-CoV-2, RNA, NAAT (NEGATIVE) 08/10/22 Range/Units 16:13 WBC 6.35 (4.8-10.8) K/ul RBC 2.67 L (4.20-5.40) M/uL Hgb 10.6 L (12.0-16.0) g/dl Hct 28.1 L (37.0-47.0) % MCV 105.2 H (80.0-100.0) fL MCH 39.7 H (25.0-34.0) pg MCHC 37.7 H (32.0-36.0) g/dL RDW Std Deviation 71.9 H (36.4-46.3) fL RDW Coeff of [place] 19.0 H (11.5-14.5) % Plt Count 110 L (130-400) K/uL MPV 10.1 (9.4-12.4) fL Immature Gran % (Auto) 1.7 % Neut % (Auto) 69.5 % Lymph % (Auto) 17.6 % [place] % (Auto) 9.9 % Eos % (Auto) 0.8 % Baso % (Auto) 0.5 % Neut # (Auto) 4.43 (1.40-6.50) K/uL Lymph # (Auto) 1.12 L (1.2-3.4) K/uL [place] # (Auto) 0.63 H (0.11-0.59) K/uL Eos # (Auto) 0.05 (0-0.50) K/uL Baso # (Auto) 0.03 (0-0.2) K/uL Immature Gran # (Auto) 0.11 (0.01-0.20) K/uL Absolute Nucleated RBC 0.00 (0-0.12) K/uL Nucleated RBC % (auto) 0.0 % Polychromasia 1+ Anisocytosis Macrocytosis Present Target Cells 1+ PT (9.0-12.0) Seconds INR (0.9-1.1) Sodium (136-145) mmol/L Potassium (3.5-5.1) mmol/L Chloride (98-107) mmol/L Carbon Dioxide (21-32) mmol/L Anion Gap (3-11) BUN (6-23) mg/dl Creatinine (0.6-1.2) mg/dl Est Cr Clr Drug Dosing ml/min Est GFR ( Amer) ml/min Est GFR (Non-Af Amer) ml/min BUN/Creatinine Ratio (10-20) Glucose (70-99(Fasting)) mg/dl Osmolality (280-300) mOsm/kg Lactate (0.4-2.0) mmol/L Calcium (8.6-10.3) mg/dl Magnesium (1.7-2.4) mg/dl Total Bilirubin (0.2-1.0) mg/dl Direct Bilirubin (0-0.2) mg/dl AST (13-39) U/L ALT (7-52) U/L Alkaline Phosphatase (34-104) U/L Total Protein (6.0-8.3) gm/dl Albumin (3.4-5.0) gm/dl Globulin (2.5-4.0) gm/dl Albumin/Globulin Ratio (0.9-2) Lipase Procalcitonin (0-0.5) ng/ml TSH (0.300-4.500) uIu/ml Urine Color Urine Appearance (Clear) Urine pH (4.5-7.5) Ur Specific [place] (1.000-1.030) Urine Protein (Negative) Urine Glucose (UA) (Negative) Urine Ketones (Negative) Urine Blood (Negative) Urine Nitrite (Negative) Urine Bilirubin (Negative) Urine Urobilinogen (Negative) Ur Leukocyte Esterase (Negative) Urine RBC (0-4) /hpf Urine WBC (0-5) /hpf Ur Epithelial Cells (0-5) /lpf Urine Bacteria (Negative) Hyaline Casts (0-5) /lpf Fluid Neutrophils % Fluid Comment Peritoneal Color Peritoneal Appearance Peritoneal Tot Protein Peritoneal Albumin Peritoneal LDH Peritoneal Glucose Ethyl Alcohol mg/dL (<10.0) mg/dl SARS-CoV-2, RNA, NAAT (NEGATIVE) Diagnostic Findings CTAP: Lung bases: The heart is normal in size and without pericardial effusion. There is trace left pleural effusion. There is bibasilar scarring/atelectasis. There is a small hiatal hernia. Esophageal varices are noted. Liver: The contrast-enhanced liver is cirrhotic in morphology and markedly heterogeneous in attenuation. Hepatic attenuation is diminished indicating severe steatosis. There is no intrahepatic biliary ductal dilatation. The hepatic veins and portal veins are patent. There is recanalization of the periumbilical vein. Gallbladder: There are large calcified gallstones with no CT evidence of acute cholecystitis. Spleen: The spleen is top normal in size and homogeneous in attenuation. Pancreas: The unenhanced pancreas is moderately atrophic and grossly unremarkable. Adrenal glands: Unremarkable. Kidneys: The contrast enhanced kidneys are normal in size and without hydronephrosis. The kidneys enhance symmetrically. Abdominal vasculature: The abdominal aorta is normal in course and caliber noting mild atherosclerotic calcification. Bowel: There is mild colonic fecal retention. No bowel obstruction is seen. The appendix is not identified and reported surgically absent. Peritoneum: No intraperitoneal free air is identified. There is a small to moderate volume of abdominopelvic ascites.. Lymphadenopathy: None. Pelvic viscera: The bladder is decompressed and not well evaluated. The uterus and adnexa are normal as visualized. Skeletal structures: The skeletal structures are osteopenic. There is mild lumbosacral spondylosis. No lytic or blastic lesions are seen. IMPRESSION: 1. No acute infectious or inflammatory findings are identified in the abdomen or pelvis. 2. The liver is cirrhotic in morphology and severely steatotic. 3. Esophageal varices, recanalization of the periumbilical vein, and abdominal ascites indicate portal hypertension. 4. Cholelithiasis. 5. Additional findings as above. CXR: FINDINGS: No pneumothorax. No pleural effusions. The cardiac silhouette is mildly enlarged. There is progressive interstitial/vascular thickening consistent with mild pulmonary edema. Otherwise, no focal lung consolidations to suggest a pneumonia. IMPRESSION: Cardiomegaly with mild interstitial pulmonary edema.
[2022-08-11] MEDS ORDERED: PANTOprazole 40 MG TAB PO SCH (09:00)
[2022-08-11 10:26] LABS: Albumin Peritoneal Fluid < 1.5 gm/dl
[2022-08-11 10:32] LABS: Glucose Peritoneal Fluid 107 mg/dl; LDH Peritoneal Fluid 72 U/L; Total Protein Peritoneal Fluid < 3.0 gm/dl
[2022-08-11 10:56] LABS: Appearance Peritoneal Fluid Clear; Basophils, Fluid 1 %; Color Peritoneal Fluid Yellow; Lymphocytes, Fluid 32 %; Mono,Macrophage,Mesothelial 27 %; Neutrophils, Fluid 40 %; RBC Peritoneal Fluid Auto < 2000 /uL; WBC Peritoneal Fluid Auto 245 /ul (0-300)
[2022-08-11] MEDS ORDERED: POTASSIUM CHLORIDE CRTAB 20 MEQ TABCR PO STA (11:40)
--- NOTE | 2022-08-11 11:47 | Hospitalist Progress Note ---
Date of Service August 11, 2022 Assessment & Plan (1) Decompensated hepatic cirrhosis: Plan: Patient is a 57-year-old female with past medical history of alcoholic cirrhosis, portal hypertension, chronic diastolic heart failure, COPD, anxiety who presented to the ED with right upper quadrant pain. She is admitted for following conditions; Abdominal pain Decompensated alcoholic cirrhosis Portal hypertension Ascites status post paracentesis on 08/11/2022, SBP ruled out Esophageal varices Thrombocytopenia due to portal hypertension Hypervolemic hyponatremia On presentation, afebrile, normotensive and saturating well on room air Labs reviewed; consistent with macrocytic anemia and thrombocytopenia. Also, total bilirubin 14.8 with direct bilirubin of 5.7. AST mildly elevated. PT/INR19/1.8. MELD = 29. CT abdomen and pelvis reviewed; cirrhotic liver with cholelithiasis. Esophageal varices and abdominal ascites Discussed with surgery; pain likely due to stretching of liver capsule. No concern for acute cholecystitis. GI evaluated the patient; will have formal work-up for cirrhosis as outpatient including EGD. Continue ceftriaxone for now. No steroids as concern for infection. We will continue ceftriaxone and follow-up on urine and blood culture Follow-up work-up of ascitic fluid Fluid restriction and low-salt diet for hyponatremia Started on Lasix and a Aldactone Chronic conditions; hx chronic diastolic heart failure chest x-ray personally reviewed; cardiomegaly with interstitial pulmonary edema. Continue on Lasix and spironolactone hx valvular heart disease (moderate MR, mild TR) COPD, pulmonary hypertension, lung status at baselinecontinue on fluticasone Time spent evaluating patient, direct bedside care, chart review, placing orders, interpretation of diagnostic studies, discussion with consultants, patient, and family members, as well as other required patient management activities is 60 minutes Please note the above document was generated using voice recognition software. It may contain grammatical, syntax or spelling errors. Any formal questions or concerns about the content, text or information contained within the body of this dictation should be directly addressed to the provider for clarification Admission and Anticipated Discharge Date Admission Date: August 10, 2022 Subjective Patient seen and examined at bedside. Patient underwent ultrasound-guided paracentesis today by radiology. Patient reports her abdominal pain has sig nificantly improved compared to admission. Review of Systems Review of Systems: All systems reviewed & are unremarkable except as noted in Subjective Physical Exam Physical Exam: Constitutional: Awake, oriented x3. Appears jaundiced Head: Normocephalic, Atraumatic Eyes: Icteric sclera ENMT: external ear and nose normal, oropharynx normal Neck: trachea midline, no thyromegaly normal visual inspection Respiratory: Bilateral clear breath vesicular breath sound Cardiovascular: S1-S2, no murmur Chest: normal inspection of chest Abdomen: Slight tenderness present in right upper quadrant. Abdomen slightly distended. Musculoskeletal: no cyanosis or clubbing, extremities motor strength 5/5 Skin: no rashes, warm and dry normal turgor Neurologic: Grossly intact. Psychiatric: A+Ox3, euthymic affect Lymphatic: no cervical or axillary lymphadenopathy : deferred Results & Data Results & Data Vital Signs (Past 12 Hours) Vital Signs Temp Pulse Pulse Resp BP BP Pulse Ox 08/11/22 11:14 37.1 C 104 H 19 104/67 91 08/11/22 07:11 37.1 C 107 H 20 83/78 L 96/59 L 92 08/11/22 06:40 37.2 C 108 H 17 97/61 L 94 08/11/22 06:32 101/62 08/11/22 04:17 36.8 C 104 H 19 90/54 L 90 08/11/22 01:10 101 H 08/11/22 00:16 37.2 C 106 H 19 111/68 91 08/11/22 00:23 37.2 C 106 H 19 111/68 91 08/10/22 23:55 99 H O2 Del Method O2 Flow Rate 08/11/22 11:14 Nasal Cannula 2 08/11/22 07:11 Room Air 08/11/22 06:40 Room Air 08/11/22 06:32 08/11/22 04:17 Room Air 08/11/22 01:10 08/11/22 00:16 Room Air 08/11/22 00:23 Room Air 08/10/22 23:55 Laboratory Results Laboratory Results WBC 5.04 K/ul (4.8-10.8) 08/11/22 06:17 RBC 2.33 M/uL (4.20-5.40) L 08/11/22 06:17 Hgb 9.3 g/dl (12.0-16.0) L 08/11/22 06:17 Hct 24.6 % (37.0-47.0) L 08/11/22 06:17 MCV 105.6 fL (80.0-100.0) H 08/11/22 06:17 MCH 39.9 pg (25.0-34.0) H 08/11/22 06:17 MCHC 37.8 g/dL (32.0-36.0) H 08/11/22 06:17 RDW Std Deviation 75.6 fL (36.4-46.3) H 08/11/22 06:17 RDW Coeff of Wesley 20.3 % (11.5-14.5) H 08/11/22 06:17 Plt Count 86 K/uL (130-400) L 08/11/22 06:17 MPV 10.4 fL (9.4-12.4) 08/11/22 06:17 Immature Gran % (Auto) 1.4 % 08/11/22 06:17 Neut % (Auto) 66.4 % 08/11/22 06:17 Lymph % (Auto) 16.7 % 08/11/22 06:17 Yates % (Auto) 11.7 % 08/11/22 06:17 Eos % (Auto) 3.0 % 08/11/22 06:17 Baso % (Auto) 0.8 % 08/11/22 06:17 Neut # (Auto) 3.35 K/uL (1.40-6.50) 08/11/22 06:17 Lymph # (Auto) 0.84 K/uL (1.2-3.4) L 08/11/22 06:17 Yates # (Auto) 0.59 K/uL (0.11-0.59) 08/11/22 06:17 Eos # (Auto) 0.15 K/uL (0-0.50) 08/11/22 06:17 Baso # (Auto) 0.04 K/uL (0-0.2) 08/11/22 06:17 Immature Gran # (Auto) 0.07 K/uL (0.01-0.20) 08/11/22 06:17 Absolute Nucleated RBC 0.00 K/uL (0-0.12) 08/10/22 16:13 Nucleated RBC % (auto) 0.0 % 08/10/22 16:13 Polychromasia 1+ 08/10/22 16:13 Anisocytosis Present 08/11/22 06:17 Macrocytosis Present 08/11/22 06:17 Target Cells 1+ 08/11/22 06:17 PT 19.0 Seconds (9.0-12.0) H 08/11/22 06:17 INR 1.8 (0.9-1.1) H 08/11/22 06:17 Sodium 127 mmol/L (136-145) L 08/11/22 06:17 Potassium 3.0 mmol/L (3.5-5.1) L 08/11/22 06:17 Chloride 88 mmol/L (98-107) L 08/11/22 06:17 Carbon Dioxide 31 mmol/L (21-32) 08/11/22 06:17 Anion Gap 8 (3-11) 08/11/22 06:17 BUN 8 mg/dl (6-23) 08/11/22 06:17 Creatinine 0.69 mg/dl (0.6-1.2) 08/11/22 06:17 Est Cr Clr Drug Dosing 99.5 ml/min 08/11/22 06:17 Est GFR ( Amer) 112.8 ml/min 08/11/22 06:17 Est GFR (Non-Af Amer) 97.3 ml/min 08/11/22 06:17 BUN/Creatinine Ratio 11.6 (10-20) 08/11/22 06:17 Glucose 82 mg/dl (70-99(Fasting)) 08/11/22 06:17 Osmolality 263 mOsm/kg (280-300) L 08/10/22 16:13 Lactate 1.8 mmol/L (0.4-2.0) 08/10/22 23:32 Calcium 7.9 mg/dl (8.6-10.3) L 08/11/22 06:17 Magnesium 2.0 mg/dl (1.7-2.4) 08/11/22 06:17 Total Bilirubin 14.8 mg/dl (0.2-1.0) H 08/11/22 06:17 Direct Bilirubin 5.7 mg/dl (0-0.2) H 08/10/22 17:53 AST 75 U/L (13-39) H 08/11/22 06:17 ALT 39 U/L (7-52) 08/11/22 06:17 Alkaline Phosphatase 66 U/L (34-104) 08/11/22 06:17 Total Protein 5.2 gm/dl (6.0-8.3) L 08/11/22 06:17 Albumin 2.7 gm/dl (3.4-5.0) L 08/11/22 06:17 Globulin 2.5 gm/dl (2.5-4.0) 08/11/22 06:17 Albumin/Globulin Ratio 1.1 (0.9-2) 08/11/22 06:17 Lipase TNP 08/10/22 16:13 Procalcitonin 0.08 ng/ml (0-0.5) 08/10/22 16:13 TSH 3.186 uIu/ml (0.300-4.500) 08/10/22 16:13 Urine Color [place] 08/10/22 17:36 Urine Appearance Slightly Cloudy (Clear) 08/10/22 17:36 Urine pH (4.5-7.5) 08/10/22 17:36 Ur Specific [place] 1.016 (1.000-1.030) 08/10/22 17:36 Urine Protein (Negative) 08/10/22 17:36 Urine Glucose (UA) (Negative) 08/10/22 17:36 Urine Ketones (Negative) 08/10/22 17:36 Urine Blood (Negative) 08/10/22 17:36 Urine Nitrite (Negative) 08/10/22 17:36 Urine Bilirubin (Negative) 08/10/22 17:36 Urine Urobilinogen (Negative) 08/10/22 17:36 Ur Leukocyte Esterase (Negative) 08/10/22 17:36 Urine RBC 0-4 /hpf (0-4) 08/10/22 17:36 Urine WBC 10-30 /hpf (0-5) H 08/10/22 17:36 Ur Epithelial Cells 10-20 /lpf (0-5) H 08/10/22 17:36 Urine Bacteria 3+ (Negative) H 08/10/22 17:36 Hyaline Casts 0-5 /lpf (0-5) 08/10/22 17:36 Fluid Neutrophils % 40 % 08/11/22 Unknown Fluid Lymphocytes % 32 % 08/11/22 Unknown Fluid Basophils % 1 % 08/11/22 Unknown Fluid Meso/Macro/Yates % 27 % 08/11/22 Unknown Fluid Comment 08/11/22 Unknown Peritoneal Color Yellow 08/11/22 Unknown Peritoneal Appearance Clear 08/11/22 Unknown Peritoneal WBC (Auto) 245 /ul (0-300) 08/11/22 Unknown Peritoneal RBC (Auto) < 2000 /uL 08/11/22 Unknown Peritoneal Tot Protein < 3.0 gm/dl 08/11/22 Unknown Peritoneal Albumin < 1.5 gm/dl 08/11/22 Unknown Peritoneal LDH 72 U/L 08/11/22 Unknown Peritoneal Glucose 107 mg/dl 08/11/22 Unknown Ethyl Alcohol mg/dL < 10.0 mg/dl (<10.0) 08/10/22 17:53 SARS-CoV-2, RNA, NAAT NEGATIVE (NEGATIVE) 08/10/22 17:36 Impressions Abdomen/Pelvis CT 08/10/22 17:29 CT SCAN OF THE ABDOMEN AND PELVIS WITH IV CONTRAST CLINICAL HISTORY: Right upper quadrant abdominal pain. COMPARISON STUDY: Abdominal CT dated 05/10/2022. TECHNIQUE: Following the IV administration of 83 cc of Optiray 350, CT scan of the abdomen and pelvis is performed from the lung bases to the proximal femora. Images are reviewed in the axial, sagittal, and coronal planes. IV contrast was administered without complication. A dose lowering technique was utilized adhering to the principles of ALARA. CT DOSE: 880.19 mGy.cm FINDINGS: Lung bases: The heart is normal in size and without pericardial effusion. There is trace left pleural effusion. There is bibasilar scarring/atelectasis. There is a small hiatal hernia. Esophageal varices are noted. Liver: The contrast-enhanced liver is cirrhotic in morphology and markedly heterogeneous in attenuation. Hepatic attenuation is diminished indicating severe steatosis. There is no intrahepatic biliary ductal dilatation. The hepatic veins and portal veins are patent. There is recanalization of the periumbilical vein. Gallbladder: There are large calcified gallstones with no CT evidence of acute cholecystitis. Spleen: The spleen is top normal in size and homogeneous in attenuation. Pancreas: The unenhanced pancreas is moderately atrophic and grossly unremarkable. Adrenal glands: Unremarkable. Kidneys: The contrast enhanced kidneys are normal in size and without hydronephrosis. The kidneys enhance symmetrically. Abdominal vasculature: The abdominal aorta is normal in course and caliber noting mild atherosclerotic calcification. Bowel: There is mild colonic fecal retention. No bowel obstruction is seen. The appendix is not identified and reported surgically absent. Peritoneum: No intraperitoneal free air is identified. There is a small to moderate volume of abdominopelvic ascites.. Lymphadenopathy: None. Pelvic viscera: The bladder is decompressed and not well evaluated. The uterus and adnexa are normal as visualized. Skeletal structures: The skeletal structures are osteopenic. There is mild lumbosacral spondylosis. No lytic or blastic lesions are seen. IMPRESSION: 1. No acute infectious or inflammatory findings are identified in the abdomen or pelvis. 2. The liver is cirrhotic in morphology and severely steatotic. 3. Esophageal varices, recanalization of the periumbilical vein, and abdominal ascites indicate portal hypertension. 4. Cholelithiasis. 5. Additional findings as above. ACT 112: Negative or not required by law. Electronically signed by: Jelani Ramsey M.D. 08/10/2022 6:59 PM Chest X-Ray 08/10/22 19:56 XR chest 1V portable HISTORY: hyponatremia COMPARISON: Chest 03/12/2019. FINDINGS: No pneumothorax. No pleural effusions. The cardiac silhouette is mildly enlarged. There is progressive interstitial/vascular thickening consistent with mild pulmonary edema. Otherwise, no focal lung consolidations to suggest a pneumonia. IMPRESSION: Cardiomegaly with mild interstitial pulmonary edema. ACT 112: Negative or not required by law. Electronically signed by: Raymon Pitts M.D. 08/11/2022 7:53 AM
--- NOTE | 2022-08-11 11:59 | Ultrasound Report ---
ULTRASOUND-GUIDED PARACENTESIS CLINICAL HISTORY: Ascites PROCEDURE: Procedure and risks were explained. Informed consent was obtained. A final timeout was com pleted. The left lower quadrant was prepped and draped in sterile fashion. 1% buffered lidocaine was utilized for skin anesthesia. Utilizing ultrasound guidance, a 5 Armenian safety centesis catheter was advanced into the pocket of shagufta oaeks. Ultrasound images were obtained. A total of 550 mL of yellow ascites fluid was removed and sen t to the lab for analysis. The catheter was removed and Band-Aid applied. The patient tolerated the p rocedure well. Vital signs were be monitored on the floor postprocedure. IMPRESSION: Ultrasound-guided paracentesis as above. Performed, dictated, and signed by Manjeet Fontana PA-C; to be co-signed by Dr. Jelani Ramsey. Electronically signed by: Jelani Ramsey M.D. 08/11/2022 12:12 PM
[2022-08-11] MEDS ORDERED: AcetylCYSTEINE IV 21 HR REGIMEN (>40KG) IV STA (12:23)
[2022-08-11] MEDS: FUROSEMIDE 20 MG TAB PO SCH (12:23)
[2022-08-11] MEDS: SPIRONOLACTONE 25 MG TAB PO SCH (12:24)
[2022-08-11] MEDS ORDERED: ACETYLCYSTEINE IV ONE ×4 (12:45→17:45)
[2022-08-11] MEDS ORDERED: DEXTROSE 5% IV ONE ×4 (12:45→17:45)
[2022-08-11 13:14] LABS: Urine Chloride < 15 mmol/L; Urine Potassium 37.2 mmol/L; Urine Sodium < 10 mmol/L
[2022-08-11 13:22] LABS: Creatinine Urine Random 173.3 mg/dl
[2022-08-11] MEDS ORDERED: FUROSEMIDE INJ 20 MG/2 ML VIAL IV ONE ×2 (15:13→20:02)
--- NOTE | 2022-08-11 16:14 | XRay Report ---
XR chest 1V portable CLINICAL HISTORY: increasing shortness of breath COMPARISON STUDY: Chest CT March 24, 2022. Chest radiograph August 10, 2022. FINDINGS: There is no pneumothorax. Possible trace bilateral pleural effusions. Interstitial thickeni ng persists. There may be mild right basilar opacity. Cardiomegaly is unchanged. IMPRESSION: 1. Persistent interstitial thickening and suspected patchy airspace opacities. Although less likely, an infectious etiology could appear similar. 2. Suspected trace bilateral pleural effusions. ACT 112: Negative or not required by law. Electronically signed by: Mao Gilmore M.D. 08/11/2022 4:13 PM
[2022-08-11] MEDS ORDERED: PHYTONADIONE 5 MG in DEXTROSE 5% 50 ML IV ONE ×2 (16:15→21:00)
[2022-08-11] MEDS ORDERED: methylPREDNISolone 40 MG in SYRINGE 0 ML IV SCH (16:30)
--- NOTE | 2022-08-11 16:37 | Pulmonary Consultation ---
Date of Consultation August 11, 2022 Assessment & Plan (1) Decompensated hepatic cirrhosis: (2) Alveolar emphysema of lung: (3) Multiple pulmonary nodules: (4) History of tobacco abuse: (5) Acute respiratory failure with hypoxia: (6) Pulmonary hypertension: (7) Hemoptysis: Plan Chest x-ray 08/11/2022 personally reviewed: Good inspiratory effort, increase vascular markings, bilateral costophrenic and cardiophrenic angles are blunted, increased cardiac silhouette -- Acute hypoxic respiratory failure Multifactorial Procalcitonin 0.08 SARS NAAT negative, influenza A/B negative Continue with O2 supplementation to keep oxygen saturation between 90-92% -- Hemoptysis Patient does have history of pulmonary alveolar hemorrhage Autoimmune work-up was negative back in January 2019 and likelihood of her und erlying etiology was coagulopathy from liver disease Patient was briefly on steroids but was discontinued October 2019 --Emphysema Not on any inhalers at home Not in any exacerbation PFTs 03/30/2021:No obstructive lung dysfunction, insignificant bronchodilator response, severe decrease in ERV, moderate decrease in DLCO which partially corrects for VA (Decrease in FVC by 290 mL, decrease in FEV1 by 340 mL, patient gained 62 pounds compared to 03/2020) FVC 2.59 L 87%, FEV1 2.28 L 94%, FEV1/FVC 88%, ERV 2%, RV 84%, TLC 89%, RV/TLC 94% 2D echo 05/22/2020:EF 55 to 60%, moderate MR, RVSP 30-40 --Multiple pulmonary nodules Largest being 5 mm in the right middle lobe followed by 4 mm in the right lower lobe, stable since 03/2020. To me it seems like scarring from the significant valvular damage she had during the hospitalization of January 2019 Patient does have history of [id number] smoking --Pulmonary Hypertension Likely combination of type II and type III Patient's BMI of 37 also likely playing it's part --Greater than [id number] smoking history Quit 2008 Advised to continue with abstinence Plan: INR is 1.8, vitamin K 5 mg given Antitussive medication [id number] 2D echo to be done now Follow BNP Consideration of vasopressin/Levophed could be considered if there is consideration of hepatorenal syndrome Midodrine is another option Recommend a very close Input and output. Would recommend the patient to euvolemic to negative balance Overall prognosis of the patient is poor given the elevated MELD score Maddrey's discriminant factor 47, which is greater than 32, steroids can be added. Would recommend with pantoprazole Case was discussed with RN at bedside as well as Dr. Badillo Please note the above document was generated using voice recognition software. It may contain grammatical, syntax or spelling errors.Any formal questions or concerns about the content, text or information contained within the body of this dictation should be directly addressed to the provider for clarification. History of Present Illness Attending Physician: Hong Badillo MD History of Present Illness 57-year-old female presented to the hospital for abdominal pain Past medical history: alcohol abuse has been clean since January 2019, DM-II, probable liver cirrhosis(patient follows up with GI), Prolonged course with hospitalization in end of January 2019 where she came in with acute hypoxic res piratory failure hemoptysis was found to have diffuse alveolar hemorrhage on bronchoscopy. All other autoimmune work-up from the hospital came out to be negative. Pulmonary consulted for hypoxia and hemoptysis At the time of examination patient was saturating 93-94% on 5 L nasal cannula She was not in any respiratory distress Denied any headache She had couple of bouts of cough with blood-tinged phlegm. Denies any dysuria, no diarrhea Did complain of nausea and vomiting when she came in. No hemoptysis No abdominal pain Social history:Greater than 20 -pack-year smoking history quit 2008, heavy alcohol usequit January 2019, denies any illicit drug use. Pets: cat. No birds or poultry Allergies: None Asthma: Mother Lung cancer: none Allergies Allergy/AdvReac Type Severity Reaction Status Date / Time propoxyphene AdvReac Intermediate Vomiting Verified 05/10/22 23:08 Home Medications Medication Instructions Recorded Confirmed Type furosemide 20 mg tablet 20 mg PO DAILY 04/17/19 08/10/22 History lactulose 10 gram/15 mL oral 10 gm PO DAILY PRN Constipation 04/17/19 08/10/22 History solution pantoprazole 40 mg tablet,delayed 40 mg PO DAILY 04/17/19 08/10/22 History release fluticasone propionate 50 2 spray intranasal DAILY PRN 04/22/21 08/10/22 History mcg/actuation nasal Congestion spray,suspension (Allergy Relief (fluticasone)) doxepin 10 mg capsule 10 mg PO HS 08/10/22 08/10/22 History Patient History Medical History Alcohol abuse Pulmonary edema which is most likely multifactorial and related to alcohol abuse. She has volume overload probably from chronic cirrhosis. She could have an alcoholic cardiomyopathy. She did have an echocardiogram today which I will review and make further recommendations. Currently she is clinically stable. History of tobacco abuse Obesity (BMI 30-39.9) Surgical History H/O tubal ligation Family History Father Diabetes Mother Diabetes Social History Smoking Status: Former smoker Second Hand Exposure: No; Do You Dip or Chew Tobacco: No; Hx Alcohol Use: Yes Alcohol type: beer Hx Substance Use: No Preferred Language: Lithuanian Communication Ability: Effective Visual Impairment: No Limitations Parlor Chaperone Required: No Beliefs That Will Affect Care: None marital status: Current Living Situation: Spouse Current Living Situation Comment: apartment Other Information That Helps Us Care for You: No Feels Safe at Home: Yes Safety Concerns: Feels Safe At This Time Assistive Devices: None Review of Systems Review of Systems: All systems reviewed & are unremarkable except as noted in HPI & below Physical Exam Physical Exam: Constitutional: No acute distress HEENT: EOMI, PERRLA, scleral icterus Respiratory system: Decreased air entry bilaterally, no wheeze, no rhonchi, positive crackles bilaterally CVS: S1-S2 positive, positive 2 out of 6 systolic murmur appreciated best at apex Abdomen: Soft, nontender, nondistended, positive bowel sounds x4, obese Extremities: +2 pulses bilaterally radialis/ dorsalis pedis, no cyanosis, +3 pitting edema bilateral lower extremity Neuro: Awake alert oriented x3 Psych: Normal mood and affect G/U: No [place] Skin: no rashes, warm and dry Lymphatic: no cervical or axillary lymphadenopathy Results & Data Results & Data Vital Signs (Past 12 Hours) Vital Signs Temp Pulse Resp BP BP Pulse Ox O2 Del Method 08/11/22 14:59 36.5 C 120 H 20 91/46 L 91 Nasal Cannula 08/11/22 11:14 37.1 C 104 H 19 104/67 91 Nasal Cannula 08/11/22 07:11 37.1 C 107 H 20 83/78 L 96/59 L 92 Room Air 08/11/22 06:40 37.2 C 108 H 17 97/61 L 94 Room Air 08/11/22 06:32 101/62 O2 Flow Rate 08/11/22 14:59 4 08/11/22 11:14 2 08/11/22 07:11 08/11/22 06:40 08/11/22 06:32 Laboratory Results 08/11/22 06:17 08/11/22 06:17 PG Care Time/CCT Total # of Minutes Spent Total Time Spent with Patient: Total time spent is greater than 50% in coordination of care (as documented) at patient's floor/unit and/or counseling patient: Coding Level of Care Code 75693 INT INP/OBS CARE 3/75MIN Diagnoses Decompensated hepatic cirrhosis K72.90; K74.60 Alveolar emphysema of lung J43.1 Multiple pulmonary nodules R91.8 History of tobacco abuse Z87.891 Acute respiratory failure with hypoxia J96.01 Pulmonary hypertension I27.20 Hemoptysis R04.2
[2022-08-11] MEDS: DEXTROMETHORPHAN POLYMR COMPLX 30 MG/5 ML UDP PO SCH ×2 (17:19→22:15)
[2022-08-11 17:43] LABS: Influenza A virus by PCR Negative (Negative); Influenza B virus by PCR Negative (Negative)
[2022-08-11] MEDS: cefTRIAXone SODIUM 2,000 MG in DEXTROSE 5% 50 ML IV SCH (19:47)
[2022-08-11] MEDS ORDERED: Nursing to Pharmacy Communication SCH (20:00)
[2022-08-11] MEDS ORDERED: XOPENEX/ATROVENT 1.25mg/0.5MG NEB COMBO NEB STA (20:00)
[2022-08-11] MEDS ORDERED: IPRATROPIUM BROMIDE NEB SOLN 0.02% 2.5 ML VIAL INH ONE (20:15)
[2022-08-11] MEDS ORDERED: LEVALBUTEROL 1.25MG/0.5ML NEB INH ONE (20:15)
[2022-08-11] MEDS ORDERED: methylPREDNISolone 40 MG in SYRINGE 0 ML IV STA (20:42)
[2022-08-11] MEDS: PANTOprazole 40 MG in SYRINGE 0 ML IV SCH (20:49)
[2022-08-11] MEDS ORDERED: DOXEPIN HCL 10 MG CAPSULE PO SCH (21:00)
[2022-08-11] MEDS: POTASSIUM CHLORIDE / WTR 10 MEQ/100 ML PLCT IV SCH ×3 (21:25→23:14)
[2022-08-11 22:57] LABS: Basophils # (auto) 0.01 K/uL (0-0.2); Basophils % (auto) 0.2 %; Hematocrit (blood only) 22.9 % (37.0-47.0); Hemoglobin 8.4 g/dl (12.0-16.0); Lymphocytes # (auto) 0.38 K/uL (1.2-3.4); Lymphocytes % (auto) 7.7 %; Mean Corpuscular Hemoglobin 40.4 pg (25.0-34.0); Mean Corpuscular Hgb Conc 36.7 g/dL (32.0-36.0); Mean Corpuscular Volume 110.1 fL (80.0-100.0); Mean Platelet Volume 10.2 fL (9.4-12.4); Monocytes # (auto) 0.19 K/uL (0.11-0.59); Monocytes % (auto) 3.9 %; Neutrophils # (auto) 4.23 K/uL (1.40-6.50); Neutrophils % (auto) 86.2 %; Platelet Count 79 K/uL (130-400); RDW Coefficient of Variation 19.8 % (11.5-14.5); RDW Standard Deviation 77.8 fL (36.4-46.3); Red Blood Count 2.08 M/uL (4.20-5.40); White Blood Count 4.91 K/ul (4.8-10.8)
[2022-08-11 23:08] LABS: iSTAT Allen Test Pass; iSTAT Art Bld Gas pCO2 Correct 34 mmHg (35-46); iSTAT Art Bld Gas pH Corrected 7.542 (7.35-7.45); iSTAT Arterial Blood Gas HCO3 29 meg/L (19-24); iSTAT Arterial Blood Gas pCO2 34 mmHg (35-46); iSTAT Arterial Blood Gas pH 7.54 (7.35-7.45); iSTAT Arterial Blood Gas pO2 52 mmHg (80-95); iSTAT Arterial Blood Gas pO2 C 52; iSTAT Carbon Dioxide 30 mmol/L (24-31); iSTAT Hematocrit 26 % (37-47); iSTAT Hemoglobin 8.8 g/dl (12.0-16.0); iSTAT Potassium 3.2 mmol/L (3.3-5.0); iSTAT Site L Radial; iSTAT Sodium 129 mmol/L (135-144)
[2022-08-11 23:14] LABS: Echinocytes 2+; Macrocytosis Present; Polychromasia 2+; Target Cells 1+; Toxic Vacuolation 1+
[2022-08-12] MEDS ORDERED: ALBUMIN 25% 12.5 GM/50 ML VIAL IV ONE (00:04)
[2022-08-12] MEDS ORDERED: FUROSEMIDE INJ 20 MG/2 ML VIAL IV ONE (00:04)
[2022-08-12] MEDS ORDERED: BENZONATATE 100 MG CAPSULE PO ONE (00:42)
[2022-08-12] MEDS: POTASSIUM CHLORIDE / WTR 10 MEQ/100 ML PLCT IV SCH ×5 (01:04→14:49)
--- NOTE | 2022-08-12 01:08 | Magnetic Resonance Report ---
Exam(s): MRI MRCP EXAM: MR Abdomen Without Intravenous Contrast, MRCP Protocol CLINICAL HISTORY: Reason for exam: elevated LFts, bili, cirrhosis, r/o obstruction. TECHNIQUE: Multiplanar magnetic resonance images of the abdomen without intravenous contrast using MRCP protocol. COMPARISON: August 10, 2022 CT abdomen and pelvis. FINDINGS: Artifacts: There is moderate motion artifact throughout the examination. Lower thorax: Trace left pleural effusion and scattered infiltrates and/or edema in both lung bases. Bile ducts: The biliary tree is nondilated. The common bile duct is normal in diameter measuring 5 mm. No choledocholithiasis is seen. Gallbladder: The gallbladder is nondilated. There appears to be calculi within it dependently measuring up to 1.4 cm. Liver: The liver demonstrates a nodular surface suggesting cirrhosis. There is a small amount of ascites. No focal liver mass lesion is seen. There is a splenorenal shunt. Pancreas: Unremarkable. No ductal dilation. Spleen: Unremarkable. No splenomegaly. Adrenals: Unremarkable. No mass. Kidneys and ureters: Unremarkable. No hydronephrosis. Stomach and bowel: Unremarkable. No obstruction. IMPRESSION: 1. The liver demonstrates a nodular surface suggesting cirrhosis. There is a small amount of ascites. No focal liver mass lesion is seen. There is a splenorenal shunt. 2. Trace left pleural effusion and scattered infiltrates and/or edema in both lung bases. 3. The biliary tree is nondilated. The common bile duct is normal in diameter measuring 5 mm. No choledocholithiasis is seen. 4. The gallbladder is nondilated. There appears to be calculi within it dependently measuring up to 1.4 cm. Electronically signed by: Bhanu Murdock MD 08/12/22 01:07 AM
[2022-08-12] MEDS ORDERED: XOPENEX/ATROVENT 1.25mg/0.5MG NEB COMBO NEB STA (01:18)
[2022-08-12] MEDS ORDERED: IPRATROPIUM BROMIDE NEB SOLN 0.02% 2.5 ML VIAL INH STA (01:20)
[2022-08-12] MEDS ORDERED: LEVALBUTEROL 1.25MG/0.5ML NEB INH STA (01:20)
[2022-08-12] MEDS ORDERED: LEVALBUTEROL 1.25MG/0.5ML NEB INH SCH (01:30)
[2022-08-12] MEDS ORDERED: IPRATROPIUM BROMIDE NEB SOLN 0.02% 2.5 ML VIAL INH SCH (01:30)
--- NOTE | 2022-08-12 01:50 | Communication Note ---
Date of Service: August 12, 2022 Patient transferred to ICU for worsening oxygenation overnight despite steroid, Lasix, albumin administration. Patient currently on the BiPAP.
[2022-08-12] MEDS: ALBUMIN 25% 100 mL 25 GM/100 ML VIAL IV SCH (03:23)
[2022-08-12] MEDS: DEXTROMETHORPHAN POLYMR COMPLX 30 MG/5 ML UDP PO SCH (03:24)
[2022-08-12] MEDS ORDERED: methylPREDNISolone 40 MG in SYRINGE 0 ML IV SCH (05:20)
--- NOTE | 2022-08-12 06:18 | Critical Care Consultation ---
Date of Consultation August 12, 2022 Assessment & Plan (1) Acute respiratory failure with hypoxia: (2) Decompensated hepatic cirrhosis: (3) Alcoholic cirrhosis: (4) Alcoholism: (5) Pulmonary hypertension: (6) BERYL (acute kidney injury): (7) (HFpEF) heart failure with preserved ejection fraction: (8) COPD (chronic obstructive pulmonary disease): Plan Reason Critically Ill: Decompensated cirrhosis in the setting of hypoxia with hemoptysis. Patient with increasing oxygenation needs through PM and transferred to ICU for closer monitoring and work-up. Neuro - EtOH misuse with relaps CAM ICU: Negative - currently patient is without encephalopathy- if so it is mild Grade I - Suppotive care at this time- continue thiamine, Lactulose added as well as Rifaxamin - Continue Thiamine, Folate - Ammonia 77 this morning Cardiac - HFpEF, - ECHO being obtained at this time - currently differential would include with her hypoxia and hemoptysis- would be worsening heart function in setting of worsening cirrhosis/volume - continue diuretics as hemodynamics allow - no anginal complaints will obtain ECG on arrival Respiratory - Hypoxic respiratory failure, hemoptysis - Patient with increasing oxygen requirements overnight- with her COPD history would tolerate SPo2 88-92%- currently at goal on CPAP 8cmH20 and Fio2 70% - assess her ability to tolerate CT scan of her lungs and obtain this morning - ECHO as above - With her hemoptysis this is concerning with her increasing O2- bronchoscopy will be discussed with pulmonary - continue with diuresing as above with ddx: DAH vs. HF vs. other - guaifenesin with codeine added - pulmonary updated GI- Acute on chronic liver failure secondary to alcholic cirrhosis - MELD 29, Maldery score >32- started on prednisone therapy- continue PPI while on steroids - in the setting of relapsing with ETOH patient is not a transplant candidate at this time - discussed with the patient the high mortality and risk of multiorgan dysfunction in this setting- goals of care discussion will need to follow - updated over phone as well - GI is following - as above initiation of lactulose and rifaximin - Continue rocephin - Increase prednisone RENAL/LYTES - no acute needs at this time - continue with ICU electrolyte protocol - Maintain MAPS >65 - low threshold to initiate vasopressors or initiate midodrine for hemodynamics support - UTI - Ecolie UTI on admission- stevens sensitive - continue with rocephin ENDO - NO acute needs HEME - Anemia, thrombocytopenia - acute on chronic- likely related to ETOH abuse - Can't rule out DAH at this time or other acute blood loss - continue protonix ID - UTI - as above - continue rocephin for UTI as well as SBP coverage - See results from paracentesis yesterday LINES/IV ACCESS - PIv Continue use of these lines DVT PROPHYLAXIS - SCDS DISPO: ICU for hemodynamic and respiratory stabilization I have personally spent 55 minutes of critical care time in the direct management of this patient. This is a life/limb threatening event. This includes time spent evaluating patient, direct bedside care, chart review, placing orders, interpretation of diagnostic studies, discussion with consultants, patient, and family members, as well as other required patient management activities. This time is exclusive of all separately billable procedures, and separate from and in addition to any other critical care service time. Thank you for allowing us to participate in the care of this patient. Please refer to my attending physician's documentation for any further recommendations. 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 Patient reports that she started not feeling well a few days ago, and that she does not take her lactulose or her rifaximin. Overall the patient was admitted 08/11/22 for decompensated cirrhosis with presence of ascites and elevated INR to 1.8. She underwent a paracentesis yesterday with drainage of reported 550ml. Patient also went for MRCP for evaluation of biliary obstruction, which was negative. She has also been experiencing he moptysis which has been reported as bright, but small streaked amounts. She continued to become dyspneic overnight with reported hypoxia to 88-90% requiring BiPAP initiation. ABG at that time revealed a Pa02 of 83 on 80% Fio2. ICU was called for admission secondary to concern for worsening hypoxia with hemoptysis. She has a MELD score of 29 and a Maldery score of 47- steroids were initiated at 40mg of prednisone. She was given Vitamin K as well as started on antitussives. Overall patient with high mortality regarding her decompensated cirrhosis. Currently she is dyspneic with NRB in place following transfer. She is currently coughing however not expectorating anything. Will place her on CPAP as she was alkalotic through the PM. Would like to see if we can stabilize her from a respiratory standpoint to obtain CT scan of her chest. CXR is being obtained, will obtain INR, Fibrinogen, and CRP/ESR with her history of DAH. ECHO is being performed at this time to evaluate heart function. COVID and respiratory biofire are negative CODE: FULL Allergies Allergy/AdvReac Type Severity Reaction Status Date / Time propoxyphene AdvReac Intermediate Vomiting Verified 05/10/22 23:08 Home Medications Medication Instructions Recorded Confirmed Type furosemide 20 mg tablet 20 mg PO DAILY 04/17/19 08/10/22 History lactulose 10 gram/15 mL oral 10 gm PO DAILY PRN Constipation 04/17/19 08/10/22 History solution pantoprazole 40 mg tablet,delayed 40 mg PO DAILY 04/17/19 08/10/22 History release fluticasone propionate 50 2 spray intranasal DAILY PRN 04/22/21 08/10/22 History mcg/actuation nasal Congestion spray,suspension (Allergy Relief (fluticasone)) doxepin 10 mg capsule 10 mg PO HS 08/10/22 08/10/22 History Patient History Medical History (Updated 08/12/22 @ 06:56 by ROSEMARIE Miranda) (HFpEF) heart failure with preserved ejection fraction Alcohol abuse Pulmonary edema which is most likely multifactorial and related to alcohol abuse. She has volume overload probably from chronic cirrhosis. She could have an alcoholic cardiomyopathy. She did have an echocardiogram today which I will review and make further recommendations. Currently she is clinically stable. Alcoholism Alveolar emphysema of lung Colitis COPD (chronic obstructive pulmonary disease) Diffuse pulmonary alveolar hemorrhage History of tobacco abuse Ischemic colitis Obesity (BMI 30-39.9) Surgical History H/O tubal ligation Family History Father Diabetes Mother Diabetes Social History Smoking Status: Former smoker Second Hand Exposure: No; Do You Dip or Chew Tobacco: No; Hx Alcohol Use: Yes Alcohol type: beer Hx Substance Use: No Preferred Language: Swiss Communication Ability: Effective Visual Impairment: No Limitations Manager Hydraulic Required: No Beliefs That Will Affect Care: None marital status: Current Living Situation: Spouse Current Living Situation Comment: apartment Other Information That Helps Us Care for You: No Feels Safe at Home: Yes Safety Concerns: Feels Safe At This Time Assistive Devices: None Review of Systems Review of Systems: REVIEW OF SYSTEMS: Constitutional: No fever, sweats or chills Eyes: (+) jaundiceNo diplopia, no worsening or blurred vision ENT: normal hearing, no trouble swallowing Respiratory: (+) cough, sputum, dyspnea at rest or on exertion Cardiovascular: No chest pain, tightness or palpitations Abdomen: (+) pain, nausea, NO vomiting, diarrhea or constipation Musculoskeletal: No joint pain, calf pain, swelling Neurologic: No weakness, numbness/tingling, or balance problems Psychiatric: (+)anxiety or depression Skin: No rash or itch Physical Exam Physical Exam: PHYSICAL EXAM: General: awake, alert, Head: Normocephalic, atraumatic ENT: PERRLA, EOMI, no pharyngeal exudate, mucous membranes dry Neuro: AAO x 3, speech clear and appropriate, strength intact bilaterally 5/5, sensation intact and equal all extremities and dermatomes, no pronator drift Chest: equal rise and fall of the chest, no accessory muscle use, no heaves or thrills, scattered rhonchi throughout with end expiratory wheeze bilaterally Cardiac: Regular rate and rhythm, telemetry reviewed-NSR, skin warm dry, cap refill <3 seconds, peripheral pulses +2 no JVD, 2+ edema to bilateral feet and mid calf GI: NABS x 4 quadrants, soft, nontender to palpation, jaundiced : dickey to gravity draining dark catracho urine Psych: Normal mood and affect Skin: no rash or erythema Results & Data Results & Data Vital Signs (Past 12 Hours) Vital Signs Temp Pulse Pulse Resp BP BP Pulse Ox 08/12/22 03:40 99 H 22 105/70 96 08/12/22 02:44 105 H 21 94 08/12/22 02:08 108 H 08/12/22 01:36 103 H 18 88 L 08/11/22 22:55 36.7 C 107 H 16 110/63 92 08/11/22 19:20 08/11/22 21:45 37.0 C 109 H 20 113/71 89 L 08/11/22 21:11 37.1 C 109 H 21 126/78 88 L 08/11/22 20:40 37.2 C 117 H 22 113/72 89 L 08/11/22 20:24 114 H 18 90 08/11/22 19:19 37.5 C 112 H 19 102/66 90 O2 Del Method O2 Flow Rate FiO2 08/12/22 03:40 BiPAP 80 08/12/22 02:44 80 08/12/22 02:08 08/12/22 01:36 Nasal Cannula 13 08/11/22 22:55 High Flow Nasal Cannula 12 08/11/22 19:20 Nasal Cannula 3 08/11/22 21:45 Nasal Cannula 5.0 08/11/22 21:11 Nasal Cannula 5 08/11/22 20:40 Nasal Cannula 5 08/11/22 20:24 Nasal Cannula 6 08/11/22 19:19 Nasal Cannula 4.0 Laboratory Results Abnormal lab results 08/10/22 08/11/22 08/11/22 Range/Units 16:13 06:17 06:17 RBC 2.67 L 2.33 L (4.20-5.40) M/uL Hgb 10.6 L 9.3 L (12.0-16.0) g/dl POC Hgb (12.0-16.0) g/dl Hct 28.1 L 24.6 L (37.0-47.0) % POC Hct (37-47) % MCV 105.2 H 105.6 H (80.0-100.0) fL MCH 39.7 H 39.9 H (25.0-34.0) pg MCHC 37.7 H 37.8 H (32.0-36.0) g/dL RDW Std Deviation 71.9 H 75.6 H (36.4-46.3) fL RDW Coeff of Wesley 19.0 H 20.3 H (11.5-14.5) % Plt Count 110 L 86 L (130-400) K/uL Lymph # (Auto) 0.84 L (1.2-3.4) K/uL PT 19.0 H (9.0-12.0) Seconds INR 1.8 H (0.9-1.1) POC pH (7.35-7.45) POC pCO2 (35-46) mmHg POC pO2 (80-95) mmHg POC HCO3 (19-24) mary/L POC Base Excess (-9-1.8) mary/L ABG pH (Temp Correct) (7.35-7.45) ABG pCO2 (Temp Corrct (35-46) mmHg POC Sodium (135-144) mmol/L Sodium (136-145) mmol/L POC Potassium (3.3-5.0) mmol/L Potassium (3.5-5.1) mmol/L Chloride (98-107) mmol/L Anion Gap (3-11) Glucose (70-99(Fasting)) mg/dl Calcium (8.6-10.3) mg/dl Total Bilirubin (0.2-1.0) mg/dl AST (13-39) U/L Ammonia (18-72) umol/L C-Reactive Protein (0-0.5) mg/dl B-Natriuretic Peptide (0-100) pg/ml Total Protein (6.0-8.3) gm/dl Albumin (3.4-5.0) gm/dl Globulin (2.5-4.0) gm/dl 08/11/22 08/11/22 08/11/22 Range/Units 06:17 16:40 22:39 RBC (4.20-5.40) M/uL Hgb (12.0-16.0) g/dl POC Hgb (12.0-16.0) g/dl Hct (37.0-47.0) % POC Hct (37-47) % MCV (80.0-100.0) fL MCH (25.0-34.0) pg MCHC (32.0-36.0) g/dL RDW Std Deviation (36.4-46.3) fL RDW Coeff of Wesley (11.5-14.5) % Plt Count (130-400) K/uL Lymph # (Auto) (1.2-3.4) K/uL PT (9.0-12.0) Seconds INR (0.9-1.1) POC pH (7.35-7.45) POC pCO2 (35-46) mmHg POC pO2 (80-95) mmHg POC HCO3 (19-24) mary/L POC Base Excess (-9-1.8) mary/L ABG pH (Temp Correct) (7.35-7.45) ABG pCO2 (Temp Corrct (35-46) mmHg POC Sodium (135-144) mmol/L Sodium 127 L (136-145) mmol/L POC Potassium (3.3-5.0) mmol/L Potassium 3.0 L (3.5-5.1) mmol/L Chloride 88 L (98-107) mmol/L Anion Gap (3-11) Glucose (70-99(Fasting)) mg/dl Calcium 7.9 L (8.6-10.3) mg/dl Total Bilirubin 14.8 H (0.2-1.0) mg/dl AST 75 H (13-39) U/L Ammonia 77.0 H (18-72) umol/L C-Reactive Protein (0-0.5) mg/dl B-Natriuretic Peptide 559 H (0-100) pg/ml Total Protein 5.2 L (6.0-8.3) gm/dl Albumin 2.7 L (3.4-5.0) gm/dl Globulin (2.5-4.0) gm/dl 08/11/22 08/11/22 08/12/22 Range/Units 22:39 22:53 06:06 RBC 2.08 L (4.20-5.40) M/uL Hgb 8.4 L (12.0-16.0) g/dl POC Hgb 8.8 L (12.0-16.0) g/dl Hct 22.9 L (37.0-47.0) % POC Hct 26 L (37-47) % MCV 110.1 H (80.0-100.0) fL MCH 40.4 H (25.0-34.0) pg MCHC 36.7 H (32.0-36.0) g/dL RDW Std Deviation 77.8 H (36.4-46.3) fL RDW Coeff of Wesley 19.8 H (11.5-14.5) % Plt Count 79 L (130-400) K/uL Lymph # (Auto) 0.38 L (1.2-3.4) K/uL PT (9.0-12.0) Seconds INR (0.9-1.1) POC pH 7.54 H* (7.35-7.45) POC pCO2 34 L (35-46) mmHg POC pO2 52 L (80-95) mmHg POC HCO3 29 H (19-24) mary/L POC Base Excess 6.0 H (-9-1.8) mary/L ABG pH (Temp Correct) 7.542 H* (7.35-7.45) ABG pCO2 (Temp Corrct 34 L (35-46) mmHg POC Sodium 129 L (135-144) mmol/L Sodium (136-145) mmol/L POC Potassium 3.2 L (3.3-5.0) mmol/L Potassium (3.5-5.1) mmol/L Chloride (98-107) mmol/L Anion Gap (3-11) Glucose (70-99(Fasting)) mg/dl Calcium (8.6-10.3) mg/dl Total Bilirubin (0.2-1.0) mg/dl AST (13-39) U/L Ammonia (18-72) umol/L C-Reactive Protein (0-0.5) mg/dl B-Natriuretic Peptide 595 H (0-100) pg/ml Total Protein (6.0-8.3) gm/dl Albumin (3.4-5.0) gm/dl Globulin (2.5-4.0) gm/dl 08/12/22 08/12/22 Range/Units 06:06 06:06 RBC 2.07 L (4.20-5.40) M/uL Hgb 8.4 L (12.0-16.0) g/dl POC Hgb (12.0-16.0) g/dl Hct 22.8 L (37.0-47.0) % POC Hct (37-47) % MCV 110.1 H (80.0-100.0) fL MCH 40.6 H (25.0-34.0) pg MCHC 36.8 H (32.0-36.0) g/dL RDW Std Deviation 78.0 H (36.4-46.3) fL RDW Coeff of Wesley 19.9 H (11.5-14.5) % Plt Count 77 L (130-400) K/uL Lymph # (Auto) 0.48 L (1.2-3.4) K/uL PT (9.0-12.0) Seconds INR (0.9-1.1) POC pH (7.35-7.45) POC pCO2 (35-46) mmHg POC pO2 (80-95) mmHg POC HCO3 (19-24) mary/L POC Base Excess (-9-1.8) mary/L ABG pH (Temp Correct) (7.35-7.45) ABG pCO2 (Temp Corrct (35-46) mmHg POC Sodium (135-144) mmol/L Sodium 131 L (136-145) mmol/L POC Potassium (3.3-5.0) mmol/L Potassium (3.5-5.1) mmol/L Chloride 89 L (98-107) mmol/L Anion Gap 12 H (3-11) Glucose 140 H (70-99(Fasting)) mg/dl Calcium 8.3 L (8.6-10.3) mg/dl Total Bilirubin 15.6 H (0.2-1.0) mg/dl AST 65 H (13-39) U/L Ammonia (18-72) umol/L C-Reactive Protein 2.63 H (0-0.5) mg/dl B-Natriuretic Peptide (0-100) pg/ml Total Protein 5.8 L (6.0-8.3) gm/dl Albumin (3.4-5.0) gm/dl Globulin 2.1 L (2.5-4.0) gm/dl Diagnostic Findings Chest X-Ray 08/10/22 19:56 XR chest 1V portable HISTORY: hyponatremia COMPARISON: Chest 03/12/2019. FINDINGS: No pneumothorax. No pleural effusions. The cardiac silhouette is mildly enlarged. There is progressive interstitial/vascular thickening consistent with mild pulmonary edema. Otherwise, no focal lung consolidations to suggest a pneumonia. IMPRESSION: Cardiomegaly with mild interstitial pulmonary edema. ACT 112: Negative or not required by law. Electronically signed by: aRymon Pitts M.D. 08/11/2022 7:53 AM Paracentesis Ultrasound 08/11/22 08:00 ULTRASOUND-GUIDED PARACENTESIS CLINICAL HISTORY: Ascites PROCEDURE: Procedure and risks were explained. Informed consent was obtained. A final timeout was completed. The left lower quadrant was prepped and draped in sterile fashion. 1% buffered lidocaine was utilized for skin anesthesia. Utilizing ultrasound guidance, a 5 [place]ic safety centesis catheter was advanced into the pocket of ascites. Ultrasound images were obtained. A total of 550 mL of yellow ascites fluid was removed and sent to the lab for analysis. The catheter was removed and Band-Aid applied. The patient tolerated the procedure well. Vital signs were be monitored on the floor postprocedure. IMPRESSION: Ultrasound-guided paracentesis as above. Performed, dictated, and signed by Manjeet Fontana PA-C; to be co-signed by Dr. Jelani Ramsey. Electronically signed by: Jelani Ramsey M.D. 08/11/2022 12:12 PM Cholangiopancreatography MRI 08/11/22 12:20 Exam(s): MRI MRCP EXAM: MR Abdomen Without Intravenous Contrast, MRCP Protocol CLINICAL HISTORY: Reason for exam: elevated LFts, bili, cirrhosis, r/o obstruction. TECHNIQUE: Multiplanar magnetic resonance images of the abdomen without intravenous contrast using MRCP protocol. COMPARISON: August 10, 2022 CT abdomen and pelvis. FINDINGS: Artifacts: There is moderate motion artifact throughout the examination. Lower thorax: Trace left pleural effusion and scattered infiltrates and/or edema in both lung bases. Bile ducts: The biliary tree is nondilated. The common bile duct is normal in diameter measuring 5 mm. No choledocholithiasis is seen. Gallbladder: The gallbladder is nondilated. There appears to be calculi within it dependently measuring up to 1.4 cm. Liver: The liver demonstrates a nodular surface suggesting cirrhosis. There is a small amount of ascites. No focal liver mass lesion is seen. There is a splenorenal shunt. Pancreas: Unremarkable. No ductal dilation. Spleen: Unremarkable. No splenomegaly. Adrenals: Unremarkable. No mass. Kidneys and ureters: Unremarkable. No hydronephrosis. Stomach and bowel: Unremarkable. No obstruction. IMPRESSION: 1. The liver demonstrates a nodular surface suggesting cirrhosis. There is a small amount of ascites. No focal liver mass lesion is seen. There is a splenorenal shunt. 2. Trace left pleural effusion and scattered infiltrates and/or edema in both lung bases. 3. The biliary tree is nondilated. The common bile duct is normal in diameter measuring 5 mm. No choledocholithiasis is seen. 4. The gallbladder is nondilated. There appears to be calculi within it dependently measuring up to 1.4 cm. Electronically signed by: Bhanu Murdock MD 08/12/22 01:07 AM Chest X-Ray 08/11/22 15:11 XR chest 1V portable CLINICAL HISTORY: increasing shortness of breath COMPARISON STUDY: Chest CT March 24, 2022. Chest radiograph August 10, 2022. FINDINGS: There is no pneumothorax. Possible trace bilateral pleural effusions. Interstitial thickening persists. There may be mild right basilar opacity. Cardiomegaly is unchanged. IMPRESSION: 1. Persistent interstitial thickening and suspected patchy airspace opacities. Although less likely, an infectious etiology could appear similar. 2. Suspected trace bilateral pleural effusions. ACT 112: Negative or not required by law. Electronically signed by: Mao Gilmore M.D. 08/11/2022 4:13 PM Medications Administered Home Medications furosemide 20 mg tablet 20 mg PO DAILY 04/17/19 [History Confirmed 08/10/22] lactulose 10 gram/15 mL oral solution 10 gm PO DAILY PRN Constipation 04/17/19 [History Confirmed 08/10/22] pantoprazole 40 mg tablet,delayed release 40 mg PO DAILY 04/17/19 [History Confirmed 08/10/22] fluticasone propionate 50 mcg/actuation nasal spray,suspension (Allergy Relief (fluticasone)) 2 spray intranasal DAILY PRN Congestion 04/22/21 [History Confirmed 08/10/22] doxepin 10 mg capsule 10 mg PO HS 08/10/22 [History Confirmed 08/10/22] Active Medications Acetaminophen (Acetaminophen 325 Mg Tab) 325 mg PO Q6H PRN PRN Reason: Mild Pain (Scale 1, 2, 3) Stop: 09/10/22 00:15 Benzonatate (Benzonatate 100 Mg Capsule) 100 mg PO TID PRN PRN Reason: Cough not relieved byother med Stop: 09/11/22 00:41 Dextromethorphan Polymer Complex (Dextromethorphan Polymr Complx 30 Mg/5 Ml Udp) 15 mg PO Q6H JAYMIE Stop: 09/10/22 16:29 Last Admin: 08/12/22 03:24 Dose: 15 mg Fluticasone Propionate (Fluticasone Propionate Na Spr 16 Gm Btl) 2 sprays NA DAILY PRN PRN Reason: Congestion Stop: 09/10/22 00:15 Folic Acid (Folic Acid 1 Mg Tab) 1 mg PO QAM [facility] Stop: 09/10/22 08:59 Last Admin: 08/11/22 07:57 Dose: 1 mg Furosemide (Furosemide 20 Mg Tab) 20 mg PO QAM JAYMIE Stop: 09/10/22 11:44 Last Admin: 08/11/22 12:23 Dose: 20 mg Ceftriaxone Sodium 2,000 mg/ (Dextrose) 70 mls @ 100 mls/hr IV Q24H [facility]; Protocol Stop: 08/21/22 19:59 Last Infusion: 08/11/22 20:29 Dose: Infused Promethazine HCl 12.5 mg/ (Sodium Chloride) 50.5 mls @ 202 mls/hr IV Q6H PRN PRN Reason: Nausea And Vomiting Stop: 09/10/22 00:15 Acetylcysteine 9,450 mg/ (Dextrose) 1,047.25 mls @ 62.5 mls/hr IV ONCE ONE Stop: 08/12/22 10:30 Last Admin: 08/12/22 00:38 Dose: Not Given Pantoprazole Sodium 40 mg/ (Syringe) 10 mls @ 5 mls/min IV BID [facility] Stop: 09/10/22 20:59 Last Admin: 08/11/22 20:49 Dose: 5 mls/min Albumin Human (Albumin 25% 100 Ml) 25 gm in 100 mls @ 50 mls/hr IV Q8H [facility] Stop: 08/14/22 20:04 Last Infusion: 08/12/22 05:23 Dose: Infused Methylprednisolone 40 mg/ (Syringe) 0.64 mls @ 1.5 mls/min IV DAILY [facility] Stop: 09/11/22 05:19 Last Admin: 08/12/22 05:26 Dose: 1.5 mls/min Lactulose (Lactulose Syrup 30 Gm/45 Ml Udp) 30 gm PO TID [facility] Stop: 09/11/22 08:59 Miscellaneous ([facility] Protocol For Hyperglycemia) 1 each N/A ACHS [facility] Stop: 08/14/22 07:29 Multivitamins (Multivitamin Tab) 1 tab PO QAM [facility] Stop: 09/10/22 08:59 Last Admin: 08/11/22 07:58 Dose: 1 tab Oxycodone HCl (Oxycodone Hcl Ir 5 Mg Tab (Immediate Release)) 5 - 10 mg PO QID PRN PRN Reason: Pain Stop: 08/25/22 00:15 Rifaximin (Rifaximin 550 Mg Tablet) 550 mg PO BID [facility] Stop: 09/11/22 08:59 Spironolactone (Spironolactone 25 Mg Tab) 50 mg PO QAM [facility] Stop: 09/10/22 11:44 Last Admin: 08/11/22 12:24 Dose: 50 mg Thiamine HCl (Thiamine Hcl 100 Mg Tab) 100 mg PO QAM [facility] Stop: 09/10/22 08:59 Last Admin: 08/11/22 07:57 Dose: 100 mg Coding Level of Care Code 52223 CRITICAL CARE 1ST 30-74M Diagnoses Acute respiratory failure with hypoxia J96.01 Decompensated hepatic cirrhosis K72.90; K74.60 Alcoholic cirrhosis K70.30 Alcoholism F10.20 Pulmonary hypertension I27.20 BERYL (acute kidney injury) N17.9 (HFpEF) heart failure with preserved ejection fraction I50.30 COPD (chronic obstructive pulmonary disease) J44.9
[2022-08-12 06:23] LABS: Basophils # (auto) 0.01 K/uL (0-0.2); Basophils % (auto) 0.2 %; Eosinophils # (auto) 0.02 K/uL (0-0.50); Eosinophils % (auto) 0.3 %; Hematocrit (blood only) 22.8 % (37.0-47.0); Hemoglobin 8.4 g/dl (12.0-16.0); Immature Granulocytes # (auto) 0.08 K/uL (0.01-0.20); Immature Granulocytes % (auto) 1.3 %; Lymphocytes # (auto) 0.48 K/uL (1.2-3.4); Mean Corpuscular Hemoglobin 40.6 pg (25.0-34.0); Mean Corpuscular Hgb Conc 36.8 g/dL (32.0-36.0); Mean Corpuscular Volume 110.1 fL (80.0-100.0); Mean Platelet Volume 10.3 fL (9.4-12.4); Monocytes # (auto) 0.26 K/uL (0.11-0.59); Monocytes % (auto) 4.3 %; Neutrophils # (auto) 5.16 K/uL (1.40-6.50); Neutrophils % (auto) 85.9 %; Platelet Count 77 K/uL (130-400); RDW Coefficient of Variation 19.9 % (11.5-14.5); Red Blood Count 2.07 M/uL (4.20-5.40); White Blood Count 6.01 K/ul (4.8-10.8)
[2022-08-12 06:38] LABS: Albumin Globulin Ratio 1.8 (0.9-2); Albumin Level 3.7 gm/dl (3.4-5.0); Bilirubin,Total 15.6 mg/dl (0.2-1.0); C Reactive Protein 2.63 mg/dl (0-0.5); Calcium 8.3 mg/dl (8.6-10.3); Creatinine Clr Calc Pharmacy 98.1 ml/min; Est GFR (African American) 112.3 ml/min; Est GFR (Non-African American) 96.9 ml/min; Globulin 2.1 gm/dl (2.5-4.0); Potassium 3.5 mmol/L (3.5-5.1); Total Protein 5.8 gm/dl (6.0-8.3)
[2022-08-12 06:48] LABS: Echinocytes 1+; Polychromasia 1+; Target Cells 1+
[2022-08-12] MEDS ORDERED: PHYTONADIONE 10 MG in DEXTROSE 5% 50 ML IV ONE (07:17)
[2022-08-12] MEDS ORDERED: oxyCODONE HCL IR 5 MG TAB (IMMEDIATE RELEASE) PO PRN (07:20)
[2022-08-12 07:33] LABS: INR 2.3 (0.9-1.1)
[2022-08-12 07:38] LABS: Fibrinogen 85 mg/dl (184-400)
--- NOTE | 2022-08-12 08:00 | Critical Care Progress Note ---
Date of Service August 12, 2022 Assessment & Plan (1) COPD (chronic obstructive pulmonary disease): (2) (HFpEF) heart failure with preserved ejection fraction: (3) Acute respiratory failure with hypoxia: (4) Decompensated hepatic cirrhosis: (5) Alcoholic cirrhosis: (6) Right upper quadrant abdominal pain: (7) Urinary tract infection: (8) Admitted to intensive care unit: Plan Reason Critically Ill: []-year-old [] here with a history significant for [] who presented with [] and who was admitted for []. Neuro - [facility]: NEGATIVE ETOH Misuse - No signs of encephalopathy at present - Continue thiamine, folate - Ammonia= 77 - Last drink over 48 hours ago, prior to coming in was drinking 3-4 beers a day. Cardiac - HFpEF - TTE pending - Repeat EKG pending, denies chest pain - Hypoxia/hemoptysis could be secondary to worsening heart function in the setting of decompensated cirrhosis/volume overload - BNP= 595 - Continue diuretics with hemodynamics allow - Increase furosemide to 40mg BID Respiratory - Acute Hypoxic Respiratory Failure - Likely multifactorial in the setting of emphysema, heart failure, decompensated cirrhosis - Procalcitonin= 0.08 - BNP= 559 - Goal SpO2 90-92% - CXR this morning with increased pulmonary edema - Solu-medrol 40mg q8 - pulmonology consulted - Furosemide IV 40mg BID Hemoptysis - 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 Hyponatremia - Trending up; 126 on admission, up to 131 this morning - UTI - Urine culture growing E Coli -continue Rocephin as per above ENDO - No scute needs Follow ICU hyperglycemic protocols HEME - Macrocytic Anemia/Coagulopathy - Hemoglobin 8.4, stable from yesterday - Coagulopathy likely secondary to liver disease - Can't rule out diffuse alveolar hemorrhage - Fibrinogen= 85, PT= 24, INR= 2.3 - FFP 15 mL/kg - 1 dose cryoprecipitate ID - UTI - Rocephin as per above, also empiric coverage for SBP LINES/IV ACCESS - PIVs intact. DVT PROPHYLAXIS - SCDs Thank you for allowing us to be part of this patient's care. Please refer to []'s documentation for any further recommendations. Admission and Anticipated Discharge Date Admission Date: August 10, 2022 Supervising Physician Co-Signing Physician Notes Dr. Tan was resident physician during care of patient. I separately evaluated patient for rashid portions of the history and the exam. I was present during the critical portion of medical decision making, and I discussed the case with the resident. I generally agree with the findings and plan. Patient is moving into the realm of multisystem organ failure, now experiencing acute hypoxic respiratory failure in the setting of decompensated hepatic cirrhosis. Patient receiving albumin for possible spontaneous bacterial peritonitis, this will as empiric antibiotic coverage. She is receiving NAC th erapy. Is also being supplemented with lactulose and rifaximin for hepatic encephalopathy. FFP ordered by pulmonary, history of hemoptysis with history of pulmonary alveolar hemorrhage; it is believed to be secondary to coagulopathy from her liver disease. She is currently receiving steroids for liver disease which will also be provide coverage for diffuse alveolar hemorrhage. She does have a longstanding history of emphysema as well as pulmonary hypertension. Patient drops precipitously with her oxygen saturations when not on noninvasive mechanical ventilation. We will attempt to have the patient euvolemic to negative. Avoid coughing as this appears to worsen her hemoptysis. Formal echocardiogram is pending at this time, bubble study was completed, hepatopulmonary syndrome is also certainly in the differential given her degree of decompensation. Patient has longstanding history of alcohol dependence, her clinical conditions continue to deteriorate. I feel would be prudent to further discussions regarding goals of care, statistically speaking should the patient suffer cardiac arrest they feel it is very unlikely to have a good prognosis let alone a successful resuscitation. Further given her degree of decompensation and high MELD score is demonstrative of approaching end-stage of the disease process. I have personally spent 60 minutes of critical care time in the direct management of this patient. This is a life/limb threatening event, and is critically ill from multisystem organ failure particularly acute hypoxic respiratory failure requiring noninvasive mechanical ventilation. This includes time spent evaluating patient, direct bedside care, chart review, placing orders, interpretation of diagnostic studies, discussion with consultants, patient, and/or family members regarding treatment decisions, as well as other required patient management activities. This time is exclusive of all separately billable procedures, and teaching time and separate from and in addition to any other critical care service time. Subjective Continues to be hypoxic with hemoptysis. Dyspneic. Denies chest pain. States that prior to coming in she was drinking 3-4 beers a day. Review of Systems Review of Systems: As per above Physical Exam Physical Exam: Constitutional: awake and alert HEENT: NCAT, no conjunctival injection CV: regular rhythm, no murmur appreciated, extremities well-perfused, 2+ pitting edema to mid guerin Resp: expiratory wheezing with diminishing breath sounds GI: soft, nondistended, nontender, BS normoactive, jaundiced MSK: no gross deformities appreciated Skin: warm, dry, no rash appreciated Neuro: alert, oriented, no focal neurologic deficit appreciated Results & Data Results & Data Vital Signs (Past 12 Hours) Vital Signs Temp Pulse Pulse Resp BP BP Pulse Ox 08/12/22 07:40 104 H 28 H 94 08/12/22 06:40 91 08/12/22 06:35 89 L 08/12/22 06:15 102 H 22 94 08/12/22 06:04 103 H 28 H 94 08/12/22 06:26 104 H 26 H 93 08/12/22 06:01 36.6 C 08/12/22 06:01 111 H 08/12/22 06:20 08/12/22 03:40 99 H 22 105/70 96 08/12/22 02:44 105 H 21 94 08/12/22 02:08 108 H 08/12/22 01:36 103 H 18 88 L 08/11/22 22:55 36.7 C 107 H 16 110/63 92 08/11/22 21:45 37.0 C 109 H 20 113/71 89 L 08/11/22 21:11 37.1 C 109 H 21 126/78 88 L 08/11/22 20:40 37.2 C 117 H 22 113/72 89 L 08/11/22 20:24 114 H 18 90 O2 Del Method O2 Flow Rate FiO2 08/12/22 07:40 80 08/12/22 06:40 CPAP 70 08/12/22 06:35 CPAP 60 08/12/22 06:15 08/12/22 06:04 BiPAP 80 08/12/22 06:26 60 08/12/22 06:01 08/12/22 06:01 08/12/22 06:20 BiPAP 80 08/12/22 03:40 BiPAP 80 08/12/22 02:44 80 08/12/22 02:08 08/12/22 01:36 Nasal Cannula 13 08/11/22 22:55 High Flow Nasal Cannula 12 08/11/22 21:45 Nasal Cannula 5.0 08/11/22 21:11 Nasal Cannula 5 08/11/22 20:40 Nasal Cannula 5 08/11/22 20:24 Nasal Cannula 6 Resident Activity Tracking Resident Involvement: Resident Care Provided Care Provided: Adult Hospital Medicine (7) Urinary tract infection Hematuria presence: without hematuria Urinary tract infection type: site unspecified Qualified Code(s): N39.0 - Urinary tract infection, site not specified
--- NOTE | 2022-08-12 08:00 | XRay Report ---
SINGLE VIEW CHEST CLINICAL HISTORY: Hypoxia. FINDINGS: An AP, portable, upright chest radiograph is compared to study dated 08/11/2022 and correlate d with chest CT dated 03/24/2022 . The heart is mildly enlarged. There is pulmonary vascular congesti on. There are increasing bilateral airspace opacities seen throughout both lungs. Small pleural effus ions are suspected. No pneumothorax is seen. The skeletal structures are osteopenic. The bony thorax is grossly intact. IMPRESSION: 1. Cardiomegaly with evidence of congestive failure. 2. There are increasing bilateral airspace opacities which likely represent pulmonary edema. Correlat e clinically for evidence of a superimposed infectious/inflammatory pneumonitis. Radiographic follow- up to resolution is recommended. 3. Small pleural effusions. ACT 112: Negative or not required by law. Electronically signed by: Jelani Ramsey M.D. 08/12/2022 7:58 AM
[2022-08-12] MEDS: guaiFENesin/CODEINE 100MG/10MG 5ML UDC PO SCH ×3 (08:01→20:04)
[2022-08-12] MEDS: LACTULOSE SYRUP 30 GM/45 ML UDP PO SCH ×3 (08:04→20:05)
[2022-08-12] MEDS: FUROSEMIDE 20 MG TAB PO SCH (08:04)
[2022-08-12] MEDS: rifAXIMin 550 MG TABLET PO SCH ×2 (08:04→20:04)
[2022-08-12] MEDS: ICU Protocol for HYPERglycemia SCH ×4 (08:18→20:13)
--- NOTE | 2022-08-12 08:19 | XRay Report ---
XR chest 1V portable CLINICAL HISTORY: Worsening shortness of breath. COMPARISON STUDY: Chest CT March 24, 2022 and chest radiograph August 11, 2022 at 3:50 PM. FINDINGS: There is no pneumothorax. Suspected trace bilateral pleural effusions are present. Cardiome ashish is unchanged. Interstitial thickening persists. Patchy airspace opacities have progressed. IMPRESSION: Cardiomegaly. Persistent interstitial thickening with increase in bilateral airspace opa cities. The findings could reflect pulmonary edema or multifocal pneumonia. ACT 112: Negative or not required by law. Electronically signed by: Mao Gilmore M.D. 08/12/2022 8:18 AM
[2022-08-12] MEDS ORDERED: SODIUM CHLORIDE 0.9% 250 ML IV PRN (08:20)
--- NOTE | 2022-08-12 08:21 | Pulmonology Progress Note ---
Date of Service August 12, 2022 Assessment & Plan (1) Decompensated hepatic cirrhosis: (2) Alveolar emphysema of lung: (3) Multiple pulmonary nodules: (4) History of tobacco abuse: (5) Acute respiratory failure with hypoxia: (6) Pulmonary hypertension: (7) Hemoptysis: Plan Chest x-ray 08/11/2022 personally reviewed: Good inspiratory effort, increase vascular markings, bilateral costophrenic and cardiophrenic angles are blunted, increased cardiac silhouette -- Acute hypoxic respiratory failure Multifactorial Procalcitonin 0.08 BNP 559 SARS NAAT negative, influenza A/B negative Continue with O2 supplementation to keep oxygen saturation between 90-92% -- Hemoptysis Patient does have history of pulmonary alveolar hemorrhage Autoimmune work-up was negative back in January 2019 and likelihood of her underlying etiology was coagulopathy from liver disease Patient was briefly on steroids but was discontinued October 2019 --Emphysema Not on any inhalers at home Not in any exacerbation PFTs 03/30/2021:No obstructive lung dysfunction, insignificant bronchodilator response, severe decrease in ERV, moderate decrease in DLCO which partially corrects for VA (Decrease in FVC by 290 mL, decrease in FEV1 by 340 mL, patient gained 62 pounds compared to 03/2020) FVC 2.59 L 87%, FEV1 2.28 L 94%, FEV1/FVC 88%, ERV 2%, RV 84%, TLC 89%, RV/TLC 94% 2D echo 05/22/2020:EF 55 to 60%, moderate MR, RVSP 30-40 --Multiple pulmonary nodules Largest being 5 mm in the right middle lobe followed by 4 mm in the right lower lobe, stable since 03/2020. To me it seems like scarring from the significant valvular damage she had during the hospitalization of January 2019 Patient does have history of [id number] smoking --Pulmonary Hypertension Likely combination of type II and type III Patient's BMI of 37 also likely playing it's part --Greater than 11-yahb-patz smoking history Quit 2008 Advised to continue with abstinence Plan: +2.7 L since coming to the hospital Chest x-ray from today shows worsening compared to yesterday. Recommend a very close Input and output. Would recommend the patient to euvolemic to negative balance Pulmonary edema can give similar findings with frothy hemoptysis. Follow-up 2D echo INR is 2.4, vitamin K 10 mg given today on top of 5 mg yesterday Change antitussive medication to guaifenesin-codeine [id number] I was planning to start the patient on tranexamic acid nebulized but patient states that it makes her cough which will be counterproductive, will hold back on any nebulized medication. Solu-Medrol 40 mg every 8 hours. Give FFP 15 mill per KG which will insole lip turner to be 1.4 L approximately 5 bags. Given the patient is already getting cryo will give only 2 bags of FFP. Followed this by 40 mg of Lasix and increase Lasix to 40 mg twice daily Continue with CPAP/BiPAP If there is any worsening of hemoptysis, recommend intubation Consideration of vasopressin/Levophed could be considered if there is considerat ion of hepatorenal syndrome Midodrine is another option Case was discussed with RN at bedside Please note the above document was generated using voice recognition software. It may contain grammatical, syntax or spelling errors.Any formal questions or concerns about the content, text or information contained within the body of this dictation should be directly addressed to the provider for clarification. Admission and Anticipated Discharge Date Admission Date: August 10, 2022 Subjective Patient seen and examined at bedside. Earlier today patient was transferred to the ICU because of persistent hypoxia At the time of examination she was saturating 96-97% on CPAP of 12 100% FiO2 I was able to gradually go down to 60% she was still saturating 90 to 93% She was breathing in the mid 20s. Denies any chest pain, no belly pain. She did have hemoptysis overnight but was frothy Review of Systems Review of Systems: All systems reviewed & are unremarkable except as noted in Subjective Physical Exam Physical Exam: Constitutional: No acute distress HEENT: EOMI, PERRLA, scleral icterus Respiratory system: Decreased air entry bilaterally, no wheeze, no rhonchi, positive crackles bilaterally CVS: S1-S2 positive, positive 2 out of 6 systolic murmur appreciated best at apex Abdomen: Soft, nontender, nondistended, positive bowel sounds x4, obese Extremities: +2 pulses bilaterally radialis/ dorsalis pedis, no cyanosis, +3 pitting edema bilateral lower extremity Neuro: Awake alert oriented x3 Psych: Normal mood and affect G/U: No [place] Skin: no rashes, warm and dry Lymphatic: no cervical or axillary lymphadenopathy Results & Data Results & Data Vital Signs (Past 12 Hours) Vital Signs Temp Pulse Pulse Resp BP BP Pulse Ox 08/12/22 07:40 104 H 28 H 94 08/12/22 06:40 91 08/12/22 06:35 89 L 08/12/22 06:15 102 H 22 94 08/12/22 06:04 103 H 28 H 94 08/12/22 06:26 104 H 26 H 93 08/12/22 06:01 36.6 C 08/12/22 06:01 111 H 08/12/22 06:20 08/12/22 03:40 99 H 22 105/70 96 08/12/22 02:44 105 H 21 94 08/12/22 02:08 108 H 08/12/22 01:36 103 H 18 88 L 08/11/22 22:55 36.7 C 107 H 16 110/63 92 08/11/22 21:45 37.0 C 109 H 20 113/71 89 L 08/11/22 21:11 37.1 C 109 H 21 126/78 88 L 08/11/22 20:40 37.2 C 117 H 22 113/72 89 L 08/11/22 20:24 114 H 18 90 O2 Del Method O2 Flow Rate FiO2 08/12/22 07:40 80 08/12/22 06:40 CPAP 70 08/12/22 06:35 CPAP 60 08/12/22 06:15 08/12/22 06:04 BiPAP 80 08/12/22 06:26 60 08/12/22 06:01 08/12/22 06:01 08/12/22 06:20 BiPAP 80 08/12/22 03:40 BiPAP 80 08/12/22 02:44 80 08/12/22 02:08 08/12/22 01:36 Nasal Cannula 13 08/11/22 22:55 High Flow Nasal Cannula 12 08/11/22 21:45 Nasal Cannula 5.0 08/11/22 21:11 Nasal Cannula 5 08/11/22 20:40 Nasal Cannula 5 08/11/22 20:24 Nasal Cannula 6 Laboratory Results 08/12/22 06:06 08/12/22 06:06 PG Care Time/CCT Total # of Minutes Spent Total Time Spent with Patient: Total time spent is greater than 50% in coordination of care (as documented) at patient's floor/unit and/or counseling patient: Coding Level of Care Code 82362 SUB INP/OBS CARE 50MIN Diagnoses Decompensated hepatic cirrhosis K72.90; K74.60 Alveolar emphysema of lung J43.1 Multiple pulmonary nodules R91.8 History of tobacco abuse Z87.891 Acute respiratory failure with hypoxia J96.01 Pulmonary hypertension I27.20 Hemoptysis R04.2
[2022-08-12] MEDS ORDERED: TXA 10% Non-IV Routes 100 MG/ML VIAL NEB SCH (08:45)
--- NOTE | 2022-08-12 09:00 | Gastroenterology Progress Note ---
Date of Service August 12, 2022 Assessment & Plan (1) Decompensated hepatic cirrhosis: (2) Hyperbilirubinemia: Plan Assessment: 57 y/o female with history of ETOH abuse, cirrhosis, and others, admitted w/ RUQ pain, worsening jaundice, new-onset ascites, electrolyte derangements, hypotension. Overall presentation is consistent with decompensated cirrhosis w/ elevated MELD, Maddrey's DF > 32 on admit ? alcoholic hepatitis (though no significant ETOH intake lately, was drinking 3 beers a day and medical ETOH neg on arrival). Also concern for sepsis, UTI. MRCP neg for biliary obstruction; she does have cholelithiasis, liver is cirrhotic w/o mass and she has small ascites. Overnight had worsening pulmonary status with hypoxia and hemoptysis, imaging w/ pulmonary edema and getting evaluated for that; echo pending. Placed on steroids. Coagulopathy worsened and INR elevated and she was tx w/ Vit K, FFP and cryoprecipitate. On Lactulose and Rifaximin to cover HE. On exam she has obvious jaundice, appears fatigued, is on BiPAP, abd soft, nontender, no overt GIB. Plan: - Steroids and diuretics as per pulmonary/radiologic technology program director team - Correct coagulopathy as able with vit K, FFP, cryoprecipitate - Fluid studies from tap yesterday not c/w SBP. Fluid cx and cytology pending. SAAG = 1.2 and protein = < 3 suggesting portal HTN is from cirrhosis ANC = 245 x .4 = 98 Fluid protein = < 3 Fluid albumin = < 1.5 Cytology pending Peritoneal LDH = 72 Peritoneal Glucose =107 Fluid cx pending - IV albumin on board given concern for SBP - Continue empiric ABX coverage - PPI - Await BCx, UCx, fluid Cx - Continue and finish NAC 21 hour protocol given - ETOH withdrawal protocol - Thiamine, multivitamins, folic acid - Lactulose and Rifaximin to cover HE; has mild tremor, (? very minimal asterixis) - MELD = 29-->30. Estimated 27-32% 90 day mortality - Daily MELD labs - Correct electrolyte derangements as able - Monitor mental status closely - Moving forward recommend strict ETOH avoidance - Pt should consider formal ETOH rehab/counseling and this was discussed with her - Less than 2g of Tylenol if using - Less than 2g sodium - No NSAIDs - Needs formal w/u of cirrhosis as OP including EGD to evaluate for varices (suggested on CT) Thank you for allowing us to participate in the care of this patient. Please call with any acute changes, questions or concerns. Please see addendum below with additional recommendation from my supervising physician. Admission and Anticipated Discharge Date Admission Date: August 10, 2022 Supervising Physician Co-Signing Physician Notes I have personally seen and examined the patient with Debby Jeffers PA-C. Her note reflects my exam and findings. I agree with her impression and plan. Over night events noted. Current symptoms concerning for pulmonary bleeding. Discussed with at bedside as well. Mark Anthony Bryant M.D. Subjective MRCP yesterday with no biliary dilation, CBD 5 mm, no choledocholithiasis, GB is nondilated with cholelithiasis, liver is cirrhotic w/o mass and she has small ascites. Overnight pt worsened from a respiratory standpoint with hypoxia and hemoptysis and got moved to the ICU. CXR w/ increased pulmonary edema. Echo pending. Has coagulopathy with INR bumped to 2.4 and she received Vit K, FFP, cryoprecipitate. Currently feels tired, coughing seems improved for now. Pt now on BiPAP and ability to give history is limited. at bedside. Abd pain is resolved. In general no melena, hematochezia, hematemesis, denies abd pain, vomiting, CP. BP improved today. Review of Systems Review of Systems: All systems reviewed & are unremarkable except as noted in HPI & below Physical Exam Constitutional: well developed, + acute distress and + ill appearing Eyes: + icterus ENMT: On BiPAP Neck: trachea midline supple Respiratory: On BiPAP, decreased BS bilaterally Cardiovascular: + tachycardic, + systoilc murmur, 2+ bilateral pretibial edema Gastrointestinal (Abdomen): soft, nontender, nondistended, + HSM, mild ascies Skin: + jaundice Neurologic: fatigued, awake and alert, oriented x 3, no obvious focal neuro deficit. + mild tremor Results & Data Vital Signs (Past 12 Hours) Vital Signs Temp Pulse Pulse Resp BP BP BP 08/12/22 08:34 110 H 22 115/67 08/12/22 07:40 104 H 28 H 08/12/22 06:40 08/12/22 06:35 08/12/22 06:15 102 H 22 08/12/22 06:04 103 H 28 H 08/12/22 06:26 104 H 26 H 08/12/22 06:01 36.6 C 08/12/22 06:01 111 H 08/12/22 06:20 08/12/22 03:40 99 H 22 105/70 08/12/22 02:44 105 H 21 08/12/22 02:08 108 H 08/12/22 01:36 103 H 18 08/11/22 22:55 36.7 C 107 H 16 110/63 08/11/22 21:45 37.0 C 109 H 20 113/71 08/11/22 21:11 37.1 C 109 H 21 126/78 Pulse Ox O2 Del Method O2 Flow Rate FiO2 08/12/22 08:34 97 08/12/22 07:40 94 80 08/12/22 06:40 91 CPAP 70 08/12/22 06:35 89 L CPAP 60 08/12/22 06:15 94 08/12/22 06:04 94 BiPAP 80 08/12/22 06:26 93 60 08/12/22 06:01 08/12/22 06:01 08/12/22 06:20 BiPAP 80 08/12/22 03:40 96 BiPAP 80 08/12/22 02:44 94 80 08/12/22 02:08 08/12/22 01:36 88 L Nasal Cannula 13 08/11/22 22:55 92 High Flow Nasal Cannula 12 08/11/22 21:45 89 L Nasal Cannula 5.0 08/11/22 21:11 88 L Nasal Cannula 5 Laboratory Results 08/12/22 08/12/22 08/12/22 Range/Units 07:25 06:06 06:06 WBC (4.8-10.8) K/ul RBC (4.20-5.40) M/uL Hgb (12.0-16.0) g/dl POC Hgb (12.0-16.0) g/dl Hct (37.0-47.0) % POC Hct (37-47) % MCV (80.0-100.0) fL MCH (25.0-34.0) pg MCHC (32.0-36.0) g/dL RDW Std Deviation (36.4-46.3) fL RDW Coeff of Wesley (11.5-14.5) % Plt Count (130-400) K/uL MPV (9.4-12.4) fL Immature Gran % (Auto) % Neut % (Auto) % Lymph % (Auto) % [place] % (Auto) % Eos % (Auto) % Baso % (Auto) % Neut # (Auto) (1.40-6.50) K/uL Lymph # (Auto) (1.2-3.4) K/uL [place] # (Auto) (0.11-0.59) K/uL Eos # (Auto) (0-0.50) K/uL Baso # (Auto) (0-0.2) K/uL Immature Gran # (Auto) (0.01-0.20) K/uL Toxic Vacuolation Polychromasia Macrocytosis Target Cells Echinocytes ESR 4 (0-30) mm/hr PT 24.0 H (9.0-12.0) Seconds INR 2.3 H (0.9-1.1) Fibrinogen 85 L* (184-400) mg/dl Sample Site POC pH (7.35-7.45) POC pCO2 (35-46) mmHg POC pO2 (80-95) mmHg POC HCO3 (19-24) mary/L POC Total CO2 (24-31) mmol/L POC Base Excess (-9-1.8) mary/L ABG pH (Temp Correct) (7.35-7.45) ABG pCO2 (Temp Corrct (35-46) mmHg POC ABG pO2 at Pt Temp POC ABG O2 Sat (90-95) % Dylan Test O2 Delivery Device POC Sodium (135-144) mmol/L Sodium (136-145) mmol/L POC Potassium (3.3-5.0) mmol/L Potassium (3.5-5.1) mmol/L Chloride (98-107) mmol/L Carbon Dioxide (21-32) mmol/L Anion Gap (3-11) BUN (6-23) mg/dl Creatinine (0.6-1.2) mg/dl Est Cr Clr Drug Dosing ml/min Est GFR ( Amer) ml/min Est GFR (Non-Af Amer) ml/min BUN/Creatinine Ratio (10-20) Glucose (70-99(Fasting)) mg/dl POC Glucose 147 H (70-99) mg/dl Calcium (8.6-10.3) mg/dl Phosphorus (2.5-4.9) mg/dl Magnesium (1.7-2.4) mg/dl Total Bilirubin (0.2-1.0) mg/dl AST (13-39) U/L ALT (7-52) U/L Alkaline Phosphatase (34-104) U/L Ammonia (18-72) umol/L C-Reactive Protein (0-0.5) mg/dl B-Natriuretic Peptide (0-100) pg/ml Total Protein (6.0-8.3) gm/dl Albumin (3.4-5.0) gm/dl Globulin (2.5-4.0) gm/dl Albumin/Globulin Ratio (0.9-2) Urine Osmolality (500-800) mOsm/kg Ur Random Creatinine mg/dl Ur Random Sodium Urine Sodium mmol/L Urine Potassium mmol/L Urine Chloride mmol/L Nasal Screen MRSA (PCR) (Negative) Hepatitis A IgM Ab Hepatitis A Ab Total Hepatitis B Ab, Qual Hep Bs Antigen Hep Bs Ag Confirmation Hep B Core IgM Ab Hepatitis C Ab (EIA) Hep C Ab Signal/Cutoff Influ A Molecular Assay (Negative) Influ B Molecular Assay (Negative) Blood Type Antibody Screen 08/12/22 08/12/22 08/12/22 Range/Units 06:06 06:06 06:06 WBC 6.01 (4.8-10.8) K/ul RBC 2.07 L (4.20-5.40) M/uL Hgb 8.4 L (12.0-16.0) g/dl POC Hgb (12.0-16.0) g/dl Hct 22.8 L (37.0-47.0) % POC Hct (37-47) % MCV 110.1 H (80.0-100.0) fL MCH 40.6 H (25.0-34.0) pg MCHC 36.8 H (32.0-36.0) g/dL RDW Std Deviation 78.0 H (36.4-46.3) fL RDW Coeff of Wesley 19.9 H (11.5-14.5) % Plt Count 77 L (130-400) K/uL MPV 10.3 (9.4-12.4) fL Immature Gran % (Auto) 1.3 % Neut % (Auto) 85.9 % Lymph % (Auto) 8.0 % [place] % (Auto) 4.3 % Eos % (Auto) 0.3 % Baso % (Auto) 0.2 % Neut # (Auto) 5.16 (1.40-6.50) K/uL Lymph # (Auto) 0.48 L (1.2-3.4) K/uL [place] # (Auto) 0.26 (0.11-0.59) K/uL Eos # (Auto) 0.02 (0-0.50) K/uL Baso # (Auto) 0.01 (0-0.2) K/uL Immature Gran # (Auto) 0.08 (0.01-0.20) K/uL Toxic Vacuolation Polychromasia 1+ Macrocytosis Target Cells 1+ Echinocytes 1+ ESR (0-30) mm/hr PT (9.0-12.0) Seconds INR (0.9-1.1) Fibrinogen (184-400) mg/dl Sample Site POC pH (7.35-7.45) POC pCO2 (35-46) mmHg POC pO2 (80-95) mmHg POC HCO3 (19-24) mary/L POC Total CO2 (24-31) mmol/L POC Base Excess (-9-1.8) mary/L ABG pH (Temp Correct) (7.35-7.45) ABG pCO2 (Temp Corrct (35-46) mmHg POC ABG pO2 at Pt Temp POC ABG O2 Sat (90-95) % Dylan Test O2 Delivery Device POC Sodium (135-144) mmol/L Sodium 131 L (136-145) mmol/L POC Potassium (3.3-5.0) mmol/L Potassium 3.5 (3.5-5.1) mmol/L Chloride 89 L (98-107) mmol/L Carbon Dioxide 30 (21-32) mmol/L Anion Gap 12 H (3-11) BUN 7 (6-23) mg/dl Creatinine 0.70 (0.6-1.2) mg/dl Est Cr Clr Drug Dosing 98.1 ml/min Est GFR ( Amer) 112.3 ml/min Est GFR (Non-Af Amer) 96.9 ml/min BUN/Creatinine Ratio 10.0 (10-20) Glucose 140 H (70-99(Fasting)) mg/dl POC Glucose (70-99) mg/dl Calcium 8.3 L (8.6-10.3) mg/dl Phosphorus 2.4 L (2.5-4.9) mg/dl Magnesium 1.8 (1.7-2.4) mg/dl Total Bilirubin 15.6 H (0.2-1.0) mg/dl AST 65 H (13-39) U/L ALT 33 (7-52) U/L Alkaline Phosphatase 50 (34-104) U/L Ammonia (18-72) umol/L C-Reactive Protein 2.63 H (0-0.5) mg/dl B-Natriuretic Peptide 595 H (0-100) pg/ml Total Protein 5.8 L (6.0-8.3) gm/dl Albumin 3.7 (3.4-5.0) gm/dl Globulin 2.1 L (2.5-4.0) gm/dl Albumin/Globulin Ratio 1.8 (0.9-2) Urine Osmolality (500-800) mOsm/kg Ur Random Creatinine mg/dl Ur Random Sodium Urine Sodium mmol/L Urine Potassium mmol/L Urine Chloride mmol/L Nasal Screen MRSA (PCR) (Negative) Hepatitis A IgM Ab Hepatitis A Ab Total Hepatitis B Ab, Qual Hep Bs Antigen Hep Bs Ag Confirmation Hep B Core IgM Ab Hepatitis C Ab (EIA) Hep C Ab Signal/Cutoff Influ A Molecular Assay (Negative) Influ B Molecular Assay (Negative) Blood Type Antibody Screen 08/12/22 08/11/22 08/11/22 Range/Units 06:00 Unknown Unknown WBC (4.8-10.8) K/ul RBC (4.20-5.40) M/uL Hgb (12.0-16.0) g/dl POC Hgb (12.0-16.0) g/dl Hct (37.0-47.0) % POC Hct (37-47) % MCV (80.0-100.0) fL MCH (25.0-34.0) pg MCHC (32.0-36.0) g/dL RDW Std Deviation (36.4-46.3) fL RDW Coeff of Wesley (11.5-14.5) % Plt Count (130-400) K/uL MPV (9.4-12.4) fL Immature Gran % (Auto) % Neut % (Auto) % Lymph % (Auto) % [place] % (Auto) % Eos % (Auto) % Baso % (Auto) % Neut # (Auto) (1.40-6.50) K/uL Lymph # (Auto) (1.2-3.4) K/uL [place] # (Auto) (0.11-0.59) K/uL Eos # (Auto) (0-0.50) K/uL Baso # (Auto) (0-0.2) K/uL Immature Gran # (Auto) (0.01-0.20) K/uL Toxic Vacuolation Polychromasia Macrocytosis Target Cells Echinocytes ESR (0-30) mm/hr PT (9.0-12.0) Seconds INR (0.9-1.1) Fibrinogen (184-400) mg/dl Sample Site POC pH (7.35-7.45) POC pCO2 (35-46) mmHg POC pO2 (80-95) mmHg POC HCO3 (19-24) mary/L POC Total CO2 (24-31) mmol/L POC Base Excess (-9-1.8) mary/L ABG pH (Temp Correct) (7.35-7.45) ABG pCO2 (Temp Corrct (35-46) mmHg POC ABG pO2 at Pt Temp POC ABG O2 Sat (90-95) % Dylan Test O2 Delivery Device POC Sodium (135-144) mmol/L Sodium (136-145) mmol/L POC Potassium (3.3-5.0) mmol/L Potassium (3.5-5.1) mmol/L Chloride (98-107) mmol/L Carbon Dioxide (21-32) mmol/L Anion Gap (3-11) BUN (6-23) mg/dl Creatinine (0.6-1.2) mg/dl Est Cr Clr Drug Dosing ml/min Est GFR ( Amer) ml/min Est GFR (Non-Af Amer) ml/min BUN/Creatinine Ratio (10-20) Glucose (70-99(Fasting)) mg/dl POC Glucose (70-99) mg/dl Calcium (8.6-10.3) mg/dl Phosphorus (2.5-4.9) mg/dl Magnesium (1.7-2.4) mg/dl Total Bilirubin (0.2-1.0) mg/dl AST (13-39) U/L ALT (7-52) U/L Alkaline Phosphatase (34-104) U/L Ammonia (18-72) umol/L C-Reactive Protein (0-0.5) mg/dl B-Natriuretic Peptide (0-100) pg/ml Total Protein (6.0-8.3) gm/dl Albumin (3.4-5.0) gm/dl Globulin (2.5-4.0) gm/dl Albumin/Globulin Ratio (0.9-2) Urine Osmolality 531 (500-800) mOsm/kg Ur Random Creatinine mg/dl Ur Random Sodium Cancelled Urine Sodium mmol/L Urine Potassium mmol/L Urine Chloride mmol/L Nasal Screen MRSA (PCR) Negative (Negative) Hepatitis A IgM Ab Hepatitis A Ab Total Hepatitis B Ab, Qual Hep Bs Antigen Hep Bs Ag Confirmation Hep B Core IgM Ab Hepatitis C Ab (EIA) Hep C Ab Signal/Cutoff Influ A Molecular Assay (Negative) Influ B Molecular Assay (Negative) Blood Type Antibody Screen 08/11/22 08/11/22 08/11/22 Range/Units Unknown Unknown 22:53 WBC (4.8-10.8) K/ul RBC (4.20-5.40) M/uL Hgb (12.0-16.0) g/dl POC Hgb 8.8 L (12.0-16.0) g/dl Hct (37.0-47.0) % POC Hct 26 L (37-47) % MCV (80.0-100.0) fL MCH (25.0-34.0) pg MCHC (32.0-36.0) g/dL RDW Std Deviation (36.4-46.3) fL RDW Coeff of Wesley (11.5-14.5) % Plt Count (130-400) K/uL MPV (9.4-12.4) fL Immature Gran % (Auto) % Neut % (Auto) % Lymph % (Auto) % [place] % (Auto) % Eos % (Auto) % Baso % (Auto) % Neut # (Auto) (1.40-6.50) K/uL Lymph # (Auto) (1.2-3.4) K/uL [place] # (Auto) (0.11-0.59) K/uL Eos # (Auto) (0-0.50) K/uL Baso # (Auto) (0-0.2) K/uL Immature Gran # (Auto) (0.01-0.20) K/uL Toxic Vacuolation Polychromasia Macrocytosis Target Cells Echinocytes ESR (0-30) mm/hr PT (9.0-12.0) Seconds INR (0.9-1.1) Fibrinogen (184-400) mg/dl Sample Site L Radial POC pH 7.54 H* (7.35-7.45) POC pCO2 34 L (35-46) mmHg POC pO2 52 L (80-95) mmHg POC HCO3 29 H (19-24) mary/L POC Total CO2 30 (24-31) mmol/L POC Base Excess 6.0 H (-9-1.8) mary/L ABG pH (Temp Correct) 7.542 H* (7.35-7.45) ABG pCO2 (Temp Corrct 34 L (35-46) mmHg POC ABG pO2 at Pt Temp 52 POC ABG O2 Sat 90.0 (90-95) % Dylan Test Pass O2 Delivery Device Cannula POC Sodium 129 L (135-144) mmol/L Sodium (136-145) mmol/L POC Potassium 3.2 L (3.3-5.0) mmol/L Potassium (3.5-5.1) mmol/L Chloride (98-107) mmol/L Carbon Dioxide (21-32) mmol/L Anion Gap (3-11) BUN (6-23) mg/dl Creatinine (0.6-1.2) mg/dl Est Cr Clr Drug Dosing ml/min Est GFR ( Amer) ml/min Est GFR (Non-Af Amer) ml/min BUN/Creatinine Ratio (10-20) Glucose (70-99(Fasting)) mg/dl POC Glucose (70-99) mg/dl Calcium (8.6-10.3) mg/dl Phosphorus (2.5-4.9) mg/dl Magnesium (1.7-2.4) mg/dl Total Bilirubin (0.2-1.0) mg/dl AST (13-39) U/L ALT (7-52) U/L Alkaline Phosphatase (34-104) U/L Ammonia (18-72) umol/L C-Reactive Protein (0-0.5) mg/dl B-Natriuretic Peptide (0-100) pg/ml Total Protein (6.0-8.3) gm/dl Albumin (3.4-5.0) gm/dl Globulin (2.5-4.0) gm/dl Albumin/Globulin Ratio (0.9-2) Urine Osmolality (500-800) mOsm/kg Ur Random Creatinine Cancelled 173.3 mg/dl Ur Random Sodium Urine Sodium < 10 mmol/L Urine Potassium 37.2 mmol/L Urine Chloride < 15 mmol/L Nasal Screen MRSA (PCR) (Negative) Hepatitis A IgM Ab Hepatitis A Ab Total Hepatitis B Ab, Qual Hep Bs Antigen Hep Bs Ag Confirmation Hep B Core IgM Ab Hepatitis C Ab (EIA) Hep C Ab Signal/Cutoff Influ A Molecular Assay (Negative) Influ B Molecular Assay (Negative) Blood Type Antibody Screen 08/11/22 08/11/22 08/11/22 Range/Units 22:39 22:39 22:39 WBC 4.91 (4.8-10.8) K/ul RBC 2.08 L (4.20-5.40) M/uL Hgb 8.4 L (12.0-16.0) g/dl POC Hgb (12.0-16.0) g/dl Hct 22.9 L (37.0-47.0) % POC Hct (37-47) % MCV 110.1 H (80.0-100.0) fL MCH 40.4 H (25.0-34.0) pg MCHC 36.7 H (32.0-36.0) g/dL RDW Std Deviation 77.8 H (36.4-46.3) fL RDW Coeff of Wesley 19.8 H (11.5-14.5) % Plt Count 79 L (130-400) K/uL MPV 10.2 (9.4-12.4) fL Immature Gran % (Auto) 2.0 % Neut % (Auto) 86.2 % Lymph % (Auto) 7.7 % [place] % (Auto) 3.9 % Eos % (Auto) 0.0 % Baso % (Auto) 0.2 % Neut # (Auto) 4.23 (1.40-6.50) K/uL Lymph # (Auto) 0.38 L (1.2-3.4) K/uL [place] # (Auto) 0.19 (0.11-0.59) K/uL Eos # (Auto) 0.00 (0-0.50) K/uL Baso # (Auto) 0.01 (0-0.2) K/uL Immature Gran # (Auto) 0.10 (0.01-0.20) K/uL Toxic Vacuolation 1+ Polychromasia 2+ Macrocytosis Present Target Cells 1+ Echinocytes 2+ ESR (0-30) mm/hr PT (9.0-12.0) Seconds INR (0.9-1.1) Fibrinogen (184-400) mg/dl Sample Site POC pH (7.35-7.45) POC pCO2 (35-46) mmHg POC pO2 (80-95) mmHg POC HCO3 (19-24) mary/L POC Total CO2 (24-31) mmol/L POC Base Excess (-9-1.8) mary/L ABG pH (Temp Correct) (7.35-7.45) ABG pCO2 (Temp Corrct (35-46) mmHg POC ABG pO2 at Pt Temp POC ABG O2 Sat (90-95) % Dylan Test O2 Delivery Device POC Sodium (135-144) mmol/L Sodium (136-145) mmol/L POC Potassium (3.3-5.0) mmol/L Potassium (3.5-5.1) mmol/L Chloride (98-107) mmol/L Carbon Dioxide (21-32) mmol/L Anion Gap (3-11) BUN (6-23) mg/dl Creatinine (0.6-1.2) mg/dl Est Cr Clr Drug Dosing ml/min Est GFR ( Amer) ml/min Est GFR (Non-Af Amer) ml/min BUN/Creatinine Ratio (10-20) Glucose (70-99(Fasting)) mg/dl POC Glucose (70-99) mg/dl Calcium (8.6-10.3) mg/dl Phosphorus (2.5-4.9) mg/dl Magnesium (1.7-2.4) mg/dl Total Bilirubin (0.2-1.0) mg/dl AST (13-39) U/L ALT (7-52) U/L Alkaline Phosphatase (34-104) U/L Ammonia (18-72) umol/L C-Reactive Protein (0-0.5) mg/dl B-Natriuretic Peptide 559 H (0-100) pg/ml Total Protein (6.0-8.3) gm/dl Albumin (3.4-5.0) gm/dl Globulin (2.5-4.0) gm/dl Albumin/Globulin Ratio (0.9-2) Urine Osmolality (500-800) mOsm/kg Ur Random Creatinine mg/dl Ur Random Sodium Urine Sodium mmol/L Urine Potassium mmol/L Urine Chloride mmol/L Nasal Screen MRSA (PCR) (Negative) Hepatitis A IgM Ab Hepatitis A Ab Total Hepatitis B Ab, Qual Hep Bs Antigen Hep Bs Ag Confirmation Hep B Core IgM Ab Hepatitis C Ab (EIA) Hep C Ab Signal/Cutoff Influ A Molecular Assay (Negative) Influ B Molecular Assay (Negative) Blood Type A Positive Antibody Screen NEGATIVE 08/11/22 08/11/22 08/11/22 Range/Units 16:50 16:40 12:19 WBC (4.8-10.8) K/ul RBC (4.20-5.40) M/uL Hgb (12.0-16.0) g/dl POC Hgb (12.0-16.0) g/dl Hct (37.0-47.0) % POC Hct (37-47) % MCV (80.0-100.0) fL MCH (25.0-34.0) pg MCHC (32.0-36.0) g/dL RDW Std Deviation (36.4-46.3) fL RDW Coeff of Wesley (11.5-14.5) % Plt Count (130-400) K/uL MPV (9.4-12.4) fL Immature Gran % (Auto) % Neut % (Auto) % Lymph % (Auto) % [place] % (Auto) % Eos % (Auto) % Baso % (Auto) % Neut # (Auto) (1.40-6.50) K/uL Lymph # (Auto) (1.2-3.4) K/uL [place] # (Auto) (0.11-0.59) K/uL Eos # (Auto) (0-0.50) K/uL Baso # (Auto) (0-0.2) K/uL Immature Gran # (Auto) (0.01-0.20) K/uL Toxic Vacuolation Polychromasia Macrocytosis Target Cells Echinocytes ESR (0-30) mm/hr PT (9.0-12.0) Seconds INR (0.9-1.1) Fibrinogen (184-400) mg/dl Sample Site POC pH (7.35-7.45) POC pCO2 (35-46) mmHg POC pO2 (80-95) mmHg POC HCO3 (19-24) mary/L POC Total CO2 (24-31) mmol/L POC Base Excess (-9-1.8) mary/L ABG pH (Temp Correct) (7.35-7.45) ABG pCO2 (Temp Corrct (35-46) mmHg POC ABG pO2 at Pt Temp POC ABG O2 Sat (90-95) % Dylan Test O2 Delivery Device POC Sodium (135-144) mmol/L Sodium (136-145) mmol/L POC Potassium (3.3-5.0) mmol/L Potassium (3.5-5.1) mmol/L Chloride (98-107) mmol/L Carbon Dioxide (21-32) mmol/L Anion Gap (3-11) BUN (6-23) mg/dl Creatinine (0.6-1.2) mg/dl Est Cr Clr Drug Dosing ml/min Est GFR ( Amer) ml/min Est GFR (Non-Af Amer) ml/min BUN/Creatinine Ratio (10-20) Glucose (70-99(Fasting)) mg/dl POC Glucose (70-99) mg/dl Calcium (8.6-10.3) mg/dl Phosphorus (2.5-4.9) mg/dl Magnesium (1.7-2.4) mg/dl Total Bilirubin (0.2-1.0) mg/dl AST (13-39) U/L ALT (7-52) U/L Alkaline Phosphatase (34-104) U/L Ammonia 77.0 H (18-72) umol/L C-Reactive Protein (0-0.5) mg/dl B-Natriuretic Peptide (0-100) pg/ml Total Protein (6.0-8.3) gm/dl Albumin (3.4-5.0) gm/dl Globulin (2.5-4.0) gm/dl Albumin/Globulin Ratio (0.9-2) Urine Osmolality (500-800) mOsm/kg Ur Random Creatinine mg/dl Ur Random Sodium Urine Sodium mmol/L Urine Potassium mmol/L Urine Chloride mmol/L Nasal Screen MRSA (PCR) (Negative) Hepatitis A IgM Ab Pending Hepatitis A Ab Total Pending Hepatitis B Ab, Qual Pending Hep Bs Antigen Pending Hep Bs Ag Confirmation Pending Hep B Core IgM Ab Pending Hepatitis C Ab (EIA) Pending Hep C Ab Signal/Cutoff Pending Influ A Molecular Assay Negative (Negative) Influ B Molecular Assay Negative (Negative) Blood Type Antibody Screen Diagnostic Findings MRCP 08/11/22: FINDINGS: Artifacts: There is moderate motion artifact throughout the examination. Lower thorax: Trace left pleural effusion and scattered infiltrates and/or edema in both lung bases. Bile ducts: The biliary tree is nondilated. The common bile duct is normal in diameter measuring 5 mm. No choledocholithiasis is seen. Gallbladder: The gallbladder is nondilated. There appears to be calculi within it dependently measuring up to 1.4 cm. Liver: The liver demonstrates a nodular surface suggesting cirrhosis. There is a small amount of ascites. No focal liver mass lesion is seen. There is a splenorenal shunt. Pancreas: Unremarkable. No ductal dilation. Spleen: Unremarkable. No splenomegaly. Adrenals: Unremarkable. No mass. Kidneys and ureters: Unremarkable. No hydronephrosis. Stomach and bowel: Unremarkable. No obstruction. IMPRESSION: 1. The liver demonstrates a nodular surface suggesting cirrhosis. There is a small amount of ascites. No focal liver mass lesion is seen. There is a splenorenal shunt. 2. Trace left pleural effusion and scattered infiltrates and/or edema in both lung bases. 3. The biliary tree is nondilated. The common bile duct is normal in diameter measuring 5 mm. No choledocholithiasis is seen. 4. The gallbladder is nondilated. There appears to be calculi within it dependently measuring up to 1.4 cm. CXR 08/12/22: IMPRESSION: 1. Cardiomegaly with evidence of congestive failure. 2. There are increasing bilateral airspace opacities which likely represent pulmonary edema. Correlate clinically for evidence of a superimposed infectious/inflammatory pneumonitis. Radiographic follow-up to resolution is recommended. 3. Small pleural effusions. CXR 08/11/22: FINDINGS: There is no pneumothorax. Suspected trace bilateral pleural effusions are present. Cardiomegaly is unchanged. Interstitial thickening persists. Patchy airspace opacities have progressed. IMPRESSION: Cardiomegaly. Persistent interstitial thickening with increase in bilateral airspace opacities. The findings could reflect pulmonary edema or multifocal pneumonia. CXR: 08/11/22: 1. Persistent interstitial thickening and suspected patchy airspace opacities. Although less likely, an infectious etiology could appear similar. 2. Suspected trace bilateral pleural effusions.
[2022-08-12] MEDS: FOLIC ACID 1 MG TAB PO SCH (09:08)
[2022-08-12] MEDS: MULTIVITAMIN TAB PO SCH (09:09)
[2022-08-12] MEDS ORDERED: FUROSEMIDE 40 MG in SYRINGE 0 ML IV SCH ×2 (10:00→21:00)
[2022-08-12] MEDS: THIAMINE HCL 100 MG TAB PO SCH (10:19)
[2022-08-12] MEDS: SPIRONOLACTONE 25 MG TAB PO SCH (10:19)
[2022-08-12] MEDS: PANTOprazole 40 MG in SYRINGE 0 ML IV SCH ×2 (10:36→20:04)
[2022-08-12 10:44] LABS: Magnesium 1.8 mg/dl (1.7-2.4); Phosphorus 2.4 mg/dl (2.5-4.9)
[2022-08-12] MEDS ORDERED: SODIUM PHOSPHATE 3 MMOL/1 ML INFUSION IV STA (10:51)
[2022-08-12] MEDS: ICU ELECTROLYTE REPLACEMENT PROTOCOL SCH ×2 (10:55→20:05)
[2022-08-12] MEDS ORDERED: SODIUM PHOSPHATE 15 MMOL in SODIUM CHLORIDE 0.9% 250 ML IV ONE (11:15)
[2022-08-12] MEDS: MAGNESIUM SULFATE / D5W 1 GM/100 ML BAG IV SCH ×2 (11:30→13:38)
--- NOTE | 2022-08-12 11:45 | Hospitalist Progress Note ---
Date of Service August 12, 2022 Assessment & Plan (1) Decompensated hepatic cirrhosis: Plan: Patient is a 57-year-old female with past medical history of alcoholic cirrhosis, portal hypertension, chronic diastolic heart failure, COPD, anxiety who presented to the ED with right upper quadrant pain. On presentation to the ED, patient was afebrile, normotensive and saturating well on room air. CBC revealed macrocytic anemia and thrombocytopenia. CMP revealed significantly elevated bilirubin. PT/INR was elevated. CT abdomen and pelvis was done which revealed cirrhotic liver with cholelithiasis. It also showed esophageal varices and abdominal ascites. Patient was admitted to telemetry floor; surgery was consulted for possible biliary colic; recommended that the pain is likely due to stretching of liver capsule. No surgical intervention needed. GI evaluate the patient; recommended to have formal work-up done for cirrhosis as outpatient. Patient underwent paracentesis with 550 cc of fluid removal after admission. After the paracentesis, patient developed progressive respiratory failure and hemoptysis. Her oxygen saturation requirement continued to increase along with increasing hemoptysis. She was given vitamin K, cough suppressant and steroids as per pulmonology. However, patient required to be transferred to ICU for increasing respiratory failure in the morning of . 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 Patient was treated with IV steroid at that time. Follows up with pulmonology as outpatient Progressive increase in oxygen saturation along with hemoptysis since yesterday Last chest x-ray personally viewed and interpreted; increasing bilateral airways capacities. Discussed with pulmonology; recommend cough suppressant, vitamin K and FFP. If any worsening of hematemesis; recommend intubation. Patient is currently on BiPAP; closely monitored in ICU. Abdominal pain Decompensated alcoholic cirrhosis Portal hypertension Ascites status post paracentesis on 08/11/2022, SBP ruled out Esophageal varices Thrombocytopenia due to portal hypertension Hypervolemic hyponatremia UTI with E. coli Labs reviewed; consistent with macrocytic anemia and thrombocytopenia. Hemoglobin is down from 10.6-8.4 today total bilirubin 15.6. PT/INR24/2.3 CT abdomen and pelvis reviewed; cirrhotic liver with cholelithiasis. Esophageal varices and abdominal ascites Discussed with surgery; pain likely due to stretching of liver capsule. No co ncern for acute cholecystitis. GI evaluated the patient; will have formal work-up for cirrhosis as outpatient including EGD. Patient underwent MRCP which showed nodular surfaces cirrhosis along with a small ascites. Gallbladder nondilated; calculi measuring 1.4 cm present. Continue ceftriaxone for now; sensitive to E. coli in urine culture. Started on IV steroids for alcoholic hepatitis along with diffuse alveolar hemorrhage. Also on Protonix. Fluid restriction and low-salt diet for hyponatremia. Also on IV Lasix Started on lactulose and rifaximin due to elevated ammonia. Currently on diuretic with Lasix as per pulmonology and ICU. Chronic conditions; hx chronic diastolic heart failure BNP elevated to greater than 500. Chest x- ray consistent with bilateral infiltrates. Continue IV Lasix. hx valvular heart disease (moderate MR, mild TR) Time spent evaluating patient, direct bedside care, chart review, placing orders, interpretation of diagnostic studies, discussion with consultants, patient, and family members, as well as other required patient management activities is 60 minutes Please note the above document was generated using voice recognition software. It may contain grammatical, syntax or spelling errors. Any formal questions or concerns about the content, text or information contained within the body of this dictation should be directly addressed to the provider for clarification Admission and Anticipated Discharge Date Admission Date: August 10, 2022 Subjective Overnight, patient had increasing respiratory distress. She had multiple episode of hematemesis. Chest x-ray showed increasing bilateral infiltrates. She needed to be transferred to ICU. When seen at bedside in ICU, she was on BiPAP. Review of Systems Review of Systems: All systems reviewed & are unremarkable except as noted in Subjective Physical Exam Physical Exam: Constitutional: Significant respiratory distress with BiPAP. Appears jaundiced Head: Normocephalic, Atraumatic Eyes: Icteric sclera ENMT: external ear and nose normal, oropharynx normal Neck: trachea midline, no thyromegaly normal visual inspection Respiratory: Bilateral crackles; more at bases. Cardiovascular: S1-S2, no murmur Chest: normal inspection of chest Abdomen: Slight tenderness present in right upper quadrant. Abdomen slightly distended. Musculoskeletal: no cyanosis or clubbing, extremities motor strength 5/5 Skin: no rashes, warm and dry normal turgor Neurologic: Grossly intact. Results & Data Results & Data Vital Signs (Past 12 Hours) Vital Signs Temp Pulse Pulse Resp BP BP Pulse Ox 08/12/22 11:09 103 H 27 H 93 08/12/22 10:29 36.6 C 102 H 22 152/77 H 92 08/12/22 09:28 36.6 C 112 H 24 116/71 94 08/12/22 10:30 36.7 C 101 H 24 152/77 H 93 08/12/22 09:45 36.6 C 105 H 22 104/69 93 08/12/22 09:25 36.6 C 107 H 116/71 90 08/12/22 08:34 110 H 22 115/67 97 08/12/22 07:40 104 H 28 H 94 08/12/22 06:40 91 08/12/22 06:35 89 L 08/12/22 06:15 102 H 22 94 08/12/22 06:04 103 H 28 H 94 08/12/22 06:26 104 H 26 H 93 08/12/22 06:01 36.6 C 08/12/22 06:01 111 H 08/12/22 06:20 08/12/22 03:40 99 H 22 105/70 96 08/12/22 02:44 105 H 21 94 08/12/22 02:08 108 H 08/12/22 01:36 103 H 18 88 L O2 Del Method O2 Flow Rate FiO2 08/12/22 11:09 80 08/12/22 10:29 08/12/22 09:28 08/12/22 10:30 08/12/22 09:45 08/12/22 09:25 08/12/22 08:34 08/12/22 07:40 80 08/12/22 06:40 CPAP 70 08/12/22 06:35 CPAP 60 08/12/22 06:15 08/12/22 06:04 BiPAP 80 08/12/22 06:26 60 08/12/22 06:01 08/12/22 06:01 08/12/22 06:20 BiPAP 80 08/12/22 03:40 BiPAP 80 08/12/22 02:44 80 08/12/22 02:08 08/12/22 01:36 Nasal Cannula 13 Laboratory Results Laboratory Results WBC 6.01 K/ul (4.8-10.8) 08/12/22 06:06 RBC 2.07 M/uL (4.20-5.40) L 08/12/22 06:06 Hgb 8.4 g/dl (12.0-16.0) L 08/12/22 06:06 POC Hgb 8.8 g/dl (12.0-16.0) L 08/11/22 22:53 Hct 22.8 % (37.0-47.0) L 08/12/22 06:06 POC Hct 26 % (37-47) L 08/11/22 22:53 MCV 110.1 fL (80.0-100.0) H 08/12/22 06:06 MCH 40.6 pg (25.0-34.0) H 08/12/22 06:06 MCHC 36.8 g/dL (32.0-36.0) H 08/12/22 06:06 RDW Std Deviation 78.0 fL (36.4-46.3) H 08/12/22 06:06 RDW Coeff of Wesley 19.9 % (11.5-14.5) H 08/12/22 06:06 Plt Count 77 K/uL (130-400) L 08/12/22 06:06 MPV 10.3 fL (9.4-12.4) 08/12/22 06:06 Immature Gran % (Auto) 1.3 % 08/12/22 06:06 Neut % (Auto) 85.9 % 08/12/22 06:06 Lymph % (Auto) 8.0 % 08/12/22 06:06 [place] % (Auto) 4.3 % 08/12/22 06:06 Eos % (Auto) 0.3 % 08/12/22 06:06 Baso % (Auto) 0.2 % 08/12/22 06:06 Neut # (Auto) 5.16 K/uL (1.40-6.50) 08/12/22 06:06 Lymph # (Auto) 0.48 K/uL (1.2-3.4) L 08/12/22 06:06 [place] # (Auto) 0.26 K/uL (0.11-0.59) 08/12/22 06:06 Eos # (Auto) 0.02 K/uL (0-0.50) 08/12/22 06:06 Baso # (Auto) 0.01 K/uL (0-0.2) 08/12/22 06:06 Immature Gran # (Auto) 0.08 K/uL (0.01-0.20) 08/12/22 06:06 Absolute Nucleated RBC 0.00 K/uL (0-0.12) 08/10/22 16:13 Nucleated RBC % (auto) 0.0 % 08/10/22 16:13 Toxic Vacuolation 1+ 08/11/22 22:39 Polychromasia 1+ 08/12/22 06:06 Anisocytosis Present 08/11/22 06:17 Macrocytosis Present 08/11/22 22:39 Target Cells 1+ 08/12/22 06:06 Echinocytes 1+ 08/12/22 06:06 ESR 4 mm/hr (0-30) 08/12/22 06:06 PT 24.0 Seconds (9.0-12.0) H 08/12/22 06:06 INR 2.3 (0.9-1.1) H 08/12/22 06:06 Fibrinogen 85 mg/dl (184-400) L* 08/12/22 06:06 Sample Site L Radial 08/11/22 22:53 POC pH 7.54 (7.35-7.45) H* 08/11/22 22:53 POC pCO2 34 mmHg (35-46) L 08/11/22 22:53 POC pO2 52 mmHg (80-95) L 08/11/22 22:53 POC HCO3 29 mary/L (19-24) H 08/11/22 22:53 POC Total CO2 30 mmol/L (24-31) 08/11/22 22:53 POC Base Excess 6.0 mary/L (-9-1.8) H 08/11/22 22:53 ABG pH (Temp Correct) 7.542 (7.35-7.45) H* 08/11/22 22:53 ABG pCO2 (Temp Corrct 34 mmHg (35-46) L 08/11/22 22:53 POC ABG pO2 at Pt Temp 52 08/11/22 22:53 POC ABG O2 Sat 90.0 % (90-95) 08/11/22 22:53 Dylan Test Pass 08/11/22 22:53 O2 Delivery Device Cannula 08/11/22 22:53 POC Sodium 129 mmol/L (135-144) L 08/11/22 22:53 Sodium 131 mmol/L (136-145) L 08/12/22 06:06 POC Potassium 3.2 mmol/L (3.3-5.0) L 08/11/22 22:53 Potassium 3.5 mmol/L (3.5-5.1) 08/12/22 06:06 Chloride 89 mmol/L (98-107) L 08/12/22 06:06 Carbon Dioxide 30 mmol/L (21-32) 08/12/22 06:06 Anion Gap 12 (3-11) H 08/12/22 06:06 BUN 7 mg/dl (6-23) 08/12/22 06:06 Creatinine 0.70 mg/dl (0.6-1.2) 08/12/22 06:06 Est Cr Clr Drug Dosing 98.1 ml/min 08/12/22 06:06 Est GFR ( Amer) 112.3 ml/min 08/12/22 06:06 Est GFR (Non-Af Amer) 96.9 ml/min 08/12/22 06:06 BUN/Creatinine Ratio 10.0 (10-20) 08/12/22 06:06 Glucose 140 mg/dl (70-99(Fasting)) H 08/12/22 06:06 POC Glucose 147 mg/dl (70-99) H 08/12/22 07:25 Osmolality 263 mOsm/kg (280-300) L 08/10/22 16:13 Lactate 1.8 mmol/L (0.4-2.0) 08/10/22 23:32 Calcium 8.3 mg/dl (8.6-10.3) L 08/12/22 06:06 Phosphorus 2.4 mg/dl (2.5-4.9) L 08/12/22 06:06 Magnesium 1.8 mg/dl (1.7-2.4) 08/12/22 06:06 Total Bilirubin 15.6 mg/dl (0.2-1.0) H 08/12/22 06:06 Direct Bilirubin 5.7 mg/dl (0-0.2) H 08/10/22 17:53 AST 65 U/L (13-39) H 08/12/22 06:06 ALT 33 U/L (7-52) 08/12/22 06:06 Alkaline Phosphatase 50 U/L (34-104) 08/12/22 06:06 Ammonia 77.0 umol/L (18-72) H 08/11/22 16:40 C-Reactive Protein 2.63 mg/dl (0-0.5) H 08/12/22 06:06 B-Natriuretic Peptide 595 pg/ml (0-100) H 08/12/22 06:06 Total Protein 5.8 gm/dl (6.0-8.3) L 08/12/22 06:06 Albumin 3.7 gm/dl (3.4-5.0) 08/12/22 06:06 Globulin 2.1 gm/dl (2.5-4.0) L 08/12/22 06:06 Albumin/Globulin Ratio 1.8 (0.9-2) 08/12/22 06:06 Lipase TNP 08/10/22 16:13 Procalcitonin 0.08 ng/ml (0-0.5) 08/10/22 16:13 TSH 3.186 uIu/ml (0.300-4.500) 08/10/22 16:13 Urine Color Dingess 08/10/22 17:36 Urine Appearance Slightly Cloudy (Clear) 08/10/22 17:36 Urine pH (4.5-7.5) 08/10/22 17:36 Ur Specific Ponce 1.016 (1.000-1.030) 08/10/22 17:36 Urine Protein (Negative) 08/10/22 17:36 Urine Glucose (UA) (Negative) 08/10/22 17:36 Urine Ketones (Negative) 08/10/22 17:36 Urine Blood (Negative) 08/10/22 17:36 Urine Nitrite (Negative) 08/10/22 17:36 Urine Bilirubin (Negative) 08/10/22 17:36 Urine Urobilinogen (Negative) 08/10/22 17:36 Ur Leukocyte Esterase (Negative) 08/10/22 17:36 Urine RBC 0-4 /hpf (0-4) 08/10/22 17:36 Urine WBC 10-30 /hpf (0-5) H 08/10/22 17:36 Ur Epithelial Cells 10-20 /lpf (0-5) H 08/10/22 17:36 Urine Bacteria 3+ (Negative) H 08/10/22 17:36 Hyaline Casts 0-5 /lpf (0-5) 08/10/22 17:36 Urine Osmolality 531 mOsm/kg (500-800) 08/11/22 Unknown Ur Random Creatinine 173.3 mg/dl 08/11/22 Unknown Ur Random Creatinine Cancelled 08/11/22 Unknown Ur Random Sodium Cancelled 08/11/22 Unknown Urine Sodium < 10 mmol/L 08/11/22 Unknown Urine Potassium 37.2 mmol/L 08/11/22 Unknown Urine Chloride < 15 mmol/L 08/11/22 Unknown Fluid Neutrophils % 40 % 08/11/22 Unknown Fluid Lymphocytes % 32 % 08/11/22 Unknown Fluid Basophils % 1 % 08/11/22 Unknown Fluid Meso/Macro/Steuben % 27 % 08/11/22 Unknown Fluid Comment 08/11/22 Unknown Peritoneal Color Yellow 08/11/22 Unknown Peritoneal Appearance Clear 08/11/22 Unknown Peritoneal WBC (Auto) 245 /ul (0-300) 08/11/22 Unknown Peritoneal RBC (Auto) < 2000 /uL 08/11/22 Unknown Peritoneal Tot Protein < 3.0 gm/dl 08/11/22 Unknown Peritoneal Albumin < 1.5 gm/dl 08/11/22 Unknown Peritoneal LDH 72 U/L 08/11/22 Unknown Peritoneal Glucose 107 mg/dl 08/11/22 Unknown Nasal Screen MRSA (PCR) Negative (Negative) 08/12/22 06:00 Ethyl Alcohol mg/dL < 10.0 mg/dl (<10.0) 08/10/22 17:53 Influ A Molecular Assay Negative (Negative) 08/11/22 16:50 Influ B Molecular Assay Negative (Negative) 08/11/22 16:50 SARS-CoV-2, RNA, NAAT NEGATIVE (NEGATIVE) 08/10/22 17:36 Blood Type A Positive 08/11/22 22:39 Antibody Screen NEGATIVE 08/11/22 22:39 Impressions Abdomen/Pelvis CT 08/10/22 17:29 CT SCAN OF THE ABDOMEN AND PELVIS WITH IV CONTRAST CLINICAL HISTORY: Right upper quadrant abdominal pain. COMPARISON STUDY: Abdominal CT dated 05/10/2022. TECHNIQUE: Following the IV administration of 83 cc of Optiray 350, CT scan of the abdomen and pelvis is performed from the lung bases to the proximal femora. Images are reviewed in the axial, sagittal, and coronal planes. IV contrast was administered without complication. A dose lowering technique was utilized adhering to the principles of ALARA. CT DOSE: 880.19 mGy.cm FINDINGS: Lung bases: The heart is normal in size and without pericardial effusion. There is trace left pleural effusion. There is bibasilar scarring/atelectasis. There is a small hiatal hernia. Esophageal varices are noted. Liver: The contrast-enhanced liver is cirrhotic in morphology and markedly heterogeneous in attenuation. Hepatic attenuation is diminished indicating severe steatosis. There is no intrahepatic biliary ductal dilatation. The hepatic veins and portal veins are patent. There is recanalization of the periumbilical vein. Gallbladder: There are large calcified gallstones with no CT evidence of acute cholecystitis. Spleen: The spleen is top normal in size and homogeneous in attenuation. Pancreas: The unenhanced pancreas is moderately atrophic and grossly unremarkable. Adrenal glands: Unremarkable. Kidneys: The contrast enhanced kidneys are normal in size and without hydronephrosis. The kidneys enhance symmetrically. Abdominal vasculature: The abdominal aorta is normal in course and caliber noting mild atherosclerotic calcification. Bowel: There is mild colonic fecal retention. No bowel obstruction is seen. The appendix is not identified and reported surgically absent. Peritoneum: No intraperitoneal free air is identified. There is a small to moderate volume of abdominopelvic ascites.. Lymphadenopathy: None. Pelvic viscera: The bladder is decompressed and not well evaluated. The uterus and adnexa are normal as visualized. Skeletal structures: The skeletal structures are osteopenic. There is mild lumbosacral spondylosis. No lytic or blastic lesions are seen. IMPRESSION: 1. No acute infectious or inflammatory findings are identified in the abdomen or pelvis. 2. The liver is cirrhotic in morphology and severely steatotic. 3. Esophageal varices, recanalization of the periumbilical vein, and abdominal ascites indicate portal hypertension. 4. Cholelithiasis. 5. Additional findings as above. ACT 112: Negative or not required by law. Electronically signed by: Jelani Ramsey M.D. 08/10/2022 6:59 PM Paracentesis Ultrasound 08/11/22 08:00 ULTRASOUND-GUIDED PARACENTESIS CLINICAL HISTORY: Ascites PROCEDURE: Procedure and risks were explained. Informed consent was obtained. A final timeout was completed. The left lower quadrant was prepped and draped in sterile fashion. 1% buffered lidocaine was utilized for skin anesthesia. Utilizing ultrasound guidance, a 5 Ivorian safety centesis catheter was advanced into the pocket of ascites. Ultrasound images were obtained. A total of 550 mL of yellow ascites fluid was removed and sent to the lab for analysis. The catheter was removed and Band-Aid applied. The patient tolerated the procedure well. Vital signs were be monitored on the floor postprocedure. IMPRESSION: Ultrasound-guided paracentesis as above. Performed, dictated, and signed by Manjeet Fontana PA-C; to be co-signed by Dr. Jelani Ramsey. Electronically signed by: Jelani Ramsey M.D. 08/11/2022 12:12 PM Cholangiopancreatography MRI 08/11/22 12:20 Exam(s): MRI MRCP EXAM: MR Abdomen Without Intravenous Contrast, MRCP Protocol CLINICAL HISTORY: Reason for exam: elevated LFts, bili, cirrhosis, r/o obstruction. TECHNIQUE: Multiplanar magnetic resonance images of the abdomen without intravenous contrast using MRCP protocol. COMPARISON: August 10, 2022 CT abdomen and pelvis. FINDINGS: Artifacts: There is moderate motion artifact throughout the examination. Lower thorax: Trace left pleural effusion and scattered infiltrates and/or edema in both lung bases. Bile ducts: The biliary tree is nondilated. The common bile duct is normal in diameter measuring 5 mm. No choledocholithiasis is seen. Gallbladder: The gallbladder is nondilated. There appears to be calculi within it dependently measuring up to 1.4 cm. Liver: The liver demonstrates a nodular surface suggesting cirrhosis. There is a small amount of ascites. No focal liver mass lesion is seen. There is a splenorenal shunt. Pancreas: Unremarkable. No ductal dilation. Spleen: Unremarkable. No splenomegaly. Adrenals: Unremarkable. No mass. Kidneys and ureters: Unremarkable. No hydronephrosis. Stomach and bowel: Unremarkable. No obstruction. IMPRESSION: 1. The liver demonstrates a nodular surface suggesting cirrhosis. There is a small amount of ascites. No focal liver mass lesion is seen. There is a splenorenal shunt. 2. Trace left pleural effusion and scattered infiltrates and/or edema in both lung bases. 3. The biliary tree is nondilated. The common bile duct is normal in diameter measuring 5 mm. No choledocholithiasis is seen. 4. The gallbladder is nondilated. There appears to be calculi within it dependently measuring up to 1.4 cm. Electronically signed by: Bhanu Murdock MD 08/12/22 01:07 AM Chest X-Ray 08/12/22 05:19 SINGLE VIEW CHEST CLINICAL HISTORY: Hypoxia. FINDINGS: An AP, portable, upright chest radiograph is compared to study dated 08/11/2022 and correlated with chest CT dated 03/24/2022 . The heart is mildly enlarged. There is pulmonary vascular congestion. There are increasing bilateral airspace opacities seen throughout both lungs. Small pleural effusions are suspected. No pneumothorax is seen. The skeletal structures are osteopenic. The bony thorax is grossly intact. IMPRESSION: 1. Cardiomegaly with evidence of congestive failure. 2. There are increasing bilateral airspace opacities which likely represent pulmonary edema. Correlate clinically for evidence of a superimposed infectious/inflammatory pneumonitis. Radiographic follow-up to resolution is recommended. 3. Small pleural effusions. ACT 112: Negative or not required by law. Electronically signed by: Jelani Ramsey M.D. 08/12/2022 7:58 AM
[2022-08-12 12:02] LABS: HBSAG NON-REACTIVE (NON-REACTIVE); Hepatitis A Antibody IgM NON-REACTIVE (NON-REACTIVE); Hepatitis B Core Antibody IgM NON-REACTIVE (NON-REACTIVE)
[2022-08-12] MEDS: BENZONATATE 100 MG CAPSULE PO PRN (13:56)
[2022-08-12] MEDS: methylPREDNISolone 40 MG in SYRINGE 0 ML IV SCH ×2 (13:57→21:10)
[2022-08-12 19:57] LABS: Hematocrit (blood only) 23.2 % (37.0-47.0); Hemoglobin 8.3 g/dl (12.0-16.0)
[2022-08-12] MEDS: FUROSEMIDE 40 MG/4 ML VIAL IV SCH (20:03)
[2022-08-12] MEDS: cefTRIAXone SODIUM 2,000 MG in DEXTROSE 5% 50 ML IV SCH (20:05)
[2022-08-12 20:21] LABS: INR 1.7 (0.9-1.1); Prothrombin Time 18.1 Seconds (9.0-12.0)
[2022-08-12 20:33] LABS: Fibrinogen 126 mg/dl (184-400)
[2022-08-12] MEDS ORDERED: PHYTONADIONE 5 MG in DEXTROSE 5% 50 ML IV ONE (21:00)
[2022-08-12 21:52] LABS: iSTAT Allen Test Pass; iSTAT Art Bld Gas pCO2 Correct 51 mmHg (35-46); iSTAT Art Bld Gas pH Corrected 7.435 (7.35-7.45); iSTAT Arterial Blood Gas HCO3 34 meg/L (19-24); iSTAT Arterial Blood Gas pCO2 52 mmHg (35-46); iSTAT Arterial Blood Gas pH 7.43 (7.35-7.45); iSTAT Arterial Blood Gas pO2 49 mmHg (80-95); iSTAT Arterial Blood Gas pO2 C 49; iSTAT Carbon Dioxide 36 mmol/L (24-31); iSTAT FiO2 100 %; iSTAT Hematocrit 30 % (37-47); iSTAT Hemoglobin 10.2 g/dl (12.0-16.0); iSTAT Potassium 3.1 mmol/L (3.3-5.0); iSTAT Site L Radial; iSTAT Sodium 132 mmol/L (135-144)
[2022-08-12] MEDS ORDERED: ONDANSETRON 4 MG OD TAB SL PRN (22:13)
[2022-08-13] MEDS: guaiFENesin/CODEINE 100MG/10MG 5ML UDC PO SCH ×4 (01:38→20:25)
[2022-08-13] MEDS: MoRPHine SULFATE 2 MG/ML CARP IV PRN ×4 (01:38→20:24)
[2022-08-13] MEDS: BENZONATATE 100 MG CAPSULE PO PRN ×2 (02:52→12:58)
[2022-08-13] MEDS: methylPREDNISolone 40 MG in SYRINGE 0 ML IV SCH (05:03)
--- NOTE | 2022-08-13 06:53 | Critical Care Progress Note ---
Date of Service August 13, 2022 Assessment & Plan (1) COPD (chronic obstructive pulmonary disease): (2) (HFpEF) heart failure with preserved ejection fraction: (3) Acute respiratory failure with hypoxia: (4) Decompensated hepatic cirrhosis: (5) Alcoholic cirrhosis: (6) Right upper quadrant abdominal pain: (7) Urinary tract infection: (8) Admitted to intensive care unit: Plan Reason Critically Ill: 57 year old female presented with decompensated cirrhosis with signs of multi system organ failure. Has decided to transition to comfort care. Neuro - [facility] ICU: NEGATIVE ETOH Misuse - No signs of encephalopathy at present - Continue thiamine, folate - Ammonia= 77 - Last drink over 48 hours ago, prior to coming in was drinking 3-4 beers a day. Cardiac - HFpEF - Hypoxia/hemoptysis could be secondary to worsening heart function in the setting of decompensated cirrhosis/volume overload - BNP= 595 - Continue diuretics with hemodynamics allow Respiratory - Acute Hypoxic Respiratory Failure - Likely multifactorial in the setting of emphysema, heart failure, decompensated cirrhosis - Procalcitonin= 0.08 - BNP= 559 - Goal SpO2 90-92% - Solu-medrol 40mg q8 - pulmonology consulted - Furosemide IV 40mg BID Hemoptysis - Reported history of pulmonary alveolar hemorrhage, likely secondary to coagulopathy from liver disease - guaifenesin-codeine scheduled GI - Acute on chronic liver failure secondary to alcoholic cirrhosis - MELD 29, Maldery score >32- started on prednisone therapy- continue PPI while on steroids - in the setting of relapsing with ETOH patient is not a transplant candidate at this time; pt would like comfort care at this time - continue lactulose and rifaximin - Continue Rocephin - Continue Prednisone RENAL/LYTES - Stop checking labs, pt is comfort - UTI - Urine culture growing E Coli -continue Rocephin as per above ENDO - No acute needs HEME - Macrocytic Anemia/Coagulopathy -Anemia/ Coagulopathy likely secondary to liver disease - Can't rule out diffuse alveolar hemorrhage - Plan for comfort, stop checking labs ID - UTI - Rocephin as per above, also empiric coverage for SBP LINES/IV ACCESS - PIVs intact. DVT PROPHYLAXIS - SCDs Thank you for allowing us to be part of this patient's care. Please refer to Dr. Rhodes's documentation for any further recommendations. Admission and Anticipated Discharge Date Admission Date: August 10, 2022 Supervising Physician Co-Signing Physician Notes Dr. Tan was resident physician during care of patient. I separately evaluate d patient for rashid portions of the history and the exam. I was present during the critical portion of medical decision making, and I discussed the case with the resident. I generally agree with the findings and plan. Had extensive discussion with family overnight, CODE STATUS has been updated transitioning from aggressive care to focusing on comfort and maximizing quality of life remaining. No escalation of care; however, maintaining current treatment modalities. Additional family members arriving from out of state. Palliative care consulted. Critical care will sign off at this time. Subjective Pt is comfortable. Denies pain. She was transitioned to comfort care yesterday. Children are coming to visit today. Review of Systems Review of Systems: As per above Physical Exam Physical Exam: Constitutional: awake and alert HEENT: NCAT, no conjunctival injection CV: well perfused Resp: normal chest rise, on CPAP GI: distended MSK: no gross deformities appreciated Skin: warm, dry, no rash appreciated Neuro: alert, oriented, no focal neurologic deficit appreciated Results & Data Results & Data Vital Signs (Past 12 Hours) Vital Signs Temp Pulse Resp BP Pulse Ox O2 Del Method O2 Flow Rate 08/13/22 02:34 28 H 08/12/22 22:45 114 H 28 H 92 08/12/22 21:00 CPAP 100 08/12/22 22:15 112 H 25 H 113/60 93 CPAP 08/12/22 22:00 116 H 37 H 93 08/12/22 22:00 120/61 08/12/22 21:45 113 H 33 H 93 08/12/22 21:45 115/76 08/12/22 21:28 116/61 08/12/22 21:28 117 H 31 H 90 08/12/22 22:02 36.5 C 116 H 33 H 120/61 80 L 15 08/12/22 21:47 36.4 C L 119 H 25 H 115/76 89 L 08/12/22 21:30 36.8 C 115 H 31 H 116/61 91 08/12/22 21:00 123 H 27 H 118/72 92 CPAP 08/12/22 20:00 106 H 27 H 105/62 92 08/12/22 19:15 112 H 36 H 113/64 88 L 08/12/22 19:00 109 H 30 H 125/51 L 92 CPAP 08/12/22 22:19 36.5 C 112 H 16 113/60 100 08/12/22 19:55 106 H 30 H 93 FiO2 08/13/22 02:34 100 08/12/22 22:45 100 08/12/22 21:00 08/12/22 22:15 100 08/12/22 22:00 08/12/22 22:00 08/12/22 21:45 08/12/22 21:45 08/12/22 21:28 08/12/22 21:28 08/12/22 22:02 08/12/22 21:47 08/12/22 21:30 08/12/22 21:00 100 08/12/22 20:00 100 08/12/22 19:15 80 08/12/22 19:00 80 08/12/22 22:19 08/12/22 19:55 80 Resident Activity Tracking Resident Involvement: Resident Care Provided Care Provided: Adult Hospital Medicine (7) Urinary tract infection Hematuria presence: without hematuria Urinary tract infection type: site unspecified Qualified Code(s): N39.0 - Urinary tract infection, site not specified
--- NOTE | 2022-08-13 08:19 | Pulmonology Progress Note ---
Date of Service August 13, 2022 Assessment & Plan (1) Decompensated hepatic cirrhosis: (2) Alveolar emphysema of lung: (3) Multiple pulmonary nodules: (4) History of tobacco abuse: (5) Acute respiratory failure with hypoxia: (6) Pulmonary hypertension: (7) Hemoptysis: (8) Hepatopulmonary syndrome: (9) (HFpEF) heart failure with preserved ejection fraction: Plan Chest x-ray 08/11/2022 personally reviewed: Good inspiratory effort, increase vascular markings, bilateral costophrenic and cardiophrenic angles are blunted, increased cardiac silhouette 2D echo 08/12/2022: EF 65-70%, mild MR, trace TR, grade 1 diastolic dysfunction, RV normal in size and function. -- Acute hypoxic respiratory failure Multifactorial Agitated contrast did show right to left shunt which goes with hepatopulmonary syndrome given the patient's history Procalcitonin 0.08 BNP 559 SARS NAAT negative, influenza A/B negative Continue with O2 supplementation to keep oxygen saturation between 90-92% -- Hemoptysis Patient does have history of pulmonary alveolar hemorrhage Autoimmune work-up was negative back in January 2019 and likelihood of her underlying etiology was coagulopathy from liver disease Patient was briefly on steroids but was discontinued October 2019 Nebulized tranexamic acid 500 milligrams 3 times daily could be used but patient stated that any nebulizer treatment makes her cough which will be counterpro ductive --Emphysema Not on any inhalers at home Not in any exacerbation PFTs 03/30/2021:No obstructive lung dysfunction, insignificant bronchodilator response, severe decrease in ERV, moderate decrease in DLCO which partially corrects for VA (Decrease in FVC by 290 mL, decrease in FEV1 by 340 mL, patient gained 62 pounds compared to 03/2020) FVC 2.59 L 87%, FEV1 2.28 L 94%, FEV1/FVC 88%, ERV 2%, RV 84%, TLC 89%, RV/TLC 94% 2D echo 05/22/2020:EF 55 to 60%, moderate MR, RVSP 30-40 --Multiple pulmonary nodules Largest being 5 mm in the right middle lobe followed by 4 mm in the right lower lobe, stable since 03/2020. To me it seems like scarring from the significant valvular damage she had during the hospitalization of January 2019 Patient does have history of [id number] smoking --Pulmonary Hypertension Likely combination of type II and type III Patient's BMI of 37 also likely playing it's part --Greater than [id number] smoking history Quit 2008 Advised to continue with abstinence --DNR/DNI plan: In/out: +948, urine output 825, + 3.5 L since coming to the hospital Recommend negative balance. INR is 1.7, patient got cryo, vitamin K as well as FFP on 08/12/2022 Continue with Solu-Medrol 40 mg every 8 hours. For hepatopulmonary syndrome is symptomatic management, the best chance for the patient would be to have liver transplant. Lying supine would help increase oxygenation but patient complains of signific ant coughing when laying down. She did have a talk along with her with the accounts specialist and they did not want to pursue this route. She is waiting for her children to come in and then she prefers to go comfort measures. All questions inquiries of the patient as well as patient's were answered in depth Case was discussed with RN at bedside Please note the above document was generated using voice recognition software. It may contain grammatical, syntax or spelling errors.Any formal questions or concerns about the content, text or information contained within the body of this dictation should be directly addressed to the provider for clarification. Admission and Anticipated Discharge Date Admission Date: August 10, 2022 Subjective Patient seen and examined at bedside. No events events overnight She was on CPAP 100%, breathing in the mid 20s. Occasional cough. No hemoptysis Denies any chest pain, no headache, no nausea, no vomiting She is dependent on CPAP. She does desaturate whenever we take her off of CPAP Review of Systems Review of Systems: All systems reviewed & are unremarkable except as noted in HPI & below Physical Exam Physical Exam: Constitutional: No acute distress HEENT: EOMI, PERRLA, scleral icterus Respiratory system: Decreased air entry bilaterally, no wheeze, no rhonchi, positive crackles bilaterally CVS: S1-S2 positive, positive 2 out of 6 systolic murmur appreciated best at apex Abdomen: Soft, nontender, nondistended, positive bowel sounds x4, obese Extremities: +2 pulses bilaterally radialis/ dorsalis pedis, no cyanosis, +3 pitting edema bilateral lower extremity Neuro: Awake alert oriented x3 Psych: Normal mood and affect G/U: No La Skin: no rashes, warm and dry Lymphatic: no cervical or axillary lymphadenopathy Results & Data Results & Data Vital Signs (Past 12 Hours) Vital Signs Temp Pulse Resp BP Pulse Ox O2 Del Method O2 Flow Rate 08/13/22 07:00 CPAP 08/13/22 07:21 111 H 26 H 92 08/13/22 02:34 28 H 08/12/22 22:45 114 H 28 H 92 08/12/22 21:00 CPAP 100 08/12/22 22:15 112 H 25 H 113/60 93 CPAP 08/12/22 22:00 116 H 37 H 93 08/12/22 22:00 120/61 08/12/22 21:45 113 H 33 H 93 08/12/22 21:45 115/76 08/12/22 21:28 116/61 08/12/22 21:28 117 H 31 H 90 08/12/22 22:02 36.5 C 116 H 33 H 120/61 80 L 15 08/12/22 21:47 36.4 C L 119 H 25 H 115/76 89 L 08/12/22 21:30 36.8 C 115 H 31 H 116/61 91 08/12/22 21:00 123 H 27 H 118/72 92 CPAP 08/12/22 22:19 36.5 C 112 H 16 113/60 100 FiO2 08/13/22 07:00 100 08/13/22 07:21 100 08/13/22 02:34 100 08/12/22 22:45 100 08/12/22 21:00 08/12/22 22:15 100 08/12/22 22:00 08/12/22 22:00 08/12/22 21:45 08/12/22 21:45 08/12/22 21:28 08/12/22 21:28 08/12/22 22:02 08/12/22 21:47 08/12/22 21:30 08/12/22 21:00 100 08/12/22 22:19 Laboratory Results 08/12/22 19:37 08/12/22 06:06 PG Care Time/CCT Total # of Minutes Spent Total Time Spent with Patient: Total time spent is greater than 50% in coordination of care (as documented) at patient's floor/unit and/or counseling patient: Coding Level of Care Code 97270 SUB INP/OBS CARE MIN Diagnoses Decompensated hepatic cirrhosis K72.90; K74.60 Alveolar emphysema of lung J43.1 Multiple pulmonary nodules R91.8 History of tobacco abuse Z87.891 Acute respiratory failure with hypoxia J96.01 Pulmonary hypertension I27.20 Hemoptysis R04.2 Hepatopulmonary syndrome K76.81 (HFpEF) heart failure with preserved ejection fraction I50.30
--- NOTE | 2022-08-13 08:23 | Billing Data ---
Date of Service August 13, 2022 Coding Level of Care Code 25772 SUB INP/OBS CARE
[2022-08-13] MEDS: ICU Protocol for HYPERglycemia SCH (08:26)
[2022-08-13 08:32] LABS: Hepatitis A Antibody Total REACTIVE (NON-REACTIVE)
[2022-08-13] MEDS: FOLIC ACID 1 MG TAB PO SCH (08:47)
[2022-08-13] MEDS: rifAXIMin 550 MG TABLET PO SCH ×2 (08:48→20:25)
[2022-08-13] MEDS: MULTIVITAMIN TAB PO SCH (08:48)
[2022-08-13] MEDS: LACTULOSE SYRUP 30 GM/45 ML UDP PO SCH ×2 (08:48→08:57)
[2022-08-13] MEDS: FUROSEMIDE 40 MG/4 ML VIAL IV SCH ×2 (08:48→20:24)
[2022-08-13] MEDS: THIAMINE HCL 100 MG TAB PO SCH (08:49)
[2022-08-13] MEDS: SPIRONOLACTONE 25 MG TAB PO SCH (08:49)
[2022-08-13] MEDS: PANTOprazole 40 MG in SYRINGE 0 ML IV SCH (08:50)
--- NOTE | 2022-08-13 10:11 | Palliative Care Consultation ---
Date of Consultation August 13, 2022 Assessment & Plan (1) Right upper quadrant abdominal pain: Morphine has been effective for her pain relief. She noted more somnolence with oxycodone and would prefer to be awake and enjoy time with her family. Will focus on morphine for pain relief. Despite advanced liver disease, her renal function is preserved, lowering her risk of opioid toxicity. (2) Acute respiratory failure with hypoxia: Comfortable on CPAP. We discussed option with focus on comfort to remove CPAP mask and use oxygen via nasal canula for relief of air hunger in combination with morphine. She prefers to continue CPAP for now. They are also waiting for her sons to arrive later today from [place] of state. (3) Palliative care encounter: I talked with Mrs. Koo, her and daughter at bedside. She has contemplated her mortality in the past and is aware that she is approaching her dying time. She has discussed this with her family in the past and does not want aggressive measures to prolong her life. We discussed reviewing her medication list with focus on medications that will improve her quality of life versus those that are treating specific problems. She wants focus to be entirely on comfort. She tells me that the quality of time that she has with her family is the most important thing to her at this time. She denies any fears or worries about her dying time, though she did tell me that she worries about her family staying close to each other after she dies. She is Yazdanism and has contacted her bandana financial recruiter who will be coming to visit her. She did also ask to speak with hospital apple peeler operator, who was notified. We talked about what she hoped her dying time would be like. She is hopeful that she will be able to peacefully and would prefer not to be at home for her dying time. She worries about the memories her family will have if she dies in her home. Her family is very supportive. Palliative care will follow. History of Present Illness Reason for Consultation: comfort measures Requesting Physician: Dr. Rhodes Attending Physician: Ad Hurt MD History of Present Illness 57 yo lady with HFpEF, COPD and pulmonary hypertension. She presented with jaundice, abdominal pain and distension related to decompensated alcoholic cirrhosis. She has acute hypoxic respiratory failure with hemoptysis and alveolar hemorrhage in the setting of thrombocytopenia and INR of 2.3 prior to FFP. She is awake and alert with her and daughter at bedside. She is currently on CPAP and denies dyspnea. She denies discomfort with CPAP mask. She does complain of right upper quadrant abdominal pain that is severe at times. She has received IV morphine and oral oxycodone in the last 24 hours. Allergies Allergy/AdvReac Type Severity Reaction Status Date / Time propoxyphene AdvReac Intermediate Vomiting Verified 05/10/22 23:08 Home Medications Medication Instructions Recorded Confirmed Type furosemide 20 mg tablet 20 mg PO DAILY 04/17/19 08/10/22 History lactulose 10 gram/15 mL oral 10 gm PO DAILY PRN Constipation 04/17/19 08/10/22 History solution pantoprazole 40 mg tablet,delayed 40 mg PO DAILY 04/17/19 08/10/22 History release fluticasone propionate 50 2 spray intranasal DAILY PRN 04/22/21 08/10/22 History mcg/actuation nasal Congestion spray,suspension (Allergy Relief (fluticasone)) doxepin 10 mg capsule 10 mg PO HS 08/10/22 08/10/22 History Patient History Medical History (HFpEF) heart failure with preserved ejection fraction Alcohol abuse Pulmonary edema which is most likely multifactorial and related to alcohol abuse. She has volume overload probably from chronic cirrhosis. She could have an alcoholic cardiomyopathy. She did have an echocardiogram today which I will review and make further recommendations. Currently she is clinically stable. Alcoholism Alveolar emphysema of lung Colitis COPD (chronic obstructive pulmonary disease) Diffuse pulmonary alveolar hemorrhage History of tobacco abuse Ischemic colitis Obesity (BMI 30-39.9) Surgical History H/O tubal ligation Family History Father Diabetes Mother Diabetes Social History Smoking Status: Former smoker Second Hand Exposure: No; Do You Dip or Chew Tobacco: No; Hx Alcohol Use: Yes Alcohol type: beer Hx Substance Use: No Preferred Language: Ghanaian Communication Ability: Effective Visual Impairment: No Limitations Wash Box Operator Required: No Beliefs That Will Affect Care: Spiritual marital status: Current Living Situation: Spouse Current Living Situation Comment: apartment Other Information That Helps Us Care for You: No Feels Safe at Home: Yes Safety Concerns: Feels Safe At This Time Assistive Devices: None Review of Systems Review of Systems: ESAS Pain 0/3 currently 3/3 at worst Dyspnea 0/3 Nausea 0/3 Drowsiness 0/3 Physical Exam Constitutional: + ill appearing; no acute distress Eyes: scleral icterus Respiratory: normal respiratory effort; no labored breathing CPAP mask Cardiovascular: Rate/Rhythm: regular rate and regular rhythm Skin: + jaundice Neurologic: Speech / Cognition: normal cognition Psychiatric: Orientation: oriented x 3 Results & Data Vital Signs (Past 12 Hours) Vital Signs Temp Pulse Resp BP Pulse Ox O2 Del Method O2 Flow Rate 08/13/22 07:00 CPAP 08/13/22 07:21 111 H 26 H 92 08/13/22 02:34 28 H 08/12/22 22:45 114 H 28 H 92 08/12/22 22:15 112 H 25 H 113/60 93 CPAP 08/12/22 22:02 97.7 F 116 H 33 H 120/61 80 L 15 08/12/22 22:19 97.7 F 112 H 16 113/60 100 FiO2 08/13/22 07:00 100 08/13/22 07:21 100 08/13/22 02:34 100 08/12/22 22:45 100 08/12/22 22:15 100 08/12/22 22:02 08/12/22 22:19 PG Care Time/CCT Total # of Minutes Spent Total Time Spent: 65 Total Time Spent with Patient: Total time spent is greater than 50% in coordination of care (as documented) at patient's floor/unit and/or counseling patient:[id number] symptom management, goals of care, patient and family education and support Coding Level of Care Code 72043 INT INP/OBS CARE 2/55MIN Diagnoses Right upper quadrant abdominal pain R10.11 Acute respiratory failure with hypoxia J96.01 Palliative care encounter Z51.5
--- NOTE | 2022-08-13 16:05 | Hospitalist Progress Note ---
Date of Service August 13, 2022 Assessment & Plan (1) Decompensated hepatic cirrhosis: Plan: Patient is a 57-year-old female with past medical history of alcoholic cirrhosis, portal hypertension, chronic diastolic heart failure, COPD, anxiety who presented to the ED with right upper quadrant pain. On presentation to the ED, patient was afebrile, normotensive and saturating well on room air. CBC revealed macrocytic anemia and thrombocytopenia. CMP revealed significantly elevated bilirubin. PT/INR was elevated. CT abdomen and pelvis was done which revealed cirrhotic liver with cholelithiasis. It also showed esophageal varices and abdominal ascites. Patient was admitted to telemetry floor; surgery was consulted for possible biliary colic; recommended that the pain is likely due to stretching of liver capsule. No surgical intervention needed. GI evaluate the patient; recommended to have formal work-up done for cirrhosis as outpatient. Patient underwent paracentesis with 550 cc of fluid removal after admission. After the paracentesis, patient developed progressive respiratory failure and hemoptysis. Her oxygen saturation requirement continued to increase along with increasing hemoptysis. She was given vitamin K, cough suppressant and steroids as per pulmonology. However, patient required to be transferred to ICU for increasing respiratory failure in the morning of . 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 Patient was treated with IV steroid at that time. Follows up with pulmonology as outpatient Progressive increase in oxygen saturation along with hemoptysis since yesterday Last chest x-ray personally viewed and interpreted; increasing bilateral airways capacities. Discussed with pulmonology; recommend cough suppressant, vitamin K and FFP. If any worsening of hematemesis; recommend intubation. Patient is currently on BiPAP; closely monitored in ICU. Abdominal pain Decompensated alcoholic cirrhosis Portal hypertension Ascites status post paracentesis on 08/11/2022, SBP ruled out Esophageal varices Thrombocytopenia due to portal hypertension Hypervolemic hyponatremia UTI with E. coli Labs reviewed; consistent with macrocytic anemia and thrombocytopenia. Hemoglobin is down from 10.6-8.4 today total bilirubin 15.6. PT/INR24/2.3 CT abdomen and pelvis reviewed; cirrhotic liver with cholelithiasis. Esophageal varices and abdominal ascites Seen by surgery; pain likely due to stretching of liver capsule. No concern for acute cholecystitis. Seen by GI- recommendations noted. Patient underwent MRCP which showed nodular surfaces cirrhosis along with a small ascites. Gallbladder nondilated; calculi measuring 1.4 cm present. On ceftriaxone for E coli UTI E. coli. On IV steroids for alcoholic hepatitis along with diffuse alveolar hemorrhage. On Protonix. Fluid restriction and low-salt diet for hyponatremia. Also on IV Lasix On lactulose and rifaximin due to elevated ammonia. On diuretic Chronic conditions; hx chronic diastolic heart failure BNP elevated to greater than 500. Chest x- ray consistent with bilateral infiltrates. On IV Lasix. hx valvular heart disease (moderate MR, mild TR) Plan Plan of care -Patient and family has opted to go for comfort measures- continue current level of care pending arrival of family members but no further escalation -Palliative care following -Full comfort measures when patient is ready Admission and Anticipated Discharge Date Admission Date: August 10, 2022 Subjective Patient was seen and examined at bedside in presence of family. They had decided to go for comfort measures last night but currently awaiting his family members to arrive before full comfort measures in place. Continue current meds/plan of care for now. Palliative care has already seen the patient in the morning. Patient would like to continue CPAP for now. Patient and family asking about private room when she gets transferred to regular floor Review of Systems Review of Systems: All systems reviewed & are unremarkable except as noted in Subjective Physical Exam Physical Exam: General: Lying in bed, not in acute distress, on CPAP Icteric Chest: Decreased breath sounds bilaterally, no wheezes, bilateral crackles CVS: Tachycardic, murmur present Abdomen: Soft, non tender, not distended, normal bowel sounds Neuro: Awake, alert, oriented, conversing appropriately, non focal Extremities: 3+ edema bilaterally Psych: Calm, cooperative Results & Data Results & Data Vital Signs (Past 12 Hours) Vital Signs Pulse Resp Pulse Ox O2 Del Method FiO2 08/13/22 14:28 102 H 25 H 90 100 08/13/22 11:17 110 H 29 H 91 100 08/13/22 07:00 CPAP 100 08/13/22 07:21 111 H 26 H 92 100 Laboratory Results Short CBC 08/12/22 08/12/22 Range/Units 06:06 19:37 Hgb 8.3 L (12.0-16.0) g/dl Hct 23.2 L (37.0-47.0) % Plt Count 77 L (130-400) K/uL Medications Administered Current Inpatient Medications Acetaminophen (Acetaminophen 325 Mg Tab) 325 mg PO Q6H PRN PRN Reason: Mild Pain (Scale 1, 2, 3) Stop: 09/10/22 00:15 Benzonatate (Benzonatate 100 Mg Capsule) 100 mg PO TID PRN PRN Reason: Cough not relieved byother med Stop: 09/11/22 00:41 Last Admin: 08/13/22 12:58 Dose: 100 mg Fluticasone Propionate (Fluticasone Propionate Na Spr 16 Gm Btl) 2 sprays NA DAILY PRN PRN Reason: Congestion Stop: 09/10/22 00:15 Furosemide (Furosemide 40 Mg/4 Ml Vial) 40 mg IV Q12 [facility] Stop: 09/11/22 20:59 Last Admin: 08/13/22 08:48 Dose: 40 mg Guaifenesin/Codeine Phosphate (Guaifenesin/Codeine 100mg/10mg 5ml Udc) 5 ml PO Q6H [facility] Stop: 09/11/22 07:59 Last Admin: 08/13/22 12:58 Dose: 5 ml Promethazine HCl 12.5 mg/ (Sodium Chloride) 50.5 mls @ 202 mls/hr IV Q6H PRN PRN Reason: Nausea And Vomiting Stop: 09/10/22 00:15 Morphine Sulfate (Morphine Sulfate 2 Mg/Ml Carp) 2 mg IV Q2H PRN PRN Reason: Pain or Respiratory Distress Stop: 08/26/22 22:12 Ondansetron HCl (Ondansetron Inj 2 Mg/Ml 2 Ml Vial) 4 mg IV Q4H PRN PRN Reason: Nausea &/or Vomiting Stop: 09/11/22 22:12 Rifaximin (Rifaximin 550 Mg Tablet) 550 mg PO BID [facility] Stop: 09/11/22 08:59 Last Admin: 08/13/22 08:48 Dose: 550 mg Spironolactone (Spironolactone 25 Mg Tab) 50 mg PO QAM [facility] Stop: 09/10/22 11:44 Last Admin: 08/13/22 08:49 Dose: 50 mg
[2022-08-13] MEDS: ONDANSETRON INJ 2 MG/ML 2 ML VIAL IV PRN (16:48)
[2022-08-13] MEDS: PROMETHAZINE HCL 12.5 MG in SODIUM CHLORIDE 0.9% 50 ML IV PRN (20:30)
--- NOTE | 2022-08-13 21:15 | Electrocardiogram Report ---
Test Reason : Blood Pressure : / mmHG Vent. Rate : 105 BPM Atrial Rate : 105 BPM P-R Int : 164 ms QRS Dur : 096 ms QT Int : 370 ms P-R-T Axes : 041 050 049 degrees QTc Int : 489 ms Sinus tachycardia Otherwise normal ECG When compared with ECG of 10-AUG-2022 16:10, No significant change was found Confirmed by Good De Los Santos [id number] on 08/13/2022 9:14:47 PM Referred By: REFERRED SELF Confirmed By:Good De Los Santos
[2022-08-14] MEDS: guaiFENesin/CODEINE 100MG/10MG 5ML UDC PO SCH (02:27)
[2022-08-14] MEDS: ONDANSETRON INJ 2 MG/ML 2 ML VIAL IV PRN (02:29)
[2022-08-14] MEDS: MoRPHine SULFATE 2 MG/ML CARP IV PRN (02:32)
[2022-08-14] MEDS ORDERED: LORazepam 2 MG/1 ML VIAL IV PRN ×2 (05:09→05:32)
[2022-08-14] MEDS: PROMETHAZINE HCL 12.5 MG in SODIUM CHLORIDE 0.9% 50 ML IV PRN (05:52)
[2022-08-14] MEDS ORDERED: MoRPHine SULFATE 4 MG/ML 1 ML CARP\\VIAL IV PRN (06:28)
--- NOTE | 2022-08-14 06:31 | Communication Note ---
Date of Service: August 14, 2022 Patient family requesting to transition to full comfort measures as per RN.
[2022-08-14] MEDS: LORazepam 2 MG/1 ML VIAL IV PRN ×2 (07:10→08:11)
--- NOTE | 2022-08-14 08:53 | Discharge Summary ---
Date of Service August 14, 2022 Admission HPI Per Admitting Provider History obtained from patient and records. Medical history significant for chronic diastolic heart failure (EF 55 to 60%, TTE 2020), valvular heart disease (moderate MR, mild TR), pulmonary hypertension, COPD, history diffuse pulmonary alveolar hemorrhage, alcoholic cirrhosis, portal hypertension, GERD, anxiety, alcohol abuse, cholelithiasis, chronic anemia (baseline hemoglobin of May 2022 ), chronic thromboc ytopenia, past tobacco abuse. Last confinement May 2022 for ischemic colitis status post antibiotic Rx. Few days history of achy right upper quadrant pain reminiscent of gallstone pain. Patient noted to be more jaundiced at home. Denies fever, chills. Denies chest pain, SOB, headache. Worsening abdominal distention and leg swelling. Patient denies black/bloody stools. Last EtOH intake was yesterday. IV ceftriaxone administered at the ER. Medical Historyas above Surgical History : Breast biopsy, BTL, appendectomy Family History : Heart disease, breast cancer, DM Personal/Social history : Past tobacco abuse, alcohol abuse as per records, currently unemployed Admission Exam Per Admitting Provider GENERAL: Slightly uncomfortable, obese, pleasant, no respiratory distress SKIN: Jaundiced, warm HEENT: Bespectacled, pale palpebral conjunctivae, no ptosis, dry buccal mucosa NECK : Supple, no tenderness CHEST : CTA, no tenderness HEART : Tachycardic, no obvious murmurs ABDOMEN: Some distention, right upper quadrant tenderness EXTREMITIES : Bilateral LE swelling, no LE tenderness, no other conspicuous deformities noted NEUROLOGIC : Coherent, no facial asymmetry, no other gross focality Principal Diagnosis Acute hypoxic respiratory failure due to hepatopulmonary syndrome due to decompensated liver cirrhosis Discharge Data Allergies Allergy/AdvReac Type Severity Reaction Status Date / Time propoxyphene AdvReac Intermediate Vomiting Verified 05/10/22 23:08 Consultations 08/10/22 19:32 ED Decision to Admit Stat 08/10/22 23:22 Consult General Surgery Routine 08/11/22 00:16 Consult Gastroenterology Routine 08/11/22 16:06 Consult Pulmonology Routine 08/13/22 08:07 Consult Palliative Care Routine 08/13/22 08:09 Consult Palliative Care Routine 08/13/22 08:11 Consult Palliative Care Routine Ordered Studies 08/10/22 17:29 CT abd pelvis IV con only Stat 08/11/22 08:00 IR paracentesis abd w/img US Routine 08/11/22 12:20 MR MRCP Routine Hospital Course (1) Decompensated hepatic cirrhosis: Patient is a 57-year-old female with past medical history of alcoholic cirrhosis, portal hypertension, chronic diastolic heart failure, COPD, anxiety who presented to the ED with right upper quadrant pain. On presentation to the ED, patient was afebrile, normotensive and saturating well on room air. CBC re vealed macrocytic anemia and thrombocytopenia. CMP revealed significantly elevated bilirubin. PT/INR was elevated. CT abdomen and pelvis was done which revealed cirrhotic liver with cholelithiasis. It also showed esophageal varices and abdominal ascites. Patient was admitted to telemetry floor; surgery was consulted for possible biliary colic; recommended that the pain is likely due to stretching of liver capsule. No surgical intervention needed. GI evaluate the patient; recommended to have formal work-up done for cirrhosis as outpatient. Patient underwent paracentesis with 550 cc of fluid removal after admission. After the paracentesis, patient developed progressive respiratory failure and hemoptysis. Her oxygen saturation requirement continued to increase along with increasing hemoptysis. She was given vitamin K, cough suppressant and steroids as per pulmonology. However, patient required to be transferred to ICU for increasing respiratory failure in the morning of . Patient was started on BIPAP. Family meeting was held. Patient and family decided to pursue comfort measures pending arrival of all family members. Palliative medicine was involved. Full comfort measures was placed this morning and she passed shortly afterwards. pronounced on 08/14/22 at 8:45 am. Family was present in the room at the time of pronouncement. Her cause of is presumed to be due to acute hypoxic respiratory failure due to hepatopulmonary syndrome due to decompensated liver cirrhosis. note I was called by RN this morning after the patient ceased to breathe. On my bedside evaluation, patient was pulseless and not breathing. Pupils non reactive. Corneal reflexes absent. Heart sounds and pulses absent. was pronounced on 08/14/2022 at 8:45 am. Family was present at the room during the pronouncement. Total Time Total Time Spent Total Time Spent (In Minutes): 20 Discharge Plan Discharge Items Patient Disposition: Discharge Diagnosis: Acute hypoxic respiratory failure due to hepatopulmonary syndrome due to decompensated liver cirrhosis Other Date/Time: 08/14/22 08:45
--- NOTE | 2022-08-14 09:22 | Pulmonology Progress Note ---
Date of Service August 14, 2022 Assessment & Plan (1) Decompensated hepatic cirrhosis: (2) Alveolar emphysema of lung: (3) Multiple pulmonary nodules: (4) History of tobacco abuse: (5) Acute respiratory failure with hypoxia: (6) Pulmonary hypertension: (7) Hemoptysis: (8) Hepatopulmonary syndrome: (9) (HFpEF) heart failure with preserved ejection fraction: Plan Chest x-ray 08/11/2022 personally reviewed: Good inspiratory effort, increase vascular markings, bilateral costophrenic and cardiophrenic angles are blunted, increased cardiac silhouette 2D echo 08/12/2022: EF 65-70%, mild MR, trace TR, grade 1 diastolic dysfunction, RV normal in size and function. -- Acute hypoxic respiratory failure Multifactorial Agitated contrast did show right to left shunt which goes with hepatopulmonary syndrome given the patient's history Procalcitonin 0.08 BNP 559 SARS NAAT negative, influenza A/B negative Continue with O2 supplementation to keep oxygen saturation between 90-92% -- Hemoptysis Patient does have history of pulmonary alveolar hemorrhage Autoimmune work-up was negative back in January 2019 and likelihood of her underlying etiology was coagulopathy from liver disease Patient was briefly on steroids but was discontinued October 2019 Nebulized tranexamic acid 500 milligrams 3 times daily could be used but patient stated that any nebulizer treatment makes her cough which will be counterpro ductive --Emphysema Not on any inhalers at home Not in any exacerbation PFTs 03/30/2021:No obstructive lung dysfunction, insignificant bronchodilator response, severe decrease in ERV, moderate decrease in DLCO which partially corrects for VA (Decrease in FVC by 290 mL, decrease in FEV1 by 340 mL, patient gained 62 pounds compared to 03/2020) FVC 2.59 L 87%, FEV1 2.28 L 94%, FEV1/FVC 88%, ERV 2%, RV 84%, TLC 89%, RV/TLC 94% 2D echo 05/22/2020:EF 55 to 60%, moderate MR, RVSP 30-40 --Multiple pulmonary nodules Largest being 5 mm in the right middle lobe followed by 4 mm in the right lower lobe, stable since 03/2020. To me it seems like scarring from the significant valvular damage she had during the hospitalization of January 2019 Patient does have history of [id number] smoking --Pulmonary Hypertension Likely combination of type II and type III Patient's BMI of 37 also likely playing it's part --Greater than [id number] smoking history Quit 2008 Advised to continue with abstinence --DNR/DNI plan: In/out: -849, urine output 950, + 2.6 L since coming to the hospital Recommend negative balance. For hepatopulmonary syndrome is symptomatic management, the best chance for the patient would be to have liver transplant. Lying supine would help increase oxygenation but patient complains of significant coughing when laying down. She did have a talk along with her with the director of business systems and they did not want to pursue this route. She is waiting for her children to come in and then she prefers to go comfort measures. All questions inquiries of the patient as well as patient's were answered in depth Case was discussed with RN at bedside Please note the above document was generated using voice recognition software. It may contain grammatical, syntax or spelling errors.Any formal questions or concerns about the content, text or information contained within the body of this dictation should be directly addressed to the provider for clarification. Admission and Anticipated Discharge Date Admission Date: August 10, 2022 Review of Systems Review of Systems: All systems reviewed & are unremarkable except as noted in Subjective Physical Exam Physical Exam: Constitutional: No acute distress HEENT: EOMI, PERRLA, scleral icterus Respiratory system: Decreased air entry bilaterally, no wheeze, no rhonchi, positive crackles bilaterally CVS: S1-S2 positive, positive 2 out of 6 systolic murmur appreciated best at apex Abdomen: Soft, nontender, nondistended, positive bowel sounds x4, obese Extremities: +2 pulses bilaterally radialis/ dorsalis pedis, no cyanosis, +3 pitting edema bilateral lower extremity Neuro: Awake alert oriented x3 Psych: Normal mood and affect G/U: No [place] Skin: no rashes, warm and dry Lymphatic: no cervical or axillary lymphadenopathy Results & Data Results & Data Vital Signs (Past 12 Hours) Vital Signs Pulse Resp Pulse Ox FiO2 08/14/22 03:21 118 H 23 80 L 100 08/13/22 22:00 112 H 21 88 L 100 Laboratory Results 08/12/22 19:37 08/12/22 06:06 PG Care Time/CCT Total # of Minutes Spent Total Time Spent with Patient: Total time spent is greater than 50% in coordination of care (as documented) at patient's floor/unit and/or counseling patient: Coding Level of Care Code 59675 SUB INP/OBS CARE 2/35MIN Diagnoses Decompensated hepatic cirrhosis K72.90; K74.60 Alveolar emphysema of lung J43.1 Multiple pulmonary nodules R91.8 History of tobacco abuse Z87.891 Acute respiratory failure with hypoxia J96.01 Pulmonary hypertension I27.20 Hemoptysis R04.2 Hepatopulmonary syndrome K76.81 (HFpEF) heart failure with preserved ejection fraction I50.30
== END 2022-08-14 11:35 | disposition expired | DRG 432 ==
LOC: ED 15:59 → 2S 23:17 → SUATTDRO 23:17 → 2S 23:46 → 1E 08-12 05:59 → 3W 08-13 15:11